=== PATIENT | female | born 1940 | race Caucasian/White ===

== ENCOUNTER → 2018-01-28 10:37 | Outpatient (CLI) | payer MEDICARE, SELFPAY ==
[2018-01-28 12:45] LABS: Appearance Urine UA CLOUDY; Bilirubin Urine UA NEGATIVE (NEGATIVE); Color Urine UA YELLOW; Glucose Urine UA NEGATIVE (Negative); Ketones Urine UA NEGATIVE (NEGATIVE); Leukocyte Esterase Urine UA 3+ (NEGATIVE); Nitrite Urine UA POSITIVE (Negative); Occult Blood Urine UA TRACE-LYSED (Negative); Protein Urine UA NEGATIVE (Negative); Specific Gravity Urine UA 1.015 (1.000-1.035); Urobilinogen Urine UA 0.2 E.U./dL (0.2); pH Urine UA 6.5 (4.5-8.0)
[2018-01-28 12:51] LABS: Bacteria Urine Many (>30); Culture Indicated Urine Specimen Cultured; RBC Urine 1-5/HPF (0-5/HPF); Squamous Epithelial Cell Urine 0-1 /HPF; WBC Urine 30-100/HPF (0-5/HPF)
== END ==
PROVIDERS: PCP Family Medicine; Visit Provider Internal Medicine
DX: R78.81 Bacteremia (principal)
CPT/HCPCS: 81003; 81015; 87086; 87186

== ENCOUNTER → 2018-03-14 08:02 | Outpatient (CLI) | payer MEDICARE, SELFPAY ==
[2018-03-14 10:46] LABS: Alanine Aminotransferase 25 IU/L (9-52); Albumin 4.3 g/dL (3.5-5.0); Albumin Globulin Ratio 1.4 (1.0-2.8); Alkaline Phosphatase 65 U/L (38-126); Aspartate Aminotransferase 35 IU/L (14-36); BUN Creatinine Ratio 22.9 (6-22); Bilirubin Total 0.6 mg/dL (0.2-1.3); Blood Urea Nitrogen 16 mg/dL (7-17); Calcium 9.3 mg/dL (8.4-10.2); Carbon Dioxide 29 mmol/L (22-32); Chloride 101 mmol/L (98-107); Estimated Glomerular Filt Rate > 60.0 mL/min (>60); Globulin 3.1 g/dL (1.7-4.1); Glucose 83 mg/dL (80-110); HEMOLYSIS 16 (0-50); Potassium 4.3 mmol/L (3.4-5.1); Sodium 138 mmol/L (137-145); Total Protein 7.4 g/dL (6.3-8.2)
[2018-03-14 12:18] LABS: Free T3, Triiodothyronine Free 2.83 pg/mL (2.77-5.27); Free T4, Direct Thyroxine 1.44 ng/dL (0.78-2.19)
[2018-03-14 12:31] LABS: Thyroid Stimulating Hormone 1.71 uIU/mL (0.47-4.68)
== END ==
PROVIDERS: PCP Family Medicine; Visit Provider Internal Medicine
DX: R79.89 Other specified abnormal findings of blood chemistry (principal); R63.4 Abnormal weight loss
CPT/HCPCS: 36415; 80053; 84439; 84443; 84481

== ENCOUNTER → 2018-03-31 12:11 | Outpatient (CLI) | payer MEDICARE, SELFPAY ==
[2018-03-31 15:45] LABS: Appearance Urine UA CLOUDY; Bilirubin Urine UA NEGATIVE (NEGATIVE); Color Urine UA YELLOW; Glucose Urine UA NEGATIVE (Normal); Ketones Urine UA NEGATIVE (NEGATIVE); Leukocyte Esterase Urine UA 3+ (NEGATIVE); Nitrite Urine UA POSITIVE (Negative); Occult Blood Urine UA 1+ (Negative); Protein Urine UA TRACE (Negative); Specific Gravity Urine UA 1.015 (1.000-1.035); Urobilinogen Urine UA 0.2 E.U./dL (0.2)
[2018-03-31 16:26] LABS: RBC Urine 1-5/HPF (0-5/HPF); Renal Epithelial Cells Urine 0-1/HPF; Squamous Epithelial Cell Urine 1-5 /HPF; WBC Urine 30-100/HPF (0-5/HPF)
[2018-03-31 16:27] LABS: Amorphous Sediment Urine 1+; Bacteria Urine Many (>30); Culture Indicated Urine Specimen Cultured; Mucus Urine 1+ (Negative)
== END ==
PROVIDERS: PCP Family Medicine; Visit Provider Family Medicine
DX: N39.0 Urinary tract infection, site not specified (principal)
CPT/HCPCS: 81001; 87077; 87086; 87186

== ENCOUNTER → 2018-04-15 07:58 | Outpatient (CLI) | payer MEDICARE, SELFPAY ==
--- NOTE | 2018-04-15 | DI.MG.S_ITS ---
BILATERAL DIGITAL SCREENING MAMMOGRAM 3D/2D WITH CAD: 04/15/2018 CLINICAL: Routine screening. Family history of breast cancer. Comparison is made to exams dated: 10/08/2016 mammogram, 04/23/2014 mammogram, and 08/08/2012 mammogram - [facility]. The tissue of both breasts is heterogeneously dense. This may lower the sensitivity of mammography. Current study was also evaluated with a Computer Aided Detection (CAD) system. There are post operative findings in the right breast. No significant masses, calcifications, or other findings are seen in either breast. There has been no significant interval change. IMPRESSION: NEGATIVE There is no mammographic evidence of malignancy. A 1 year screening mammogram is recommended. This exam was interpreted at Station ID: [id number]. NOTE: For mammograms, a report in lay terms will be sent to the patient. Approximately 15% of breast malignancies will not be visualized mammographically. In the management of a palpable breast mass, a negative mammogram must not discourage biopsy of a clinically suspicious lesion. Electronically Signed By: Carolina rivera/malcolm:04/15/2018 09:26:52 copy to: Wiley Johnson letter sent: Normal Exam ACR BI-RADS Category 1: Negative [id number]
== END ==
PROVIDERS: PCP Family Medicine; Visit Provider Family Medicine
DX: Z12.31 Encounter for screening mammogram for malignant neoplasm of breast (principal); Z80.3 Family history of malignant neoplasm of breast
CPT/HCPCS: 77063; 77067

== ENCOUNTER → 2018-05-05 15:21 | Outpatient (CLI) | payer MEDICARE, SELFPAY | PROVIDERS: PCP Family Medicine; Visit Provider Internal Medicine ==

== ENCOUNTER → 2018-05-11 15:35 | Outpatient (CLI) | payer MEDICARE, SELFPAY ==
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
== END ==
PROVIDERS: PCP Family Medicine; Visit Provider Internal Medicine
DX: S81.002A Unspecified open wound, left knee, initial encounter (principal)
CPT/HCPCS: 11042

== ENCOUNTER → 2018-05-18 10:26 | Outpatient (CLI) | payer MEDICARE, SELFPAY ==
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
== END ==
PROVIDERS: PCP Family Medicine; Visit Provider Internal Medicine
DX: S81.002A Unspecified open wound, left knee, initial encounter (principal)
CPT/HCPCS: 11042

== ENCOUNTER → 2018-05-25 10:27 | Outpatient (CLI) | payer MEDICARE, SELFPAY | PROVIDERS: PCP Family Medicine; Visit Provider Internal Medicine | DX: S81.002A Unspecified open wound, left knee, initial encounter (principal) | CPT/HCPCS: 11042 ==

== ENCOUNTER → 2018-06-02 10:30 | Outpatient (CLI) | payer MEDICARE, SELFPAY ==
[2018-06-02 11:25] LABS: Add Manual Diff / Slide Review NO; Basophils Percent Auto 0.7 % (0-2); Eosinophils Percent Auto 1.5 % (2-4); Hematocrit 43.1 % (36-46); Hemoglobin 14.3 g/dL (12.0-16.0); Lymphocytes Percent Auto 15.8 % (25-40); Mean Corpuscular HGB Conc 33.1 % (30-36); Mean Corpuscular Hemoglobin 32.3 PG (26-34); Mean Corpuscular Volume 97.6 fL (80-100); Neutrophils Absolute Auto 3300 /uL (3000-5900); Platelet Count 199 X10^3/uL (150-400); Red Blood Cell Count 4.42 X10^6/uL (4.0-5.2); Red Cell Distribution Width 13.6 % (11.6-14.8); White Blood Cell Count 4.6 X10^3/uL (4.5-11.0)
[2018-06-02 11:44] LABS: Blood Urea Nitrogen 20 mg/dL (7-17); Calcium 9.1 mg/dL (8.4-10.2); Carbon Dioxide 30 mmol/L (22-32); Chloride 101 mmol/L (98-107); Estimated Glomerular Filt Rate > 60.0 mL/min (>60); Glucose 65 mg/dL (80-110); HEMOLYSIS 45 (0-50); Magnesium 2.1 mg/dL (1.6-2.3); Potassium 4.5 mmol/L (3.4-5.1); Sodium 139 mmol/L (137-145)
== END ==
PROVIDERS: PCP Family Medicine; Visit Provider Family Medicine
DX: R25.2 Cramp and spasm (principal); E03.9 Hypothyroidism, unspecified
CPT/HCPCS: 36415; 80048; 83735; 84443; 85025

== ENCOUNTER → 2018-07-19 10:57 | Outpatient (CLI) | payer MEDICARE, SELFPAY ==
--- NOTE | 2018-07-19 11:00 | DI.RAD.S_ITS ---
PROCEDURE: XR HAND LT MIN 3V INDICATIONS: hand swelling TECHNIQUE: 3 views of the hand(s) acquired. COMPARISON: , MR, UPP.EXTREM.NO JOINT W&WO CONTR, 02/14/2016, 12:38. FINDINGS: Bones: Severe degenerative changes of the all of the joints of the hand are identified, most pronounced involving the metacarpal phalangeal and interphalangeal joints. Prominent joint space narrowing, developing marginal osteophytes, subchondral cystic change, subchondral sclerosis, and joint subluxations are identified. There may be areas of osseous erosion involving multiple joints. There also are severe degenerative changes present involving the basal joint of the thumb and at the radiocarpal joint. There is widening of the scapholunate joint. A moderate-sized lucency involving the head of the 2nd metacarpal is present measuring 1.9 x 1.0 cm. No displaced fractures or dislocations are evident. Soft tissues: No suspicious soft tissue calcifications. No radiopaque foreign bodies are evident. IMPRESSION: 1. No definite acute osseous abnormality of the left hand. 2. Severe degenerative changes of the hand are most pronounced involving the metacarpophalangeal and interphalangeal joints, compatible with the patient's history of rheumatoid arthritis. 3. Lucent lesion involving the head of the 2nd metacarpal may be exaggerated by osteopenia and likely represents degenerative cystic change. Enchondroma formation may also have this appearance. This appearance has not significantly changed since the MRI dated 02/14/16, suggesting a benign process. Dictated by: Mir Reid M.D. on 07/19/2018 at 10:32 Approved by: Mir Reid M.D. on 07/19/2018 at 10:38
== END ==
PROVIDERS: PCP Family Medicine; Visit Provider Physician Assistant
DX: M79.89 Other specified soft tissue disorders (principal); M19.042 Primary osteoarthritis, left hand; M06.842 Other specified rheumatoid arthritis, left hand
CPT/HCPCS: 73130

== ENCOUNTER → 2018-08-26 18:07 | Outpatient (REF) | payer MEDICARE, SELFPAY | LOC: LAB 18:07 | PROVIDERS: PCP Family Medicine; Visit Provider Physician Assistant | DX: Z48.817 Encounter for surgical aftercare following surgery on the skin and subcutaneous tissue (principal); Z48.02 Encounter for removal of sutures | CPT/HCPCS: 87070; 87075; 87205 ==

== ENCOUNTER → 2018-09-12 11:23 | Outpatient (CLI) | payer MEDICARE, SELFPAY ==
[2018-09-13 15:07] LABS: Immunoglobulin M, Quantitative 85 mg/dL (48-271)
== END ==
PROVIDERS: PCP Family Medicine; Visit Provider Internal Medicine Rheumatology
DX: M06.09 Rheumatoid arthritis without rheumatoid factor, multiple sites (principal)
CPT/HCPCS: 36415; 82784; 86480; 86704; 87340

== ENCOUNTER 2018-09-14 08:20 | Day surgery (SDC) | payer MEDICARE, SELFPAY ==
[2018-09-14] VITALS (7 sets, daily range): BP systolic 100–127; BP diastolic 58–72; PULSE 60–73; RESP 14–22; TEMP 36.4–37; O2SAT 94–100; BMI 16.8
--- NOTE | 2018-09-14 | PATH_ITS ---
[facility] Accession Number: [id number] . 01 Material submitted: . ASCENDING COLON POLYP . 02 Diagnosis: Ascending Colon, Polyp, Biopsy: Sessile serrated adenoma. [facility]/09/15/2018 . 02 Electronically signed: . Tanya Ramirez MD, Pathologist NPI- [id number] . 01 Gross description: . Received in one formalin-filled container labeled with the patient's name and labeled ascending colon polyp are four 0.1-0.3 cm portions of tissue, entirely submitted in one cassette. ([id number]) /FRR . 02 Pathologist provided ICD-10: D12.2 . 02 CPT . 709149 Performed at: 01 [facility] [address] [place] [address], [place], [place] [id number] MD Vaughn Thomas MD Phone: [phone] Performed at: 02 [facility] [address] [place], [place] [id number] MD Tanya Ramirez MD Phone: [phone]
[2018-09-14] MEDS: SODIUM CHLORIDE 0.9% 1,000 ML 75 ML IV (09:11)
--- NOTE | 2018-09-14 09:31 | PM.PREOP ---
Pre-operative Note Interval Note History & Physical reviewed/Exam performed by Physician: Yes Changes to H&P: No H&P completed within 30 days and has changed as indicated here:: change in bowel habits, new constipation ASA Class (for procedural sedation): II
--- NOTE | 2018-09-14 09:32 | PM.HP.1 ---
History of Present Illness Date Patient Seen: 09/14/18 Time Patient Seen: 09:10 Chief complaint: [id number] COLONOSCOPY W/POSS BX Narrative: Change in bowel habits with new constipation Patient History Medical History Hypothyroid (Chronic) Neurogenic bladder (Chronic) Lymphedema (Chronic) Anemia (Chronic) Genital herpes (Chronic) Hypothyroidism (Chronic) Neurogenic bladder (Chronic) Osteoarthritis (Chronic) Septic arthritis of hip (Chronic) Vitamin B12 deficiency (Chronic) Breast cancer (Resolved) Cervical cancer (Resolved) Surgical History History of arthroplasty (Resolved ~2013) Status post hardware removal (Resolved ~2009) Surgical procedure planned (Resolved ~2006) History of hip replacement History of spinal fusion (~2013) History of third molar tooth extraction Status post breast lumpectomy Status post hysterectomy with oophorectomy Status post laminectomy Status post tonsillectomy and adenoidectomy Family & Social History Social History: household members none Tobacco & Substance use: Smoking Status Never smoker Meds Home Medications Medication Instructions Recorded Confirmed Type Fish Oil 1,000 mg PO Q DAY #0 02/02/13 07/19/18 History VITAMIN D (Vitamin D3) 1,000 unit PO QDAY #0 02/02/13 07/19/18 History celecoxib [Celebrex] 200 mg PO QDAY #200 cap 08/27/16 07/19/18 Rx biotin 500 mcg PO Q DAY #0 10/06/16 07/19/18 History [CMP ESTRIOL 0.2%] 0 Q DAY #0 12/03/16 07/19/18 History ketorolac [Acular] 1 drp OPHTH QIDP PRN #10 ml 06/18/17 07/19/18 Rx nystatin-triamcinolone 1 rajinder TOPICAL BID #30 gm 02/10/18 07/19/18 Rx acyclovir 400 mg tablet 400 mg PO SEE INSTRUCTIONS #100 tab 02/23/18 09/14/18 Rx levothyroxine 50 mcg tablet 50 mcg PO DAILY #90 tab 03/31/18 09/14/18 Rx syringe with needle 1 mL 25 gauge #12 each 07/21/18 Rx x 1 cyanocobalamin (vit B-12) 1,000 1,000 mcg IM QMONTH #12 each 08/01/18 Rx mcg/mL injection solution lorazepam 0 mg PO BIDP PRN 09/14/18 09/14/18 History Allergies Allergy/AdvReac Type Severity Reaction Status Date / Time No Known Allergies Allergy Uncoded 04/21/18 14:58 Review of Systems Review of Systems All systems reviewed & are unremarkable except as noted in HPI and below Exam Vital Signs (past 8 hours): - 09/14/18 08:46 Temperature 98.4 F Pulse Rate 73 Respiratory Rate 16 Blood Pressure 127/72 Pulse Oximetry 94 Oxygen Delivery Method Room Air Narrative Exam Narrative: General awake alert oriented x3, no acute distress HEENT oropharynx clear, moist mucous membranes, no scleral icterus Cardiovascular regular rate and rhythm, no murmurs Pulmonary clear to auscultation bilaterally Abdomen soft, nontender, nondistended, normal active bowel sounds Extremities 2+ pulses, no edema Neurologic, cranial nerves grossly intact, no gross deficits Objective ECG Impression: Change in bowel habits Assessment & Plan Plan: Assessment/Plan Narrative: Colonoscopy
[2018-09-14] MEDS: fentaNYL 250 MCG/5 ML INJ IV (10:06)
[2018-09-14] MEDS: MIDAZOLAM 5 MG/5 ML VIAL IV (10:07)
--- NOTE | 2018-09-14 10:15 | PM.OP.ENDO ---
Operative Date/Time/Diagnoses Date of procedure: 09/14/18 Time of procedure: 09:43 Procedure & Clinicians Study performed: Colonoscopy Same procedure as scheduled: Yes Indications: Change in bowel habits, constipation. Last colonoscopy 5 years ago. Surgeon: Caleb Ramos Procedure Notes Procedure in detail: Prior to the procedure a history and physical was performed and patient medications and allergies reviewed. Preprocedure nursing assessment was reviewed. Patient identification and proposed procedure were verified by the physician and nurse in the procedure room. The physical status of the patient was reassessed after the procedure. After informed consent was obtained including risks benefits and alternatives, the scope was passed under direct vision. Throughout the procedure, the patient's blood pressure, pulse, and oxygen saturation were monitored continuously. The pediatric colonoscope was introduced through the anus and advanced to the cecum as identified by the appendiceal orifice and ileocecal valve. The patient tolerated the procedure well. The prep was deemed adequate detection of polyps greater than 5 mm. Perianal examination and digital rectal examination was normal except for weak sphincter tone. Retroflexion performed in the rectum revealed grade 2 internal hemorrhoids. The entire colon was moderately tortuous. A 5 mm sessile polyp was noted in the ascending colon. This was removed in piecemeal with a Jumbo biopsy forceps and retrieved. Sedation minutes: 24 Complications: other (No complications. Estimated blood loss minimal) Plan for aftercare: Follow-up pathology results Repeat colonoscopy in 5 years for screening purposes based on pathology results Resume previous diet Resume home medications Return to GI clinic as previously scheduled Discharge home with escort
--- NOTE | 2018-09-14 10:17 | SUR.PHASEI ---
Arrived, arousable, vss.
--- NOTE | 2018-09-14 10:33 | SUR.PHASEI ---
Slow to wake otherwise uneventful PACU stay.
== END 2018-09-14 10:55 | disposition home or self-care (01) ==
PROVIDERS: PCP Family Medicine; Visit Provider Internal Medicine
PROC: 0DJD8ZZ Inspection of Lower Intestinal Tract, Via Natural or Artificial Opening Endoscopic (ICD-10-PCS; CPT 45378; principal; 2018-09-14 09:30)
DX: R19.4 Change in bowel habit (principal); K64.1 Second degree hemorrhoids; D12.2 Benign neoplasm of ascending colon; E03.9 Hypothyroidism, unspecified; D64.9 Anemia, unspecified; E53.8 Deficiency of other specified B group vitamins; N31.9 Neuromuscular dysfunction of bladder, unspecified
CPT/HCPCS: 45380; 88305; J2250; J3010

== ENCOUNTER → 2018-09-27 13:56 | Outpatient (REF) | payer MEDICARE, SELFPAY | LOC: LAB 13:56 | PROVIDERS: PCP Family Medicine; Visit Provider Dermatology | DX: Z48.817 Encounter for surgical aftercare following surgery on the skin and subcutaneous tissue (principal); L82.1 Other seborrheic keratosis; L81.4 Other melanin hyperpigmentation | CPT/HCPCS: 87070; 87075; 87205 ==

== ENCOUNTER → 2018-09-27 17:04 | Outpatient (CLI) | payer MEDICARE, SELFPAY ==
[2018-09-29 14:27] LABS: Immunoglobulin A 128 mg/dL (81-463); Immunoglobulin G, Quantitative 924 mg/dL (694-1618)
[2018-09-30 07:34] LABS: Immunoglobulin E 48 kU/L (< 115)
== END ==
PROVIDERS: PCP Family Medicine; Visit Provider Internal Medicine Rheumatology
DX: M06.09 Rheumatoid arthritis without rheumatoid factor, multiple sites (principal)
CPT/HCPCS: 36415; 82784; 82785; 87070; 87075; 87205

== ENCOUNTER → 2018-10-21 12:39 | Outpatient (CLI) | payer MEDICARE, SELFPAY ==
[2018-10-21 13:34] LABS: Alanine Aminotransferase 22 IU/L (9-52); Albumin Globulin Ratio 1.4 (1.0-2.8); Alkaline Phosphatase 58 U/L (38-126); Aspartate Aminotransferase 32 IU/L (14-36); BUN Creatinine Ratio 27.1 (6-22); Bilirubin Total 0.3 mg/dL (0.2-1.3); Blood Urea Nitrogen 19 mg/dL (7-17); Calcium 9.1 mg/dL (8.4-10.2); Carbon Dioxide 30 mmol/L (22-32); Chloride 96 mmol/L (98-107); Estimated Glomerular Filt Rate > 60.0 mL/min (>60); Globulin 2.8 g/dL (1.7-4.1); Glucose 117 mg/dL (80-110); HEMOLYSIS < 15 (0-50); Potassium 4.5 mmol/L (3.4-5.1); Sodium 134 mmol/L (137-145); Total Protein 6.8 g/dL (6.3-8.2)
[2018-10-21 13:58] LABS: Add Manual Diff / Slide Review NO; Basophils Absolute Auto 0 /uL (0-100); Basophils Percent Auto 0.8 % (0-2); Eosinophils Absolute Auto 0 /uL (0-450); Eosinophils Percent Auto 0.7 % (2-4); Hematocrit 40.9 % (36-46); Hemoglobin 13.4 g/dL (12.0-16.0); Lymphocytes Absolute Auto 900 /uL (1100-4500); Lymphocytes Percent Auto 20.9 % (25-40); Mean Corpuscular HGB Conc 32.8 % (30-36); Mean Corpuscular Hemoglobin 31.1 PG (26-34); Mean Corpuscular Volume 94.7 fL (80-100); Monocytes Absolute Auto 500 /uL (0-900); Monocytes Percent Auto 11.3 % (3-14); Neutrophils Absolute Auto 3000 /uL (1500-7000); Neutrophils Percent Auto 66.3 % (50-75); Platelet Count 190 X10^3/uL (150-400); Red Blood Cell Count 4.32 X10^6/uL (4.0-5.2); White Blood Cell Count 4.5 X10^3/uL (4.5-11.0)
[2018-10-21 14:05] LABS: TSH w/ Reflex to FT4 3.27 uIU/mL (0.47-4.68)
== END ==
PROVIDERS: PCP Family Medicine; Visit Provider Family Medicine
DX: E03.9 Hypothyroidism, unspecified (principal); I49.9 Cardiac arrhythmia, unspecified
CPT/HCPCS: 36415; 80053; 84443; 85025

== ENCOUNTER → 2018-10-31 10:30 | Outpatient (CLI) | payer MEDICARE, SELFPAY | PROVIDERS: PCP Family Medicine; Visit Provider Podiatrist Primary Podiatric Medicine | DX: S81.802A Unspecified open wound, left lower leg, initial encounter (principal); G90.9 Disorder of the autonomic nervous system, unspecified; L97.511 Non-pressure chronic ulcer of other part of right foot limited to breakdown of skin | CPT/HCPCS: 11042; 97597 ==

== ENCOUNTER → 2018-11-07 09:33 | Outpatient (CLI) | payer MEDICARE, SELFPAY ==
--- NOTE | 2018-11-25 15:54 | PM.CARDMON.1 ---
Pulp Beater Report Referral & Results Date Patient Seen: 11/07/18 Requesting provider: Arleen Ybarra Indication: Arrhythmia Duration of monitoring (days): 6 Diary information: 1 patient diary entry associated with sinus rhythm and PACs 9 patient triggered events associated with sinus rhythm and PACs Data: Minimum heart rate was 40 beats per minute at 05:20 on 11/10/2018 Maximum sinus heart rate was 137 beats per minute at 09:40 on 11/11/2018 Maximum overall heart rate was 193 beats per minute at 18:48 on 11/07/2018 associated with a 6 beat run of SVT Patient had 21 runs of SVT the longest lasted 11.2 seconds with a rate of 121 beats per minute, so a somewhat atypical SVT or perhaps atrial tachycardia. 3.1% of identified beats were supraventricular ectopic in origin Less than 1% of identified beats were ventricular ectopic in origin Impression: This isotope technician shows occasional PACs and rare very brief runs of a supraventricular tachycardic source If there is any correlation between patient's symptoms and identify dysrhythmias patient may be experiencing her PACs occasionally. Clinical correlation suggested
--- NOTE | 2018-11-25 16:05 | P.HOLT.S_ITS ---
Manager Fashion Report Referral & Results Date Patient Seen: 11/07/18 Requesting provider: Arleen Ybarra Indication: Arrhythmia Duration of monitoring (days): 6 Diary information: 1 patient diary entry associated with sinus rhythm and PACs 9 patient triggered events associated with sinus rhythm and PACs Data: Minimum heart rate was 40 beats per minute at 05:20 on 11/10/2018 Maximum sinus heart rate was 137 beats per minute at 09:40 on 11/11/2018 Maximum overall heart rate was 193 beats per minute at 18:48 on 11/07/2018 associated with a 6 beat run of SVT Patient had 21 runs of SVT the longest lasted 11.2 seconds with a rate of 121 beats per minute, so a somewhat atypical SVT or perhaps atrial tachycardia. 3.1% of identified beats were supraventricular ectopic in origin Less than 1% of identified beats were ventricular ectopic in origin Impression: This compliance monitor shows occasional PACs and rare very brief runs of a supraventricular tachycardic source If there is any correlation between patient's symptoms and identify dysrhythmias patient may be experiencing her PACs occasionally. Clinical correlation suggested
== END ==
PROVIDERS: PCP Family Medicine; Visit Provider Family Medicine
DX: I49.9 Cardiac arrhythmia, unspecified (principal)
CPT/HCPCS: 0296T; 0298T; 11042; 99213

== ENCOUNTER → 2018-11-07 10:48 | Outpatient (CLI) | payer MEDICARE, SELFPAY | PROVIDERS: PCP Family Medicine; Visit Provider Podiatrist Primary Podiatric Medicine | DX: G90.9 Disorder of the autonomic nervous system, unspecified (principal); L97.511 Non-pressure chronic ulcer of other part of right foot limited to breakdown of skin; T81.31XA Disruption of external operation (surgical) wound, not elsewhere classified, initial encounter; S81.802A Unspecified open wound, left lower leg, initial encounter | CPT/HCPCS: 11042; 99213 ==

== ENCOUNTER → 2018-11-14 09:00 | Outpatient (CLI) | payer MEDICARE, SELFPAY | PROVIDERS: PCP Family Medicine; Visit Provider Podiatrist Primary Podiatric Medicine | DX: S81.802D Unspecified open wound, left lower leg, subsequent encounter (principal); Z48.817 Encounter for surgical aftercare following surgery on the skin and subcutaneous tissue; L84 Corns and callosities | CPT/HCPCS: 99212; 99213 ==

== ENCOUNTER → 2018-11-28 11:07 | Outpatient (CLI) | payer MEDICARE, SELFPAY | PROVIDERS: PCP Family Medicine; Visit Provider Family Medicine | DX: L89.892 Pressure ulcer of other site, stage 2 (principal); S81.802A Unspecified open wound, left lower leg, initial encounter | CPT/HCPCS: 11042; 99213 ==

== ENCOUNTER → 2018-12-05 09:01 | Outpatient (CLI) | payer MEDICARE, SELFPAY | PROVIDERS: PCP Family Medicine; Visit Provider Podiatrist Primary Podiatric Medicine | DX: L97.822 Non-pressure chronic ulcer of other part of left lower leg with fat layer exposed (principal); L89.893 Pressure ulcer of other site, stage 3 | CPT/HCPCS: 97597 ==

== ENCOUNTER → 2018-12-12 15:02 | Outpatient (CLI) | payer MEDICARE, SELFPAY | PROVIDERS: PCP Family Medicine; Visit Provider Family Medicine | DX: L89.893 Pressure ulcer of other site, stage 3 (principal); S81.802A Unspecified open wound, left lower leg, initial encounter; T81.31XA Disruption of external operation (surgical) wound, not elsewhere classified, initial encounter | CPT/HCPCS: 97597; 99213 ==

== ENCOUNTER → 2018-12-19 09:18 | Outpatient (CLI) | payer MEDICARE, SELFPAY | PROVIDERS: PCP Family Medicine; Visit Provider Podiatrist Primary Podiatric Medicine | DX: L97.822 Non-pressure chronic ulcer of other part of left lower leg with fat layer exposed (principal) | CPT/HCPCS: 97597; 99214 ==

== ENCOUNTER → 2018-12-20 10:42 | Outpatient (CLI) | payer MEDICARE, SELFPAY ==
[2018-12-20 11:45] LABS: Appearance Urine UA SL CLOUDY; Bilirubin Urine UA NEGATIVE (NEGATIVE); Color Urine UA YELLOW; Glucose Urine UA NEGATIVE (Negative); Ketones Urine UA NEGATIVE (NEGATIVE); Leukocyte Esterase Urine UA 3+ (NEGATIVE); Nitrite Urine UA NEGATIVE (Negative); Occult Blood Urine UA NEGATIVE (Negative); Protein Urine UA NEGATIVE (Negative); Urobilinogen Urine UA 0.2 E.U./dL (0.2)
[2018-12-20 12:03] LABS: Bacteria Urine Many (>30); Culture Indicated Urine Cult Not Indicated; RBC Urine 1-5/HPF (0-5/HPF); Squamous Epithelial Cell Urine 10-30 /HPF (0-5/HPF); WBC Urine 10-30/HPF (0-5/HPF)
== END ==
PROVIDERS: PCP Family Medicine
DX: R30.0 Dysuria (principal)
CPT/HCPCS: 81001

== ENCOUNTER → 2018-12-26 09:17 | Outpatient (CLI) | payer MEDICARE, SELFPAY | PROVIDERS: PCP Family Medicine; Visit Provider Podiatrist Primary Podiatric Medicine | DX: S81.802A Unspecified open wound, left lower leg, initial encounter (principal); T81.31XA Disruption of external operation (surgical) wound, not elsewhere classified, initial encounter | CPT/HCPCS: 97597; 99213 ==

== ENCOUNTER → 2019-01-02 09:20 | Outpatient (CLI) | payer MEDICARE, SELFPAY | PROVIDERS: PCP Family Medicine; Visit Provider Podiatrist Primary Podiatric Medicine | DX: S81.802A Unspecified open wound, left lower leg, initial encounter (principal); T81.31XA Disruption of external operation (surgical) wound, not elsewhere classified, initial encounter; L84 Corns and callosities | CPT/HCPCS: 11057; 97597; 99214 ==

== ENCOUNTER → 2019-01-05 15:40 | Outpatient (CLI) | payer MEDICARE, SELFPAY ==
[2019-01-05 16:25] LABS: Estimated Glomerular Filt Rate > 60.0 mL/min (>60)
== END ==
PROVIDERS: PCP Family Medicine; Visit Provider Internal Medicine Gastroenterology
DX: R10.9 Unspecified abdominal pain (principal)
CPT/HCPCS: 36415; 82565

== ENCOUNTER → 2019-01-09 09:44 | Outpatient (CLI) | payer MEDICARE, SELFPAY | PROVIDERS: PCP Family Medicine; Visit Provider Podiatrist Primary Podiatric Medicine | DX: T81.31XA Disruption of external operation (surgical) wound, not elsewhere classified, initial encounter (principal); S81.802A Unspecified open wound, left lower leg, initial encounter | CPT/HCPCS: 87070; 87077; 87147; 87186; 87205; 97597; 99213 ==

== ENCOUNTER → 2019-01-12 16:19 | Outpatient (CLI) | payer MEDICARE, SELFPAY | PROVIDERS: PCP Family Medicine; Visit Provider Urology | DX: R30.0 Dysuria (principal) | CPT/HCPCS: 87077; 87086; 87186 ==

== ENCOUNTER → 2019-01-16 09:59 | Outpatient (CLI) | payer MEDICARE, SELFPAY | PROVIDERS: PCP Family Medicine; Visit Provider Podiatrist Primary Podiatric Medicine | DX: T81.31XA Disruption of external operation (surgical) wound, not elsewhere classified, initial encounter (principal); S81.802A Unspecified open wound, left lower leg, initial encounter | CPT/HCPCS: 15271; Q4196 ==

== ENCOUNTER → 2019-01-23 11:16 | Outpatient (CLI) | payer MEDICARE, SELFPAY | PROVIDERS: PCP Family Medicine; Visit Provider Podiatrist Primary Podiatric Medicine | DX: L89.892 Pressure ulcer of other site, stage 2 (principal); L97.822 Non-pressure chronic ulcer of other part of left lower leg with fat layer exposed | CPT/HCPCS: 15271; 99213; Q4196 ==

== ENCOUNTER → 2019-02-02 15:02 | Outpatient (CLI) | payer MEDICARE, SELFPAY | PROVIDERS: PCP Family Medicine; Visit Provider Family Medicine | DX: T81.31XD Disruption of external operation (surgical) wound, not elsewhere classified, subsequent encounter (principal); S81.802D Unspecified open wound, left lower leg, subsequent encounter | CPT/HCPCS: 99213 ==

== ENCOUNTER → 2019-02-20 10:14 | Outpatient (CLI) | payer MEDICARE, SELFPAY ==
[2019-02-24 21:37] LABS: Calprotectin, Stool < 15.6 mcg/g
== END ==
PROVIDERS: PCP Family Medicine; Visit Provider Internal Medicine Gastroenterology
DX: R19.7 Diarrhea, unspecified (principal)
CPT/HCPCS: 83993

== ENCOUNTER 2019-03-03 10:30 | Outpatient (RCR) | payer MEDICARE, SELFPAY ==
--- NOTE | 2018-12-02 11:56 | PT.OIE ---
Current Diagnoses Neuromuscular dysfunction of bladder, unspecified (12/02/18) Stress incontinence (female) (male) (12/02/18) Past Medical History (Last Updated 10/10/18 @ 21:53 by Arleen Ybarra DO) Underweight (Chronic) Hypothyroid (Chronic) Neurogenic bladder (Chronic) Lymphedema (Chronic) Anemia (Chronic) Genital herpes (Chronic) Hypothyroidism (Chronic) Osteoarthritis (Chronic) Vitamin B12 deficiency (Chronic) Breast cancer (Resolved) Cervical cancer (Resolved) Scoliosis of thoracolumbar spine (Resolved ~2006) Septic arthritis of hip (Resolved) Past Surgical History (Last Updated 10/10/18 @ 21:43 by Arleen Ybarra DO) Status post laminectomy (Resolved) History of arthroplasty (Resolved ~2013) Status post hardware removal (Resolved ~2009) Surgical procedure planned (Resolved ~2006) History of hip replacement History of spinal fusion (~2013) History of third molar tooth extraction Status post breast lumpectomy Status post hysterectomy with oophorectomy Status post tonsillectomy and adenoidectomy Provider Visit Care Team Role Provider Type Arleen Ybarra DO Attending Provider Physician Primary Care Provider Specialty: Family Practice Address: [address] [place] [address] Email: [email or web address] Physical Therapy Initial Evaluation PT-OP-A Visit Information Start: 12/02/18 07:30 Freq: Status: Active Protocol: Document 12/02/18 08:15 AMB (Rec: 12/02/18 09:43 AMB [id number]) Out-Patient Physical Therapy Visit Information Visit Information Visit Type Initial Evaluation Visit Start Time 08:15 Visit Stop Time 09:00 Total Visit Minutes 45 Visit Number 1 PT-OP-B Current Condition Start: 12/02/18 07:30 Freq: Status: Active Protocol: Document 12/02/18 08:15 AMB (Rec: 12/02/18 09:43 AMB [id number]) Current Condition History of Current Condition Onset Date 2003 Current Complaints Leaking urine, chronic diarrhea History of Current Condition Pt reports she had cervical cancer and had a hysterectomy where the surgeon accidentally cut the nerve to the bladder. She has since been diagnosed with neurogenic bladder and gets botox shots 2x/year that help with her bladder spasms. She does self cath to help with the difficulty with voiding the urine, but now also always has positive bacteria test in her urine, which they treat when she is symptomatic. She has a difficult time feeling when she is urinating (stating that when she is leaking she can feel it run down her leg, but that is the first time she knows she is leaking). Overall hoping to decrease the leaking and fecal leaking which happens when she has loose stools. She thinks she leaks about 3x/day, mostly with standing and walking activities, although she does have a pad on her bed for nighttime leaks, and reports she gets up once a night to void. Prior Treatments and Tests Prior PT in 2004, which helped . Current Functional Impairments (Reported) Functional Limitations- Other Self caths 2x/day. Personal Factors Other Personal Factors That May Effect Hx lumbar fusion, hx multiple Therapy/Recovery UTIs, surgery for cervical cancer with lymphedema and neuropathy as a result,. PT-OP-C Subjective Start: 12/02/18 07:30 Freq: Status: Active Protocol: Document 12/02/18 08:15 AMB (Rec: 12/05/18 07:44 AMB [id number]) Patient Questionnaires Pelvic Pain and Urgency/Frequency Patient Symptom Scale Pelvic Pain Score 17 PT-OP-I Pelvic Floor Start: 12/02/18 07:30 Freq: Status: Active Protocol: Document 12/02/18 08:15 AMB (Rec: 12/02/18 15:53 AMB [email or web address]) Pelvic Floor Assessment Urine Pelvic Floor Surgery Yes Urinary Symptoms Incomplete Emptying Leakage Size Medium Leakage Cause Cough Exercise Lifting Sneeze Leaks Per Day 3 Voiding Frequency 2 hours Nocturia 2 Urine Pad Type Maxi Pad Bowel Bowel Symptoms Constipation Fecal Leakage Pelvic Clock Pelvic Clock 12-3 Atrophy Pelvic Clock 3-6 Atrophy Pelvic Clock 6-9 Atrophy Pelvic Clock 9-12 Atrophy Prolapse Cystocele Grade 2 Contraction Ability Voluntary Contraction Weak Manual Muscle Testing Left 1 Manual Muscle Testing Right 1 Manual Muscle Testing Anterior 1 Manual Muscle Testing Posterior 2 PT-OP-T Assessment and Plan Start: 12/02/18 07:30 Freq: Status: Active Protocol: Document 12/02/18 08:15 AMB (Rec: 12/05/18 08:07 AMB [id number]) Physical Therapy Assessment Rehab Potential Rehabilitation Potential Good Evaluation Complexity Number of Personal Factors/Comorbidities 3 or More Number of Body Systems Impaired 4 or More Clinical Presentation at Evaluation Evolving Impairments Impairments Functional Activities Sensation Strength Tone Goals Two Impairment pelvic floor strength Short Term Goal (STG) Dulce Maria will improve her pelvic floor strength to 3/5. STG Duration 4 weeks Burn Crew Member Goal (LTG) Dulce Maria will perform a pelvic floor contraction in standng to avoid leaking. LTG Duration 8 weeks One Impairment continence Short Term Goal (STG) Dulce Maria lucero decrease her number of leaks to 1 leak/day or less. STG Duration 4 weeks Burn Crew Member Goal (LTG) Dulce Maria will go through a day without urinary leakage. LTG Duration 8 weeks Assessment Summary Assessment Dulce Maria attends physical therapy with a complex pelvic floor history. I do not have access to her original surgical notes, the history is per her report. That said she has a history of incomplete emptying and bladder spasm that is helped with self catheterization and botox shots. In her assessment in PT, her pelvic floor was not hypertonic, but was weak. Given her stress incontinence symptoms and pelvic floor weakness, she will benefit from pelvic floor strengthening with internal e -stim and sEMG given her history of difficulty with sensation. Physical Therapy Plan Frequency and Duration Frequency of Treatment 1x/Week Duration of Treatment 8 weeks Plan of Care Start Date 12/02/18 Plan of Care End Date 01/27/19 Therapeutic Interventions Therapeutic Interventions Home Exercise Program Manual Therapy Neuromuscular Re-education Self-Care/Home Management Therapeutic Activities Therapeutic Exercises Modalities Biofeedback Electric Stimulation Next Visit Focus/Plan Next Note Type Treatment Note Next Visit Plan sEMG and e-stim to help with sensation of pelvic floor contraction
--- NOTE | 2018-12-02 11:57 | PT.OPPOC ---
Current Diagnoses Neuromuscular dysfunction of bladder, unspecified (12/02/18) Stress incontinence (female) (male) (12/02/18) Provider Visit Care Team Role Provider Type Arleen Ybarra DO Attending Provider Physician Primary Care Provider Specialty: Family Practice Address: [address] [place] [address], [id number] Email: [email or web address] Plan Of Care PT-OP-T Assessment and Plan Start: 12/02/18 07:30 Freq: Status: Active Protocol: Document 12/02/18 08:15 AMB (Rec: 12/05/18 08:07 AMB [id number]) Physical Therapy Assessment Rehab Potential Rehabilitation Potential Good Evaluation Complexity Number of Personal Factors/Comorbidities 3 or More Number of Body Systems Impaired 4 or More Clinical Presentation at Evaluation Evolving Impairments Impairments Functional Activities Sensation Strength Tone Goals Two Impairment pelvic floor strength Short Term Goal (STG) Dulce Maria will improve her pelvic floor strength to 3/5. STG Duration 4 weeks Correction Goal (LTG) Dulce Maria will perform a pelvic floor contraction in standng to avoid leaking. LTG Duration 8 weeks One Impairment continence Short Term Goal (STG) Dulce Maria lucero decrease her number of leaks to 1 leak/day or less. STG Duration 4 weeks Air Brake Adjuster Goal (LTG) Dulce Maria will go through a day without urinary leakage. LTG Duration 8 weeks Assessment Summary Assessment Dulce Maria attends physical therapy with a complex pelvic floor history. I do not have access to her original surgical notes, the history is per her report. That said she has a history of incomplete emptying and bladder spasm that is helped with self catheterization and botox shots. In her assessment in PT, her pelvic floor was not hypertonic, but was weak. Given her stress incontinence symptoms and pelvic floor weakness, she will benefit from pelvic floor strengthening with internal e -stim and sEMG given her history of difficulty with sensation. Physical Therapy Plan Frequency and Duration Frequency of Treatment 1x/Week Duration of Treatment 8 weeks Plan of Care Start Date 12/02/18 Plan of Care End Date 01/27/19 Therapeutic Interventions Therapeutic Interventions Home Exercise Program Manual Therapy Neuromuscular Re-education Self-Care/Home Management Therapeutic Activities Therapeutic Exercises Modalities Biofeedback Electric Stimulation Next Visit Focus/Plan Next Note Type Treatment Note Next Visit Plan sEMG and e-stim to help with sensation of pelvic floor contraction Plan of Care Dates Plan of Care Start Date 12/02/18 Plan of Care End Date 01/27/19 Please Sign and Return: I have reviewed this Plan of Care and certify that the skilled therapy services above are required to meet the patient?s needs. Physician Signature Date Printed Name and Credentials Clinical Instructor Signature Printed Name and Credentials
--- NOTE | 2018-12-14 15:49 | PT.OTN ---
Current Diagnoses Neuromuscular dysfunction of bladder, unspecified (12/14/18) Physical Therapy Treatment Note PT-OP-A Visit Information Start: 12/02/18 07:30 Freq: Status: Active Protocol: Document 12/14/18 09:00 AMB (Rec: 12/14/18 15:46 AMB [email or web address]) Out-Patient Physical Therapy Visit Information Visit Information Visit Type Treatment Note Visit Start Time 09:00 Visit Stop Time 09:45 Total Visit Minutes 45 Visit Number 2 PT-OP-B Current Condition Start: 12/02/18 07:30 Freq: Status: Active Protocol: Document 12/02/18 08:15 AMB (Rec: 12/02/18 09:43 AMB [id number]) Current Condition History of Current Condition Onset Date 2003 Current Complaints Leaking urine, chronic diarrhea History of Current Condition Pt reports she had cervical cancer and had a hysterectomy where the surgeon accidentally cut the nerve to the bladder. She has since been diagnosed with neurogenic bladder and gets botox shots 2x/year that help with her bladder spasms. She does self cath to help with the difficulty with voiding the urine, but now also always has positive bacteria test in her urine, which they treat when she is symptomatic. She has a difficult time feeling when she is urinating (stating that when she is leaking she can feel it run down her leg, but that is the first time she knows she is leaking). Overall hoping to decrease the leaking and fecal leaking which happens when she has loose stools. She thinks she leaks about 3x/day, mostly with standing and walking activities, although she does have a pad on her bed for nighttime leaks, and reports she gets up once a night to void. Prior Treatments and Tests Prior PT in 2004, which helped . Current Functional Impairments (Reported) Functional Limitations- Other Self caths 2x/day. Personal Factors Other Personal Factors That May Effect Hx lumbar fusion, hx multiple Therapy/Recovery UTIs, surgery for cervical cancer with lymphedema and neuropathy as a result,. PT-OP-C Subjective Start: 12/02/18 07:30 Freq: Status: Active Protocol: Document 12/14/18 09:00 AMB (Rec: 12/14/18 15:46 AMB [email or web address]) OP-PT Subjective Patient Comments Patient Comments Pt states she was a little sore from the sensor after eval, but is willing to try it again. She notes one large loss of urine in the past week . PT-OP-I Pelvic Floor Start: 12/02/18 07:30 Freq: Status: Active Protocol: Document 12/02/18 08:15 AMB (Rec: 12/02/18 15:53 AMB [email or web address]) Pelvic Floor Assessment Urine Pelvic Floor Surgery Yes Urinary Symptoms Incomplete Emptying Leakage Size Medium Leakage Cause Cough Exercise Lifting Sneeze Leaks Per Day 3 Voiding Frequency 2 hours Nocturia 2 Urine Pad Type Maxi Pad Bowel Bowel Symptoms Constipation Fecal Leakage Pelvic Clock Pelvic Clock 12-3 Atrophy Pelvic Clock 3-6 Atrophy Pelvic Clock 6-9 Atrophy Pelvic Clock 9-12 Atrophy Prolapse Cystocele Grade 2 Contraction Ability Voluntary Contraction Weak Manual Muscle Testing Left 1 Manual Muscle Testing Right 1 Manual Muscle Testing Anterior 1 Manual Muscle Testing Posterior 2 PT-OP-Q Treatments Start: 12/02/18 07:30 Freq: Status: Active Protocol: Document 12/14/18 09:00 AMB (Rec: 12/14/18 15:49 AMB [email or web address]) Neuro Re-Education Treatment Other Activities 2 Details sEMG Reps/Duration 5 sec hold with iso hip adduction 1 Details sEMG Reps/Duration quick flicks, 5 sec, 10 second holds Comments with focus on isolation PT-OP-T Assessment and Plan Start: 12/02/18 07:30 Freq: Status: Active Protocol: Document 12/14/18 09:00 AMB (Rec: 12/14/18 15:46 AMB [email or web address]) Physical Therapy Assessment Assessment Summary Assessment Pt did well with biofeedback. Poor endurance, but able to isolate better. Baseline 0.5, max when not compensating with adductors 4 on sEMG. Physical Therapy Plan Next Visit Focus/Plan Next Note Type Treatment Note Next Visit Plan sEMG and e-stim to help with sensation of pelvic floor contraction
--- NOTE | 2018-12-30 10:58 | PT.OTN ---
Current Diagnoses Neuromuscular dysfunction of bladder, unspecified (12/30/18) Physical Therapy Treatment Note PT-OP-A Visit Information Start: 12/02/18 07:30 Freq: Status: Active Protocol: Document 12/30/18 09:45 BS (Rec: 12/30/18 10:44 BS [email or web address]) Out-Patient Physical Therapy Visit Information Visit Information Visit Start Time 09:07 Visit Stop Time 09:45 Total Visit Minutes 38 Visit Number 3 PT-OP-B Current Condition Start: 12/02/18 07:30 Freq: Status: Active Protocol: Document 12/02/18 08:15 AMB (Rec: 12/02/18 09:43 AMB [id number]) Current Condition History of Current Condition Onset Date 2003 Current Complaints Leaking urine, chronic diarrhea History of Current Condition Pt reports she had cervical cancer and had a hysterectomy where the surgeon accidentally cut the nerve to the bladder. She has since been diagnosed with neurogenic bladder and gets botox shots 2x/year that help with her bladder spasms. She does self cath to help with the difficulty with voiding the urine, but now also always has positive bacteria test in her urine, which they treat when she is symptomatic. She has a difficult time feeling when she is urinating (stating that when she is leaking she can feel it run down her leg, but that is the first time she knows she is leaking). Overall hoping to decrease the leaking and fecal leaking which happens when she has loose stools. She thinks she leaks about 3x/day, mostly with standing and walking activities, although she does have a pad on her bed for nighttime leaks, and reports she gets up once a night to void. Prior Treatments and Tests Prior PT in 2004, which helped . Current Functional Impairments (Reported) Functional Limitations- Other Self caths 2x/day. Personal Factors Other Personal Factors That May Effect Hx lumbar fusion, hx multiple Therapy/Recovery UTIs, surgery for cervical cancer with lymphedema and neuropathy as a result,. PT-OP-C Subjective Start: 12/02/18 07:30 Freq: Status: Active Protocol: Document 12/30/18 09:45 BS (Rec: 12/30/18 09:11 BS [id number]) OP-PT Subjective Patient Comments Patient Comments Pt reports that her botox injections were cancelled because they did not take the culture that was needed beforehand, scheduled for mid January. Continues to have small leaks, but has noticed improvements not sure if its the exercises or not. PT-OP-I Pelvic Floor Start: 12/02/18 07:30 Freq: Status: Active Protocol: Document 12/02/18 08:15 AMB (Rec: 12/02/18 15:53 AMB [email or web address]) Pelvic Floor Assessment Urine Pelvic Floor Surgery Yes Urinary Symptoms Incomplete Emptying Leakage Size Medium Leakage Cause Cough Exercise Lifting Sneeze Leaks Per Day 3 Voiding Frequency 2 hours Nocturia 2 Urine Pad Type Maxi Pad Bowel Bowel Symptoms Constipation Fecal Leakage Pelvic Clock Pelvic Clock 12-3 Atrophy Pelvic Clock 3-6 Atrophy Pelvic Clock 6-9 Atrophy Pelvic Clock 9-12 Atrophy Prolapse Cystocele Grade 2 Contraction Ability Voluntary Contraction Weak Manual Muscle Testing Left 1 Manual Muscle Testing Right 1 Manual Muscle Testing Anterior 1 Manual Muscle Testing Posterior 2 PT-OP-Q Treatments Start: 12/02/18 07:30 Freq: Status: Active Protocol: Document 12/30/18 09:45 BS (Rec: 12/30/18 10:44 BS [email or web address]) Neuro Re-Education Treatment Other Activities 2 Details Roll in Reps/Duration 15x3 hold Comments small ball between knees, sitting. 1 Details sEMG Reps/Duration quick flicks, 5 sec, 10 second holds Comments with focus on isolation, did work on controlled relaxation. PT-OP-T Assessment and Plan Start: 12/02/18 07:30 Freq: Status: Active Protocol: Document 12/30/18 09:45 BS (Rec: 12/30/18 10:44 BS [email or web address]) Physical Therapy Assessment Assessment Summary Assessment Pt is noticing some improvements with reduced leakage. Pt demo's poor endurance with longer contractions, but is doing better with 5 sec. holds. Pt did have some bleeding after removing sensor. Physical Therapy Plan Next Visit Focus/Plan Next Note Type Treatment Note Next Visit Plan sEMG if pt wants to continue with or do without due to some pain with insertion and bleeding after removal.
--- NOTE | 2019-02-06 14:00 | PT.OPPOC ---
Current Diagnoses Neuromuscular dysfunction of bladder, unspecified (02/06/19) Provider Visit Care Team Role Provider Type Arleen Ybarra DO Attending Provider Physician Primary Care Provider Specialty: Family Practice Address: [address] [place] [address], [id number] Email: [email or web address] Plan Of Care PT-OP-T Assessment and Plan Start: 12/02/18 07:30 Freq: Status: Active Protocol: Document 02/06/19 13:00 AMB (Rec: 02/06/19 13:55 AMB [email or web address]) Physical Therapy Assessment Goals Two Impairment pelvic floor strength Short Term Goal (STG) Dulce Maria will improve her pelvic floor strength to 3/5. STG Duration 4 weeks [facility] Goal (LTG) Dulce Maria will perform a pelvic floor contraction in standng to avoid leaking. LTG Duration 8 weeks One Impairment continence Short Term Goal (STG) Dulce Maria lucero decrease her number of leaks to 1 leak/day or less. STG Duration 4 weeks Clinical Coder Goal (LTG) Dulce Maria will go through a day without urinary leakage. LTG Duration 8 weeks Assessment Summary Assessment Pt encouraged to start working pelvic floor in seated and in standing. Eventually to work on sit to stand since that is a trigger for her, but probaby challenging at this point. Dulce Maria has attended her 4th visit of physical therapy. She had a break in care due to scheduling, but did improve while not coming to PT. Her sEMG improved to a max of 9 today, she does continue to co-contract her adductors, but this is reduced in comparison to eval. She continues to note leaking, especially with sit to stand. Physical Therapy Plan Frequency and Duration Frequency of Treatment 1x/Week Duration of Treatment 6 weeks Plan of Care Start Date 02/06/19 Plan of Care End Date 03/20/19 Therapeutic Interventions Therapeutic Interventions Home Exercise Program Manual Therapy Neuromuscular Re-education Self-Care/Home Management Therapeutic Activities Therapeutic Exercises Modalities Biofeedback Electric Stimulation Next Visit Focus/Plan Next Note Type Treatment Note Next Visit Plan Progress into standing/ sitting with pelvic floor strengthening. Plan of Care Dates Plan of Care Start Date 02/06/19 Plan of Care End Date 03/20/19 Please Sign and Return: I have reviewed this Plan of Care and certify that the skilled therapy services above are required to meet the patient?s needs. Physician Signature Date Printed Name and Credentials Clinical Instructor Signature Printed Name and Credentials
--- NOTE | 2019-02-06 14:01 | PT.OTN ---
Current Diagnoses Neuromuscular dysfunction of bladder, unspecified (02/06/19) Physical Therapy Treatment Note PT-OP-A Visit Information Start: 12/02/18 07:30 Freq: Status: Active Protocol: Document 02/06/19 13:00 AMB (Rec: 02/06/19 13:55 AMB [email or web address]) Out-Patient Physical Therapy Visit Information Visit Information Visit Type Progress Note Visit Start Time 13:15 Visit Stop Time 13:45 Total Visit Minutes 30 Visit Number 4 PT-OP-B Current Condition Start: 12/02/18 07:30 Freq: Status: Active Protocol: Document 12/02/18 08:15 AMB (Rec: 12/02/18 09:43 AMB [id number]) Current Condition History of Current Condition Onset Date 2003 Current Complaints Leaking urine, chronic diarrhea History of Current Condition Pt reports she had cervical cancer and had a hysterectomy where the surgeon accidentally cut the nerve to the bladder. She has since been diagnosed with neurogenic bladder and gets botox shots 2x/year that help with her bladder spasms. She does self cath to help with the difficulty with voiding the urine, but now also always has positive bacteria test in her urine, which they treat when she is symptomatic. She has a difficult time feeling when she is urinating (stating that when she is leaking she can feel it run down her leg, but that is the first time she knows she is leaking). Overall hoping to decrease the leaking and fecal leaking which happens when she has loose stools. She thinks she leaks about 3x/day, mostly with standing and walking activities, although she does have a pad on her bed for nighttime leaks, and reports she gets up once a night to void. Prior Treatments and Tests Prior PT in 2004, which helped . Current Functional Impairments (Reported) Functional Limitations- Other Self caths 2x/day. Personal Factors Other Personal Factors That May Effect Hx lumbar fusion, hx multiple Therapy/Recovery UTIs, surgery for cervical cancer with lymphedema and neuropathy as a result,. PT-OP-C Subjective Start: 12/02/18 07:30 Freq: Status: Active Protocol: Document 02/06/19 13:00 AMB (Rec: 02/06/19 13:55 AMB [email or web address]) OP-PT Subjective Patient Comments Patient Comments Pt had her botox shot 2 weeks ago. Continuing to have leaking with sit to stand. PT-OP-I Pelvic Floor Start: 12/02/18 07:30 Freq: Status: Active Protocol: Document 12/02/18 08:15 AMB (Rec: 12/02/18 15:53 AMB [email or web address]) Pelvic Floor Assessment Urine Pelvic Floor Surgery Yes Urinary Symptoms Incomplete Emptying Leakage Size Medium Leakage Cause Cough Exercise Lifting Sneeze Leaks Per Day 3 Voiding Frequency 2 hours Nocturia 2 Urine Pad Type Maxi Pad Bowel Bowel Symptoms Constipation Fecal Leakage Pelvic Clock Pelvic Clock 12-3 Atrophy Pelvic Clock 3-6 Atrophy Pelvic Clock 6-9 Atrophy Pelvic Clock 9-12 Atrophy Prolapse Cystocele Grade 2 Contraction Ability Voluntary Contraction Weak Manual Muscle Testing Left 1 Manual Muscle Testing Right 1 Manual Muscle Testing Anterior 1 Manual Muscle Testing Posterior 2 PT-OP-Q Treatments Start: 12/02/18 07:30 Freq: Status: Active Protocol: Document 02/06/19 13:00 AMB (Rec: 02/06/19 13:55 AMB [email or web address]) Neuro Re-Education Treatment Other Activities 1 Details sEMG Reps/Duration quick flicks, 5 sec, 10 second holds Comments with focus on isolation, did work on controlled relaxation. PT-OP-T Assessment and Plan Start: 12/02/18 07:30 Freq: Status: Active Protocol: Document 02/06/19 13:00 AMB (Rec: 02/06/19 13:55 AMB [email or web address]) Physical Therapy Assessment Goals Two Impairment pelvic floor strength Short Term Goal (STG) Dulce Maria will improve her pelvic floor strength to 3/5. STG Duration 4 weeks Ticket Collector Or Usher Goal (LTG) Dulce Maria will perform a pelvic floor contraction in standng to avoid leaking. LTG Duration 8 weeks One Impairment continence Short Term Goal (STG) Dulce Maria lucero decrease her number of leaks to 1 leak/day or less. STG Duration 4 weeks Ticket Collector Or Usher Goal (LTG) Dulce Maria will go through a day without urinary leakage. LTG Duration 8 weeks Assessment Summary Assessment Pt encouraged to start working pelvic floor in seated and in standing. Eventually to work on sit to stand since that is a trigger for her, but probaby challenging at this point. Dulce Maria has attended her 4th visit of physical therapy. She had a break in care due to scheduling, but did improve while not coming to PT. Her sEMG improved to a max of 9 today, she does continue to co-contract her adductors, but this is reduced in comparison to eval. She continues to note leaking, especially with sit to stand. Physical Therapy Plan Frequency and Duration Frequency of Treatment 1x/Week Duration of Treatment 6 weeks Plan of Care Start Date 02/06/19 Plan of Care End Date 03/20/19 Therapeutic Interventions Therapeutic Interventions Home Exercise Program Manual Therapy Neuromuscular Re-education Self-Care/Home Management Therapeutic Activities Therapeutic Exercises Modalities Biofeedback Electric Stimulation Next Visit Focus/Plan Next Note Type Treatment Note Next Visit Plan Progress into standing/ sitting with pelvic floor strengthening.
--- NOTE | 2019-03-03 16:49 | PT.OTN ---
Current Diagnoses Neuromuscular dysfunction of bladder, unspecified (03/03/19) Physical Therapy Treatment Note PT-OP-A Visit Information Start: 12/02/18 07:30 Freq: Status: Active Protocol: Document 03/03/19 10:30 AMB (Rec: 03/03/19 16:48 AMB [email or web address]) Out-Patient Physical Therapy Visit Information Visit Information Visit Type Treatment Note Visit Start Time 10:30 Visit Stop Time 11:15 Total Visit Minutes 45 Visit Number 5 PT-OP-B Current Condition Start: 12/02/18 07:30 Freq: Status: Active Protocol: Document 12/02/18 08:15 AMB (Rec: 12/02/18 09:43 AMB [id number]) Current Condition History of Current Condition Onset Date 2003 Current Complaints Leaking urine, chronic diarrhea History of Current Condition Pt reports she had cervical cancer and had a hysterectomy where the surgeon accidentally cut the nerve to the bladder. She has since been diagnosed with neurogenic bladder and gets botox shots 2x/year that help with her bladder spasms. She does self cath to help with the difficulty with voiding the urine, but now also always has positive bacteria test in her urine, which they treat when she is symptomatic. She has a difficult time feeling when she is urinating (stating that when she is leaking she can feel it run down her leg, but that is the first time she knows she is leaking). Overall hoping to decrease the leaking and fecal leaking which happens when she has loose stools. She thinks she leaks about 3x/day, mostly with standing and walking activities, although she does have a pad on her bed for nighttime leaks, and reports she gets up once a night to void. Prior Treatments and Tests Prior PT in 2004, which helped . Current Functional Impairments (Reported) Functional Limitations- Other Self caths 2x/day. Personal Factors Other Personal Factors That May Effect Hx lumbar fusion, hx multiple Therapy/Recovery UTIs, surgery for cervical cancer with lymphedema and neuropathy as a result,. PT-OP-C Subjective Start: 12/02/18 07:30 Freq: Status: Active Protocol: Document 03/03/19 10:30 AMB (Rec: 03/03/19 16:48 AMB [email or web address]) OP-PT Subjective Patient Comments Patient Comments Pt continuing to notice nighttime leaking and leaking with walking during the day. PT-OP-I Pelvic Floor Start: 12/02/18 07:30 Freq: Status: Active Protocol: Document 12/02/18 08:15 AMB (Rec: 12/02/18 15:53 AMB [email or web address]) Pelvic Floor Assessment Urine Pelvic Floor Surgery Yes Urinary Symptoms Incomplete Emptying Leakage Size Medium Leakage Cause Cough Exercise Lifting Sneeze Leaks Per Day 3 Voiding Frequency 2 hours Nocturia 2 Urine Pad Type Maxi Pad Bowel Bowel Symptoms Constipation Fecal Leakage Pelvic Clock Pelvic Clock 12-3 Atrophy Pelvic Clock 3-6 Atrophy Pelvic Clock 6-9 Atrophy Pelvic Clock 9-12 Atrophy Prolapse Cystocele Grade 2 Contraction Ability Voluntary Contraction Weak Manual Muscle Testing Left 1 Manual Muscle Testing Right 1 Manual Muscle Testing Anterior 1 Manual Muscle Testing Posterior 2 PT-OP-Q Treatments Start: 12/02/18 07:30 Freq: Status: Active Protocol: Document 03/03/19 10:30 AMB (Rec: 03/03/19 16:48 AMB [email or web address]) Neuro Re-Education Treatment Other Activities 1 Details sEMG Reps/Duration quick flicks, 5 sec, 10 second holds Comments with focus on isolation, did work on controlled relaxation. PT-OP-T Assessment and Plan Start: 12/02/18 07:30 Freq: Status: Active Protocol: Document 03/03/19 10:30 AMB (Rec: 03/03/19 16:48 AMB [email or web address]) Physical Therapy Assessment Assessment Summary Assessment Pt to continue standing/ sitting strengthening. Physical Therapy Plan Next Visit Focus/Plan Next Note Type Treatment Note Next Visit Plan Progress into standing/ sitting with pelvic floor strengthening.
--- NOTE | 2019-04-12 16:46 | PT.OPDS ---
Current Diagnoses Neuromuscular dysfunction of bladder, unspecified (03/03/19) Provider Visit Care Team Role Provider Type Arleen Ybarra DO Attending Provider Physician Primary Care Provider Specialty: Family Practice Address: [address] [place] [address], [facility] Email: [email or web address] Visit Number Visit Number 5 Discharge Summary PT-OP-B Current Condition Start: 12/02/18 07:30 Freq: Status: Active Protocol: Document 12/02/18 08:15 AMB (Rec: 12/02/18 09:43 AMB [id number]) Current Condition History of Current Condition Onset Date 2003 Current Complaints Leaking urine, chronic diarrhea History of Current Condition Pt reports she had cervical cancer and had a hysterectomy where the surgeon accidentally cut the nerve to the bladder. She has since been diagnosed with neurogenic bladder and gets botox shots 2x/year that help with her bladder spasms. She does self cath to help with the difficulty with voiding the urine, but now also always has positive bacteria test in her urine, which they treat when she is symptomatic. She has a difficult time feeling when she is urinating (stating that when she is leaking she can feel it run down her leg, but that is the first time she knows she is leaking). Overall hoping to decrease the leaking and fecal leaking which happens when she has loose stools. She thinks she leaks about 3x/day, mostly with standing and walking activities, although she does have a pad on her bed for nighttime leaks, and reports she gets up once a night to void. Prior Treatments and Tests Prior PT in 2004, which helped . Current Functional Impairments (Reported) Functional Limitations- Other Self caths 2x/day. Personal Factors Other Personal Factors That May Effect Hx lumbar fusion, hx multiple Therapy/Recovery UTIs, surgery for cervical cancer with lymphedema and neuropathy as a result,. PT-OP-C Subjective Start: 12/02/18 07:30 Freq: Status: Active Protocol: Document 03/03/19 10:30 AMB (Rec: 03/03/19 16:48 AMB [email or web address]) OP-PT Subjective Patient Comments Patient Comments Pt continuing to notice nighttime leaking and leaking with walking during the day. PT-OP-I Pelvic Floor Start: 12/02/18 07:30 Freq: Status: Active Protocol: Document 12/02/18 08:15 AMB (Rec: 12/02/18 15:53 AMB [email or web address]) Pelvic Floor Assessment Urine Pelvic Floor Surgery Yes Urinary Symptoms Incomplete Emptying Leakage Size Medium Leakage Cause Cough Exercise Lifting Sneeze Leaks Per Day 3 Voiding Frequency 2 hours Nocturia 2 Urine Pad Type Maxi Pad Bowel Bowel Symptoms Constipation Fecal Leakage Pelvic Clock Pelvic Clock 12-3 Atrophy Pelvic Clock 3-6 Atrophy Pelvic Clock 6-9 Atrophy Pelvic Clock 9-12 Atrophy Prolapse Cystocele Grade 2 Contraction Ability Voluntary Contraction Weak Manual Muscle Testing Left 1 Manual Muscle Testing Right 1 Manual Muscle Testing Anterior 1 Manual Muscle Testing Posterior 2 PT-OP-T Assessment and Plan Start: 12/02/18 07:30 Freq: Status: Active Protocol: Document 04/12/19 16:44 AMB (Rec: 04/12/19 16:46 AMB [email or web address]) Physical Therapy Assessment Assessment Summary Assessment Pt was instructed in pelvic floor strengthening, but really had continued to notice leaking. She did not show up for her last appointment and has not returned a phone call to reschedule, so she will be discharged at this time.
== END 2019-04-19 12:36 | disposition home or self-care (01) ==
LOC: PHYS 10:30
PROVIDERS: PCP Family Medicine; Visit Provider Family Medicine
DX: N31.9 Neuromuscular dysfunction of bladder, unspecified (principal)
CPT/HCPCS: 97112; 97162

== ENCOUNTER → 2019-03-17 08:43 | Outpatient (CLI) | payer MEDICARE, SELFPAY ==
--- NOTE | 2019-03-17 08:45 | DI.MG.S_ITS ---
BILATERAL DIGITAL DIAGNOSTIC MAMMOGRAM 3D/2D POST LUMPECTOMY: 03/17/2019 CLINICAL: Right breast lump. Comparison is made to exams dated: 04/15/2018 mammogram, 10/08/2016 mammogram, and 03/17/2019 [facility]. The tissue of both breasts is heterogeneously dense. This may lower the sensitivity of mammography. No mammographic finding in the right axillary region, area of palpable abnormality. There is a stable benign 1.7 cm oval high density asymmetry with a circumscribed margin in the right breast anterior depth lateral region seen on the craniocaudal view only. No changes over multiple prior studies. No other significant masses, calcifications, or other findings are seen in either breast. IMPRESSION: INCOMPLETE: NEEDS ADDITIONAL IMAGING EVALUATION There is no abnormality seen in the right axilla to correspond with the palpable abnormality in the right axilla, however, ultrasound is recommended. This was performed immediately following this exam. This exam was interpreted at Station ID: [id number]. NOTE: For mammograms, a report in lay terms will be sent to the patient. Approximately 15% of breast malignancies will not be visualized mammographically. In the management of a palpable breast mass, a negative mammogram must not discourage biopsy of a clinically suspicious lesion. Electronically Signed By: Bettie hansen/:03/17/2019 14:03:28 copy to: Wiley Johnson copy to: Yolanda MANUEL BI-RADS Category 0: Incomplete [id number]
--- NOTE | 2019-03-17 08:45 | DI.US.S_ITS ---
LIMITED ULTRASOUND OF RIGHT BREAST: 03/17/2019 CLINICAL: Palpable right axilla lump. Comparison is made to exams dated: 03/17/2019 mammogram, 04/15/2018 mammogram, 10/08/2016 mammogram, and 04/23/2014 mammogram - [facility]. Color flow and real-time ultrasound of the right breast upper outer quadrant were performed. Beverly scale images of the real-time examination were reviewed. There is a benign 1.1 cm x 0.6 cm x 0.7 cm lymph node in the right axillary tail. This lymph node displays fatty hilum. This correlates as palpated. Color flow imaging demonstrates that there is no increase in vascularity. No other suspicious sonographic findings. IMPRESSION: BENIGN There is no sonographic evidence of malignancy. The 1.1 cm x 0.6 cm x 0.7 cm lymph node in the right axillary tail appears benign. The patient should consult her physician if this area grows. Return to annual mammogram screening schedule is recommended. Findings and recommendations were conveyed to the patient at time of exam. This exam was interpreted at Station ID: [id number]. Electronically Signed By: Bettie hansen/:03/17/2019 14:07:43 copy to: Wliey Johnson copy to: Yolanda Vivas letter sent: Normal Exam Ultrasound BI-RADS: 2 Benign
[2019-03-17 14:52] LABS: Add Manual Diff / Slide Review NO; Basophils Absolute Auto 0 /uL (0-100); Basophils Percent Auto 0.5 % (0-2); Eosinophils Absolute Auto 0 /uL (0-450); Eosinophils Percent Auto 0.4 % (2-4); Hematocrit 42.2 % (36-46); Hemoglobin 14.3 g/dL (12.0-16.0); Lymphocytes Absolute Auto 900 /uL (1100-4500); Lymphocytes Percent Auto 14.6 % (25-40); Mean Corpuscular HGB Conc 33.8 % (30-36); Mean Corpuscular Hemoglobin 32.9 PG (26-34); Mean Corpuscular Volume 97.4 fL (80-100); Monocytes Absolute Auto 400 /uL (0-900); Monocytes Percent Auto 6.1 % (3-14); Neutrophils Absolute Auto 5100 /uL (1500-7000); Neutrophils Percent Auto 78.4 % (50-75); Platelet Count 209 X10^3/uL (150-400); Red Blood Cell Count 4.33 X10^6/uL (4.0-5.2); Red Cell Distribution Width 13.8 % (11.6-14.8); White Blood Cell Count 6.5 X10^3/uL (4.5-11.0)
[2019-03-17 15:33] LABS: Free T3, Triiodothyronine Free 3.23 pg/mL (2.77-5.27); Free T4, Direct Thyroxine 1.27 ng/dL (0.78-2.19)
[2019-03-17 15:38] LABS: Alanine Aminotransferase 20 IU/L (9-52); Albumin Globulin Ratio 1.6 (1.0-2.8); Alkaline Phosphatase 56 U/L (38-126); Aspartate Aminotransferase 31 IU/L (14-36); BUN Creatinine Ratio 43.3 (6-22); Bilirubin Total 0.4 mg/dL (0.2-1.3); Blood Urea Nitrogen 26 mg/dL (7-17); Calcium 9.4 mg/dL (8.4-10.2); Carbon Dioxide 30 mmol/L (22-32); Chloride 102 mmol/L (98-107); Estimated Glomerular Filt Rate > 60.0 mL/min (>60); Globulin 2.5 g/dL (1.7-4.1); Glucose 90 mg/dL (80-110); HEMOLYSIS 21 (0-50); Potassium 4.6 mmol/L (3.4-5.1); Sodium 139 mmol/L (137-145); Total Protein 6.5 g/dL (6.3-8.2)
[2019-03-17 15:47] LABS: Thyroid Stimulating Hormone 1.25 uIU/mL (0.47-4.68)
== END ==
PROVIDERS: PCP Family Medicine; Referring Provider Obstetrics & Gynecology; Visit Provider Family Medicine
DX: R92.8 Other abnormal and inconclusive findings on diagnostic imaging of breast (principal); N63.10 Unspecified lump in the right breast, unspecified quadrant; R59.0 Localized enlarged lymph nodes; E03.9 Hypothyroidism, unspecified; D64.9 Anemia, unspecified; R63.6 Underweight
CPT/HCPCS: 36415; 76642; 77066; 80053; 84439; 84443; 84481; 85025; G0279

== ENCOUNTER 2019-04-16 13:14 | Inpatient (IN) | payer MEDICARE, SELFPAY ==
[2019-04-16] VITALS (10 sets, daily range): BP systolic 93–132; BP diastolic 48–76; PULSE 51–78; RESP 14–20; TEMP 36.3–38.2; O2SAT 95–97; BMI 18.0
--- NOTE | 2019-04-16 13:23 | DI.RAD.S_ITS ---
PROCEDURE: XR CHEST 1V INDICATIONS: fever, shaking chills TECHNIQUE: One view of the chest was acquired. COMPARISON: [facility], , CHEST 2 VIEW, 07/06/2017, 8:04. FINDINGS: Surgical changes and devices: Postoperative changes of the shoulders, lower cervical spine, and right axilla are similar to the prior study. Wire leads are seen overlying the mid to lower thoracic spine. Lungs and pleura: Lungs are clear. No pleural effusions or pneumothorax. A calcified granuloma is evident within the right lung. There may be pulmonary hyperexpansion. Mediastinum: Mediastinal contours appear normal. Heart size is normal. Bones and chest wall: No suspicious bony lesions. Overlying soft tissues appear unremarkable. IMPRESSION: Stable chest. No acute cardiopulmonary process is suspected. Dictated by: Mir Reid M.D. on 04/16/2019 at 12:42 Approved by: Mir Reid M.D. on 04/16/2019 at 12:43
--- NOTE | 2019-04-16 13:32 | ED.FEVER ---
HPI - Fever General Chief Complaint: Fever Stated Complaint: states septicemia Time Seen by Provider: 04/16/19 13:20 Source: patient and family Mode of arrival: wheelchair Limitations: no limitations History of Present Illness HPI Narrative: 79-year-old female nonsmoker with complicated medical history presents with her in a wheelchair and a chief complaint of feeling quite poorly since last night. She admits to subjective fever shaking and chills. She has pain in her left ankle in the absence of any sort of injury and has had increased swelling in her left leg. On February 07 she had a micro surgery to the lymph vessels in her left leg to help with chronic lymphedema. Years ago she had cervical cancer with radiation and surgery and in the aftermath developed a neurogenic bladder, rectum and lymphedema in her left lower extremity. She feels dizzy, weak and lightheaded and has had a poor appetite MD complaint: fever, malaise and weakness Onset (ago): hour(s) Temperature Source: subjective Associated symptoms: chills and rigors Relieving factors: nothing Related Data Home Medications Medication Instructions Recorded Confirmed Fish Oil 1,000 mg PO Q DAY #0 02/02/13 04/16/19 VITAMIN D (Vitamin D3) 1,000 unit PO QDAY #0 02/02/13 04/16/19 [CMP ESTRIOL 0.2%] 0 Q DAY #0 12/03/16 03/15/19 lorazepam 0.5 mg PO BIDP PRN 09/14/18 04/16/[address] - ER 3 mg 9 mg PO DAILY each 03/15/19 03/15/19 capsule,delayed,extended release Previous Rx's Medication Instructions Recorded acyclovir 400 mg tablet 400 mg PO SEE INSTRUCTIONS #100 tab 02/23/18 syringe with needle 1 mL 25 gauge #12 each 07/21/18 x 1 cyanocobalamin (vit B-12) 1,000 1,000 mcg IM QMONTH #12 each 08/01/18 mcg/mL injection solution celecoxib 200 mg capsule 200 mg PO QDAY #360 cap 10/06/18 diazepam 5 mg tablet 5 mg PO BEDTIME PRN #60 tab 10/17/18 levothyroxine 75 mcg capsule 75 mcg PO DAILY #90 cap 12/22/18 Allergies Allergy/AdvReac Type Severity Reaction Status Date / Time No Known Allergies Allergy Uncoded 01/12/19 15:35 Review of Systems Constitutional Reports chills, Reports fever(s), Denies lethargy and Reports weakness Eyes Denies change in vision, Denies eye discharge, Denies irritation and Denies loss of vision ENT Ears, Nose, Mouth, and Throat: Denies change in voice, Denies neck pain and Denies sore throat Cardiovascular Denies chest pain, Denies irregular heart rhythm, Denies lightheadedness, Denies palpitations, Denies dyspnea, Denies dyspnea on exertion and Denies orthopnea Respiratory Denies cough, Denies dyspnea, Denies dyspnea on exertion and Denies wheezing Gastrointestinal Gastrointestinal: Denies abdominal pain, Denies change in bowel habits, Denies diarrhea, Denies nausea and Denies vomiting Genitourinary Denies hematuria, Denies flank pain, Denies urinary incontinence and Denies urinary urgency Musculoskeletal Reports joint swelling, Reports limited range of motion and Denies neck pain Integumentary/Breasts Denies pruritus, Reports erythema, Denies rash and Denies wounds Neurologic Denies confusion, Denies loss of vision and Reports weakness Psychiatric Denies anxiety, Denies confusion, Denies depression, Denies homicidal ideation and Denies suicidal ideation Endocrine Denies palpitations Hematologic/Lymphatic Denies easy bruising Allergic/Immunologic Denies wheezing [facility] Medical History Underweight (Chronic) Lymphedema (Chronic) Neurogenic bladder (Chronic) UTI (urinary tract infection) (Chronic) 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 (Inactive 09/03/11) History of malignant neoplasm of breast (Inactive 2007) Hypothyroid (Chronic) Diarrhea (Chronic) Raynauds syndrome (Chronic 09/03/11) Recurrent dislocation, left hip (Inactive) Scoliosis of thoracolumbar spine (Chronic ~2006) Neck pain (Chronic) Headache (Chronic) Cobalamin deficiency (Chronic) Genital herpes (Chronic Unknown) Anemia (Chronic) Osteoarthritis (Chronic) Anemia, unspecified (Resolved) Septic arthritis of hip (Resolved ~08/2015) Surgical History Status post laminectomy (Inactive) History of arthroplasty (Resolved ~2013) Status post hardware removal (Resolved ~2009) Surgical procedure planned (Resolved ~2006) History of arthroplasty (Inactive ~2009) History of arthroscopy of right knee (Inactive ~04/2010) History of hip replacement (Inactive) History of third molar tooth extraction (Inactive) S/P cervical spinal fusion (Inactive ~12/2013) Status post breast lumpectomy (Inactive) Status post hysterectomy with oophorectomy (Inactive) Status post tonsillectomy and adenoidectomy (Inactive) Family History Father Post-polio syndrome Mother Heart disease Hyperlipidemia Hypertension Coronary artery disease Social History household members: none Smoking Status: Never smoker Family History Father Post-polio syndrome Mother Heart disease Hyperlipidemia Hypertension Coronary artery disease Social History household members: none Smoking Status: Never smoker alcohol intake: current Exam Narrative Exam Narrative: GENERAL: [79] year old patient appears stated age. Frail and weak, ill appearing HEAD: Atraumatic. Normocephalic. EYES: Pupils equal round and reactive. Extraocular motions intact. No scleral icterus. No injection or drainage. ENT: Nose without bleeding, purulent drainage. Throat without erythema, tonsillar hypertrophy or exudate. Airway patent. NECK: Trachea midline. Non tender CARDIOVASCULAR: Regular rate and rhythm without murmurs, gallops, or rubs. RESPIRATORY: Clear to auscultation. Breath sounds equal bilaterally. No wheezes, rales, or rhonchi. GASTROINTESTINAL: Abdomen soft, non-tender, nondistended. EXTREMITIES: mild pain, swelling of LLE. Lateral mallelolus is erythematous and warm, tender to palp BACK: Nontender without deformity or crepitance. No flank tenderness. NEURO: AOx3. SKIN: No rash or erythema of visible areas Initial Vital Signs Initial Vital Signs: Vital Signs Temperature 97.6 F 04/16/19 13:25 Pulse Rate 78 04/16/19 13:25 Respiratory Rate 20 04/16/19 13:25 Blood Pressure 103/48 L 04/16/19 13:25 Pulse Oximetry 96 04/16/19 13:25 Course Orders Ordered: ED Orders 04/16/19 13:23 XR chest 1V Stat 04/16/19 13:35 Wound Culture and Gram Stain Stat 04/16/19 13:37 US periph venous low extrem lt Stat 04/16/19 14:40 Blood Culture Stat Complete Blood Count AUTO DIFF Stat Comprehensive Metabolic Panel Stat Lactate (Lactic Acid) Stat Procalcitonin Stat 04/16/19 14:52 Urine Culture Stat Urine Microscopic Stat 04/16/19 17:32 Consult to Dietitian, Adult Routine 04/17/19 05:00 Basic Metabolic Panel Routine Complete Blood Count AUTO DIFF Routine Acetaminophen (Tylenol) 650 mg PO Q6HR PRN PRN Reason: As Needed for Fever/Mild Pain Last Admin: 04/16/19 17:09 Dose: 650 mg Budesonide (Entocort Ec) 9 mg PO DAILY ELIJAH Celecoxib (Celebrex) 200 mg PO DAILY ELIJAH Enoxaparin Sodium (Lovenox) 40 mg SUBCUT DAILY ELIJAH Fish Oil (Fish Oil) 1,000 mg PO DAILY ELIJAH Dextrose/Sodium Chloride (Dextrose 5%-0.9% Ns) 1,000 mls @ 100 mls/hr IV CONT ELIJAH Last Admin: 04/16/19 17:09 Dose: 100 mls/hr Ceftriaxone Sodium/Dextrose (Rocephin) 1 gm in 50 mls @ 100 mls/hr IV Q12H ELIJAH Levothyroxine Sodium (Synthroid) 75 mcg PO 0700 ELIJAH Lorazepam (Ativan) 1 mg PO TID PRN PRN Reason: Anxiety Ondansetron HCl (Zofran) 4 mg IV Q8HR PRN PRN Reason: Nausea And Vomiting Oxycodone HCl (Percolone) 5 mg PO Q6HR PRN PRN Reason: Pain, Moderate (4-6) Vitamin D (Vitamin D3) 1,000 unit PO DAILY ELIJAH Zolpidem Tartrate (Ambien) 10 mg PO BEDTIME PRN PRN Reason: Sleep Discontinued Medications Sodium Chloride (Normal Saline 0.9%) 1,000 mls @ 200 mls/hr IV CONT ELIJAH Last Infusion: 04/16/19 16:23 Dose: 200 mls/hr Admin: 04/16/19 13:57 Dose: 200 mls/hr Ceftriaxone Sodium/Dextrose (Rocephin) 1 gm in 50 mls @ 100 mls/hr IV NOW ONE Stop: 04/16/19 15:41 Last Infusion: 04/16/19 16:15 Dose: 0 mls/hr Admin: 04/16/19 15:39 Dose: 100 mls/hr Consultations Consultation #1: Dr. Broussard happy to accept Vital Signs - 8 hr 04/16/19 13:25 04/16/19 14:03 04/16/19 15:00 Temperature 97.6 F Pulse Rate 78 70 72 Respiratory Rate 20 17 19 Blood Pressure 103/48 L Blood Pressure [Right Arm] 113/64 108/64 Pulse Oximetry 96 97 97 04/16/19 16:00 04/16/19 17:36 04/16/19 18:13 Temperature 100.4 F H 100.7 F H Pulse Rate 74 73 Respiratory Rate 19 14 Blood Pressure 132/72 Blood Pressure [Right Arm] 100/76 Pulse Oximetry 97 MDM - Fever Lab Data Result diagrams: 04/16/19 14:40 04/16/19 14:40 Lab Results 04/16/19 04/16/19 04/16/19 Range/Units 14:40 14:40 14:40 WBC 12.8 H (4.5-11.0) X10^3/uL RBC 4.24 (4.0-5.2) X10^6/uL Hgb 13.7 (12.0-16.0) g/dL Hct 41.3 (36-46) % MCV 97.5 (80-100) fL MCH 32.4 (26-34) PG MCHC 33.2 (30-36) % RDW 13.9 (11.6-14.8) % Plt Count 155 (150-400) X10^3/uL Neut % (Auto) 94.8 H (50-75) % Lymph % (Auto) 1.7 L (25-40) % [place] % (Auto) 3.0 (3-14) % Eos % (Auto) 0.0 L (2-4) % Baso % (Auto) 0.5 (0-2) % Neut # (Auto) 12964 H (6761-8080) /uL Lymph # (Auto) 200 L (3746-9027) /uL [place] # (Auto) 400 (0-900) /uL Eos # (Auto) 0 (0-450) /uL Baso # (Auto) 100 (0-100) /uL Sodium 133 L (137-145) mmol/L Potassium 3.5 (3.4-5.1) mmol/L Chloride 96 L (98-107) mmol/L Carbon Dioxide 26 (22-32) mmol/L BUN 21 H (7-17) mg/dL Creatinine 0.70 (0.52-1.04) mg/dL Estimated GFR > 60.0 (>60) mL/min BUN/Creatinine Ratio 30.0 H (6-22) Glucose 114 H (80-110) mg/dL Lactate (0.7-2.1) mmol/L Calcium 9.0 (8.4-10.2) mg/dL Total Bilirubin 0.6 (0.2-1.3) mg/dL AST 45 H (14-36) IU/L ALT 30 (9-52) IU/L Alkaline Phosphatase 60 (38-126) U/L Total Protein 6.2 L (6.3-8.2) g/dL Albumin 3.6 (3.5-5.0) g/dL Globulin 2.6 (1.7-4.1) g/dL Albumin/Globulin Ratio 1.4 (1.0-2.8) Procalcitonin 2.30 H (<0.5) ng/mL Urine RBC (0-5/HPF) Urine WBC (0-5/HPF) Urine Bacteria (None) Ur Culture Indicated? 04/16/19 04/16/19 Range/Units 14:40 14:52 WBC (4.5-11.0) X10^3/uL RBC (4.0-5.2) X10^6/uL Hgb (12.0-16.0) g/dL Hct (36-46) % MCV (80-100) fL MCH (26-34) PG MCHC (30-36) % RDW (11.6-14.8) % Plt Count (150-400) X10^3/uL Neut % (Auto) (50-75) % Lymph % (Auto) (25-40) % [place] % (Auto) (3-14) % Eos % (Auto) (2-4) % Baso % (Auto) (0-2) % Neut # (Auto) (3727-8204) /uL Lymph # (Auto) (7923-6887) /uL [place] # (Auto) (0-900) /uL Eos # (Auto) (0-450) /uL Baso # (Auto) (0-100) /uL Sodium (137-145) mmol/L Potassium (3.4-5.1) mmol/L Chloride (98-107) mmol/L Carbon Dioxide (22-32) mmol/L BUN (7-17) mg/dL Creatinine (0.52-1.04) mg/dL Estimated GFR (>60) mL/min BUN/Creatinine Ratio (6-22) Glucose (80-110) mg/dL Lactate 1.5 (0.7-2.1) mmol/L Calcium (8.4-10.2) mg/dL Total Bilirubin (0.2-1.3) mg/dL AST (14-36) IU/L ALT (9-52) IU/L Alkaline Phosphatase (38-126) U/L Total Protein (6.3-8.2) g/dL Albumin (3.5-5.0) g/dL Globulin (1.7-4.1) g/dL Albumin/Globulin Ratio (1.0-2.8) Procalcitonin (<0.5) ng/mL Urine RBC 0-1/hpf (0-5/HPF) Urine WBC 30-100/hpf H (0-5/HPF) Urine Bacteria Many (>30) H (None) Ur Culture Indicated? Specimen cultured Urine Dip Bedside Urine Glucose Negative Bedside Urine Bilirubin + 1 Bedside Urine Ketone +/- 5 Urine Specific [place] 1.030 Bedside Urine Occult Blood + Bedside Urine pH 6.0 Bedside Urine Protein ++ 100 Bedside Urine Urobilinogen +/- 1mg Bedside Urine Nitrite - Negative Bedside Urine Leukocytes + 70 Esterase Discharge Plan Departure Patient Disposition: Admitted As Inpatient Clinical Impression: Cellulitis of left leg, Bacteremia Discharge Date/Time: 04/16/19 17:15 Interventions: ED Discharge Assessment Last Done: 04/16/19 16:22 Admit Date/Time: 04/16/19 15:39 Admit Provider: Samson Broussard
--- NOTE | 2019-04-16 13:37 | DI.US.S_ITS ---
PROCEDURE: US PERIPH VENOUS LOW EXTREM LT INDICATIONS: LEFT LEG PAIN AND SWELLING TECHNIQUE: Real-time imaging, as well as color and pulse Doppler interrogation, were performed of the lower extremity deep veins from the inguinal ligament to the popliteal fossa. COMPARISON: None. FINDINGS: The common femoral, femoral and popliteal veins are normally compressible, and free of intraluminal thrombus. Color and pulse Doppler demonstrate normal phasic intraluminal flow. There is normal augmentation response to distal compression maneuver. There is a small echogenic focus within the left popliteal vein, which may be related to a partly calcified valve versus chronic thrombus. IMPRESSION: 1. No evidence of acute deep vein thrombosis of the left lower extremity. 2. Possible calcification within the left popliteal vein may represent a calcified valve versus chronic thrombus. Dictated by: Mir Reid M.D. on 04/16/2019 at 13:40 Approved by: Mir Reid M.D. on 04/16/2019 at 13:41
[2019-04-16] MEDS: SODIUM CHLORIDE 0.9% 1,000 ML 200 ML IV (13:57)
[2019-04-16 14:59] LABS: Add Manual Diff / Slide Review NO; Basophils Absolute Auto 100 /uL (0-100); Basophils Percent Auto 0.5 % (0-2); Eosinophils Absolute Auto 0 /uL (0-450); Hematocrit 41.3 % (36-46); Hemoglobin 13.7 g/dL (12.0-16.0); Lymphocytes Absolute Auto 200 /uL (1100-4500); Lymphocytes Percent Auto 1.7 % (25-40); Mean Corpuscular HGB Conc 33.2 % (30-36); Mean Corpuscular Hemoglobin 32.4 PG (26-34); Mean Corpuscular Volume 97.5 fL (80-100); Monocytes Absolute Auto 400 /uL (0-900); Neutrophils Absolute Auto 12100 /uL (1500-7000); Neutrophils Percent Auto 94.8 % (50-75); Platelet Count 155 X10^3/uL (150-400); Red Blood Cell Count 4.24 X10^6/uL (4.0-5.2); Red Cell Distribution Width 13.9 % (11.6-14.8); White Blood Cell Count 12.8 X10^3/uL (4.5-11.0)
[2019-04-16 15:05] LABS: Alanine Aminotransferase 30 IU/L (9-52); Albumin 3.6 g/dL (3.5-5.0); Albumin Globulin Ratio 1.4 (1.0-2.8); Alkaline Phosphatase 60 U/L (38-126); Aspartate Aminotransferase 45 IU/L (14-36); Bilirubin Total 0.6 mg/dL (0.2-1.3); Blood Urea Nitrogen 21 mg/dL (7-17); Carbon Dioxide 26 mmol/L (22-32); Chloride 96 mmol/L (98-107); Estimated Glomerular Filt Rate > 60.0 mL/min (>60); Globulin 2.6 g/dL (1.7-4.1); Glucose 114 mg/dL (80-110); HEMOLYSIS < 15 (0-50); Lactate (Lactic Acid) 1.5 mmol/L (0.7-2.1); Potassium 3.5 mmol/L (3.4-5.1); Sodium 133 mmol/L (137-145); Total Protein 6.2 g/dL (6.3-8.2)
[2019-04-16 15:37] LABS: Bacteria Urine Many (>30); Culture Indicated Urine Specimen Cultured; RBC Urine 0-1/HPF (0-5/HPF); WBC Urine 30-100/HPF (0-5/HPF)
[2019-04-16] MEDS: CEFTRIAXONE 1 GM/50 ML FROZ.PIGGY IV (15:39)
--- NOTE | 2019-04-16 15:56 | P.HP_ITS ---
History of Present Illness Date Patient Seen: 04/16/19 Time Patient Seen: 19:49 Chief complaint: states septicemia Narrative: 79-year-old female known to me from her previous experience working here at [facility] as well as encounters over the years with hospitalization etc. She was in her usual state health until the evening of the day prior to admission. She then began to develop increasing weakness had increasing swelling of her left lower extremity with some pain developed along the lateral malleolus of the ankle. She went to bed and experienced rigors and shaking. Did not have a thermometer that works at home so his uncertain about fever but did not really feel febrile. She persisted with her weakness and just was not improving and so based on prior history of similar events came to the [facility] Emergency Department. In the ER she was found to have some leukocytosis but little else. It was felt as though however she probably had an early cellulitis of her left lower extremity that is affected by chronic lymphedema. She also has infected urine but appears to be chronically colonized and not really having any symptoms there. She was admitted for IV antibiotics after blood cultures were obtained. Patient with history of cervical cancer status post radiation therapy and complications thereafter. She has had issues with left lower extremity lymp hedema and fairly recently had a procedure done in [place] to try and reconnect her lymph system to reduce her edema. That appeared to be at least partially effective with decreased swelling of that extremity until day prior to admission as above. She also unfortunately struggles with a neurogenic type bladder with need for intermittent self catheterization although sometimes she can empty on her own. She also has issues with bowel incontinence and chronic diarrhea with chronic abdominal pain. This has been better recently with more aggressive treatment with oral steroids. Patient History Medical History Underweight (Chronic) Lymphedema (Chronic) Neurogenic bladder (Chronic) UTI (urinary tract infection) (Chronic) 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 (Inactive 09/03/11) History of malignant neoplasm of breast (Inactive 2007) Hypothyroid (Chronic) Diarrhea (Chronic) Raynauds syndrome (Chronic 09/03/11) Recurrent dislocation, left hip (Inactive) Scoliosis of thoracolumbar spine (Chronic ~2006) Neck pain (Chronic) Headache (Chronic) Cobalamin deficiency (Chronic) Genital herpes (Chronic Unknown) Anemia (Chronic) Osteoarthritis (Chronic) Anemia, unspecified (Resolved) Septic arthritis of hip (Resolved ~08/2015) Surgical History Status post laminectomy (Inactive) History of arthroplasty (Resolved ~2013) Status post hardware removal (Resolved ~2009) Surgical procedure planned (Resolved ~2006) History of arthroplasty (Inactive ~2009) History of arthroscopy of right knee (Inactive ~04/2010) History of hip replacement (Inactive) History of third molar tooth extraction (Inactive) S/P cervical spinal fusion (Inactive ~12/2013) Status post breast lumpectomy (Inactive) Status post hysterectomy with oophorectomy (Inactive) Status post tonsillectomy and adenoidectomy (Inactive) Family History Father Post-polio syndrome Mother Heart disease Hyperlipidemia Hypertension Coronary artery disease Social History household members: none Smoking Status: Never smoker Family & Social History Family History Father Post-polio syndrome Mother Heart disease Hyperlipidemia Hypertension Coronary artery disease Social History: household members none Safety & Behavioral: Feels Safe in Current Yes Environment Tobacco & Substance use: Smoking Status Never smoker alcohol intake frequency 0-2 drinks per day Substance Use Type does not use Meds Home Medications Medication Instructions Recorded Confirmed Type Fish Oil 1,000 mg PO Q DAY #0 02/02/13 04/16/19 History VITAMIN D (Vitamin D3) 1,000 unit PO QDAY #0 02/02/13 04/16/19 History [CMP ESTRIOL 0.2%] 0 Q DAY #0 12/03/16 03/15/19 History acyclovir 400 mg tablet 400 mg PO SEE INSTRUCTIONS #100 tab 02/23/18 04/16/19 Rx syringe with needle 1 mL 25 gauge #12 each 07/21/18 03/15/19 Rx x 1 cyanocobalamin (vit B-12) 1,000 1,000 mcg IM QMONTH #12 each 08/01/18 04/16/19 Rx mcg/mL injection solution lorazepam 0.5 mg PO BIDP PRN 09/14/18 04/16/19 History celecoxib 200 mg capsule 200 mg PO QDAY #360 cap 10/06/18 04/16/19 Rx diazepam 5 mg tablet 5 mg PO BEDTIME PRN #60 tab 10/17/18 04/16/19 Rx levothyroxine 75 mcg capsule 75 mcg PO DAILY #90 cap 12/22/18 04/16/[address] - ER 3 mg 9 mg PO DAILY each 03/15/19 03/15/19 History capsule,delayed,extended release Allergies Allergy/AdvReac Type Severity Reaction Status Date / Time No Known Allergies Allergy Uncoded 01/12/19 15:35 Review of Systems Constitutional Constitutional: Reports chills, Denies excessive sweating, Denies headache(s), Reports lack of energy, Reports malaise, Reports weakness, Denies weight gain and Denies weight loss Eyes Eyes: Denies change in vision, Denies itchy eyes, Denies loss of vision and Denies other visual disturbances ENT Ears, Nose, Mouth, and Throat: No difficulty swallowing, No headache(s) and No neck pain Cardiovascular Cardiovascular: Denies chest pain, Denies fainting, Denies fast heart rate, Denies irregular heart rhythm, Denies rapid, pounding, or irregular heartbeat, Denies shortness of breath, Denies shortness of breath with activity and Denies slow heart rate Respiratory Respiratory: Denies dyspnea and Denies dyspnea on exertion Gastrointestinal Gastrointestinal: Denies abdominal pain, Denies bloating, Denies change in bowel habits, Denies change in stool character, Denies dysphagia, Denies nausea, Denies vomiting and Denies hematemesis Genitourinary Genitourinary: Denies hematuria and Denies urinary frequency Musculoskeletal Musculoskeletal: Denies abnormal gait, Denies myalgias, Reports arthralgias (Left ankle), Denies limited range of motion and Denies neck pain Integumentary/Breasts Skin/Breast: Denies bleeding lesions, Denies change in pigmentation, Denies changing lesions, Denies new lesions, Denies rash, Denies skin swelling, Denies sores and Denies jaundice Neurologic Neurologic: Denies abnormal gait, Denies behavioral changes, Denies confusion, Denies syncope, Denies headache(s), Denies loss of vision, Denies memory loss and Reports weakness Psychiatric Psychiatric: Denies behavioral changes, Denies change in appetite, Denies confusion, Denies difficulty concentrating, Denies auditory hallucinations, Denies memory loss, Denies mood swings and Denies suicidal ideation Endocrine Endocrine: Denies excessive sweating and Denies palpitations Hematologic/Lymphatic Hematologic/Lymphatic: Denies easy bleeding, Denies easy bruising and Denies lymphadenopathy Allergic/Immunologic Allergic/Immunologic: Denies itchy eyes Exam Vital Signs (past 8 hours): - 04/16/19 13:25 04/16/19 14:03 04/16/19 15:00 Temperature 97.6 F Pulse Rate 78 70 72 Respiratory Rate 20 17 19 Blood Pressure 103/48 L Blood Pressure [Right Arm] 113/64 108/64 Pulse Oximetry 96 97 97 Oxygen Delivery Method Room Air Narrative Exam Narrative: Elderly somewhat cachectic-appearing female in no obvious distress lying in her hospital bed HEENT-normocephalic atraumatic PERRLA Neck-no lymphadenopathy no bruits Lungs-good breath sounds clear no wheezes or crackles Heart-regular rate and rhythm with what sounds like occasional extrasystoles. Grade 2/Iii systolic ejection murmur with no particular radiation Abdomen-positive bowel tones soft nontender nondistended Extremities-trace edema left lower extremity with some erythema over the lateral malleolus of the left ankle that is mildly tender to palpation. Entire left lower extremity feels warmer than right lower extremity (edema left lower extremity is very minimal would not be considered abnormal if not for comparison to right side which does have less edema) Neuro-alert orient x3 no focal neurologic defects to screening exam, gait not tested Objective Labs Result Diagrams: 04/16/19 14:40 04/16/19 14:40 Labs: Laboratory Results - last 24 hr 04/16/19 04/16/19 04/16/19 14:40 14:40 14:40 WBC 12.8 H RBC 4.24 Hgb 13.7 Hct 41.3 MCV 97.5 MCH 32.4 MCHC 33.2 RDW 13.9 Plt Count 155 Neut % (Auto) 94.8 H Lymph % (Auto) 1.7 L [place] % (Auto) 3.0 Eos % (Auto) 0.0 L Baso % (Auto) 0.5 Neut # (Auto) 79095 H Lymph # (Auto) 200 L [place] # (Auto) 400 Eos # (Auto) 0 Baso # (Auto) 100 Sodium 133 L Potassium 3.5 Chloride 96 L Carbon Dioxide 26 BUN 21 H Creatinine 0.70 Estimated GFR > 60.0 BUN/Creatinine Ratio 30.0 H Glucose 114 H Lactate Calcium 9.0 Total Bilirubin 0.6 AST 45 H ALT 30 Alkaline Phosphatase 60 Total Protein 6.2 L Albumin 3.6 Globulin 2.6 Albumin/Globulin Ratio 1.4 Procalcitonin 2.30 H Urine RBC Urine WBC Urine Bacteria Ur Culture Indicated? 04/16/19 04/16/19 14:40 14:52 WBC RBC Hgb Hct MCV MCH MCHC RDW Plt Count Neut % (Auto) Lymph % (Auto) [place] % (Auto) Eos % (Auto) Baso % (Auto) Neut # (Auto) Lymph # (Auto) [place] # (Auto) Eos # (Auto) Baso # (Auto) Sodium Potassium Chloride Carbon Dioxide BUN Creatinine Estimated GFR BUN/Creatinine Ratio Glucose Lactate 1.5 Calcium Total Bilirubin AST ALT Alkaline Phosphatase Total Protein Albumin Globulin Albumin/Globulin Ratio Procalcitonin Urine RBC 0-1/hpf Urine WBC 30-100/hpf H Urine Bacteria Many (>30) H Ur Culture Indicated? Specimen cultured Assessment & Plan Assessment & Plan narrative: 1. Cellulitis-I believe patient does have an infectious etiology for her weakness and she has developed a fever since she was admitted to the hospital. She has a bit of leukocytosis. Most likely source of infection would indeed be a cellulitis in that left lower extremity which has been chronically affected by lymphedema. Does not have striking features on exam but enough there that I think that is the most likely culprit. She also appears to have infected urine all that appears to chronically be the case for her not unexpectedly. Ceftriaxone was started in the ER which I will continue. That should be appropriate for most skin related organisms that would be likely culprit in causing an infection in the left lower extremity. She also most recently grew E coli out of her urine that was sensitive to ceftriaxone as well so that is a reasonable antibiotic for her urine if that is the source of infection. Blood cultures are pending as is urine culture of course. Hopefully if this is indeed a cellulitis related to her lymphedema that in my experience IV antibiotics you should make a fairly dramatic difference and I expect her to improve rather rapidly but certainly given her pre-existing conditions and her comorbidities is she could well be in the hospital for extended period of time here. 2. Continue patient's other medications for her hypothyroidism her chronic diarrhea etc. 3. DVT prophylaxis-Lovenox will be employed 4. Code status-discussed with patient and in the case or event of a sudden event such as cardiac or respiratory arrest patient would NOT want to be resuscitated. Therefore she has made no code do not resuscitate by her request. Given patient's presenting symptoms, her leukocytosis and elevated procalcitonin as well as her development of a fever since admission she clearly desires inpatient hospitalization and will more likely not be in the hospital greater than 48 hours to include 2 separate midnights.
[2019-04-16] MEDS: DEXTROSE 5%-0.9% NS 1,000 ML 100 ML IV (17:09)
[2019-04-16] MEDS: ACETAMINOPHEN 325 MG TABLET 650 MG PO (17:09)
--- NOTE | 2019-04-16 21:17 | PC.NURSE ---
bladder function/scan 2109 pt has neurogenic bladder and per home routine attempts to void naturally and then if no success with self cath based on length of time since previous void or amount of fluids she's had in. pt previously attempted to void around 1899 with no output but was wanting to wait a little longer. bladder scan at 2109 show 315ml in pt's bladder. per discussion with pt, will wait until scan >400 to have pt self cath. pt denies any discomfort.
[2019-04-17] VITALS (9 sets, daily range): BP systolic 89–111; BP diastolic 52–60; PULSE 53–70; RESP 10–18; TEMP 36.6–37.2; O2SAT 94–100; BMI 19.1
--- NOTE | 2019-04-17 00:16 | PC.NURSE ---
0015 Bladder scanned noted 582 cc in the bladder. I & O cath. done noted 550 cc of cloudy dark yellow urine out. Tolerated procedure well, will cont. POC & monitor.
[2019-04-17] MEDS: CEFTRIAXONE 1 GM/50 ML FROZ.PIGGY IV ×2 (02:50→14:34)
[2019-04-17] MEDS: DEXTROSE 5%-0.9% NS 1,000 ML 100 ML IV ×2 (04:48→14:03)
[2019-04-17 05:17] LABS: Add Manual Diff / Slide Review NO; Basophils Absolute Auto 0 /uL (0-100); Basophils Percent Auto 0.4 % (0-2); Eosinophils Absolute Auto 0 /uL (0-450); Eosinophils Percent Auto 0.2 % (2-4); Hematocrit 35.9 % (36-46); Hemoglobin 12.1 g/dL (12.0-16.0); Lymphocytes Absolute Auto 700 /uL (1100-4500); Lymphocytes Percent Auto 9.2 % (25-40); Mean Corpuscular HGB Conc 33.8 % (30-36); Mean Corpuscular Hemoglobin 33.1 PG (26-34); Monocytes Absolute Auto 400 /uL (0-900); Monocytes Percent Auto 4.8 % (3-14); Neutrophils Absolute Auto 6300 /uL (1500-7000); Neutrophils Percent Auto 85.4 % (50-75); Platelet Count 122 X10^3/uL (150-400); Red Blood Cell Count 3.66 X10^6/uL (4.0-5.2); Red Cell Distribution Width 13.9 % (11.6-14.8); White Blood Cell Count 7.4 X10^3/uL (4.5-11.0)
[2019-04-17 05:27] LABS: BUN Creatinine Ratio 17.1 (6-22); Blood Urea Nitrogen 12 mg/dL (7-17); Calcium 8.1 mg/dL (8.4-10.2); Carbon Dioxide 27 mmol/L (22-32); Chloride 104 mmol/L (98-107); Estimated Glomerular Filt Rate > 60.0 mL/min (>60); Glucose 110 mg/dL (80-110); HEMOLYSIS < 15 (0-50); Potassium 3.7 mmol/L (3.4-5.1); Sodium 134 mmol/L (137-145)
--- NOTE | 2019-04-17 08:31 | PM.PN.1 ---
Subjective Date Patient Seen: 04/17/19 Time Patient Seen: 08:31 Interval history: Patient had a reasonably good night. She is surprised by how much she is sleeping. Did get up with standby assist to catheterize herself in the restroom. Had no real difficulty with that Leg feels somewhat better. Still uncomfortable at the ankle when putting her socks on. Exam Vital Signs (past 8 hours): - 04/17/19 06:10 Temperature 98.5 F Pulse Rate 64 Respiratory Rate 16 Blood Pressure 90/60 Pulse Oximetry 96 Oxygen Delivery Method Room Air Oxygen Flow Rate 0 Narrative Exam Narrative: Unchanged from yesterday Objective Labs Result Diagrams: 04/17/19 05:05 04/17/19 05:05 Labs: Laboratory Results - last 24 hr 04/16/19 04/16/19 04/16/19 14:40 14:40 14:40 WBC 12.8 H RBC 4.24 Hgb 13.7 Hct 41.3 MCV 97.5 MCH 32.4 MCHC 33.2 RDW 13.9 Plt Count 155 Neut % (Auto) 94.8 H Lymph % (Auto) 1.7 L [place] % (Auto) 3.0 Eos % (Auto) 0.0 L Baso % (Auto) 0.5 Neut # (Auto) 28605 H Lymph # (Auto) 200 L [place] # (Auto) 400 Eos # (Auto) 0 Baso # (Auto) 100 Sodium 133 L Potassium 3.5 Chloride 96 L Carbon Dioxide 26 BUN 21 H Creatinine 0.70 Estimated GFR > 60.0 BUN/Creatinine Ratio 30.0 H Glucose 114 H Lactate Calcium 9.0 Total Bilirubin 0.6 AST 45 H ALT 30 Alkaline Phosphatase 60 Total Protein 6.2 L Albumin 3.6 Globulin 2.6 Albumin/Globulin Ratio 1.4 Procalcitonin 2.30 H Urine RBC Urine WBC Urine Bacteria Ur Culture Indicated? 04/16/19 04/16/19 04/17/19 14:40 14:52 05:05 WBC 7.4 RBC 3.66 L Hgb 12.1 Hct 35.9 L MCV 98.0 MCH 33.1 MCHC 33.8 RDW 13.9 Plt Count 122 L Neut % (Auto) 85.4 H Lymph % (Auto) 9.2 L [place] % (Auto) 4.8 Eos % (Auto) 0.2 L Baso % (Auto) 0.4 Neut # (Auto) 6300 Lymph # (Auto) 700 L [place] # (Auto) 400 Eos # (Auto) 0 Baso # (Auto) 0 Sodium Potassium Chloride Carbon Dioxide BUN Creatinine Estimated GFR BUN/Creatinine Ratio Glucose Lactate 1.5 Calcium Total Bilirubin AST ALT Alkaline Phosphatase Total Protein Albumin Globulin Albumin/Globulin Ratio Procalcitonin Urine RBC 0-1/hpf Urine WBC 30-100/hpf H Urine Bacteria Many (>30) H Ur Culture Indicated? Specimen cultured 04/17/19 05:05 WBC RBC Hgb Hct MCV MCH MCHC RDW Plt Count Neut % (Auto) Lymph % (Auto) [place] % (Auto) Eos % (Auto) Baso % (Auto) Neut # (Auto) Lymph # (Auto) [place] # (Auto) Eos # (Auto) Baso # (Auto) Sodium 134 L Potassium 3.7 Chloride 104 Carbon Dioxide 27 BUN 12 Creatinine 0.70 Estimated GFR > 60.0 BUN/Creatinine Ratio 17.1 Glucose 110 Lactate Calcium 8.1 L Total Bilirubin AST ALT Alkaline Phosphatase Total Protein Albumin Globulin Albumin/Globulin Ratio Procalcitonin Urine RBC Urine WBC Urine Bacteria Ur Culture Indicated? Assessment & Plan Assessment & Plan narrative: 1. Cellulitis-patient now afebrile and white count now normal. Symptomatic least subjectively anyway somewhat improved. No evidence of complicating factor. Cultures thus far too early really to grow anything but no growth. Continue current IV antibiotics. 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 Overall I would tend to agree if she is improved and no evidence of complication she could potentially be discharged later today or certainly tomorrow at the latest. Note: Greater than 20 minutes was spent evaluating the patient on the floor, including examining the patient, discussing clinical course with clinical and nursing staff, reviewing clinical course in the computer, preparing documentation and writing orders for continued management of care, discussing status with family as appropriate, reviewing plans for the next 24 hours with both patient/family and nursing staff as appropriate. Quality VTE Deep Vein Thrombosis/Pulmonary Embolism Present on Admission: No
[2019-04-17] MEDS: LEVOTHYROXINE 75 MCG TABLET PO (08:43)
[2019-04-17] MEDS: BUDESONIDE 3 MG CAP 9 MG PO (08:44)
[2019-04-17] MEDS: CELECOXIB 200 MG CAPSULE PO (08:44)
[2019-04-17] MEDS: CHOLECALCIFEROL (VITAMIN D3) 1,000 UNIT TABLET 1000 UNIT PO (08:48)
[2019-04-17] MEDS: ENOXAPARIN 40 MG/0.4 ML SYRINGE SUBCUT (08:49)
--- NOTE | 2019-04-17 09:06 | CM.DANOTE ---
DCP: Case received, EMR reviewed and met with patient. Introduced self and role. Was able to obtain some baseline history regarding current living situation from patient. DCP assessment completed with information currently available. Patient is a 79 year old female who admitted yesterday afternoon to the care of the hospitalist team. PCP: Dr. Ybarra. Payer: confirmed: Medicare/[employer]. Patient came to the hospital via private vehicle secondary to increased pain and redness to her left lower ankle area. She was concerned that she may have a bacterial infection. Patient holds diagnosis of Cellulitis of Lateral left ankle. Patient has history of lower extremity lymphedema, a neurogenic bladder, in which patient does self-catheterize. She also has history of chronic UTIs, and occasional bowel incontinence secondary to chronic Diarrhea. Met briefly with patient in her room. Alert and oriented. Resides here in [place], and lives alone. She has a life partner named Jovanny Clark, who lives on [address]. She also has a son named Amilcar, who lives in [place]. Asked her if she had a POA, and she mentioned that her neighbor, Courtney Zuleta, is her POA. Patient stated, she is independent at home, and has been doing her own caths. She also mentione that her neighbor helps her out if needed. She is hoping to be discharged today so she can go to her GI appt tomorrow. P: DCP to continue to follow closely and be available for any resources that patient may need upon discharge. At this time, cultures on wound are pending. Olivia Dewitt RN/Blender/Braze Applicator
--- NOTE | 2019-04-17 11:22 | DIET.PN ---
Dietary Progress Note Assessment: 79y F referred to nutrition for nutrition deficit re: wound healing Pt has chronic lymphedema, keeps legs up, does lymphatic drainage massage. Pt reports being at this body weight as her normal, wt record in EMR from 05/2018 shows 50kg. Has had chronic abd px and diarrhea since abd radiation in 2004. Started biofeedback a few months ago which pt reports is effective tx for her. There is good research for association bw poorly managed stress and GI disturbances. Usual intake: eats organic, unprocessed foods. B: eggs, veggies and toast or cottage cheese, almond butter c fruit L: salad c nuts, croutons, 2% milk, frozen yogurt D: veggies, PRO, short grain brown rice Doesn't snack. Pts diet is adequate in PRO, calcium, nutrients overall, small body frame, low BMI is concerning with pts over 65 r/t recovery after hospitalizations. Higher PRO intake indicated to resolve cellulitis. Pt deficient in B12, gets shots monthly but reports sometimes missing them. Discussed sublingual b12 as possible alternate or complement. HT: 162.5cm WT: 50.4kg (93% of IBW) UBW: 50kg (05/25) BMI: 19.1 (low for age) Labs: Total Pro: 6.2 (L), alb 3.6 (wnl), procalcitonin 2.3 (H) Nutrition Diagnosis: Increased Nutrient needs (protein) r/t dx of L leg cellulitis from chronic lymphedema aeb L leg edema, labs showing total protein 6.2 (L). Interventions: Recc Amaury bid in addition to meals. Arginine and added PRO will promote wound healing. EERs: 1450kcal, 50g PRO (1g/kg per >65y), 1.5L fluids Monitoring/Evaluations: ONS tolerance, associated labs
--- NOTE | 2019-04-17 14:40 | PC.NURSE ---
AM NOTE - pt is alert, ambul in room, adls at sink, pt states leg is a little better but notes generalized le edema from below knee to above ankle 1+, pink at lateral l ankle and at calf around wound area, small scabbed areas rue, declines tylenol or narcotic for leg discomfort, removed bandaid wound, small qty serous drainage with yellow exudate at wound bed, replaced with allevyn dsg and elev lle with pillow support.
[2019-04-17] MEDS: FISH OIL 1,000 MG CAPSULE 1000 MG PO (21:35)
[2019-04-18 00:17] VITALS: O2SAT 96
[2019-04-18 04:05] VITALS: BP 123/55; PULSE 62; RESP 18; TEMP 36.6; O2SAT 98
[2019-04-18 05:20] LABS: Add Manual Diff / Slide Review NO; Basophils Absolute Auto 0 /uL (0-100); Basophils Percent Auto 0.6 % (0-2); Eosinophils Absolute Auto 0 /uL (0-450); Eosinophils Percent Auto 0.6 % (2-4); Hematocrit 35.5 % (36-46); Hemoglobin 11.9 g/dL (12.0-16.0); Lymphocytes Absolute Auto 600 /uL (1100-4500); Lymphocytes Percent Auto 14.9 % (25-40); Mean Corpuscular HGB Conc 33.5 % (30-36); Mean Corpuscular Hemoglobin 32.9 PG (26-34); Mean Corpuscular Volume 98.1 fL (80-100); Monocytes Absolute Auto 300 /uL (0-900); Monocytes Percent Auto 6.7 % (3-14); Neutrophils Absolute Auto 3200 /uL (1500-7000); Neutrophils Percent Auto 77.2 % (50-75); Platelet Count 118 X10^3/uL (150-400); Red Blood Cell Count 3.62 X10^6/uL (4.0-5.2); Red Cell Distribution Width 14.1 % (11.6-14.8); White Blood Cell Count 4.1 X10^3/uL (4.5-11.0)
--- NOTE | 2019-04-18 05:35 | PC.NURSE ---
Pt denies pain, sleeping soundly all night. Self cath at 0400 yielded 1100cc urine output. Pt has Left lower leg edema 1+, aleven dressing on wound clean/dry/intact.
[2019-04-18] MEDS: CEFTRIAXONE 1 GM/50 ML FROZ.PIGGY IV (06:30)
[2019-04-18] MEDS: LEVOTHYROXINE 75 MCG TABLET PO (06:31)
[2019-04-18 07:59] VITALS: BP 110/43; PULSE 47; RESP 18; TEMP 36.8; O2SAT 98
[2019-04-18 08:09] VITALS: O2SAT 97
--- NOTE | 2019-04-18 08:13 | P.DS_ITS ---
History of Present Illness Chief complaint: states septicemia Narrative: 79-year-old female known to me from her previous experience working here at [facility] as well as encounters over the years with hospitalization etc. She was in her usual state health until the evening of the day prior to admission. She then began to develop increasing weakness had increasing swelling of her left lower extremity with some pain developed along the lateral malleolus of the ankle. She went to bed and experienced rigors and shaking. Did not have a thermometer that works at home so his uncertain about fever but did not really feel febrile. She persisted with her weakness and just was not improving and so based on prior history of similar events came to the [facility] Emergency Department. In the ER she was found to have some leukocytosis but little else. It was felt as though however she probably had an early cellulitis of her left lower extremity that is affected by chronic lymphedema. She also has infected urine but appears to be chronically colonized and not really having any symptoms there. She was admitted for IV antibiotics after blood cultures were obtained. Patient with history of cervical cancer status post radiation therapy and complications thereafter. She has had issues with left lower extremity lymph edema and fairly recently had a procedure done in [place] to try and reconnect her lymph system to reduce her edema. That appeared to be at least partially effective with decreased swelling of that extremity until day prior to admission as above. She also unfortunately struggles with a neurogenic type bladder with need for intermittent self catheterization although sometimes she can empty on her own. She also has issues with bowel incontinence and chronic diarrhea with chronic abdominal pain. This has been better recently with more aggressive treatment with oral steroids. Discharge Providers Date of admission: 04/16/19 15:39 Discharge Date: 04/18/19 Primary care physician: Arleen Ybarra DO Consults: 04/16/19 17:32 Consult to Dietitian, Adult Routine Comment: Reason For Exam: nutrition deficit for wound healing Discharge provider: Samson Broussard MD Summary Discharge Diagnosis: 1. Cellulitis left leg 2. Lymphedema left leg, chronic 3. Neurogenic bladder 4. UTI with E coli 5. History malignant neoplasm of cervix 6. History of malignant neoplasm of breast 7. Chronic diarrhea 8. B12 deficiency Hospital Course: Patient was admitted to the hospital floor after presenting with significant rigors minimally elevated white count and increased swelling and pain in left lower extremity. This was felt to be a source of infection. Blood cultures were obtained issues started on IV antibiotics. Patient spiked low-grade fever during the 1st few hours in the hospital but then became afebrile with no recurrent fever. Swelling actually increased slightly in the left lower extremity but pain and discomfort diminished as did the warmth and redness. Patient was able to be up ambulatory without particular difficulty White count returned to normal and stayed there. Therefore patient was felt to be ready for discharge by the morning of the 18 of April. She will continue an outpatient course of oral 3rd generation cephalosporin antibiotics Patient also had infected urine growing E coli. This was not felt to be the source of infection as she is felt to be more chronically colonized and this was not felt to be pathologic at this point. However the oral antibiotics should be appropriate for this infection as well. Patient's other medical issues were stable Status at Discharge Cognitive/behavioral status at discharge: at baseline, oriented Functional status at discharge: independent ambulation Overall status at discharge: patient is progressing back to baseline Exam Vital Signs (past 8 hours): - 04/18/19 00:17 04/18/19 04:05 04/18/19 07:59 Temperature 97.9 F 98.2 F Pulse Rate 62 47 L Respiratory Rate 18 18 Blood Pressure 123/55 L 110/43 L Pulse Oximetry 96 98 98 Oxygen Delivery Method Room Air Oxygen Flow Rate 0 Narrative Exam Narrative: HEENT-unremarkable, normocephalic atraumatic Neck-no lymphadenopathy no bruits Lungs-clear anteriorly and posteriorly no wheezes no crackles good breath sounds Heart-regular rate and rhythm, no murmur, rub, or gallop. normal S1-S2 Abdomen-positive bowel tones, soft, nontender, nondistended, no hepatosplenomegaly, no masses palpable Neuro-normal to screening exam, gait not tested Extremities-left lower extremity with 1+ pitting edema pretibially, unchanged from last evening, no warmth or redness present Objective Labs Result Diagrams: 04/18/19 05:00 04/17/19 05:05 Labs: Laboratory Results - last 24 hr 04/18/19 05:00 WBC 4.1 L RBC 3.62 L Hgb 11.9 L Hct 35.5 L MCV 98.1 MCH 32.9 MCHC 33.5 RDW 14.1 Plt Count 118 L Neut % (Auto) 77.2 H Lymph % (Auto) 14.9 L [place] % (Auto) 6.7 Eos % (Auto) 0.6 L Baso % (Auto) 0.6 Neut # (Auto) 3200 Lymph # (Auto) 600 L [place] # (Auto) 300 Eos # (Auto) 0 Baso # (Auto) 0 Discharge Plan Discharge Plan Patient Disposition: Home Discharge Med Rec/Prescriptions Prescriptions: New cefdinir 300 mg capsule 300 mg PO BID 10 Days Qty: 20 RF: 0 Continued Fish Oil 1,000 mg PO Q DAY Qty: 0 RF: 0 VITAMIN D (Vitamin D3) 1,000 unit PO QDAY Qty: 0 RF: 0 [CMP ESTRIOL 0.2%] Q DAY Qty: 0 RF: 0 acyclovir 400 mg tablet 400 mg PO SEE INSTRUCTIONS Qty: 100 RF: 1 syringe with needle [Easy Touch] 1 mL 25 gauge x 1 syringe .ROUTE .MEDSUPPLY Qty: 12 RF: 1 cyanocobalamin (vitamin B-12) 1,000 mcg/mL solution 1,000 mcg IM QMONTH Qty: 12 RF: 0 celecoxib [Celebrex] 200 mg capsule 200 mg PO QDAY Qty: 360 RF: 1 diazepam [Valium] 5 mg tablet 5 mg PO BEDTIME PRN (Reason: sleep) Qty: 60 RF: 0 budesonide 3 mg capsule,delayed,extend.release 9 mg PO DAILY RF: 0 levothyroxine 75 mcg capsule 75 mcg PO DAILY Qty: 90 RF: 1 lorazepam 1 MG tablet 0.5 mg PO BIDP PRN (Reason: Anxiety) RF: 0 Follow up/Referrals: Arleen Ybarra, [Primary Care Provider] - 1 Week (or with Dr. Broussard, if [facility] totally booked) Provider Discharge Instructions Diet: Diet as Tolerated Skin/Wound/Dressing Care Report to your healthcare provider any signs of infection, such as:: chills, fever, increased pain and unusual redness Discharge Data Primary Care Provider: Arleen Ybarra Attending Provider: Samson Broussard [place] Date/Time: 04/16/19 15:39 Quality VTE Deep Vein Thrombosis/Pulmonary Embolism Present on Admission: No
--- NOTE | 2019-04-18 09:06 | PC.NURSE ---
Day shift: Pt left unit at approx 0900. Paperwork signed and all questions answered. Pt has all personal belongings. Pt taken to ER entrance in by MEHDI Frances. Pt has a MD appointment 1 block away that she insisted she go to and ambulated to it. MD faxed script to pharmacy and Pt aware of that.
== END 2019-04-18 09:12 | disposition home or self-care (01) | DRG 603 ==
LOC: ED 15:39 → AC 15:40
PROVIDERS: Admitting Provider Internal Medicine; Emergency Provider Emergency Medicine; PCP Family Medicine; Visit Provider Internal Medicine
DX: L03.116 Cellulitis of left lower limb (principal); Z68.1 Body mass index [BMI] 19.9 or less, adult; I97.89 Other postprocedural complications and disorders of the circulatory system, not elsewhere classified; N39.0 Urinary tract infection, site not specified; R63.6 Underweight; N31.9 Neuromuscular dysfunction of bladder, unspecified; I89.0 Lymphedema, not elsewhere classified; I95.9 Hypotension, unspecified; D69.6 Thrombocytopenia, unspecified; B96.20 Unspecified Escherichia coli [E. coli] as the cause of diseases classified elsewhere; K52.9 Noninfective gastroenteritis and colitis, unspecified; E53.8 Deficiency of other specified B group vitamins
CPT/HCPCS: 36415; 36591; 71045; 80048; 80053; 81003; 81015; 83605; 84145; 85025; 87040; 87070; 87077; 87086; 87186; 87205; 93971; 96361; 96365; 99222; 99232; 99238; 99284; A9270; J1650

== ENCOUNTER → 2019-04-19 15:48 | Outpatient (CLI) | payer MEDICARE, SELFPAY ==
[2019-04-16 16:06] VITALS: BMI 18.0
[2019-04-19 17:01] LABS: Add Manual Diff / Slide Review NO; Basophils Absolute Auto 0 /uL (0-100); Basophils Percent Auto 0.6 % (0-2); Eosinophils Absolute Auto 0 /uL (0-450); Eosinophils Percent Auto 0.5 % (2-4); Hematocrit 41.1 % (36-46); Hemoglobin 13.6 g/dL (12.0-16.0); Lymphocytes Absolute Auto 700 /uL (1100-4500); Lymphocytes Percent Auto 13.5 % (25-40); Mean Corpuscular HGB Conc 33.2 % (30-36); Mean Corpuscular Hemoglobin 32.3 PG (26-34); Mean Corpuscular Volume 97.4 fL (80-100); Monocytes Absolute Auto 400 /uL (0-900); Monocytes Percent Auto 8.7 % (3-14); Neutrophils Absolute Auto 3900 /uL (1500-7000); Neutrophils Percent Auto 76.7 % (50-75); Platelet Count 184 X10^3/uL (150-400); Red Blood Cell Count 4.22 X10^6/uL (4.0-5.2); Red Cell Distribution Width 13.8 % (11.6-14.8); White Blood Cell Count 5.1 X10^3/uL (4.5-11.0)
[2019-04-19 17:30] LABS: Erythrocyte Sedimentation Rate 21 MM/HR (0-20)
== END ==
PROVIDERS: PCP Family Medicine; Visit Provider Hospitalist
DX: L03.116 Cellulitis of left lower limb (principal)
CPT/HCPCS: 36415; 85025; 85651

== ENCOUNTER 2019-04-23 10:53 | Emergency (ER) | payer MEDICARE, SELFPAY ==
[2019-04-16 16:06] VITALS: BMI 18.0
[2019-04-23 11:04] VITALS: BP 123/70; PULSE 77; RESP 16; TEMP 36.7; O2SAT 99
--- NOTE | 2019-04-23 11:20 | ED_ITS ---
HPI - Extremity Injury (Lower) General Chief Complaint: Extremity Injury, Lower Stated Complaint: Left ankle pain Time Seen by Provider: 04/23/19 10:55 Source: patient and old records reviewed Mode of arrival: ambulatory Limitations: no limitations History of Present Illness HPI Narrative: The patient is a 79-year-old female who presents with left ankle redness. She has some mild erythema on the left lateral malleoli. She has a complicated history of lymphadenopathy after cervical cancer. 2 months ago she had a reanastomosis of her lymphatic system in the left leg. 1 week ago she developed cellulitis of the left leg she was admitted to this hospital for 2 nights. She was treated with 3rd generation cephalosporin. However 4 days ago her antibiotic was changed to Levaquin to help cover for UTI and multiple bacteria. She states that her cellulitis of her left leg has improved significantly. She is not actually sure how long the redness on the knee lateral side of her ankle has been there. Today she noticed that it was more tender. She is able to ambulate on it. She does not notice any fever or sweats. She has no calf pain no shortness of breath. Related Data Home Medications Medication Instructions Recorded Confirmed Fish Oil 1,000 mg PO Q DAY #0 02/02/13 04/20/19 VITAMIN D (Vitamin D3) 1,000 unit PO QDAY #0 02/02/13 04/20/19 [CMP ESTRIOL 0.2%] 0 Q DAY #0 12/03/16 04/20/19 lorazepam 0.5 mg PO BIDP PRN 09/14/18 04/20/[address] - ER 3 mg 9 mg PO DAILY each 03/15/19 04/20/19 capsule,delayed,extended release Previous Rx's Medication Instructions Recorded acyclovir 400 mg tablet 400 mg PO SEE INSTRUCTIONS #100 tab 02/23/18 syringe with needle 1 mL 25 gauge #12 each 07/21/18 x 1 cyanocobalamin (vit B-12) 1,000 1,000 mcg IM QMONTH #12 each 08/01/18 mcg/mL injection solution celecoxib 200 mg capsule 200 mg PO QDAY #360 cap 10/06/18 diazepam 5 mg tablet 5 mg PO BEDTIME PRN #60 tab 10/17/18 levothyroxine 75 mcg capsule 75 mcg PO DAILY #90 cap 12/22/18 cefdinir 300 mg PO BID 10 Days #20 cap 04/17/19 levofloxacin 750 mg tablet 750 mg PO DAILY #7 tab 04/19/19 Allergies Allergy/AdvReac Type Severity Reaction Status Date / Time No Known Drug Allergies Allergy Verified 04/23/19 12:11 Review of Systems Review of Systems ROS Unobtainable: All systems reviewed & are unremarkable except as noted in HPI and below Constitutional Denies chills, Denies fever(s), Denies lethargy and Denies weakness Cardiovascular Denies chest pain, Denies irregular heart rhythm, Denies lightheadedness, Denies palpitations, Denies dyspnea, Denies dyspnea on exertion and Denies orthopnea Respiratory Denies cough, Denies dyspnea, Denies dyspnea on exertion and Denies wheezing Gastrointestinal Gastrointestinal: Denies abdominal pain, Denies change in bowel habits, Denies diarrhea, Denies nausea and Denies vomiting Genitourinary Denies hematuria, Denies flank pain, Denies urinary incontinence and Denies urinary urgency Musculoskeletal Denies back pain, Denies muscle weakness, Denies numbness and Denies tingling Integumentary/Breasts Reports as per HPI Neurologic Denies confusion, Denies numbness, Denies tingling and Denies weakness Psychiatric Denies anxiety, Denies confusion, Denies depression, Denies homicidal ideation and Denies suicidal ideation Endocrine Denies palpitations Allergic/Immunologic Denies wheezing [facility] Medical History Underweight (Chronic) Lymphedema (Chronic) Neurogenic bladder (Chronic) UTI (urinary tract infection) (Chronic) 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 (Inactive 09/03/11) History of malignant neoplasm of breast (Inactive 2007) Hypothyroid (Chronic) Diarrhea (Chronic) Raynauds syndrome (Chronic 09/03/11) Recurrent dislocation, left hip (Inactive) Scoliosis of thoracolumbar spine (Chronic ~2006) Neck pain (Chronic) Headache (Chronic) Cobalamin deficiency (Chronic) Genital herpes (Chronic Unknown) Anemia (Chronic) Osteoarthritis (Chronic) Anemia, unspecified (Resolved) Septic arthritis of hip (Resolved ~08/2015) Surgical History Status post laminectomy (Inactive) History of arthroplasty (Resolved ~2013) Status post hardware removal (Resolved ~2009) Surgical procedure planned (Resolved ~2006) History of arthroplasty (Inactive ~2009) History of arthroscopy of right knee (Inactive ~04/2010) History of hip replacement (Inactive) History of third molar tooth extraction (Inactive) S/P cervical spinal fusion (Inactive ~12/2013) Status post breast lumpectomy (Inactive) Status post hysterectomy with oophorectomy (Inactive) Status post tonsillectomy and adenoidectomy (Inactive) Family History Father Post-polio syndrome Mother Heart disease Hyperlipidemia Hypertension Coronary artery disease Social History household members: none Smoking Status: Never smoker alcohol intake: current Family History Father Post-polio syndrome Mother Heart disease Hyperlipidemia Hypertension Coronary artery disease Social History household members: none Smoking Status: Never smoker alcohol intake: current Exam Initial Vital Signs Initial Vital Signs: Vital Signs Temperature 98.0 F 04/23/19 11:04 Pulse Rate 77 04/23/19 11:04 Respiratory Rate 16 04/23/19 11:04 Blood Pressure 123/70 04/23/19 11:04 Pulse Oximetry 99 04/23/19 11:04 GENERAL: Well-appearing, well-nourished and in no acute distress. HEENT: Head atraumatic,EOMI, pupils reactive, face symmetric, moist mucous membranes CARDIOVASCULAR: Regular rate and rhythm without murmurs, rubs or gallops. RESPIRATORY: Breath sounds equal bilaterally, no wheezes rales or rhonchi. ABDOMEN: Soft, nontender. Normoactive bowel sounds all 4 quadrants. No guarding or rebound. EXTREMITIES: Normal range of motion, no clubbing or edema. Neurovascularly intact NEUROLOGICAL: Alert and oriented x4.Normal gait and speech. Cranial nerves II through XII grossly intact. SKIN: Left lower leg healing wound on the anterior coffman minimal surrounding erythema no gross drainage. 2 cm x 2 cm circular area on the left lateral malleoli tender to touch. No fluctuation. Course Orders Ordered: ED Orders 04/23/19 11:29 C-Reactive Protein Quant Stat Complete Blood Count AUTO DIFF Stat Comprehensive Metabolic Panel Stat Erythrocyte Sedimentation Rate Stat Consultations Consultation #1: DR. navarro, updated on patient's symptoms and test reults. At this time GFR has decreased significantly over the last 4 days. She does not appear septic. Patient has a follow-up appointment with PCP tomorrow. Time: 12:04 Vital Signs - 8 hr 04/23/19 11:04 04/23/19 12:27 Temperature 98.0 F Pulse Rate 77 68 Respiratory Rate 16 16 Blood Pressure 123/70 126/72 Pulse Oximetry 99 100 MDM - Extremity Injury (Lower) Lab Data Attestation: I reviewed the patient's lab results. Result diagrams: 04/23/19 11:29 04/23/19 11:29 Lab Results 04/23/19 04/23/19 Range/Units 11:29 11:29 WBC 6.8 (4.5-11.0) X10^3/uL RBC 4.23 (4.0-5.2) X10^6/uL Hgb 13.7 (12.0-16.0) g/dL Hct 41.1 (36-46) % MCV 97.1 (80-100) fL MCH 32.3 (26-34) PG MCHC 33.3 (30-36) % RDW 13.9 (11.6-14.8) % Plt Count 227 (150-400) X10^3/uL Neut % (Auto) 77.5 H (50-75) % Lymph % (Auto) 12.0 L (25-40) % [place] % (Auto) 9.1 (3-14) % Eos % (Auto) 0.6 L (2-4) % Baso % (Auto) 0.8 (0-2) % Neut # (Auto) 5300 (0114-8615) /uL Lymph # (Auto) 800 L (1522-7302) /uL [place] # (Auto) 600 (0-900) /uL Eos # (Auto) 0 (0-450) /uL Baso # (Auto) 100 (0-100) /uL ESR 9 (0-20) MM/HR Sodium 137 (137-145) mmol/L Potassium 4.4 (3.4-5.1) mmol/L Chloride 101 (98-107) mmol/L Carbon Dioxide 30 (22-32) mmol/L BUN 23 H (7-17) mg/dL Creatinine 0.70 (0.52-1.04) mg/dL Estimated GFR > 60.0 (>60) mL/min BUN/Creatinine Ratio 32.9 H (6-22) Glucose 82 (80-110) mg/dL Calcium 9.0 (8.4-10.2) mg/dL Total Bilirubin 0.5 (0.2-1.3) mg/dL AST 24 (14-36) IU/L ALT 14 (9-52) IU/L Alkaline Phosphatase 48 (38-126) U/L C-Reactive Protein 1.2 H (<1.0) mg/dL Total Protein 6.3 (6.3-8.2) g/dL Albumin 3.5 (3.5-5.0) g/dL Globulin 2.8 (1.7-4.1) g/dL Albumin/Globulin Ratio 1.3 (1.0-2.8) MDM Narrative Medical decision making narrative: Patient's ESR has decreased from 21 to 9 over the last 4 days. At this time she is septic she has a 2 cm x 2 cm area of erythema over her lateral malleoli it is extremely localized and well- demarcated. There is no streaking her other signs and symptoms of cellulitis have improved. She has a chronic wound noted on her left anterior coffman which does not appear acutely infected at this time. She is on Levaquin. At this time she has close follow-up with her PCP tomorrow. I instructed her to look at it every day. A seeing as though she was unclear when actually started. A line was drawn around it. If redness is significantly worsening that she needs to return to the ED. At this time she is ambulatory on the ankle I do not feel like this is a septic joint. She has no injury to at this time I do not see any need for an x-ray. She is not tender along her calf I do not suspect a DVT. Discharge Plan Departure Patient Disposition: Home Clinical Impression: Cellulitis of leg, left Discharge Date/Time: 04/23/19 12:28 Interventions: ED Discharge Assessment Last Done: 04/23/19 12:27 Instructions: DI for Cellulitis -- Adult Activity Restrictions/Additional Instructions: *You have been diagnosed with cellulitis *What to do: At this time your blood work markers have improved. I would continue to monitor that area of redness. Please check on it 1-2 times daily to notice if there is any significant spreading. Monitor for fever as well. *Continue to take medications as directed Continue antibiotic as previously prescribed by her PCP *Follow up with your primary care provider tomorrow as previously arranged *Return to ER if you should have fevers significant spreading of redness or any new, worsening or concerning symptoms Prescriptions: No Action Fish Oil 1,000 mg PO Q DAY Qty: 0 RF: 0 VITAMIN D (Vitamin D3) 1,000 unit PO QDAY Qty: 0 RF: 0 [CMP ESTRIOL 0.2%] Q DAY Qty: 0 RF: 0 acyclovir 400 mg tablet 400 mg PO SEE INSTRUCTIONS Qty: 100 RF: 1 syringe with needle [Easy Touch] 1 mL 25 gauge x 1 syringe .ROUTE .MEDSUPPLY Qty: 12 RF: 1 cyanocobalamin (vitamin B-12) 1,000 mcg/mL solution 1,000 mcg IM QMONTH Qty: 12 RF: 0 celecoxib [Celebrex] 200 mg capsule 200 mg PO QDAY Qty: 360 RF: 1 diazepam [Valium] 5 mg tablet 5 mg PO BEDTIME PRN (Reason: sleep) Qty: 60 RF: 0 budesonide 3 mg capsule,delayed,extend.release 9 mg PO DAILY RF: 0 levothyroxine 75 mcg capsule 75 mcg PO DAILY Qty: 90 RF: 1 levofloxacin [Levaquin] 750 mg tablet 750 mg PO DAILY Qty: 7 RF: 0 lorazepam 1 MG tablet 0.5 mg PO BIDP PRN (Reason: Anxiety) RF: 0 cefdinir 300 mg capsule 300 mg PO BID 10 Days Qty: 20 RF: 0 Referrals: Samson Broussard MD [Physician] - Arleen Navarro DO [Primary Care Provider] -
--- NOTE | 2019-04-23 11:26 | PC.NURSE ---
radha reports significant improvement of redness and streaking up leg but reports 2cm/2cm circular area of redness noted to lateral aspect of ankle. Painful to touch and pain with ambulation
[2019-04-23 11:43] LABS: Add Manual Diff / Slide Review NO; Basophils Absolute Auto 100 /uL (0-100); Basophils Percent Auto 0.8 % (0-2); Eosinophils Absolute Auto 0 /uL (0-450); Eosinophils Percent Auto 0.6 % (2-4); Hematocrit 41.1 % (36-46); Hemoglobin 13.7 g/dL (12.0-16.0); Lymphocytes Absolute Auto 800 /uL (1100-4500); Mean Corpuscular HGB Conc 33.3 % (30-36); Mean Corpuscular Hemoglobin 32.3 PG (26-34); Mean Corpuscular Volume 97.1 fL (80-100); Monocytes Absolute Auto 600 /uL (0-900); Monocytes Percent Auto 9.1 % (3-14); Neutrophils Absolute Auto 5300 /uL (1500-7000); Neutrophils Percent Auto 77.5 % (50-75); Platelet Count 227 X10^3/uL (150-400); Red Blood Cell Count 4.23 X10^6/uL (4.0-5.2); Red Cell Distribution Width 13.9 % (11.6-14.8); White Blood Cell Count 6.8 X10^3/uL (4.5-11.0)
[2019-04-23 11:52] LABS: Alanine Aminotransferase 14 IU/L (9-52); Albumin 3.5 g/dL (3.5-5.0); Albumin Globulin Ratio 1.3 (1.0-2.8); Alkaline Phosphatase 48 U/L (38-126); Aspartate Aminotransferase 24 IU/L (14-36); BUN Creatinine Ratio 32.9 (6-22); Bilirubin Total 0.5 mg/dL (0.2-1.3); Blood Urea Nitrogen 23 mg/dL (7-17); C-Reactive Protein Quant 1.2 mg/dL (<1.0); Carbon Dioxide 30 mmol/L (22-32); Chloride 101 mmol/L (98-107); Estimated Glomerular Filt Rate > 60.0 mL/min (>60); Globulin 2.8 g/dL (1.7-4.1); Glucose 82 mg/dL (80-110); HEMOLYSIS < 15 (0-50); Potassium 4.4 mmol/L (3.4-5.1); Sodium 137 mmol/L (137-145); Total Protein 6.3 g/dL (6.3-8.2)
[2019-04-23 11:54] LABS: Erythrocyte Sedimentation Rate 9 MM/HR (0-20)
[2019-04-23 12:27] VITALS: BP 126/72; PULSE 68; RESP 16; O2SAT 100
--- NOTE | 2019-04-23 12:27 | PC.NURSE ---
Skin marker used to sherrill margins of ankle to observe for spreading
== END 2019-04-23 12:28 | disposition home or self-care (01) ==
PROVIDERS: Emergency Provider Emergency Medicine; PCP Family Medicine
DX: L03.116 Cellulitis of left lower limb (principal)
CPT/HCPCS: 36415; 80053; 85025; 85651; 86140; 99282; 99283

== ENCOUNTER → 2019-04-28 11:02 | Outpatient (CLI) | payer MEDICARE, SELFPAY ==
[2019-04-16 16:06] VITALS: BMI 18.0
== END ==
PROVIDERS: PCP Family Medicine; Visit Provider Family Medicine
DX: T81.31XA Disruption of external operation (surgical) wound, not elsewhere classified, initial encounter (principal); S81.802A Unspecified open wound, left lower leg, initial encounter; I89.0 Lymphedema, not elsewhere classified
CPT/HCPCS: 11042; 87070; 87075; 87205; 99213; 99214

== ENCOUNTER → 2019-05-03 10:34 | Outpatient (CLI) | payer MEDICARE, SELFPAY ==
[2019-04-16 16:06] VITALS: BMI 18.0
== END ==
PROVIDERS: PCP Family Medicine; Visit Provider Family Medicine
DX: T81.31XD Disruption of external operation (surgical) wound, not elsewhere classified, subsequent encounter (principal); S81.802D Unspecified open wound, left lower leg, subsequent encounter; I89.0 Lymphedema, not elsewhere classified; I73.9 Peripheral vascular disease, unspecified
CPT/HCPCS: 99212; 99213

== ENCOUNTER → 2019-05-09 08:34 | Outpatient (CLI) | payer MEDICARE, SELFPAY ==
[2019-04-16 16:06] VITALS: BMI 18.0
== END ==
PROVIDERS: PCP Family Medicine; Visit Provider Family Medicine
DX: T81.31XA Disruption of external operation (surgical) wound, not elsewhere classified, initial encounter (principal); S81.802A Unspecified open wound, left lower leg, initial encounter; I89.0 Lymphedema, not elsewhere classified; I73.9 Peripheral vascular disease, unspecified
CPT/HCPCS: 11042; 97607

== ENCOUNTER → 2019-05-11 09:00 | Outpatient (CLI) | payer MEDICARE, SELFPAY ==
[2019-04-16 16:06] VITALS: BMI 18.0
== END ==
PROVIDERS: PCP Family Medicine; Visit Provider Family Medicine
DX: S51.001A Unspecified open wound of right elbow, initial encounter (principal)
CPT/HCPCS: 97607

== ENCOUNTER → 2019-05-16 14:17 | Outpatient (CLI) | payer MEDICARE, SELFPAY ==
[2019-05-15 10:49] VITALS: BMI 18.0
== END ==
PROVIDERS: PCP Family Medicine; Visit Provider Family Medicine
DX: S81.802A Unspecified open wound, left lower leg, initial encounter (principal); I89.0 Lymphedema, not elsewhere classified; I73.9 Peripheral vascular disease, unspecified
CPT/HCPCS: 11042

== ENCOUNTER → 2019-05-19 11:16 | Outpatient (CLI) | payer MEDICARE, SELFPAY ==
[2019-05-15 10:49] VITALS: BMI 18.0
== END ==
PROVIDERS: PCP Family Medicine; Visit Provider Family Medicine
DX: S81.802A Unspecified open wound, left lower leg, initial encounter (principal)
CPT/HCPCS: 97607

== ENCOUNTER → 2019-05-23 09:43 | Outpatient (CLI) | payer MEDICARE, SELFPAY ==
[2019-05-15 10:49] VITALS: BMI 18.0
== END ==
PROVIDERS: PCP Family Medicine; Visit Provider Family Medicine
DX: T81.31XA Disruption of external operation (surgical) wound, not elsewhere classified, initial encounter (principal); S81.802A Unspecified open wound, left lower leg, initial encounter; I89.0 Lymphedema, not elsewhere classified; I73.9 Peripheral vascular disease, unspecified
CPT/HCPCS: 87070; 87075; 87077; 87147; 87186; 87205; 97597

== ENCOUNTER → 2019-05-30 09:43 | Outpatient (CLI) | payer MEDICARE, SELFPAY ==
[2019-05-15 10:49] VITALS: BMI 18.0
== END ==
PROVIDERS: PCP Family Medicine; Visit Provider Family Medicine
DX: T81.31XA Disruption of external operation (surgical) wound, not elsewhere classified, initial encounter (principal); S81.802A Unspecified open wound, left lower leg, initial encounter; I89.0 Lymphedema, not elsewhere classified
CPT/HCPCS: 87070; 87077; 87186; 87205; 97597; 99213

== ENCOUNTER → 2019-06-13 13:15 | Outpatient (CLI) | payer MEDICARE, SELFPAY ==
[2019-05-15 10:49] VITALS: BMI 18.0
== END ==
PROVIDERS: PCP Family Medicine; Visit Provider Family Medicine
DX: T81.31XA Disruption of external operation (surgical) wound, not elsewhere classified, initial encounter (principal); S81.802A Unspecified open wound, left lower leg, initial encounter; I89.0 Lymphedema, not elsewhere classified; I73.9 Peripheral vascular disease, unspecified
CPT/HCPCS: 97597

== ENCOUNTER → 2019-06-19 09:09 | Outpatient (CLI) | payer MEDICARE, SELFPAY ==
[2019-05-15 10:49] VITALS: BMI 18.0
[2019-06-19 10:33] LABS: Add Manual Diff / Slide Review NO; Basophils Absolute Auto 100 /uL (0-100); Basophils Percent Auto 1.3 % (0-2); Eosinophils Absolute Auto 100 /uL (0-450); Hematocrit 43.1 % (36-46); Hemoglobin 14.1 g/dL (12.0-16.0); Lymphocytes Absolute Auto 1000 /uL (1100-4500); Lymphocytes Percent Auto 20.2 % (25-40); Mean Corpuscular HGB Conc 32.8 % (30-36); Mean Corpuscular Hemoglobin 31.7 PG (26-34); Mean Corpuscular Volume 96.7 fL (80-100); Monocytes Absolute Auto 400 /uL (0-900); Monocytes Percent Auto 9.2 % (3-14); Neutrophils Absolute Auto 3300 /uL (1500-7000); Neutrophils Percent Auto 68.3 % (50-75); Platelet Count 260 X10^3/uL (150-400); Red Blood Cell Count 4.45 X10^6/uL (4.0-5.2); Red Cell Distribution Width 13.8 % (11.6-14.8); White Blood Cell Count 4.8 X10^3/uL (4.5-11.0)
[2019-06-19 11:06] LABS: HEMOLYSIS < 15 (0-50); Iron 77 ug/dL (37-170)
[2019-06-19 11:18] LABS: Percent Iron Saturation 25 % (15-50); Total Iron Binding Capacity 314 ug/dL (265-497); Transferrin 275 mg/dL (206-381)
[2019-06-19 11:23] LABS: Cortisol AM (Before 10AM) 11.3 ug/dL (4.46-22.7)
[2019-06-19 11:25] LABS: Free T3, Triiodothyronine Free 3.97 pg/mL (2.77-5.27); Free T4, Direct Thyroxine 1.45 ng/dL (0.78-2.19)
[2019-06-19 11:27] LABS: Ferritin 43.9 ng/mL (11.1-264)
[2019-06-19 11:39] LABS: Thyroid Stimulating Hormone 1.97 uIU/mL (0.47-4.68)
[2019-06-19 19:40] LABS: Cortisol PM (After 5PM) 7.39 ug/dL (1.7-14.1)
[2019-06-21 17:56] LABS: Homocysteine 9.8 umol/L (< 10.4); Thyroid Peroxidase Antibodies < 1 IU/mL (< 9)
[2019-06-22 16:10] LABS: Methylmalonic Acid 318 nmol/L (87-318)
[2019-06-23 11:05] LABS: Triiodothyronine T3 Reverse 16 ng/dL (8-25)
== END ==
PROVIDERS: PCP Family Medicine; Visit Provider Family Medicine
DX: D64.9 Anemia, unspecified (principal); E03.9 Hypothyroidism, unspecified; E53.8 Deficiency of other specified B group vitamins; I89.0 Lymphedema, not elsewhere classified; R19.7 Diarrhea, unspecified; R63.6 Underweight; I10 Essential (primary) hypertension
CPT/HCPCS: 36415; 82533; 82728; 83090; 83540; 83550; 83921; 84439; 84443; 84481; 84482; 85025; 86376

== ENCOUNTER 2019-06-23 16:38 | Emergency (ER) | payer MEDICARE, SELFPAY ==
[2019-05-15 10:49] VITALS: BMI 18.0
[2019-06-23 17:05] VITALS: BP 138/81; PULSE 58; RESP 18; TEMP 36.3; O2SAT 99
--- NOTE | 2019-06-23 17:21 | PC.NURSE ---
Patient reports pain deep within left groin. Do not appreciate any structural abnormality upon palpation. Patient states she has noticed bump for some time with no pain but last night and today significant amount of pain deep within left groin. Patient requesting blood test sed rate and CRP as those spiked first with last infection.
--- NOTE | 2019-06-23 17:24 | DI.RAD.S_ITS ---
PROCEDURE: XR HIP W PEL IF DONE LT 2V INDICATIONS: pain in L groin area, hx of hip surgery TECHNIQUE: AP pelvis with lateral view(s) of the left hip(s). COMPARISON: None. FINDINGS: Bones: The bilateral hip arthroplasties appear intact. No acute fracture dislocation. Soft tissues: The visualized bowel gas pattern is normal. No suspicious soft tissue calcifications. IMPRESSION: Intact hip arthroplasties. Dictated by: Carolina Bell M.D. on 06/23/2019 at 18:28 Approved by: Carolina Bell M.D. on 06/23/2019 at 18:29
[2019-06-23 17:54] LABS: Add Manual Diff / Slide Review NO; Basophils Absolute Auto 0 /uL (0-100); Eosinophils Absolute Auto 100 /uL (0-450); Eosinophils Percent Auto 1.6 % (2-4); Hematocrit 39.8 % (36-46); Hemoglobin 13.3 g/dL (12.0-16.0); Lymphocytes Absolute Auto 1000 /uL (1100-4500); Lymphocytes Percent Auto 20.5 % (25-40); Mean Corpuscular HGB Conc 33.4 % (30-36); Mean Corpuscular Hemoglobin 32.3 PG (26-34); Monocytes Absolute Auto 500 /uL (0-900); Monocytes Percent Auto 10.1 % (3-14); Neutrophils Absolute Auto 3200 /uL (1500-7000); Neutrophils Percent Auto 66.8 % (50-75); Platelet Count 205 X10^3/uL (150-400); Red Blood Cell Count 4.11 X10^6/uL (4.0-5.2); Red Cell Distribution Width 13.8 % (11.6-14.8); White Blood Cell Count 4.8 X10^3/uL (4.5-11.0)
[2019-06-23 18:02] LABS: C-Reactive Protein Quant 0.9 mg/dL (<1.0)
[2019-06-23 18:18] LABS: Erythrocyte Sedimentation Rate 9 MM/HR (0-20)
--- NOTE | 2019-06-23 18:41 | ED_ITS ---
HPI - Extremity Problem <KENYA Ludwig - Last Filed: 06/23/19 23:04> General Chief complaint: Extremity Problem,Nontraumatic Stated complaint: MIDDLE PART OF HIP PAIN CROTCH AREA Time Seen by Provider: 06/23/19 17:01 Source: patient Mode of arrival: Ambulatory Limitations: no limitations History of Present Illness HPI Narrative: This is a 79-year-old female, nonsmoker, who presents to ED with left groin pain for last couple of days. Patient states she had 4 previous hip replacement/surgeries for dislocations. Patient had been feeling something tugging and protruding eating on left groin for last 2 months without pain until last night she felt severe discomfort when she was walking up the stairs. Patient reports pain improves in resting position or lying down and increases with ambulation. Patient denies fever/chills, nausea or vomiting. Patient always has some numbness to her left legs and over reactive bladder but there is no increase in numbness or incontinence. She has been using a cane for ambulation aid since last night. Patient is taking Celebrex daily but no other additional medication has been taken for pain. 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 Justice. Related Data Home Medications Medication Instructions Recorded Confirmed cholecalciferol (vitamin D3) 1,000 unit PO DAILY #0 02/02/13 06/23/19 [Vitamin D3] omega 4-koo-lpf-fish oil [Fish Oil] 1 cap PO DAILY #0 02/02/13 06/23/19 [CMP ESTRIOL 0.2%] 1 applic VAGINAL 2XW #0 12/03/16 06/23/19 lorazepam 0.5 mg PO BIDP PRN 09/14/18 06/23/19 celecoxib [Celebrex] 200 mg PO DAILY 06/23/19 06/23/19 levothyroxine 75 mcg PO DAILY 06/23/19 06/23/19 Previous Rx's Medication Instructions Recorded syringe with needle 1 mL 25 gauge #12 each 07/21/18 x 1 cyanocobalamin (vitamin B-12) 1,000 mcg IM QMONTH #12 each 08/01/18 1,000 mcg/mL injection solution diazepam 5 mg tablet 5 mg PO BEDTIME PRN #60 tab 10/17/18 acyclovir 400 mg tablet 400 mg PO .COMPLEX #100 tab 06/22/19 Allergies Allergy/AdvReac Type Severity Reaction Status Date / Time No Known Drug Allergies Allergy Verified 06/23/19 17:04 Review of Systems <KENYA Ludwig - Last Filed: 06/23/19 23:04> Review of Systems Narrative: General: Denies fever, chills, fatigue, malaise, sweats. HEENT: Denies sinus pain, ear pain, sore throat, difficulty swallowing, dizziness. Respiratory: Denies dyspnea, cough, wheezing, hemoptysis, sputum. Cardiovascular: Denies chest pain, palpitations, orthopnea, edema. Gastrointestinal: Denies nausea, vomiting, abdominal pain, diarrhea, constipation, melena. : Denies dysuria, frequency, hematuria, urinary retention. Musculoskeletal: See HPI Skin: Denies rash, skin lesions, or other. Neurologic: Denies weakness, headache, change in speech, confusion, seizures, incoordination. Psychiatric: No concerning psychosocial issues. 12-point review of systems is negative except for those stated above. 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 (Inactive 09/03/11) Hypothyroid (Chronic) Lymphadenopathy, axillary (Acute) Lymphedema (Chronic) Neck pain (Chronic) Neurogenic bladder (Chronic) Osteoarthritis (Chronic) Raynauds syndrome (Chronic 09/03/11) Recurrent dislocation, left hip (Inactive) Scoliosis of thoracolumbar spine (Chronic ~2006) Septic arthritis of hip (Resolved ~08/2015) Underweight (Chronic) UTI (urinary tract infection) (Chronic) Surgical History History of arthroplasty (Resolved ~2013) History of arthroplasty (Inactive ~2009) History of arthroscopy of right knee (Inactive ~04/2010) History of hip replacement (Inactive) History of third molar tooth extraction (Inactive) S/P cervical spinal fusion (Inactive ~12/2013) Status post breast lumpectomy (Inactive) Status post hardware removal (Resolved ~2009) Status post hysterectomy with oophorectomy (Inactive) Status post laminectomy (Inactive) Status post tonsillectomy and adenoidectomy (Inactive) Surgical procedure planned (Resolved ~2006) Family History Father Post-polio syndrome Heart disease Hypertension Mother Heart disease Hyperlipidemia Hypertension Coronary artery disease Social History household members: none Smoking Status: Never smoker alcohol intake: current substance use type: does not use Family History Father Post-polio syndrome Heart disease Hypertension Mother Heart disease Hyperlipidemia Hypertension Coronary artery disease Social History household members: none Smoking Status: Never smoker alcohol intake: current substance use type: does not use alcohol intake frequency: 0-2 drinks per day Substance Use Type: does not use Exam <KENYA Ludwig - Last Filed: 06/23/19 23:04> Narrative Exam Narrative: General appearance: Frail and thin appearance and in no acute distress. Head: normocephalic, atraumatic, no scalp lesions, non-tender. Eye: pupil equal, round. EOMI. Nose: nares patent. Oral: mucosa moist. Neck/Thyroid: neck supple, full range of motion, no visible masses. Skin: no suspicious rashes, lesions over visible areas. Warm and dry. Heart: no clubbing, no cyanosis, no edema. Lungs: Breathing even and unlabored. No stridor. No accessory muscles used. Chest: normal shape and expansion. Abdomen: non-obese, non-distended. Neurologic: alert and oriented. 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 Psych: good eye contact, normal affect. Initial Vital Signs Initial Vital Signs: Vital Signs Temperature 97.3 F L 06/23/19 17:05 Pulse Rate 58 L 06/23/19 17:05 Respiratory Rate 18 06/23/19 17:05 Blood Pressure 138/81 06/23/19 17:05 Pulse Oximetry 99 06/23/19 17:05 Extrem Left lower extremity: normal to inspection, full ROM, hip/thigh Details: normal to inspection, normal ROM and other (No erythema, no edema); no tenderness, no swelling, no lacerations, no ecchymosis, no crepitus, no penetrating wound, no deformity and no unusual warmth and foot Details: normal to inspection, toes with normal ROM, no edema, vascular exam Details: dorsalis pedis pulse present a nd motor-sensory exam Details: light-touch normal; no tenderness and no unusual warmth <Neris Lopez DO - Last Filed: 06/24/19 08:07> Initial Vital Signs Initial Vital Signs: Vital Signs Temperature 97.3 F L 06/23/19 17:05 Pulse Rate 58 L 06/23/19 17:05 Respiratory Rate 18 06/23/19 17:05 Blood Pressure 138/81 06/23/19 17:05 Pulse Oximetry 99 06/23/19 17:05 Course <KENYA Ludwig - Last Filed: 06/23/19 23:04> Orders Ordered: ED Orders 06/23/19 17:24 XR hip w pel if done LT 2V Stat 06/23/19 17:30 C-Reactive Protein Quant Stat Complete Blood Count AUTO DIFF Stat Erythrocyte Sedimentation Rate Stat Vital Signs Vital signs: Vital Signs - 8 hr 06/23/19 17:05 06/23/19 19:01 Temperature 97.3 F L Pulse Rate 58 L 57 L Respiratory Rate 18 16 Blood Pressure 138/81 135/76 Pulse Oximetry 99 100 <DO Corinna Jane Last Filed: 06/24/19 08:07> Orders Ordered: ED Orders 06/23/19 17:24 XR hip w pel if done LT 2V Stat 06/23/19 17:30 C-Reactive Protein Quant Stat Complete Blood Count AUTO DIFF Stat Erythrocyte Sedimentation Rate Stat Vital Signs Vital signs: Vital Signs - 8 hr 06/23/19 17:05 06/23/19 19:01 Temperature 97.3 F L Pulse Rate 58 L 57 L Respiratory Rate 18 16 Blood Pressure 138/81 135/76 Pulse Oximetry 99 100 MDM - Extremity (Nontraumatic) <KENYA Ludwig - Last Filed: 06/23/19 23:04> Differential Diagnosis Differential diagnosis: Likely other (groin strain, dislocation of hip, fracture of hip, septic joints) Medical Records Attestation: I reviewed the patient's medical records. Lab Data Attestation: I reviewed the patient's lab results. Result diagrams: 06/23/19 17:30 Labs: Lab Results 06/23/19 06/23/19 Range/Units 17:30 17:30 WBC 4.8 (4.5-11.0) X10^3/uL RBC 4.11 (4.0-5.2) X10^6/uL Hgb 13.3 (12.0-16.0) g/dL Hct 39.8 (36-46) % MCV 97.0 (80-100) fL MCH 32.3 (26-34) PG MCHC 33.4 (30-36) % RDW 13.8 (11.6-14.8) % Plt Count 205 (150-400) X10^3/uL Neut % (Auto) 66.8 (50-75) % Lymph % (Auto) 20.5 L (25-40) % [place] % (Auto) 10.1 (3-14) % Eos % (Auto) 1.6 L (2-4) % Baso % (Auto) 1.0 (0-2) % Neut # (Auto) 3200 (7295-7033) /uL Lymph # (Auto) 1000 L (3519-0176) /uL [place] # (Auto) 500 (0-900) /uL Eos # (Auto) 100 (0-450) /uL Baso # (Auto) 0 (0-100) /uL ESR 9 (0-20) MM/HR C-Reactive Protein 0.9 (<1.0) mg/dL Imaging Data XR-HIP LT: Radiologist's impression: [address] [address] XRay Report Signed Patient: aSida Alvares#: [id number] : 2Acct:[id number] Age/Sex: 79 / FDate of Service: 06/23/19 Loc: ED Accession Number: [id number] Procedure: XR hip w pel if done LT 2V Ordering Provider: Maldonado Gutierrez PROCEDURE: XR HIP W PEL IF DONE LT 2V INDICATIONS: pain in L groin area, hx of hip surgery TECHNIQUE: AP pelvis with lateral view(s) of the left hip(s). COMPARISON: None. FINDINGS: Bones: The bilateral hip arthroplasties appear intact. No acute fracture dislocation. Soft tissues: The visualized bowel gas pattern is normal. No suspicious soft tissue calcifications. IMPRESSION: Intact hip arthroplasties. Dictated by: Carolina Bell M.D. on 06/23/2019 at 18:28 Approved by: Carolina Bell M.D. on 06/23/2019 at 18:29 [facility] Narrative Medical decision making narrative: This is 79-year-old female who presents to ED with right groin pain. Patient had previous left hip surgeries due to dislocations. Patient does not have constitutional symptoms. Last 2 months or so the patient fell something protruding on the bottom of her hip bone. Since last night patient fell intermittent discomfort with ambulation on her left groin. Patient also had history of left hip septic arthritis joint. She was referred to ED for an evaluation by her primary care physician Dr. Rene. Patient reports even with the infection the WBC has been normal exception of elevation of ESR and CRP. Today's CBC, ESR, and CRP were unremarkable. X-ray test on left hip does not show any acute findings such as dislocation, fracture, or displaced hip arthroplasties. Findings were discussed with the patient. Patient advised to take [id number] Tylenol in addition to Celebrex. Patient advised to follow up her primary care physician for re-evaluation and orthopedic surgeon if pain persists. Patient verbalized understanding and agrees with the treatment plan. Patient ambulates out of ED in stable gait using a cane. <Neris Lopez, - Last Filed: 06/24/19 08:07> Lab Data Labs: Lab Results 06/23/19 06/23/19 Range/Units 17:30 17:30 WBC 4.8 (4.5-11.0) X10^3/uL RBC 4.11 (4.0-5.2) X10^6/uL Hgb 13.3 (12.0-16.0) g/dL Hct 39.8 (36-46) % MCV 97.0 (80-100) fL MCH 32.3 (26-34) PG MCHC 33.4 (30-36) % RDW 13.8 (11.6-14.8) % Plt Count 205 (150-400) X10^3/uL Neut % (Auto) 66.8 (50-75) % Lymph % (Auto) 20.5 L (25-40) % [place] % (Auto) 10.1 (3-14) % Eos % (Auto) 1.6 L (2-4) % Baso % (Auto) 1.0 (0-2) % Neut # (Auto) 3200 (4416-4389) /uL Lymph # (Auto) 1000 L (5185-4950) /uL [place] # (Auto) 500 (0-900) /uL Eos # (Auto) 100 (0-450) /uL Baso # (Auto) 0 (0-100) /uL ESR 9 (0-20) MM/HR C-Reactive Protein 0.9 (<1.0) mg/dL Discharge Plan Departure Patient Disposition: Home Clinical Impression: Left groin pain Discharge Date/Time: 06/23/19 19:01 Instructions: DI for Groin Strain Activity Restrictions/Additional Instructions: You have been diagnosed with [left groin pain. X-ray test does not show acute fracture or dislocation and hip arthroplasties appeared to be intact. ESR, CRP, CBC are unremarkable.]. What to do: *Take your medications as directed. You can take Tylenol in addition to Celebrex for discomfort. You can take up to 4000 mg of Tylenol in 24 hour period. *Follow up with your primary care provider in 2-3 days, call for an appointment and also please follow up with orthopedic surgeon if pain persists. Let them know you were seen in the ED and that we asked you to be seen in follow up. *Return to ED if you have any new, worsening, or concerning symptoms, such as [worsening pain, increasing numbness, weakness, chest pain, breathing difficulty, or any acute concerns]. Prescriptions: No Action cholecalciferol (vitamin D3) [Vitamin D3] 1,000 unit Capsule 1,000 unit PO DAILY Qty: 0 RF: 0 omega 8-zpp-nyc-fish oil [Fish Oil] 1,000 mg (120 mg-180 mg) Capsule 1 cap PO DAILY Qty: 0 RF: 0 [CMP ESTRIOL 0.2%] 1 applic vaginal 2XW Qty: 0 RF: 0 (DME) syringe with needle [Easy Touch] 1 mL 25 gauge x 1 syringe See Dose Instructions .ROUTE .MEDSUPPLY Qty: 12 RF: 1 cyanocobalamin (vitamin B-12) 1,000 mcg/mL solution 1,000 mcg IM QMONTH Qty: 12 RF: 0 diazepam [Valium] 5 mg tablet 5 mg PO BEDTIME PRN (Reason: sleep) Qty: 60 RF: 0 acyclovir 400 mg tablet 400 mg PO .COMPLEX Qty: 100 RF: 1 lorazepam 1 MG tablet 0.5 mg PO BIDP PRN (Reason: Anxiety) RF: 0 celecoxib [Celebrex] 200 mg capsule 200 mg PO DAILY RF: 0 levothyroxine 75 mcg tablet 75 mcg PO DAILY RF: 0 Referrals: Arleen Ybarra DO [Primary Care Provider] -
[2019-06-23 19:01] VITALS: BP 135/76; PULSE 57; RESP 16; O2SAT 100
== END 2019-06-23 19:01 | disposition home or self-care (01) ==
PROVIDERS: Emergency Provider Nurse Practitioner Family; PCP Family Medicine
DX: R10.32 Left lower quadrant pain (principal)
CPT/HCPCS: 36415; 73502; 85025; 85651; 86140; 99282; 99284

== ENCOUNTER → 2019-07-04 09:16 | Outpatient (CLI) | payer MEDICARE, SELFPAY ==
[2019-05-15 10:49] VITALS: BMI 18.0
== END ==
PROVIDERS: PCP Family Medicine; Visit Provider Family Medicine
DX: T81.31XD Disruption of external operation (surgical) wound, not elsewhere classified, subsequent encounter (principal); S81.802D Unspecified open wound, left lower leg, subsequent encounter; I89.0 Lymphedema, not elsewhere classified; R60.0 Localized edema
CPT/HCPCS: 99213

== ENCOUNTER 2019-07-10 11:29 | Observation (INO) | payer MEDICARE, SELFPAY ==
[2019-05-15 10:49] VITALS: BMI 18.0
[2019-07-10] VITALS (16 sets, daily range): BP systolic 110–122; BP diastolic 57–76; PULSE 69–99; RESP 15–23; TEMP 37.3–39.6; O2SAT 94–100; BMI 18.6
--- NOTE | 2019-07-10 13:30 | PC.NURSE ---
Friend at bedside Soraida Oliveros. [phone]
[2019-07-10 13:42] LABS: Influenza A and B by PCR Rapid Negative (Negative)
--- NOTE | 2019-07-10 15:37 | ED.DIZZY ---
HPI - Dizziness General Chief Complaint: Syncope Stated Complaint: Lightheaded Time Seen by Provider: 07/10/19 11:59 Source: EMS and other Mode of arrival: EMS Limitations: altered mental status History of Present Illness HPI Narrative: Patient is brought to the emergency department by EMS after being found to be ?not acting right? at [facility]. Patient is not able to give any information specifically about what happened, as she does not clearly remember. Patient's friend, who is present with her, states that he called the patient this morning and she sounded confused. Patient states she remembers having an episode of rigors this morning, which she has had before with her frequent UTIs. The friend was out of town, so he could not come check on the patient, when he got back to town, he found the patient had left her home. She had mentioned earlier that she may go to the gym, so he went to the gym and found that the patient's car door had been left open with her keys and phone on the seat. Gym staff had noticed that the patient did not seem to be acting right, and seemed confused, and called EMS and had the patient sent here. The patient is confused and unable to offer much information beyond this. She denies dysuria. She self caths for neurogenic bladder. Patient denies cough or shortness breath. No chest pain. No abdominal pain. No back pain. Related Data Home Medications Medication Instructions Recorded Confirmed cholecalciferol (vitamin D3) 1,000 unit PO DAILY #0 02/02/13 07/10/19 [Vitamin D3] omega [id number] oil [Fish Oil] 1 cap PO DAILY #0 02/02/13 07/10/19 [CMP ESTRIOL 0.2%] 1 applic VAGINAL 2XW #0 12/03/16 07/10/19 lorazepam 0.5 mg PO BIDP PRN 09/14/18 07/10/19 celecoxib [Celebrex] 200 mg PO DAILY 06/23/19 07/10/19 levothyroxine 75 mcg PO DAILY 06/23/19 07/10/19 Previous Rx's Medication Instructions Recorded syringe with needle 1 mL 25 gauge #12 each 07/21/18 x 1 cyanocobalamin (vitamin B-12) 1,000 mcg IM QMONTH #12 each 08/01/18 1,000 mcg/mL injection solution diazepam 5 mg tablet 5 mg PO BEDTIME PRN #60 tab 10/17/18 acyclovir 400 mg tablet 400 mg PO .COMPLEX #100 tab 06/22/19 amoxicillin-pot clavulanate 1 tab PO BID #14 tab 07/11/19 [Augmentin] Allergies Allergy/AdvReac Type Severity Reaction Status Date / Time No Known Drug Allergies Allergy Verified 06/23/19 17:04 Review of Systems Constitutional Constitutional: Denies chills, Denies fatigue, Denies fever(s), Denies frequent falls, Denies lethargy and Denies weakness Eyes Eyes: Denies change in vision, Denies eye discharge, Denies irritation and Denies loss of vision ENT Ears, Nose, Mouth, and Throat: Denies change in voice, Denies dizziness, Denies neck pain, Denies sore throat and Denies throat swelling Cardiovascular Cardiovascular: Denies chest pain, Denies irregular heart rhythm, Denies lightheadedness, Denies palpitations, Denies dyspnea, Denies dyspnea on exertion and Denies orthopnea Respiratory Respiratory: Denies cough, Denies dyspnea, Denies dyspnea on exertion and Denies wheezing Gastrointestinal Gastrointestinal: Denies abdominal pain, Denies change in bowel habits, Denies diarrhea, Denies nausea and Denies vomiting Genitourinary Genitourinary: Denies hematuria, Denies flank pain, Denies urinary incontinence and Denies urinary urgency Musculoskeletal Musculoskeletal: Denies back pain, Denies muscle weakness, Denies neck pain, Denies numbness and Denies tingling Integumentary/Breasts Skin/Breast: Denies pruritus, Denies erythema, Denies rash and Denies wounds Neurologic Neurologic: Reports behavioral changes, Reports confusion, Denies dizziness, Denies frequent falls, Denies loss of vision, Denies numbness, Denies tingling and Denies weakness Psychiatric Psychiatric: Denies anxiety, Reports behavioral changes, Reports confusion, Denies depression, Denies homicidal ideation and Denies suicidal ideation Endocrine Endocrine: Denies fatigue, Denies flushing and Denies palpitations Hematologic/Lymphatic Hematologic/Lymphatic: Denies easy bruising Allergic/Immunologic Allergic/Immunologic: Denies urticaria, Denies throat swelling and Denies wheezing Patient History Medical History Anemia (Chronic) Anemia, unspecified (Resolved) Cobalamin deficiency (Chronic) Diarrhea (Chronic) Genital herpes (Chronic Unknown) Headache (Chronic) History of malignant neoplasm of breast (Inactive 2007) 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 (Inactive 09/03/11) Hypothyroid (Chronic) Lymphadenopathy, axillary (Acute) Lymphedema (Chronic) Neck pain (Chronic) Neurogenic bladder (Chronic) Osteoarthritis (Chronic) Raynauds syndrome (Chronic 09/03/11) Recurrent dislocation, left hip (Inactive) Scoliosis of thoracolumbar spine (Chronic ~2006) Septic arthritis of hip (Resolved ~08/2015) Underweight (Chronic) UTI (urinary tract infection) (Chronic) Surgical History History of arthroplasty (Resolved ~2013) History of arthroplasty (Inactive ~2009) History of arthroscopy of right knee (Inactive ~04/2010) History of hip replacement (Inactive) History of third molar tooth extraction (Inactive) S/P cervical spinal fusion (Inactive ~12/2013) Status post breast lumpectomy (Inactive) Status post hardware removal (Resolved ~2009) Status post hysterectomy with oophorectomy (Inactive) Status post laminectomy (Inactive) Status post tonsillectomy and adenoidectomy (Inactive) Surgical procedure planned (Resolved ~2006) Family History Father Post-polio syndrome Heart disease Hypertension Mother Heart disease Hyperlipidemia Hypertension Coronary artery disease Social History household members: none Smoking Status: Never smoker alcohol intake: current substance use type: does not use alcohol intake frequency: 0-2 drinks per day Substance Use Type: does not use Exam Initial Vital Signs Initial Vital Signs: Vital Signs Temperature 103.2 F H 07/10/19 11:58 Pulse Rate 86 07/10/19 11:58 Respiratory Rate 15 07/10/19 11:58 Blood Pressure 117/71 07/10/19 11:58 Pulse Oximetry 97 07/10/19 11:58 Const General: cooperative and well developed Nutritional Appearance: well nourished Orientation: alert, awake and confused HENID Head: normocephalic and atraumatic Ears: external ears normal Nose: external nose normal and No nasal discharge Face and sinus: face symmetric and No dry mucous membranes Mouth: oral mucosae normal and moist mucous membranes Teeth and gingiva: dentition normal Eyes General: appearance normal, both eyes and all related structures Eyelids: eyelids normal Conjunctivae: conjunctivae normal Sclera: sclerae normal Pupils: PERRL EOM: EOM intact bilaterally Neck Neck: normal visual inspection, trachea midline, No lymphadenopathy, No midline deformity and No JVD Lymphatic: No lymphedema Chest Chest: normal inspection of the chest Resp Effort & Inspection: normal respiratory effort, able to speak in complete sentences, no respiratory distress and no use of accessory muscles Auscultation: clear to auscultation bilaterally, no rales, no rhonchi and no wheezes Cardio Rate: regular rate Rhythm: regular rhythm Heart Sounds: no click, no gallops, no murmurs and no rubs Pulses: normal peripheral pulses GI Inspection: non-distended Palpation: soft, no hepatosplenomegaly, No guarding, No pulsatile mass and No tender Auscultation: normal bowel sounds Back/Spine/Pelvis Back: No CVA tenderness Cervical Spine: cervical ROM normal and No pain with cervical ROM Thoracic/Lumbar Spine: thoracic and lumbar spine normal to inspection Skin General: no rashes or lesions noted, No jaundice and No petechiae Neuro General: alert, awake, oriented (Self and place) and no focal motor deficits Speech: speech normal Other: Patient's diction is clear, but well she does try to answer questions, she seems flustered on trails off, stating ?I guess I just do not remember?. Extrem General: full ROM, no clubbing, cyanosis or edema, no pedal edema and no calf tenderness Psych Appearance: well kempt Mental Status: mental status grossly normal Attitude: cooperative Thought Content: normal and suicidality Judgment: judgment good Course Course Course Narrative: Patient was worked up in the emergency department, to a urinary tract infection. Head CT was unremarkable, as were patient's laboratory studies. Patient's white blood cell count was unremarkable. I spoke with Dr. Bentley, who was covering for Dr. Ybarra, the patient's primary care physician, and he did agree to admit the patient to his service. Patient and friend were informed and agreeable to the plan. Orders Ordered: Discontinued Medications Acetaminophen (Tylenol) 650 mg PO Q6HR PRN PRN Reason: As Needed for Fever/Mild Pain Last Admin: 11/04/19 21:31 Dose: 650 mg Documented by: KALA Acyclovir (Zovirax) 400 mg PO [id number] [facility] Last Admin: 07/11/19 09:24 Dose: 400 mg Documented by: MOMO Celecoxib (Celebrex) 200 mg PO DAILY [facility] Last Admin: 07/11/19 09:26 Dose: 200 mg Documented by: MOMO Diazepam (Valium) 5 mg PO BEDTIME PRN PRN Reason: sleep Enoxaparin Sodium (Lovenox) 40 mg SUBCUT DAILY [facility] Last Admin: 07/11/19 09:29 Dose: Not Given Documented by: MOMO Sodium Chloride (Normal Saline 0.9%) 1,000 mls @ 100 mls/hr IV CONT [facility] Last Infusion: 07/11/19 06:38 Dose: 100 mls/hr Documented by: LUIS ARMANDO Admin: 07/11/19 06:38 Dose: 100 mls/hr Documented by: LUIS ARMANDO Infusion: 07/11/19 05:15 Dose: 100 mls/hr Documented by: LUIS ARMANDO Admin: 07/10/19 19:15 Dose: 100 mls/hr Documented by: KALA Ceftriaxone Sodium/Dextrose (Rocephin) 1 gm in 50 mls @ 100 mls/hr IV Q12H [facility] Last Infusion: 07/11/19 08:25 Dose: 100 mls/hr Documented by: Admin: 07/11/19 06:34 Dose: 100 mls/hr Documented by: LUIS ARMANDO Infusion: 07/10/19 19:45 Dose: 0 mls/hr Documented by: Admin: 07/10/19 19:15 Dose: 100 mls/hr Documented by: KALA Levothyroxine Sodium (Synthroid) 75 mcg PO DAILY [facility] Last Admin: 07/11/19 09:24 Dose: 75 mcg Documented by: MOMO Lorazepam (Ativan) 0.5 mg PO BID [facility] Last Admin: 07/11/19 09:23 Dose: Not Given Documented by: Admin: 07/10/19 20:34 Dose: Not Given Documented by: KALA Vital Signs Vital signs: Vital Signs - 8 hr 07/10/19 11:58 07/10/19 12:30 07/10/19 13:23 Temperature 103.2 F H 102.9 F H Pulse Rate 86 85 91 H Respiratory Rate 15 20 18 Blood Pressure 117/71 Blood Pressure [Left Arm] 121/71 116/60 Pulse Oximetry 97 98 100 07/10/19 13:30 07/10/19 14:05 07/10/19 14:36 Temperature Pulse Rate 69 83 99 H Respiratory Rate 23 18 20 Blood Pressure Blood Pressure [Left Arm] 119/68 120/62 113/74 Pulse Oximetry 94 100 99 MDM - Dizziness Lab Data Result diagrams: 07/11/19 05:21 07/11/19 05:21 Labs: Lab Results 07/10/19 07/10/19 07/10/19 Range/Units 11:35 11:35 13:20 WBC 9.1 (4.5-11.0) X10^3/uL RBC 4.28 (4.0-5.2) X10^6/uL Hgb 13.7 (12.0-16.0) g/dL Hct 41.5 (36-46) % MCV 96.8 (80-100) fL MCH 32.1 (26-34) PG MCHC 33.1 (30-36) % RDW 14.3 (11.6-14.8) % Plt Count 167 (150-400) X10^3/uL Neut % (Auto) 92.4 H (50-75) % Lymph % (Auto) 2.9 L (25-40) % [place] % (Auto) 4.0 (3-14) % Eos % (Auto) 0.0 L (2-4) % Baso % (Auto) 0.7 (0-2) % Neut # (Auto) 8400 H (7382-6118) /uL Lymph # (Auto) 300 L (2060-5645) /uL [place] # (Auto) 400 (0-900) /uL Eos # (Auto) 0 (0-450) /uL Baso # (Auto) 100 (0-100) /uL Sodium 134 L (137-145) mmol/L Potassium 4.0 (3.4-5.1) mmol/L Chloride 99 (98-107) mmol/L Carbon Dioxide 29 (22-32) mmol/L BUN 18 H (7-17) mg/dL Creatinine 0.70 (0.52-1.04) mg/dL Estimated GFR > 60.0 (>60) mL/min BUN/Creatinine Ratio 25.7 H (6-22) Glucose 125 H (80-110) mg/dL Lactate (0.7-2.1) mmol/L Calcium 9.1 (8.4-10.2) mg/dL Total Bilirubin 0.5 (0.2-1.3) mg/dL AST 60 H (14-36) IU/L ALT 31 (<35) IU/L Alkaline Phosphatase 79 (38-126) U/L Total Protein 6.6 (6.3-8.2) g/dL Albumin 3.9 (3.5-5.0) g/dL Globulin 2.7 (1.7-4.1) g/dL Albumin/Globulin Ratio 1.4 (1.0-2.8) Urine Color Urine Appearance Urine pH (4.5-8.0) Ur Specific [place] (1.000-1.035) Urine Protein (Negative) Urine Glucose (UA) (Negative) g/dL Urine Ketones (NEGATIVE) Urine Occult Blood (Negative) Urine Nitrate (Negative) Urine Bilirubin (NEGATIVE) Urine Urobilinogen (0.2) E.U./dL Ur Leukocyte Esterase (NEGATIVE) Urine RBC (0-5/HPF) Urine WBC (0-5/HPF) Ur Squamous Epith Cells (0-5/HPF) Amorphous Sediment Urine Bacteria (None) Urine Mucus (Negative) Ur Culture Indicated? Influenza A & B (PCR) Negative (Negative) 07/10/19 07/10/19 Range/Units 15:47 15:57 WBC (4.5-11.0) X10^3/uL RBC (4.0-5.2) X10^6/uL Hgb (12.0-16.0) g/dL Hct (36-46) % MCV (80-100) fL MCH (26-34) PG MCHC (30-36) % RDW (11.6-14.8) % Plt Count (150-400) X10^3/uL Neut % (Auto) (50-75) % Lymph % (Auto) (25-40) % [place] % (Auto) (3-14) % Eos % (Auto) (2-4) % Baso % (Auto) (0-2) % Neut # (Auto) (4417-9877) /uL Lymph # (Auto) (8223-5060) /uL [place] # (Auto) (0-900) /uL Eos # (Auto) (0-450) /uL Baso # (Auto) (0-100) /uL Sodium (137-145) mmol/L Potassium (3.4-5.1) mmol/L Chloride (98-107) mmol/L Carbon Dioxide (22-32) mmol/L BUN (7-17) mg/dL Creatinine (0.52-1.04) mg/dL Estimated GFR (>60) mL/min BUN/Creatinine Ratio (6-22) Glucose (80-110) mg/dL Lactate 0.7 (0.7-2.1) mmol/L Calcium (8.4-10.2) mg/dL Total Bilirubin (0.2-1.3) mg/dL AST (14-36) IU/L ALT (<35) IU/L Alkaline Phosphatase (38-126) U/L Total Protein (6.3-8.2) g/dL Albumin (3.5-5.0) g/dL Globulin (1.7-4.1) g/dL Albumin/Globulin Ratio (1.0-2.8) Urine Color Yellow Urine Appearance Sl cloudy Urine pH 7.5 (4.5-8.0) Ur Specific [place] 1.010 (1.000-1.035) Urine Protein Negative (Negative) Urine Glucose (UA) Negative (Negative) g/dL Urine Ketones Negative (NEGATIVE) Urine Occult Blood Negative (Negative) Urine Nitrate Positive (Negative) Urine Bilirubin Negative (NEGATIVE) Urine Urobilinogen 0.2 (0.2) E.U./dL Ur Leukocyte Esterase Trace H (NEGATIVE) Urine RBC None seen (0-5/HPF) Urine WBC 5-10/hpf H (0-5/HPF) Ur Squamous Epith Cells 0-1 /hpf D (0-5/HPF) Amorphous Sediment 1+ Urine Bacteria Many (>30) H (None) Urine Mucus 1+ H (Negative) Ur Culture Indicated? Specimen cultured Influenza A & B (PCR) (Negative) Discharge Plan Departure Patient Disposition: Admitted as Observation Clinical Impression: UTI (urinary tract infection) Qualifiers: Urinary tract infection type: acute cystitis Hematuria presence: without hematuria Qualified Code(s): N30.00 - Acute cystitis without hematuria Discharge Date/Time: 07/10/19 18:40 Admit Date/Time: 07/10/19 18:02 Admit Provider: Carlito Bentley
[2019-07-10 15:44] LABS: Add Manual Diff / Slide Review NO; Basophils Absolute Auto 100 /uL (0-100); Basophils Percent Auto 0.7 % (0-2); Eosinophils Absolute Auto 0 /uL (0-450); Hematocrit 41.5 % (36-46); Hemoglobin 13.7 g/dL (12.0-16.0); Lymphocytes Absolute Auto 300 /uL (1100-4500); Lymphocytes Percent Auto 2.9 % (25-40); Mean Corpuscular HGB Conc 33.1 % (30-36); Mean Corpuscular Hemoglobin 32.1 PG (26-34); Mean Corpuscular Volume 96.8 fL (80-100); Monocytes Absolute Auto 400 /uL (0-900); Neutrophils Absolute Auto 8400 /uL (1500-7000); Neutrophils Percent Auto 92.4 % (50-75); Platelet Count 167 X10^3/uL (150-400); Red Blood Cell Count 4.28 X10^6/uL (4.0-5.2); Red Cell Distribution Width 14.3 % (11.6-14.8); White Blood Cell Count 9.1 X10^3/uL (4.5-11.0)
[2019-07-10 15:48] LABS: Alanine Aminotransferase 31 IU/L (<35); Albumin 3.9 g/dL (3.5-5.0); Albumin Globulin Ratio 1.4 (1.0-2.8); Alkaline Phosphatase 79 U/L (38-126); Aspartate Aminotransferase 60 IU/L (14-36); BUN Creatinine Ratio 25.7 (6-22); Bilirubin Total 0.5 mg/dL (0.2-1.3); Blood Urea Nitrogen 18 mg/dL (7-17); Calcium 9.1 mg/dL (8.4-10.2); Carbon Dioxide 29 mmol/L (22-32); Chloride 99 mmol/L (98-107); Estimated Glomerular Filt Rate > 60.0 mL/min (>60); Globulin 2.7 g/dL (1.7-4.1); Glucose 125 mg/dL (80-110); HEMOLYSIS 15 (0-50); Sodium 134 mmol/L (137-145); Total Protein 6.6 g/dL (6.3-8.2)
[2019-07-10 16:11] LABS: RBC Urine None Seen (0-5/HPF)
[2019-07-10 16:12] LABS: Appearance Urine UA SL CLOUDY; Bilirubin Urine UA NEGATIVE (NEGATIVE); Color Urine UA YELLOW; Glucose Urine UA NEGATIVE (Negative); Ketones Urine UA NEGATIVE (NEGATIVE); Leukocyte Esterase Urine UA TRACE (NEGATIVE); Nitrite Urine UA POSITIVE (Negative); Occult Blood Urine UA NEGATIVE (Negative); Protein Urine UA NEGATIVE (Negative); Urobilinogen Urine UA 0.2 E.U./dL (0.2)
[2019-07-10 16:23] LABS: pH Urine UA 7.5 (4.5-8.0)
[2019-07-10 16:24] LABS: Amorphous Sediment Urine 1+; Bacteria Urine Many (>30); Culture Indicated Urine Specimen Cultured; Mucus Urine 1+ (Negative); Squamous Epithelial Cell Urine 0-1 /HPF (0-5/HPF); WBC Urine 5-10/HPF (0-5/HPF)
[2019-07-10 16:28] LABS: Lactate (Lactic Acid) 0.7 mmol/L (0.7-2.1)
--- NOTE | 2019-07-10 16:30 | DI.CT.S_ITS ---
PROCEDURE: CT HEAD/BRAIN WO CON INDICATIONS: altered mental status TECHNIQUE: Noncontrast 4.5 mm thick angled axial sections acquired from the foramen magnum to the vertex, with coronal and sagittal reformats. For radiation dose reduction, the following was used: automated exposure control, adjustment of mA and/or kV according to patient size. COMPARISON: None. FINDINGS: Image quality: Excellent. CSF spaces: Basal cisterns are patent. No extra-axial fluid collections. The ventricles are symmetric in size and shape. Brain: No intracranial bleeds or masses. There is cerebral volume loss for age, with resultant ventricular and sulcal prominence. There are periventricular and deep white matter chronic small vessel ischemic changes. There is intracranial internal carotid artery atherosclerosis. Skull and face: Calvarium and visualized facial bones appear intact, without suspicious lesions. Sinuses: Visualized sinuses and mastoids are clear. IMPRESSION: 1. No acute intracranial abnormalities. 2. Cerebral volume loss and chronic microvascular ischemic changes. Dictated by: Lo Box M.D. on 07/10/2019 at 16:50 Approved by: Lo Box M.D. on 07/10/2019 at 16:54
--- NOTE | 2019-07-10 17:50 | DI.RAD.S_ITS ---
PROCEDURE: XR CHEST 1V INDICATIONS: fever TECHNIQUE: One view of the chest was acquired. COMPARISON: [facility], CR, XR CHEST 1V, 04/16/2019, 13:28. FINDINGS: Surgical changes and devices: Bilateral shoulder arthroplasties and cervical hardware are unchanged. Lungs and pleura: Lungs are clear. No pleural effusions or pneumothorax. The lung volumes are large and the diaphragms are flattened suggesting emphysema. Mediastinum: Mediastinal contours appear normal. Heart size is normal. Bones and chest wall: No suspicious bony lesions. Overlying soft tissues appear unremarkable. IMPRESSION: No acute cardiopulmonary findings. Emphysematous change. Dictated by: Carolina Bell M.D. on 07/10/2019 at 18:04 Approved by: Carolina Bell M.D. on 07/10/2019 at 18:05
--- NOTE | 2019-07-10 18:52 | PM.HP.1 ---
History of Present Illness History of Present Illness Date Patient Seen: 07/10/19 Time Patient Seen: 18:52 Chief complaint: Lightheaded Narrative: Lightheadedness. Patient admitted through the ER this evening. Patient has somewhat vague history is somewhat sketchy but as best I can tell yesterday she felt fine. This morning she had a fairly large bowel movement. She has been having intermittent problems with chronic abdominal pain this is not a new problem. Soon thereafter this morning she developed chills and rigors. Her mid male friend apparently the thought she had some mental confusion. Patient apparently went to the gym where she was doing her exercises and the staff there thought she was acting weird called paramedics she has brought the emergency room. Male friend relates that she gets confused and dizzy when she has urinary tract infection which is felt to be the case this time. Patient has a history of bladder dysfunction perhaps secondary to irradiation for of per prior cancer. She does self catheterization. She she has a urologist at [facility]. And that she was told that she has ?colonizing ?. She had denies any dysuria hematuria or any urinary changes. She does do self-catheterizations 3 times a day routinely as stated. She really had no other symptoms other mental confusion no head injury. No URI symptoms no chest pain no palpitations shortness of breath.. Patient has a significant complicated history as documented by the medical records. She has had multiple surgeries. History of breast cancer and cervical cancer. Also had radiation. Patient History Medical History Anemia (Chronic) Anemia, unspecified (Resolved) Cobalamin deficiency (Chronic) Diarrhea (Chronic) Genital herpes (Chronic Unknown) Headache (Chronic) History of malignant neoplasm of breast (Inactive 2007) 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 (Inactive 09/03/11) Hypothyroid (Chronic) Lymphadenopathy, axillary (Acute) Lymphedema (Chronic) Neck pain (Chronic) Neurogenic bladder (Chronic) Osteoarthritis (Chronic) Raynauds syndrome (Chronic 09/03/11) Recurrent dislocation, left hip (Inactive) Scoliosis of thoracolumbar spine (Chronic ~2006) Septic arthritis of hip (Resolved ~08/2015) Underweight (Chronic) UTI (urinary tract infection) (Chronic) Surgical History History of arthroplasty (Resolved ~2013) History of arthroplasty (Inactive ~2009) History of arthroscopy of right knee (Inactive ~04/2010) History of hip replacement (Inactive) History of third molar tooth extraction (Inactive) S/P cervical spinal fusion (Inactive ~12/2013) Status post breast lumpectomy (Inactive) Status post hardware removal (Resolved ~2009) Status post hysterectomy with oophorectomy (Inactive) Status post laminectomy (Inactive) Status post tonsillectomy and adenoidectomy (Inactive) Surgical procedure planned (Resolved ~2006) Family & Social History Family History Father Post-polio syndrome Heart disease Hypertension Mother Heart disease Hyperlipidemia Hypertension Coronary artery disease Social History: household members none Safety & Behavioral: Feels Safe in Current Yes Environment Tobacco & Substance use: Smoking Status Never smoker alcohol intake current alcohol intake frequency 0-2 drinks per day Substance Use Type does not use Meds Home Medications and Allergies Home Medications Medication Instructions Recorded Confirmed Type cholecalciferol (vitamin D3) 1,000 unit PO DAILY #0 02/02/13 07/10/19 History [Vitamin D3] omega 4-nge-ksv-fish oil [Fish Oil] 1 cap PO DAILY #0 02/02/13 07/10/19 History [CMP ESTRIOL 0.2%] 1 applic VAGINAL 2XW #0 12/03/16 07/10/19 History syringe with needle 1 mL 25 gauge #12 each 07/21/18 07/10/19 Rx x 1 cyanocobalamin (vitamin B-12) 1,000 mcg IM QMONTH #12 each 08/01/18 07/10/19 Rx 1,000 mcg/mL injection solution lorazepam 0.5 mg PO BIDP PRN 09/14/18 07/10/19 History diazepam 5 mg tablet 5 mg PO BEDTIME PRN #60 tab 10/17/18 07/10/19 Rx acyclovir 400 mg tablet 400 mg PO .COMPLEX #100 tab 06/22/19 07/10/19 Rx celecoxib [Celebrex] 200 mg PO DAILY 06/23/19 07/10/19 History levothyroxine 75 mcg PO DAILY 06/23/19 07/10/19 History Allergies Allergy/AdvReac Type Severity Reaction Status Date / Time No Known Drug Allergies Allergy Verified 06/23/19 17:04 Review of Systems Review of Systems ROS Unobtainable: All systems reviewed & are unremarkable except as noted in HPI and below Exam Vital Signs (past 8 hours): - 07/10/19 11:58 07/10/19 12:30 07/10/19 13:23 Temperature 103.2 F H 102.9 F H Pulse Rate 86 85 91 H Respiratory Rate 15 20 18 Blood Pressure 117/71 Blood Pressure [Left Arm] 121/71 116/60 Pulse Oximetry 97 98 100 07/10/19 13:30 07/10/19 14:05 07/10/19 14:36 Temperature Pulse Rate 69 83 99 H Respiratory Rate 23 18 20 Blood Pressure Blood Pressure [Left Arm] 119/68 120/62 113/74 Pulse Oximetry 94 100 99 07/10/19 15:00 07/10/19 15:30 07/10/19 16:00 Temperature 101.9 F H Pulse Rate 89 81 85 Respiratory Rate 18 21 Blood Pressure Blood Pressure [Left Arm] 113/74 118/62 Pulse Oximetry 98 07/10/19 16:30 07/10/19 17:00 07/10/19 17:30 Temperature 100.9 F H 100.6 F H Pulse Rate 86 82 85 Respiratory Rate 19 18 Blood Pressure Blood Pressure [Left Arm] 113/62 115/57 L 110/59 L Pulse Oximetry 98 97 98 07/10/19 18:06 07/10/19 18:32 Temperature 99.2 F Pulse Rate 72 Respiratory Rate 15 Blood Pressure Blood Pressure [Left Arm] 110/59 L Pulse Oximetry 97 Oxygen Delivery Method Room Air Narrative Exam Narrative: Gen.: [] Patient appears in no distress. Somewhat flushed. She appears her usual frail self however. She is somewhat confused in her memory of the course of the day. She knows where she has she is alert and oriented x3 however Skin: [Warm well perfused. No prominent lesions. Nonicteric]. HEENT: PERRL., [normal EOM, external ears canals TMs normal, nasal mucosa normal and midline septum, oropharynx without lesions.] Neck: [Trachea midline. Thyroid nontender and not enlarged. Carotids without bruits. No lymphadenopathy] Back: [No obvious deformity or tenderness]. Chest: [Clear to P&A. Symmetric]. CV: [RRR no murmur or gallop. No JVD]. Abdomen: [No masses bruits tenderness or visceromegaly]. Neuro: [Cranial nerves II through XII grossly intact. Sensory and motor exams intact. Gait normal.] Mental status: [Intact for screening] Extremities: [No cyanosis clubbing or edema] Musculoskeletal: [No gross deformities] Lymphatics: [Negative for lymphadenopathy, supraclavicular axillary or inguinal]. Abdominal exam is totally benign. Objective Labs Result Diagrams: 07/10/19 11:35 07/10/19 11:35 Labs: Laboratory Results - last 24 hr 07/10/19 07/10/19 07/10/19 11:35 11:35 13:20 WBC 9.1 RBC 4.28 Hgb 13.7 Hct 41.5 MCV 96.8 MCH 32.1 MCHC 33.1 RDW 14.3 Plt Count 167 Neut % (Auto) 92.4 H Lymph % (Auto) 2.9 L [place] % (Auto) 4.0 Eos % (Auto) 0.0 L Baso % (Auto) 0.7 Neut # (Auto) 8400 H Lymph # (Auto) 300 L [place] # (Auto) 400 Eos # (Auto) 0 Baso # (Auto) 100 Sodium 134 L Potassium 4.0 Chloride 99 Carbon Dioxide 29 BUN 18 H Creatinine 0.70 Estimated GFR > 60.0 BUN/Creatinine Ratio 25.7 H Glucose 125 H Lactate Calcium 9.1 Total Bilirubin 0.5 AST 60 H ALT 31 Alkaline Phosphatase 79 Total Protein 6.6 Albumin 3.9 Globulin 2.7 Albumin/Globulin Ratio 1.4 Urine Color Urine Appearance Urine pH Ur Specific [place] Urine Protein Urine Glucose (UA) Urine Ketones Urine Occult Blood Urine Nitrate Urine Bilirubin Urine Urobilinogen Ur Leukocyte Esterase Urine RBC Urine WBC Ur Squamous Epith Cells Amorphous Sediment Urine Bacteria Urine Mucus Ur Culture Indicated? Influenza A & B (PCR) Negative 07/10/19 07/10/19 15:47 15:57 WBC RBC Hgb Hct MCV MCH MCHC RDW Plt Count Neut % (Auto) Lymph % (Auto) [place] % (Auto) Eos % (Auto) Baso % (Auto) Neut # (Auto) Lymph # (Auto) [place] # (Auto) Eos # (Auto) Baso # (Auto) Sodium Potassium Chloride Carbon Dioxide BUN Creatinine Estimated GFR BUN/Creatinine Ratio Glucose Lactate 0.7 Calcium Total Bilirubin AST ALT Alkaline Phosphatase Total Protein Albumin Globulin Albumin/Globulin Ratio Urine Color Yellow Urine Appearance Sl cloudy Urine pH 7.5 Ur Specific [place] 1.010 Urine Protein Negative Urine Glucose (UA) Negative Urine Ketones Negative Urine Occult Blood Negative Urine Nitrate Positive Urine Bilirubin Negative Urine Urobilinogen 0.2 Ur Leukocyte Esterase Trace H Urine RBC None seen Urine WBC 5-10/hpf H Ur Squamous Epith Cells 0-1 /hpf D Amorphous Sediment 1+ Urine Bacteria Many (>30) H Urine Mucus 1+ H Ur Culture Indicated? Specimen cultured Influenza A & B (PCR) labs reviewed as above. Additionally patient had a head CT that was unremarkable Assessment & Plan Assessment & Plan narrative: 1. Presumed acute urinary tract infection. Although patient does indeed self catheterize. Chart review shows her to have had recurrent urinary tract infections with E coli. It is unclear whether not she actually cleared of infection but she does get symptomatic and historically mental status changes consistent with urinary tract infection. 2. Clinically she appears to be dehydrated but she probably appears well always. Her BUN is unremarkable. 3. Her white count is normal lactate is normal does not appear to be septic. Anticipate gentle hydration and antibiotics. Patient requested minimal hydration as she apparently ?third-spacing ?. We discussed Rios catheterization which will place overnight a for can venous ache and will probably does discussed near tomorrow. Anticipate patient being probably 2 nights receive IV antibiotics and hydration and presumably mental status will clear and her fever will resolve being discharged on oral antibiotics be followed by urologist per routine
[2019-07-10] MEDS: CEFTRIAXONE 1 GM/50 ML FROZ.PIGGY IV (19:15)
[2019-07-10] MEDS: SODIUM CHLORIDE 0.9% 1,000 ML 100 ML IV (19:15)
[2019-07-10] MEDS: ACETAMINOPHEN 325 MG TABLET 650 MG PO (21:31)
--- NOTE | 2019-07-10 22:53 | PC.NURSE ---
pt arrived via stretcher, able to ambulate with 1PA. febrile 101.5, cold washcloth on top of forehead.Notified KAYLIN AndersonO for 650 tylenol q6hr prn. oriented patient to room. call light in reach. bed alarm active.
[2019-07-11 00:25] VITALS: BP 99/61; PULSE 60; RESP 16; TEMP 37.1; O2SAT 99
[2019-07-11 04:00] VITALS: BP 94/50; PULSE 61; RESP 16; TEMP 37.1; O2SAT 96
[2019-07-11 05:45] LABS: Add Manual Diff / Slide Review NO; Basophils Absolute Auto 0 /uL (0-100); Basophils Percent Auto 0.4 % (0-2); Eosinophils Absolute Auto 0 /uL (0-450); Eosinophils Percent Auto 0.2 % (2-4); Hematocrit 35.6 % (36-46); Hemoglobin 12.1 g/dL (12.0-16.0); Lymphocytes Absolute Auto 700 /uL (1100-4500); Mean Corpuscular Hemoglobin 32.8 PG (26-34); Mean Corpuscular Volume 96.6 fL (80-100); Monocytes Absolute Auto 500 /uL (0-900); Monocytes Percent Auto 6.3 % (3-14); Neutrophils Absolute Auto 6100 /uL (1500-7000); Neutrophils Percent Auto 83.1 % (50-75); Platelet Count 117 X10^3/uL (150-400); Red Blood Cell Count 3.69 X10^6/uL (4.0-5.2); Red Cell Distribution Width 14.5 % (11.6-14.8); White Blood Cell Count 7.4 X10^3/uL (4.5-11.0)
[2019-07-11 05:48] LABS: BUN Creatinine Ratio 22.9 (6-22); Blood Urea Nitrogen 16 mg/dL (7-17); Calcium 8.5 mg/dL (8.4-10.2); Carbon Dioxide 26 mmol/L (22-32); Chloride 102 mmol/L (98-107); Estimated Glomerular Filt Rate > 60.0 mL/min (>60); Glucose 99 mg/dL (80-110); HEMOLYSIS < 15 (0-50); Potassium 3.9 mmol/L (3.4-5.1); Sodium 133 mmol/L (137-145)
[2019-07-11] MEDS: CEFTRIAXONE 1 GM/50 ML FROZ.PIGGY IV (06:34)
[2019-07-11] MEDS: SODIUM CHLORIDE 0.9% 1,000 ML 100 ML IV (06:38)
[2019-07-11 07:00] VITALS: O2SAT 95
[2019-07-11 08:00] VITALS: BP 112/53; PULSE 66; RESP 18; TEMP 37; O2SAT 97
--- NOTE | 2019-07-11 08:38 | PM.PN.1 ---
Subjective Subjective Date Patient Seen: 07/11/19 Time Patient Seen: 08:38 Interval history: UTI. Feeling much better mental fuzziness has resolved. Basically feels back to her normal. Has some interest in being discharged this afternoon. Tolerating the Rios catheter. No new symptoms. Had a temperature last night respond well to Tylenol and has resolved for the time being way. Exam Vital Signs (past 8 hours): - 07/11/19 04:00 07/11/19 08:00 Temperature 98.7 F 98.6 F Pulse Rate 61 66 Respiratory Rate 16 18 Blood Pressure 94/50 L 112/53 L Pulse Oximetry 96 97 Oxygen Delivery Method Room Air Oxygen Flow Rate 0 Narrative Exam Narrative: Patient resting quietly in hospital bed appears in no distress lungs are clear heart regular the abdomen is benign Objective Labs Result Diagrams: 07/11/19 05:21 07/11/19 05:21 Labs: Laboratory Results - last 24 hr 07/10/19 07/10/19 07/10/19 11:35 11:35 13:20 WBC 9.1 RBC 4.28 Hgb 13.7 Hct 41.5 MCV 96.8 MCH 32.1 MCHC 33.1 RDW 14.3 Plt Count 167 Neut % (Auto) 92.4 H Lymph % (Auto) 2.9 L [place] % (Auto) 4.0 Eos % (Auto) 0.0 L Baso % (Auto) 0.7 Neut # (Auto) 8400 H Lymph # (Auto) 300 L [place] # (Auto) 400 Eos # (Auto) 0 Baso # (Auto) 100 Sodium 134 L Potassium 4.0 Chloride 99 Carbon Dioxide 29 BUN 18 H Creatinine 0.70 Estimated GFR > 60.0 BUN/Creatinine Ratio 25.7 H Glucose 125 H Lactate Calcium 9.1 Total Bilirubin 0.5 AST 60 H ALT 31 Alkaline Phosphatase 79 Total Protein 6.6 Albumin 3.9 Globulin 2.7 Albumin/Globulin Ratio 1.4 Urine Color Urine Appearance Urine pH Ur Specific [place] Urine Protein Urine Glucose (UA) Urine Ketones Urine Occult Blood Urine Nitrate Urine Bilirubin Urine Urobilinogen Ur Leukocyte Esterase Urine RBC Urine WBC Ur Squamous Epith Cells Amorphous Sediment Urine Bacteria Urine Mucus Ur Culture Indicated? Influenza A & B (PCR) Negative 07/10/19 07/10/19 07/11/19 15:47 15:57 05:21 WBC 7.4 RBC 3.69 L Hgb 12.1 Hct 35.6 L MCV 96.6 MCH 32.8 MCHC 34.0 RDW 14.5 Plt Count 117 L Neut % (Auto) 83.1 H Lymph % (Auto) 10.0 L [place] % (Auto) 6.3 Eos % (Auto) 0.2 L Baso % (Auto) 0.4 Neut # (Auto) 6100 Lymph # (Auto) 700 L Patrick # (Auto) 500 Eos # (Auto) 0 Baso # (Auto) 0 Sodium Potassium Chloride Carbon Dioxide BUN Creatinine Estimated GFR BUN/Creatinine Ratio Glucose Lactate 0.7 Calcium Total Bilirubin AST ALT Alkaline Phosphatase Total Protein Albumin Globulin Albumin/Globulin Ratio Urine Color Yellow Urine Appearance Sl cloudy Urine pH 7.5 Ur Specific [place] 1.010 Urine Protein Negative Urine Glucose (UA) Negative Urine Ketones Negative Urine Occult Blood Negative Urine Nitrate Positive Urine Bilirubin Negative Urine Urobilinogen 0.2 Ur Leukocyte Esterase Trace H Urine RBC None seen Urine WBC 5-10/hpf H Ur Squamous Epith Cells 0-1 /hpf D Amorphous Sediment 1+ Urine Bacteria Many (>30) H Urine Mucus 1+ H Ur Culture Indicated? Specimen cultured Influenza A & B (PCR) 07/11/19 05:21 WBC RBC Hgb Hct MCV MCH MCHC RDW Plt Count Neut % (Auto) Lymph % (Auto) [place] % (Auto) Eos % (Auto) Baso % (Auto) Neut # (Auto) Lymph # (Auto) [place] # (Auto) Eos # (Auto) Baso # (Auto) Sodium 133 L Potassium 3.9 Chloride 102 Carbon Dioxide 26 BUN 16 Creatinine 0.70 Estimated GFR > 60.0 BUN/Creatinine Ratio 22.9 H Glucose 99 Lactate Calcium 8.5 Total Bilirubin AST ALT Alkaline Phosphatase Total Protein Albumin Globulin Albumin/Globulin Ratio Urine Color Urine Appearance Urine pH Ur Specific [place] Urine Protein Urine Glucose (UA) Urine Ketones Urine Occult Blood Urine Nitrate Urine Bilirubin Urine Urobilinogen Ur Leukocyte Esterase Urine RBC Urine WBC Ur Squamous Epith Cells Amorphous Sediment Urine Bacteria Urine Mucus Ur Culture Indicated? Influenza A & B (PCR) labs reviewed from today white blood cell count has remained normal urine culture pending Assessment & Plan Assessment & Plan narrative: 1. Patient with evidence of acute urinary tract infection as manifest by abnormal urine. Temperature has normalized and her white count has remained normal. As stated earlier perhaps is ?colonization? which case the moved point but we are going to treat her with antibiotics because she has been ill. She is feeling much better today so the assumption is that her symptoms were from her urinary tract infection. Will high ambulating get out of bed did DC Rios. Perhaps discharge S afternoon as patient is interested in same yet to be determined Quality VTE Deep Vein Thrombosis/Pulmonary Embolism Present on Admission: No
[2019-07-11] MEDS: ACYCLOVIR 400 MG TABLET PO (09:24)
[2019-07-11] MEDS: LEVOTHYROXINE 75 MCG TABLET PO (09:24)
[2019-07-11] MEDS: CELECOXIB 200 MG CAPSULE PO (09:26)
[2019-07-11 11:00] VITALS: BP 101/57; PULSE 62; RESP 18; TEMP 37.2; O2SAT 97
--- NOTE | 2019-07-11 12:27 | PC.NURSE ---
Addendum entered by Cande Gordon R.N. 07/11/19 14:41: - vasquez balloon deflated and dc'd w/o difficulty. Addendum entered by Cande Gordon R.N. 07/11/19 14:31: /DC - per conversation with Dr. Bentley, parminder vasquez and pt will discharge home, discussed with pt that she should have her friend pick her up, pt wanted taxi to car, felt that she should have some assistance. Pt had been up to br w/loose stool, pericare performed, given pad and mesh panties. Original Note: AM NOTE - pt is alert and can describe events leading to admission, vasquez w/concentrated urine, pt performs self cath about tid at home, bs clear, + bt, denies discomfort or nausea, mid am pt requests that ivf be saline locked so that she can ambulate, up w/friend standby and ambulated hallway, discussed dc of christina later today, enc po fluids.
--- NOTE | 2019-07-11 13:36 | CM.DPC ---
DCP/Assessment: Reviewed chart. Patient is a 79yr old female admitted to [facility] under [facility] status with dizziness/lightheadedness. PCP is Dr. Ybarra. Primary payor is 1)Medicare 2)[facility]. Met with patient explained CM/SW role. Patient resting comfortably in bed at time of visit. Patient reports that she resides alone is [place]. Patient reports being very active at baseline. Patient goes to the pool in town 3x per week and walks regularly. At this time patient does not anticipate any d/c planning needs. Spoke with COOK TORTILLA and she reports patient up to/from bathroom with SBA. P: Anticipate home when medically stable. CM team to follow closely if needs arise. CLEO Reese
--- NOTE | 2019-07-12 08:06 | PM.DS.1 ---
History of Present Illness History of Present Illness Chief complaint: Lightheaded Narrative: Lightheadedness. Patient admitted through the ER this evening. Patient has somewhat vague history is somewhat sketchy but as best I can tell yesterday she felt fine. This morning she had a fairly large bowel movement. She has been having intermittent problems with chronic abdominal pain this is not a new problem. Soon thereafter this morning she developed chills and rigors. Her mid male friend apparently the thought she had some mental confusion. Patient apparently went to the gym where she was doing her exercises and the staff there thought she was acting weird called paramedics she has brought the emergency room. Male friend relates that she gets confused and dizzy when she has urinary tract infection which is felt to be the case this time. Patient has a history of bladder dysfunction perhaps secondary to irradiation for of per prior cancer. She does self catheterization. She she has a urologist at [facility]. And that she was told that she has ?colonizing ?. She had denies any dysuria hematuria or any urinary changes. She does do self-catheterizations 3 times a day routinely as stated. She really had no other symptoms other mental confusion no head injury. No URI symptoms no chest pain no palpitations shortness of breath.. Patient has a significant complicated history as documented by the medical records. She has had multiple surgeries. History of breast cancer and cervical cancer. Also had radiation. Discharge Providers Provider Date of admission: 07/10/19 18:02 Discharge Date: 07/11/19 Primary care physician: Arleen Ybarra DO Discharge provider: Carlito Bentley MD Summary Hospital Course Discharge Diagnosis: 1. Acute urinary tract infection. 2. Dehydration. 3. Mental status changes consistent with urinary tract infection and dehydration all of which resolved. 4. Pre-existing hypothyroidism. 4. Pre-existing anxiety. Hospital Course: Patient with a mat admitted for evaluation of her mental status changes found to be dehydrated and have urinary tract infection apparently she has had this issue in the past with recurrent urinary tract infections. Patient self catheterizes herself a 3 times a day routinely. Apparently she seeing anode machine operator/urologist [facility] to felt she was ?colonizing goal. At any rate patient was get a felt to have urinary tract infection her white count remained normal she did [place] fever initially but then defervesced overnight. Urine cultures positive urine tract infection she did receive IV ceftriaxone while she was here. By day of discharge she is ambulating and normal eating normal food and no fever normal bowel movements a Rios catheter was removed and she was asymptomatic. She was discharged on Augmentin at this was chosen because of her prior E coli urinary tract infection involve his sense of the Augmentin she will be on date 75 twice a day for week with follow-up urine culture thereafter. She will be seeing Dr. Jeffries as an outpatient in the following week Status at Discharge Cognitive/behavioral status at discharge: oriented and at baseline, oriented Functional status at discharge: independent ambulation Overall status at discharge: patient is back to baseline Exam Vital Signs (past 8 hours): Oxygen Delivery Method Room Air Oxygen Flow Rate 0 Objective Labs Result Diagrams: 07/11/19 05:21 07/11/19 05:21 Discharge Plan Discharge Plan Patient Disposition: Home Discharge comment: F/u w Dr. Ybarra 1 week Discharge Med Rec/Prescriptions Prescriptions: New amoxicillin-pot clavulanate [Augmentin] 875-125 mg tablet 1 tab PO BID Qty: 14 RF: 0 Continued cholecalciferol (vitamin D3) [Vitamin D3] 1,000 unit Capsule 1,000 unit PO DAILY Qty: 0 RF: 0 omega 6-jov-gim-fish oil [Fish Oil] 1,000 mg (120 mg-180 mg) Capsule 1 cap PO DAILY Qty: 0 RF: 0 [CMP ESTRIOL 0.2%] 1 applic vaginal 2XW Qty: 0 RF: 0 (DME) syringe with needle [Easy Touch] 1 mL 25 gauge x 1 syringe See Dose Instructions .ROUTE .MEDSUPPLY Qty: 12 RF: 1 cyanocobalamin (vitamin B-12) 1,000 mcg/mL solution 1,000 mcg IM QMONTH Qty: 12 RF: 0 diazepam [Valium] 5 mg tablet 5 mg PO BEDTIME PRN (Reason: sleep) Qty: 60 RF: 0 acyclovir 400 mg tablet 400 mg PO .COMPLEX Qty: 100 RF: 1 lorazepam 1 MG tablet 0.5 mg PO BIDP PRN (Reason: Anxiety) RF: 0 celecoxib [Celebrex] 200 mg capsule 200 mg PO DAILY RF: 0 levothyroxine 75 mcg tablet 75 mcg PO DAILY RF: 0 Follow up/Referrals: Arleen Ybarra DO [Primary Care Provider] - Provider Discharge Instructions Diet: Diet as Tolerated Visit Report/Discharge Packet Instructions: DI for Urinary Tract Infection (UTI), Amoxicillin and Clavulanic Acid Discharge Data Primary Care Provider: Arleen Ybarra Attending Provider: Arleen Ybarra Admit Date/Time: 07/10/19 18:02 Discharges patient from system. Discharge Date/Time: 07/11/19 15:43 Quality VTE Deep Vein Thrombosis/Pulmonary Embolism Present on Admission: No
== END 2019-07-11 15:43 | disposition home or self-care (01) ==
LOC: ED 12:15 → AC 18:02
PROVIDERS: Admitting Provider Family Medicine; Emergency Provider Emergency Medicine; PCP Family Medicine; Visit Provider Family Medicine
DX: N39.0 Urinary tract infection, site not specified (principal); R55 Syncope and collapse; E86.0 Dehydration; E03.9 Hypothyroidism, unspecified; F41.9 Anxiety disorder, unspecified
CPT/HCPCS: 36415; 70450; 71045; 80048; 80053; 81001; 83605; 85025; 87040; 87077; 87086; 87186; 87502; 96361; 96365; 96366; 99217; 99220; 99284; 99285; G0378; J1650

== ENCOUNTER → 2019-07-24 11:31 | Outpatient (CLI) | payer MEDICARE, SELFPAY ==
[2019-07-10 19:18] VITALS: BMI 18.6
[2019-07-24 11:40] LABS: RBC Urine None Seen (0-5/HPF)
[2019-07-24 13:36] LABS: Appearance Urine UA CLEAR; Bilirubin Urine UA NEGATIVE (NEGATIVE); Color Urine UA YELLOW; Glucose Urine UA NEGATIVE (Negative); Ketones Urine UA NEGATIVE (NEGATIVE); Leukocyte Esterase Urine UA 1+ (NEGATIVE); Nitrite Urine UA NEGATIVE (Negative); Occult Blood Urine UA NEGATIVE (Negative); Protein Urine UA NEGATIVE (Negative); Urobilinogen Urine UA 0.2 E.U./dL (0.2)
[2019-07-24 14:19] LABS: Squamous Epithelial Cell Urine 1-5 /HPF (0-5/HPF); WBC Urine 10-30/HPF (0-5/HPF)
[2019-07-24 14:20] LABS: Amorphous Sediment Urine 1+; Bacteria Urine Many (>30); Culture Indicated Urine Specimen Cultured; Mucus Urine 1+ (Negative)
== END ==
PROVIDERS: PCP Family Medicine; Visit Provider Family Medicine
DX: N39.0 Urinary tract infection, site not specified (principal)
CPT/HCPCS: 81001; 87077; 87086; 87186

== ENCOUNTER → 2019-07-25 08:59 | Outpatient (CLI) | payer MEDICARE, SELFPAY ==
[2019-07-10 19:18] VITALS: BMI 18.6
== END ==
PROVIDERS: PCP Family Medicine; Visit Provider Family Medicine
DX: I89.0 Lymphedema, not elsewhere classified (principal); S81.802D Unspecified open wound, left lower leg, subsequent encounter; T81.31XD Disruption of external operation (surgical) wound, not elsewhere classified, subsequent encounter; I73.9 Peripheral vascular disease, unspecified; R60.0 Localized edema
CPT/HCPCS: 99213; 99214

== ENCOUNTER → 2019-08-15 09:02 | Outpatient (CLI) | payer MEDICARE, SELFPAY ==
[2019-07-10 19:18] VITALS: BMI 18.6
== END ==
PROVIDERS: PCP Family Medicine; Visit Provider Family Medicine
DX: T81.31XA Disruption of external operation (surgical) wound, not elsewhere classified, initial encounter (principal); S91.104A Unspecified open wound of right lesser toe(s) without damage to nail, initial encounter; I89.0 Lymphedema, not elsewhere classified; L89.892 Pressure ulcer of other site, stage 2; S81.802D Unspecified open wound, left lower leg, subsequent encounter
CPT/HCPCS: 97597; 99204; 99214

== ENCOUNTER → 2019-08-16 09:07 | Outpatient (CLI) | payer MEDICARE, SELFPAY ==
[2019-05-15 10:49] VITALS: BMI 18.0
[2019-07-10 19:18] VITALS: BMI 18.6
--- NOTE | 2019-08-16 | DI.RAD.S_ITS ---
PROCEDURE: XR TOE RT MIN 2V INDICATIONS: TOE WOUND, 3rd digit, prior foot surgery TECHNIQUE: 3 views of the third toe(s) acquired. COMPARISON: None. FINDINGS: Bones: No fractures or dislocations. No suspicious bony lesions. Note is made of a metallic needle like device superimposed on the metatarsal diaphyseal combined 3 views showing no definite evidence at this presents structure but rather cortex of the diaphysis. Several interosseous fusion procedure slightly been performed at the first, second and third toes. There is what appears to be degenerative subluxation at the fifth MTP joint. Soft tissues: No suspicious soft tissue densities. IMPRESSION: No acute disease. The metallic needle like device along the shaft of the second metatarsal diaphysis appears external to the cortex. Third digit osteomyelitis is not found. Postoperative changes as noted. Dictated by: Jake Vazquez M.D. on 08/16/2019 at 9:49 Approved by: Jake Vazquez M.D. on 08/16/2019 at 9:54
--- NOTE | 2019-08-16 09:11 | DI.US.S_ITS ---
ULTRASOUND OF RIGHT BREAST: 08/16/2019 CLINICAL: Palpable right axilla lump. 6 month f/u. Comparison is made to exams dated: 03/17/2019 ultrasound, 03/17/2019 mammogram, 04/15/2018 mammogram, 10/08/2016 mammogram, 04/23/2014 mammogram, and 09/15/2011 [facility]. Color flow and real-time ultrasound of the right breast were performed. Beverly scale images of the real-time examination were reviewed. There is a benign 1 cm x 0.4 cm x 0.5 cm lymph node in the right axillary tail. This lymph node displays fatty hilum. This abnormality is decreased in size and correlates as palpated. Color flow imaging demonstrates that there is no increase in vascularity. IMPRESSION: BENIGN There is no sonographic evidence of malignancy. The 1 cm x 0.4 cm x 0.5 cm lymph node is consistent with a benign lymph node. Return to annual mammogram screening schedule is recommended which is due in March 2020. Recommend clinical followup for continued symptomatology. This exam was interpreted at Station ID: [id number]. Electronically Signed By: Yinka Child M.D. aty/:08/16/2019 11:05:49 copy to: Wiley Johnson copy to: Yolanda Vivas letter sent: Normal Exam Ultrasound BI-RADS: 2 Benign
== END ==
PROVIDERS: PCP Family Medicine; Visit Provider Surgery
DX: R92.8 Other abnormal and inconclusive findings on diagnostic imaging of breast (principal); R59.0 Localized enlarged lymph nodes; S91.104A Unspecified open wound of right lesser toe(s) without damage to nail, initial encounter
CPT/HCPCS: 73660; 76642

== ENCOUNTER → 2019-08-22 08:44 | Outpatient (CLI) | payer MEDICARE, SELFPAY ==
[2019-07-10 19:18] VITALS: BMI 18.6
== END ==
PROVIDERS: PCP Family Medicine; Visit Provider Family Medicine
DX: T81.31XA Disruption of external operation (surgical) wound, not elsewhere classified, initial encounter (principal); S81.802A Unspecified open wound, left lower leg, initial encounter; L89.893 Pressure ulcer of other site, stage 3; S91.104A Unspecified open wound of right lesser toe(s) without damage to nail, initial encounter; I89.0 Lymphedema, not elsewhere classified; I73.9 Peripheral vascular disease, unspecified
CPT/HCPCS: 99213

== ENCOUNTER → 2019-08-25 09:59 | Outpatient (CLI) | payer MEDICARE, SELFPAY ==
[2019-07-10 19:18] VITALS: BMI 18.6
== END ==
PROVIDERS: PCP Family Medicine; Visit Provider Family Medicine
DX: N31.9 Neuromuscular dysfunction of bladder, unspecified (principal); N39.0 Urinary tract infection, site not specified
CPT/HCPCS: 87077; 87086; 87186

== ENCOUNTER → 2019-09-05 08:48 | Outpatient (CLI) | payer MEDICARE, SELFPAY ==
[2019-08-31 15:23] VITALS: BMI 18.6
== END ==
PROVIDERS: PCP Family Medicine; Visit Provider Family Medicine
DX: S81.802A Unspecified open wound, left lower leg, initial encounter (principal); L89.892 Pressure ulcer of other site, stage 2
CPT/HCPCS: 99213

== ENCOUNTER → 2019-09-19 09:04 | Outpatient (CLI) | payer MEDICARE, SELFPAY ==
[2019-08-31 15:23] VITALS: BMI 18.6
== END ==
PROVIDERS: PCP Family Medicine; Visit Provider Family Medicine
DX: T81.31XA Disruption of external operation (surgical) wound, not elsewhere classified, initial encounter (principal); S81.802A Unspecified open wound, left lower leg, initial encounter; S91.104A Unspecified open wound of right lesser toe(s) without damage to nail, initial encounter; I89.0 Lymphedema, not elsewhere classified; L89.894 Pressure ulcer of other site, stage 4; R60.0 Localized edema; I73.9 Peripheral vascular disease, unspecified
CPT/HCPCS: 11042; 87070; 87077; 87186; 87205; 99214

== ENCOUNTER → 2019-09-24 15:21 | Outpatient (CLI) | payer MEDICARE, SELFPAY ==
[2019-08-31 15:23] VITALS: BMI 18.6
== END ==
PROVIDERS: PCP Family Medicine; Visit Provider Physician Assistant
DX: T14.8XXA Other injury of unspecified body region, initial encounter (principal)
CPT/HCPCS: 87070; 87075; 87205

== ENCOUNTER → 2019-09-24 15:34 | Outpatient (CLI) | payer MEDICARE, SELFPAY ==
[2019-08-31 15:23] VITALS: BMI 18.6
--- NOTE | 2019-09-24 15:38 | DI.RAD.S_ITS ---
PROCEDURE: XR TOE RT MIN 2V INDICATIONS: R 3rd Toe middle phalanx TECHNIQUE: 3 views of the right toe(s) acquired. COMPARISON: [facility], CR, XR TOE RT MIN 2V, 08/16/2019, 9:08. FINDINGS: Bones: No fractures are seen. There is potential erosion seen in the bone of the base of the distal phalanx of the 3rd toe medially. Age-appropriate bony degenerative changes are seen, particularly involving the 1st ray. Soft tissues: Soft tissue swelling is seen. A metallic pin-like radiopaque foreign body is again seen just medial to the 2nd metatarsal. IMPRESSION: Potential erosion involving the distal phalanx of the 3rd toe. Concern is raised for osteomyelitis. Please correlate with known patient history. Metallic foreign body again seen. Dictated by: Ruben Hamilton M.D. on 09/24/2019 at 15:31 Approved by: Ruben Hamilton M.D. on 09/24/2019 at 15:33
== END ==
PROVIDERS: PCP Family Medicine; Visit Provider Family Medicine
DX: S91.104A Unspecified open wound of right lesser toe(s) without damage to nail, initial encounter (principal); L89.894 Pressure ulcer of other site, stage 4; M79.5 Residual foreign body in soft tissue
CPT/HCPCS: 73660; 87070; 87075; 87077; 87186; 87205

== ENCOUNTER → 2019-09-26 08:45 | Outpatient (CLI) | payer MEDICARE, SELFPAY ==
[2019-08-31 15:23] VITALS: BMI 18.6
== END ==
PROVIDERS: PCP Family Medicine; Visit Provider Family Medicine
DX: T81.31XA Disruption of external operation (surgical) wound, not elsewhere classified, initial encounter (principal); S81.802A Unspecified open wound, left lower leg, initial encounter; L89.894 Pressure ulcer of other site, stage 4; I89.0 Lymphedema, not elsewhere classified; L08.9 Local infection of the skin and subcutaneous tissue, unspecified
CPT/HCPCS: 11042; 97597; 99214

== ENCOUNTER → 2019-09-29 09:49 | Outpatient (CLI) | payer MEDICARE, SELFPAY ==
[2019-08-31 15:23] VITALS: BMI 18.6
--- NOTE | 2019-09-29 | DI.MRI.S_ITS ---
PROCEDURE: MR FOOT RT WO/W CON INDICATIONS: Pressure ulcer of other site, stage 4 TECHNIQUE: Noncontrast coronal T1 spin echo and STIR, sagittal T1 spin echo with fat saturation and STIR, axial T1 spin echo and T2 fast spin echo with fat saturation. After the administration of contrast, axial/sagittal/coronal T1 spin echo with fat saturation through the right foot. COMPARISON: [facility], CR, XR TOE RT MIN 2V, 09/24/2019, 15:44. FINDINGS: Image quality: Suboptimal due to hardware artifact related to pin fragment in the plantar soft tissues. This results in poor fat suppression. Bones: Chronic osseous fusion of the proximal and middle phalanges of the second and third toe. No discrete fracture line. T2 hyperintense presumed cyst without enhancement seen in the proximal phalanx of the fifth toe. Diffuse interphalangeal and first MTP joint degeneration. Suboptimal evaluation due to presumed third toe wound dressing. The overlying cortex appears intact. No abnormal intraosseous enhancement. No definite loss of marrow fat signal intensity on T1-weighted images in particular the sagittal and axial pulse sequences Soft tissues: No soft tissue masses are visualized. There is mild diffuse subcutaneous edema. The scanned muscles demonstrate normal overall bulk and internal signal. No abnormal soft tissue enhancement. IMPRESSION: No convincing specific marrow signal changes to suggest osteomyelitis, including in the area of the third toe where possible erosion was radiographically visualized on the comparison study. If there is persistent clinical concern, recommend continued short interval serial radiographic followup. Dictated by: Valeriy Robledo M.D. on 09/29/2019 at 12:36 Approved by: Valeriy Robledo M.D. on 09/29/2019 at 12:50
== END ==
PROVIDERS: Family Provider Family Medicine; PCP Family Medicine; Visit Provider Family Medicine
DX: L89.894 Pressure ulcer of other site, stage 4 (principal); S91.104A Unspecified open wound of right lesser toe(s) without damage to nail, initial encounter
CPT/HCPCS: 73720; A9579

== ENCOUNTER → 2019-10-03 09:16 | Outpatient (CLI) | payer MEDICARE, SELFPAY ==
[2019-08-31 15:23] VITALS: BMI 18.6
== END ==
PROVIDERS: Family Provider Family Medicine; PCP Family Medicine; Visit Provider Family Medicine
DX: T81.31XA Disruption of external operation (surgical) wound, not elsewhere classified, initial encounter (principal); I89.0 Lymphedema, not elsewhere classified; S81.802A Unspecified open wound, left lower leg, initial encounter; S91.104A Unspecified open wound of right lesser toe(s) without damage to nail, initial encounter; L89.894 Pressure ulcer of other site, stage 4; I73.9 Peripheral vascular disease, unspecified; L08.9 Local infection of the skin and subcutaneous tissue, unspecified
CPT/HCPCS: 97597; 99212

== ENCOUNTER → 2019-10-06 08:32 | Outpatient (CLI) | payer MEDICARE, SELFPAY ==
[2019-08-31 15:23] VITALS: BMI 18.6
== END ==
PROVIDERS: Family Provider Family Medicine; PCP Family Medicine; Visit Provider Family Medicine
DX: S81.802A Unspecified open wound, left lower leg, initial encounter (principal); L89.894 Pressure ulcer of other site, stage 4
CPT/HCPCS: 97605

== ENCOUNTER → 2019-10-10 08:29 | Outpatient (CLI) | payer MEDICARE, SELFPAY ==
[2019-08-31 15:23] VITALS: BMI 18.6
== END ==
PROVIDERS: Family Provider Family Medicine; PCP Family Medicine; Referring Provider Internal Medicine; Visit Provider Family Medicine
DX: T81.31XA Disruption of external operation (surgical) wound, not elsewhere classified, initial encounter (principal); S81.802A Unspecified open wound, left lower leg, initial encounter; L89.894 Pressure ulcer of other site, stage 4; I89.0 Lymphedema, not elsewhere classified; I73.9 Peripheral vascular disease, unspecified; L08.9 Local infection of the skin and subcutaneous tissue, unspecified
CPT/HCPCS: 11042; 87070; 87075; 87077; 87186; 87205; 97597; 97607; 99214

== ENCOUNTER → 2019-10-13 09:56 | Outpatient (CLI) | payer MEDICARE, SELFPAY ==
[2019-08-31 15:23] VITALS: BMI 18.6
== END ==
PROVIDERS: Family Provider Family Medicine; PCP Family Medicine; Referring Provider Internal Medicine; Visit Provider Family Medicine
DX: S81.802A Unspecified open wound, left lower leg, initial encounter (principal); L89.894 Pressure ulcer of other site, stage 4
CPT/HCPCS: 97605

== ENCOUNTER → 2019-10-17 10:29 | Outpatient (CLI) | payer MEDICARE, SELFPAY ==
[2019-08-31 15:23] VITALS: BMI 18.6
== END ==
PROVIDERS: Family Provider Family Medicine; PCP Family Medicine; Referring Provider Family Medicine; Visit Provider Family Medicine
DX: T81.31XA Disruption of external operation (surgical) wound, not elsewhere classified, initial encounter (principal); S81.802A Unspecified open wound, left lower leg, initial encounter; S91.104A Unspecified open wound of right lesser toe(s) without damage to nail, initial encounter; I89.0 Lymphedema, not elsewhere classified; L89.894 Pressure ulcer of other site, stage 4; L08.9 Local infection of the skin and subcutaneous tissue, unspecified; B95.7 Other staphylococcus as the cause of diseases classified elsewhere
CPT/HCPCS: 11042; 97605; 99213

== ENCOUNTER → 2019-10-20 08:48 | Outpatient (CLI) | payer MEDICARE, SELFPAY ==
[2019-08-31 15:23] VITALS: BMI 18.6
== END ==
PROVIDERS: Family Provider Family Medicine; PCP Family Medicine; Referring Provider Family Medicine; Visit Provider Family Medicine
DX: S81.802A Unspecified open wound, left lower leg, initial encounter (principal); L89.894 Pressure ulcer of other site, stage 4; R60.0 Localized edema
CPT/HCPCS: 97607

== ENCOUNTER → 2019-10-24 08:30 | Outpatient (CLI) | payer MEDICARE, SELFPAY ==
[2019-08-31 15:23] VITALS: BMI 18.6
== END ==
PROVIDERS: Family Provider Family Medicine; PCP Family Medicine; Referring Provider Family Medicine; Visit Provider Family Medicine
DX: T81.31XA Disruption of external operation (surgical) wound, not elsewhere classified, initial encounter (principal); S81.802A Unspecified open wound, left lower leg, initial encounter; I89.0 Lymphedema, not elsewhere classified; I73.9 Peripheral vascular disease, unspecified
CPT/HCPCS: 11042; 97607; 99213

== ENCOUNTER → 2019-10-27 09:21 | Outpatient (CLI) | payer MEDICARE, SELFPAY ==
[2019-08-31 15:23] VITALS: BMI 18.6
== END ==
PROVIDERS: Family Provider Family Medicine; PCP Family Medicine; Referring Provider Family Medicine; Visit Provider Family Medicine
DX: S81.802A Unspecified open wound, left lower leg, initial encounter (principal)
CPT/HCPCS: 97605

== ENCOUNTER → 2019-10-31 13:38 | Outpatient (CLI) | payer MEDICARE, SELFPAY ==
[2019-08-31 15:23] VITALS: BMI 18.6
== END ==
PROVIDERS: Family Provider Family Medicine; PCP Family Medicine; Referring Provider Family Medicine; Visit Provider Family Medicine
DX: T81.31XA Disruption of external operation (surgical) wound, not elsewhere classified, initial encounter (principal); S81.802A Unspecified open wound, left lower leg, initial encounter; I89.0 Lymphedema, not elsewhere classified
CPT/HCPCS: 11042

== ENCOUNTER → 2019-11-03 09:13 | Outpatient (CLI) | payer MEDICARE, SELFPAY ==
[2019-08-31 15:23] VITALS: BMI 18.6
== END ==
PROVIDERS: Family Provider Family Medicine; PCP Family Medicine; Referring Provider Family Medicine; Visit Provider Family Medicine
DX: S81.802A Unspecified open wound, left lower leg, initial encounter (principal); R60.0 Localized edema
CPT/HCPCS: 97605

== ENCOUNTER → 2019-11-07 14:16 | Outpatient (CLI) | payer MEDICARE, SELFPAY ==
[2019-08-31 15:23] VITALS: BMI 18.6
== END ==
PROVIDERS: Family Provider Family Medicine; PCP Family Medicine; Referring Provider Family Medicine; Visit Provider Family Medicine
DX: S81.802A Unspecified open wound, left lower leg, initial encounter (principal); R60.0 Localized edema
CPT/HCPCS: 97607

== ENCOUNTER → 2019-11-10 09:55 | Outpatient (CLI) | payer MEDICARE, SELFPAY ==
[2019-08-31 15:23] VITALS: BMI 18.6
== END ==
PROVIDERS: Family Provider Family Medicine; PCP Family Medicine; Referring Provider Family Medicine; Visit Provider Family Medicine
DX: T81.31XA Disruption of external operation (surgical) wound, not elsewhere classified, initial encounter (principal); S81.802A Unspecified open wound, left lower leg, initial encounter; L89.894 Pressure ulcer of other site, stage 4; I89.0 Lymphedema, not elsewhere classified; S91.104A Unspecified open wound of right lesser toe(s) without damage to nail, initial encounter
CPT/HCPCS: 15271; 97597; 97605; Q4110

== ENCOUNTER → 2019-11-11 09:15 | Outpatient (CLI) | payer MEDICARE, SELFPAY ==
[2019-08-31 15:23] VITALS: BMI 18.6
== END ==
PROVIDERS: Family Provider Family Medicine; PCP Family Medicine; Referring Provider Urology; Visit Provider Urology
DX: N39.0 Urinary tract infection, site not specified (principal)
CPT/HCPCS: 87077; 87086; 87186

== ENCOUNTER → 2019-11-14 08:57 | Outpatient (CLI) | payer MEDICARE, SELFPAY ==
[2019-08-31 15:23] VITALS: BMI 18.6
== END ==
PROVIDERS: Family Provider Family Medicine; PCP Family Medicine; Referring Provider Family Medicine; Visit Provider Family Medicine
DX: S81.802A Unspecified open wound, left lower leg, initial encounter (principal); L89.894 Pressure ulcer of other site, stage 4; R60.0 Localized edema
CPT/HCPCS: 99214

== ENCOUNTER → 2019-11-16 08:30 | Outpatient (CLI) | payer MEDICARE, SELFPAY ==
[2019-08-31 15:23] VITALS: BMI 18.6
== END ==
PROVIDERS: Family Provider Family Medicine; PCP Family Medicine; Referring Provider Family Medicine; Visit Provider Family Medicine
DX: T81.31XA Disruption of external operation (surgical) wound, not elsewhere classified, initial encounter (principal); S81.802A Unspecified open wound, left lower leg, initial encounter; I89.0 Lymphedema, not elsewhere classified; S91.104A Unspecified open wound of right lesser toe(s) without damage to nail, initial encounter; L89.894 Pressure ulcer of other site, stage 4
CPT/HCPCS: 15271; 99213; Q4110

== ENCOUNTER → 2019-11-20 09:03 | Outpatient (CLI) | payer MEDICARE, SELFPAY ==
[2019-08-31 15:23] VITALS: BMI 18.6
--- NOTE | 2019-11-20 | DI.RAD.S_ITS ---
PROCEDURE: XR FOOT RT MIN 3V INDICATIONS: Pressure ulcer of other site, stage 4 TECHNIQUE: 3 views of the foot were acquired. COMPARISON: [facility], CR, XR TOE RT MIN 2V, 09/24/2019, 15:44. FINDINGS: Bones: No fractures or dislocations. No suspicious bony lesions. There is unchanged appearance of metallic pin fragment projecting in the region of the second metatarsal, unchanged. Severe first and fifth MTP joint degeneration. There is diffuse degeneration of the other MTP joints, and chronic osseous fusion of the great toe interphalangeal and DIP joints of the second and third toe. Diffuse lesser interphalangeal joint degeneration. Marked plantar calcaneal spurring. Diffuse midfoot and hindfoot degenerative sclerosis and spurring. No definite focal osseous destruction although the cortex of the distal phalanx of the second or third toe not well visualized Soft tissues: No tibiotalar joint effusion. Achilles tendon appears normal. IMPRESSION: No definite focal osseous destruction identified although suboptimal evaluation due to advanced arthritic changes and positioning. If there is persistent clinical concern, recommend contrast-enhanced MRI of the right forefoot. Chronic postsurgical and degenerative changes as above Dictated by: Valeriy Robledo M.D. on 11/20/2019 at 10:15 Approved by: Valeriy Robledo M.D. on 11/20/2019 at 10:26
== END ==
PROVIDERS: Family Provider Family Medicine; PCP Family Medicine; Referring Provider Family Medicine; Visit Provider Family Medicine
DX: S91.104A Unspecified open wound of right lesser toe(s) without damage to nail, initial encounter (principal); L89.894 Pressure ulcer of other site, stage 4
CPT/HCPCS: 73630

== ENCOUNTER → 2019-11-21 08:30 | Outpatient (CLI) | payer MEDICARE, SELFPAY ==
[2019-08-31 15:23] VITALS: BMI 18.6
== END ==
PROVIDERS: Family Provider Family Medicine; PCP Family Medicine; Referring Provider Family Medicine; Visit Provider Family Medicine
DX: S81.802A Unspecified open wound, left lower leg, initial encounter (principal); L89.894 Pressure ulcer of other site, stage 4; R60.0 Localized edema
CPT/HCPCS: 97607

== ENCOUNTER → 2019-11-24 08:37 | Outpatient (CLI) | payer MEDICARE, SELFPAY ==
[2019-08-31 15:23] VITALS: BMI 18.6
== END ==
PROVIDERS: Family Provider Family Medicine; PCP Family Medicine; Referring Provider Family Medicine; Visit Provider Family Medicine
DX: T81.31XA Disruption of external operation (surgical) wound, not elsewhere classified, initial encounter (principal); S81.802A Unspecified open wound, left lower leg, initial encounter; I89.0 Lymphedema, not elsewhere classified
CPT/HCPCS: 97597; 99212

== ENCOUNTER → 2019-11-28 08:56 | Outpatient (CLI) | payer MEDICARE, SELFPAY ==
[2019-08-31 15:23] VITALS: BMI 18.6
== END ==
PROVIDERS: Family Provider Family Medicine; PCP Family Medicine; Referring Provider Family Medicine; Visit Provider Family Medicine
DX: T81.31XA Disruption of external operation (surgical) wound, not elsewhere classified, initial encounter (principal); S81.802A Unspecified open wound, left lower leg, initial encounter; I89.0 Lymphedema, not elsewhere classified
CPT/HCPCS: 97597

== ENCOUNTER → 2019-12-04 13:04 | Outpatient (CLI) | payer MEDICARE, SELFPAY ==
[2019-08-31 15:23] VITALS: BMI 18.6
== END ==
PROVIDERS: Family Provider Family Medicine; PCP Family Medicine; Referring Provider Family Medicine; Visit Provider Family Medicine
DX: T81.31XA Disruption of external operation (surgical) wound, not elsewhere classified, initial encounter (principal); S81.802A Unspecified open wound, left lower leg, initial encounter; I89.0 Lymphedema, not elsewhere classified
CPT/HCPCS: 97597

== ENCOUNTER → 2019-12-11 13:20 | Outpatient (CLI) | payer MEDICARE, SELFPAY ==
[2019-08-31 15:23] VITALS: BMI 18.6
== END ==
PROVIDERS: Family Provider Family Medicine; PCP Family Medicine; Referring Provider Family Medicine; Visit Provider Family Medicine
DX: T81.31XA Disruption of external operation (surgical) wound, not elsewhere classified, initial encounter (principal); S81.802A Unspecified open wound, left lower leg, initial encounter; I89.0 Lymphedema, not elsewhere classified
CPT/HCPCS: 97597

== ENCOUNTER → 2019-12-18 08:54 | Outpatient (CLI) | payer MEDICARE, SELFPAY ==
[2019-08-31 15:23] VITALS: BMI 18.6
== END ==
PROVIDERS: Family Provider Family Medicine; PCP Family Medicine; Referring Provider Family Medicine; Visit Provider Family Medicine
DX: I87.2 Venous insufficiency (chronic) (peripheral) (principal); L97.221 Non-pressure chronic ulcer of left calf limited to breakdown of skin; I89.0 Lymphedema, not elsewhere classified; L53.9 Erythematous condition, unspecified
CPT/HCPCS: 15271; 87070; 87075; 87077; 87186; 87205; Q4110

== ENCOUNTER → 2019-12-25 08:47 | Outpatient (CLI) | payer MEDICARE, SELFPAY ==
[2019-08-31 15:23] VITALS: BMI 18.6
== END ==
PROVIDERS: Family Provider Family Medicine; PCP Family Medicine; Referring Provider Family Medicine; Visit Provider Family Medicine
DX: I87.2 Venous insufficiency (chronic) (peripheral) (principal); L97.821 Non-pressure chronic ulcer of other part of left lower leg limited to breakdown of skin; I89.0 Lymphedema, not elsewhere classified; L53.9 Erythematous condition, unspecified
CPT/HCPCS: 11042; 97605

== ENCOUNTER → 2020-01-01 09:49 | Outpatient (CLI) | payer MEDICARE, SELFPAY ==
[2019-08-31 15:23] VITALS: BMI 18.6
== END ==
PROVIDERS: Family Provider Family Medicine; PCP Family Medicine; Referring Provider Family Medicine; Visit Provider Family Medicine
DX: I87.2 Venous insufficiency (chronic) (peripheral) (principal); L97.221 Non-pressure chronic ulcer of left calf limited to breakdown of skin; I89.0 Lymphedema, not elsewhere classified; L53.9 Erythematous condition, unspecified
CPT/HCPCS: 15271; 87070; 87075; 87077; 87147; 87186; 87205; Q4132

== ENCOUNTER → 2020-01-08 10:50 | Outpatient (CLI) | payer MEDICARE, SELFPAY ==
[2019-08-31 15:23] VITALS: BMI 18.6
== END ==
PROVIDERS: Family Provider Family Medicine; PCP Family Medicine; Referring Provider Family Medicine; Visit Provider Family Medicine
DX: I87.2 Venous insufficiency (chronic) (peripheral) (principal); L97.821 Non-pressure chronic ulcer of other part of left lower leg limited to breakdown of skin; R60.0 Localized edema
CPT/HCPCS: 97597

== ENCOUNTER → 2020-01-15 10:35 | Outpatient (CLI) | payer MEDICARE, SELFPAY ==
[2019-08-31 15:23] VITALS: BMI 18.6
== END ==
PROVIDERS: Family Provider Family Medicine; PCP Family Medicine; Referring Provider Family Medicine; Visit Provider Family Medicine
DX: I87.2 Venous insufficiency (chronic) (peripheral) (principal); L97.821 Non-pressure chronic ulcer of other part of left lower leg limited to breakdown of skin
CPT/HCPCS: 97597

== ENCOUNTER → 2020-01-23 11:02 | Outpatient (CLI) | payer MEDICARE, SELFPAY ==
[2019-08-31 15:23] VITALS: BMI 18.6
== END ==
PROVIDERS: Family Provider Family Medicine; PCP Family Medicine; Referring Provider Family Medicine; Visit Provider Family Medicine
DX: I87.2 Venous insufficiency (chronic) (peripheral) (principal); L97.221 Non-pressure chronic ulcer of left calf limited to breakdown of skin; S81.802A Unspecified open wound, left lower leg, initial encounter; I89.0 Lymphedema, not elsewhere classified
CPT/HCPCS: 15271; 97597; 99213; 99214; Q4132

== ENCOUNTER → 2020-01-30 11:03 | Outpatient (CLI) | payer MEDICARE, SELFPAY ==
[2019-08-31 15:23] VITALS: BMI 18.6
== END ==
PROVIDERS: Family Provider Family Medicine; PCP Family Medicine; Referring Provider Family Medicine; Visit Provider Family Medicine
DX: I87.2 Venous insufficiency (chronic) (peripheral) (principal); S81.802A Unspecified open wound, left lower leg, initial encounter; L97.821 Non-pressure chronic ulcer of other part of left lower leg limited to breakdown of skin; I89.0 Lymphedema, not elsewhere classified
CPT/HCPCS: 97597

== ENCOUNTER → 2020-02-05 10:07 | Outpatient (CLI) | payer MEDICARE, SELFPAY ==
[2019-08-31 15:23] VITALS: BMI 18.6
== END ==
PROVIDERS: Family Provider Family Medicine; PCP Family Medicine; Referring Provider Family Medicine; Visit Provider Family Medicine
DX: S81.802A Unspecified open wound, left lower leg, initial encounter (principal); I89.0 Lymphedema, not elsewhere classified; I87.2 Venous insufficiency (chronic) (peripheral)
CPT/HCPCS: 11042

== ENCOUNTER → 2020-02-09 14:49 | Outpatient (CLI) | payer MEDICARE, SELFPAY ==
[2019-08-31 15:23] VITALS: BMI 18.6
== END ==
PROVIDERS: Family Provider Family Medicine; PCP Family Medicine; Referring Provider Family Medicine; Visit Provider Family Medicine
DX: M85.832 Other specified disorders of bone density and structure, left forearm (principal); Z78.0 Asymptomatic menopausal state; Z90.722 Acquired absence of ovaries, bilateral; Z85.3 Personal history of malignant neoplasm of breast
CPT/HCPCS: 77081

== ENCOUNTER → 2020-02-19 09:24 | Outpatient (CLI) | payer MEDICARE, SELFPAY ==
[2019-08-31 15:23] VITALS: BMI 18.6
== END ==
PROVIDERS: Family Provider Family Medicine; PCP Family Medicine; Referring Provider Family Medicine; Visit Provider Family Medicine
DX: S81.802A Unspecified open wound, left lower leg, initial encounter (principal); I87.2 Venous insufficiency (chronic) (peripheral); I89.0 Lymphedema, not elsewhere classified; L08.9 Local infection of the skin and subcutaneous tissue, unspecified
CPT/HCPCS: 11042; 87070; 87075; 87077; 87147; 87186; 87205; 99213

== ENCOUNTER → 2020-02-26 10:34 | Outpatient (CLI) | payer MEDICARE, SELFPAY ==
[2019-08-31 15:23] VITALS: BMI 18.6
== END ==
PROVIDERS: Family Provider Family Medicine; PCP Family Medicine; Referring Provider Family Medicine; Visit Provider Family Medicine
DX: I87.2 Venous insufficiency (chronic) (peripheral) (principal); L97.821 Non-pressure chronic ulcer of other part of left lower leg limited to breakdown of skin; I89.0 Lymphedema, not elsewhere classified; L08.9 Local infection of the skin and subcutaneous tissue, unspecified; B95.62 Methicillin resistant Staphylococcus aureus infection as the cause of diseases classified elsewhere
CPT/HCPCS: 11042; 99212; 99213

== ENCOUNTER → 2020-03-04 10:19 | Outpatient (CLI) | payer MEDICARE, SELFPAY ==
[2020-02-28 15:01] VITALS: BMI 18.6
== END ==
PROVIDERS: Family Provider Family Medicine; PCP Family Medicine; Referring Provider Family Medicine; Visit Provider Family Medicine
DX: I87.2 Venous insufficiency (chronic) (peripheral) (principal); L97.821 Non-pressure chronic ulcer of other part of left lower leg limited to breakdown of skin; I89.0 Lymphedema, not elsewhere classified
CPT/HCPCS: 97597

== ENCOUNTER → 2020-03-11 09:25 | Outpatient (CLI) | payer MEDICARE, SELFPAY ==
[2020-02-28 15:01] VITALS: BMI 18.6
== END ==
PROVIDERS: Family Provider Family Medicine; PCP Family Medicine; Referring Provider Family Medicine; Visit Provider Family Medicine
DX: I87.2 Venous insufficiency (chronic) (peripheral) (principal); L97.821 Non-pressure chronic ulcer of other part of left lower leg limited to breakdown of skin; I89.0 Lymphedema, not elsewhere classified; L08.9 Local infection of the skin and subcutaneous tissue, unspecified
CPT/HCPCS: 11042; 87070; 87075; 87077; 87186; 87205; 97607; 99214

== ENCOUNTER → 2020-03-18 08:56 | Outpatient (CLI) | payer MEDICARE, SELFPAY ==
[2020-02-28 15:01] VITALS: BMI 18.6
== END ==
PROVIDERS: Family Provider Family Medicine; PCP Family Medicine; Referring Provider Family Medicine; Visit Provider Family Medicine
DX: I87.2 Venous insufficiency (chronic) (peripheral) (principal); L97.821 Non-pressure chronic ulcer of other part of left lower leg limited to breakdown of skin; I89.0 Lymphedema, not elsewhere classified
CPT/HCPCS: 15271; Q4132

== ENCOUNTER → 2020-03-25 10:56 | Outpatient (CLI) | payer MEDICARE, SELFPAY ==
[2020-02-28 15:01] VITALS: BMI 18.6
== END ==
PROVIDERS: Family Provider Family Medicine; PCP Family Medicine; Referring Provider Family Medicine; Visit Provider Family Medicine
DX: I87.2 Venous insufficiency (chronic) (peripheral) (principal); L97.821 Non-pressure chronic ulcer of other part of left lower leg limited to breakdown of skin; I89.0 Lymphedema, not elsewhere classified
CPT/HCPCS: 15271; Q4132

== ENCOUNTER → 2020-04-01 08:46 | Outpatient (CLI) | payer MEDICARE, SELFPAY ==
[2020-02-28 15:01] VITALS: BMI 18.6
== END ==
PROVIDERS: Family Provider Family Medicine; PCP Family Medicine; Referring Provider Family Medicine; Visit Provider Family Medicine
DX: I87.2 Venous insufficiency (chronic) (peripheral) (principal); L97.821 Non-pressure chronic ulcer of other part of left lower leg limited to breakdown of skin; I89.0 Lymphedema, not elsewhere classified
CPT/HCPCS: 15271; 99213; Q4132

== ENCOUNTER → 2020-04-08 10:03 | Outpatient (CLI) | payer MEDICARE, SELFPAY ==
[2020-02-28 15:01] VITALS: BMI 18.6
== END ==
PROVIDERS: Family Provider Family Medicine; PCP Family Medicine; Referring Provider Family Medicine; Visit Provider Family Medicine
DX: I87.2 Venous insufficiency (chronic) (peripheral) (principal); L97.821 Non-pressure chronic ulcer of other part of left lower leg limited to breakdown of skin; I89.0 Lymphedema, not elsewhere classified
CPT/HCPCS: 97597

== ENCOUNTER → 2020-04-15 10:43 | Outpatient (CLI) | payer MEDICARE, SELFPAY ==
[2020-02-28 15:01] VITALS: BMI 18.6
== END ==
PROVIDERS: Family Provider Family Medicine; PCP Family Medicine; Referring Provider Family Medicine; Visit Provider Family Medicine
DX: I87.2 Venous insufficiency (chronic) (peripheral) (principal); L97.821 Non-pressure chronic ulcer of other part of left lower leg limited to breakdown of skin; I89.0 Lymphedema, not elsewhere classified
CPT/HCPCS: 15271; Q4132

== ENCOUNTER → 2020-04-22 12:03 | Outpatient (CLI) | payer MEDICARE, SELFPAY ==
[2020-02-28 15:01] VITALS: BMI 18.6
== END ==
PROVIDERS: Family Provider Family Medicine; PCP Family Medicine; Referring Provider Family Medicine; Visit Provider Family Medicine
DX: I87.2 Venous insufficiency (chronic) (peripheral) (principal); L97.821 Non-pressure chronic ulcer of other part of left lower leg limited to breakdown of skin; I89.0 Lymphedema, not elsewhere classified
CPT/HCPCS: 97597

== ENCOUNTER → 2020-04-29 10:29 | Outpatient (CLI) | payer MEDICARE, SELFPAY ==
[2020-02-28 15:01] VITALS: BMI 18.6
== END ==
PROVIDERS: Family Provider Family Medicine; PCP Family Medicine; Referring Provider Family Medicine; Visit Provider Family Medicine
DX: I87.2 Venous insufficiency (chronic) (peripheral) (principal); L97.821 Non-pressure chronic ulcer of other part of left lower leg limited to breakdown of skin; I89.0 Lymphedema, not elsewhere classified; S41.102A Unspecified open wound of left upper arm, initial encounter
CPT/HCPCS: 11042; 87070; 87075; 87077; 87186; 87205; 99214

== ENCOUNTER → 2020-05-06 10:52 | Outpatient (CLI) | payer MEDICARE, SELFPAY ==
[2020-02-28 15:01] VITALS: BMI 18.6
== END ==
PROVIDERS: Family Provider Family Medicine; PCP Family Medicine; Referring Provider Family Medicine; Visit Provider Family Medicine
DX: I87.2 Venous insufficiency (chronic) (peripheral) (principal); I89.0 Lymphedema, not elsewhere classified; R60.0 Localized edema; S41.102A Unspecified open wound of left upper arm, initial encounter; L08.9 Local infection of the skin and subcutaneous tissue, unspecified
CPT/HCPCS: 11042; 99213; 99214

== ENCOUNTER → 2020-05-20 09:25 | Outpatient (CLI) | payer MEDICARE, SELFPAY ==
[2020-05-09 14:25] VITALS: BMI 18.6
== END ==
PROVIDERS: Family Provider Family Medicine; PCP Family Medicine; Referring Provider Family Medicine; Visit Provider Family Medicine
DX: S41.102A Unspecified open wound of left upper arm, initial encounter (principal)
CPT/HCPCS: 99213

== ENCOUNTER → 2020-05-22 10:26 | Outpatient (CLI) | payer MEDICARE, SELFPAY ==
[2020-05-09 14:25] VITALS: BMI 18.6
[2020-05-22 11:33] LABS: Add Manual Diff / Slide Review NO; Basophils Absolute Auto 0 /uL (0-100); Basophils Percent Auto 0.8 % (0-2); Eosinophils Absolute Auto 0 /uL (0-450); Eosinophils Percent Auto 0.4 % (2-4); Hematocrit 42.5 % (36-46); Hemoglobin 13.9 g/dL (12.0-16.0); Lymphocytes Absolute Auto 900 /uL (1100-4500); Lymphocytes Percent Auto 17.3 % (25-40); Mean Corpuscular HGB Conc 32.6 % (30-36); Mean Corpuscular Hemoglobin 32.2 PG (26-34); Mean Corpuscular Volume 98.7 fL (80-100); Monocytes Absolute Auto 500 /uL (0-900); Monocytes Percent Auto 9.2 % (3-14); Neutrophils Absolute Auto 3600 /uL (1500-7000); Neutrophils Percent Auto 72.3 % (50-75); Platelet Count 181 X10^3/uL (150-400); Red Blood Cell Count 4.31 X10^6/uL (4.0-5.2); Red Cell Distribution Width 13.5 % (11.6-14.8)
[2020-05-22 11:51] LABS: Alanine Aminotransferase 15 IU/L (<35); Albumin 3.8 g/dL (3.5-5.0); Albumin Globulin Ratio 1.5 (1.0-2.8); Alkaline Phosphatase 72 U/L (38-126); Aspartate Aminotransferase 33 IU/L (14-36); BUN Creatinine Ratio 27.7 (6-22); Bilirubin Total 0.3 mg/dL (0.2-1.3); Blood Urea Nitrogen 18 mg/dL (7-17); Calcium 9.1 mg/dL (8.4-10.2); Carbon Dioxide 29 mmol/L (22-32); Chloride 97 mmol/L (98-107); Estimated Glomerular Filt Rate > 60.0 mL/min (>60); Globulin 2.5 g/dL (1.7-4.1); Glucose 81 mg/dL (80-110); HEMOLYSIS < 15 (0-50); Potassium 4.9 mmol/L (3.4-5.1); Sodium 132 mmol/L (137-145); Total Protein 6.3 g/dL (6.3-8.2)
[2020-05-22 12:20] LABS: TSH w/ Reflex to FT4 1.62 uIU/mL (0.47-4.68)
== END ==
PROVIDERS: Family Provider Family Medicine; PCP Family Medicine; Referring Provider Family Medicine; Visit Provider Family Medicine
DX: D64.9 Anemia, unspecified (principal); E03.9 Hypothyroidism, unspecified; E53.8 Deficiency of other specified B group vitamins; R63.6 Underweight
CPT/HCPCS: 36415; 80053; 84443; 85025

== ENCOUNTER 2020-09-24 08:30 | Outpatient (RCR) | payer MEDICARE, SELFPAY ==
[2020-05-09 14:25] VITALS: BMI 18.6
--- NOTE | 2020-08-16 15:26 | OT.OP.EVAL ---
Visit Care Team Role Provider Type Arleen Ybarra DO Attending Provider Physician Primary Care Provider Referring Provider Specialty: [facility] Address: [address] [place] [address], [address], [place], [address] Email: [email or web address] Occupational Therapy Initial Evaluation OT Outpatient Adult Evaluation Start: 08/16/20 14:27 Freq: Status: Active Protocol: Document 08/16/20 14:52 AMS (Rec: 08/16/20 15:26 AMS [id number]) General Information Visit Number 09/15 Plan of Care Dates 08/16/20-10/11/20 Insurance Information Medicare Treatment Setting Outpatient Care Note Type Initial Evaluation Identification Confirmed Yes Identification Confirmed By Patient Goals Treatment Initiated home exercise program. Modified prayer pose w/ hold for 20 sec. Modified wrist extension/prep weight TT . 1 x 5 reps. Education re: rocker knife and additional AE to support/maintain functional independence w/ self-feeding. Custodial Goals 1. Patient will be modified independent with execution of home exercise program relative to distal upper extremities utilizing provided written and visual instructions from therapist. 2. Patient will be able to verbally identify 2 to 3 different strategies to modify functional activities in her day-to-day life to support/ maintain her functional independence. Assessment/Plan Treatment Assessment Patient is a 80 year-old R hand dominant female referred to outpatient OT by primary care physician, Arleen Ybarra DO, to assist with activity modification and support functional independence. Dulce Maria is receiving outpatient PT for balance and d/t R TKR. 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 Patient goals: Improve functional abilities. Evaluation Findings: Decreased palmar web space L > R. Hyperextension of MPJ L thumb to support functional obj manipulation L hand. Arthritic changes/multiple joint deformities bilateral hands. Denied current use of hand/wrist splint; has old wrist/hand splint combo which she tried recently 'that didn' t help at all'. Ambulates with SPC. Unable to put weight into R hand/wrist. QuickDASH UE Outcome Measure Score = 45. 45. Pain Assessment Grid completed pre-evaluation: Indicated 4 out of 10 pain relative to dorsal/volar surfaces of L wrist/L CMC joint area; indicated 7 out of 10 pain relative to volar/ dorsal surfaces of R wrist/R ACMC/MPJ and slightly distal to this joint. Wrist AROM: R wrist extension 0-45 degrees; L wrist extension 0-50 degrees . R wrist flexion 0-30 degrees ; L wrist flexion 0-45 degrees . R wrist UD 0-20 degrees; L wrist UD 0-[address] 0-2 degrees; L wrist RD 0- 10 degrees. Decreased bilateral freight representative strength; avg 10.0# of force w/ R freight representative and 15.0# of force w/ L freight representative w/ dynamometer II strength testing. Functional abilities: Has assistance w/ meal preparation . Utilizes light weight utensils versus heavier stainless steel options available in her home. Uses spoon primarily w/ feeding. Avoids tying of shoes; keeps shoe laces tied. Avoids clothing with fasteners ( buttons). Intermittent use of training bra; utilizes modified approach to don/doff given hand/shoulder impairments. Has large shower stall; recently ordered grab bar to install for showering given balance concerns. Modified crocker of trunk of personal vehicle to support functional independence ( string/object to grab). Uses 2 -handed approach w/ transferring items to and from microwave oven. Patient would likely benefit from outpatient occupational therapy to support functional independence via activity modification/utilization AE, as well as for education and development of home exercise program. Comment 8 weeks Treatment Frequency Once a Week Therapeutic Contents Active Range of Motion, Adaptive Equipment Education, Client Education,Cognitive Skills Development,Functional Activities,Home Exercise Program,Joint Protection, Manual Therapy,Education, Neurodevelopment Treatment, Neuromuscular Re-Education, Self-Care,Stretching/ Flexibility Activities, Therapeutic Activities, Therapeutic Exercises, Modalities,Sensory Re- education Modalities As Needed,As Prescribed Additional Types of Modalities Heat/Paraffin/Cold pack Patient Instruction Home Exercise Program,Plan of Care,Questions/Concerns
--- NOTE | 2020-08-22 13:02 | OT.OP.TRT ---
Visit Care Team Role Provider Type Arleen Ybarra DO Attending Provider Physician Primary Care Provider Referring Provider Specialty: [facility] Address: [address] [place] [address], [address], [place], [address] Email: [email or web address] Occupational Therapy Treatment Note OT Outpatient Treatment Note - Adult Start: 08/16/20 14:27 Freq: Status: Active Protocol: Document 08/22/20 12:42 AMS (Rec: 08/22/20 13:02 AMS [id number]) OT Outpatient Adult Treatment Note Session Time Visit Start Time 08:30 Visit Stop Time 09:20 Total Visit Minutes 50 Visit Information Visit Number 10/16 Plan of Care Dates 08/16/20-10/11/20 Insurance Information Medicare Setting Treatment Setting Outpatient Care Visit Type Note Type Treatment Note General Information General Information Patient is a 80 year-old R hand dominant female referred to outpatient OT by primary care physician, Arleen Ybarra DO, to assist with activity modification and support functional independence. Dulce Maria is receiving outpatient PT for balance and d/t R TKR. 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 - Subjective Identification Type Name Identification Reconciled With Medical Record Observations I called my dining services director's office and spoke to the medical diagnostic radiographer. They recommended a topical anti- inflammatory for the pain I was describing in my thumb. The thing is that the pain is not all the time and it is a shooting pain per Dulce Maria. This thumb was hurting so bad that I tried to go up the stairs with this leg and hand/ arm per Dulce Maria referring to L hand/L leg. I see Olivier on Wednesday. Chief Complaint(s) Restricts - Objective Objective Measurements Please refer to below for progress towards meeting established OT goals. Senior Care Goals 1. Patient will be modified independent with execution of home exercise program relative to distal upper extremities utilizing provided written and visual instructions from therapist. 2. Patient will be able to verbally identify 2 to 3 different strategies to modify functional activities in her day-to-day life to support/ maintain her functional independence. - Treatment 2 Descriptor Ultrasound. 1.8 w/cm2, 20% duty cycle to volar CMC joint/ wrist for swelling management. Skin intact pre- and post- treatment. 1 Descriptor HEP/POC/Education. Education was provided re: splinting options ([id number]) versus custom-made hand splint . Discussed neoprene based versus thermaplist and different pros/cons, including donning/doffing them. Instructed in ROM exercises for thumb. Reviewed in treatment session; provided written and visual instructions for exercises. Education re: compensatory patterns to monitor w/ execution of exercises. Education re: maintenance of webspace/palm surface area. Will determine if there is a need for custom made hand splint. - Assessment Assessment of Improvement R thumb pain impacting day-to- day life (meaningful activities - walking outdoors and use of mobility AE). Current splint has rigid volar wrist component; no thumb support R. Manual therapy to address adductor tightness. Initiated thumb HEP; discussed splinting options (custom versus [id number]). Reported h/o use of paraffin without significant outcome/ benefit per patient report. Patient has contacted personal dining services director given ' shooting pain' experiencing in R thumb. - Plan Therapy Recommendations Continue with Current Program, Advance per Rehabilitation Protocol
--- NOTE | 2020-08-27 12:01 | OT.OP.TRT ---
Visit Care Team Role Provider Type Arleen Ybarra DO Attending Provider Physician Primary Care Provider Referring Provider Specialty: [facility] Address: [address] [place] [address], [address], [place], [address] Email: [email or web address] Occupational Therapy Treatment Note OT Outpatient Treatment Note - Adult Start: 08/16/20 14:27 Freq: Status: Active Protocol: Document 08/27/20 11:50 AMS (Rec: 08/27/20 12:00 AMS [id number]) OT Outpatient Adult Treatment Note Session Time Visit Start Time 08:30 Visit Stop Time 09:15 Total Visit Minutes 45 Visit Information Visit Number 11/13 Plan of Care Dates 08/16/20-10/11/20 Insurance Information Medicare Setting Treatment Setting Outpatient Care Visit Type Note Type Treatment Note General Information General Information Patient is a 80 year-old R hand dominant female referred to outpatient OT by primary care physician, Arleen Ybarra DO, to assist with activity modification and support functional independence. Dulce Maria is receiving outpatient PT for balance and d/t R TKR. 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 - Subjective Identification Type Name Identification Reconciled With Medical Record Observations I can't push-up with this hand without causing pain per Dulce Maria. I hope the splint will help. Chief Complaint(s) Restricts - Objective Objective Measurements Please refer to below for progress towards meeting established OT goals. Vehicle Calibration Engineer Goals 1. Patient will be modified independent with execution of home exercise program relative to distal upper extremities utilizing provided written and visual instructions from therapist. 2. Patient will be able to verbally identify 2 to 3 different strategies to modify functional activities in her day-to-day life to support/ maintain her functional independence. - Treatment 3 Descriptor Manual therapy. Address thumb adductor tightness. 2 Descriptor Ultrasound. 1.6 w/cm2, 50% duty cycle to volar CMC joint/ wrist. Skin intact pre- and post-treatment. 1 Descriptor HEP/POC/Education. Reviewed HEP. Dulce Maria is actively problem solving to decrease force exertion onto hands w/ transfers; e.g., attempting different motor approaches. Discussed use of heat to support flexibility/ROM. Discussed use of spherical object to support ROM. - Assessment Assessment of Improvement R thumb pain impacting day-to- day life (meaningful activities - walking outdoors and use of mobility AE). Increased discomfort leading to modifications to movement patterns. Patient ordered neoprene splint; has not yet arrived. Discussed use of heat . Discussed basic joint protection principles. Need to follow-up w/ patient re: any additional recommendations from traffic safety administrator given ' shooting pain' experiencing in distal R UE. - Plan Therapy Recommendations Continue with Current Program, Advance per Rehabilitation Protocol
--- NOTE | 2020-09-03 11:04 | OT.OP.TRT ---
Visit Care Team Role Provider Type Arleen Ybarra DO Attending Provider Physician Primary Care Provider Referring Provider Specialty: [facility] Address: [address] [place] [address], [address], [address] Email: [email or web address] Occupational Therapy Treatment Note OT Outpatient Treatment Note - Adult Start: 08/16/20 14:27 Freq: Status: Active Protocol: Document 09/03/20 10:53 AMS (Rec: 09/03/20 11:04 AMS [id number]) OT Outpatient Adult Treatment Note Session Time Visit Start Time 08:30 Visit Stop Time 09:15 Total Visit Minutes 45 Visit Information Visit Number 12/14 Plan of Care Dates 08/16/20-10/11/20 Insurance Information Medicare Setting Treatment Setting Outpatient Care Visit Type Note Type Treatment Note General Information General Information Patient is a 80 year-old R hand dominant female referred to outpatient OT by primary care physician, Arleen Ybarra DO, to assist with activity modification and support functional independence. Dulce Maria is receiving outpatient PT for balance and d/t R TKR. 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 - Subjective Identification Type Name Identification Reconciled With Medical Record Observations Dulce Maria invested in neoprene [id number] CMC splint for the right hand; rigid component available. Dulce Maria reported no changes relative to use of cane. Chief Complaint(s) Restricts - Objective Objective Measurements Please refer to below for progress towards meeting established OT goals. Assisted Goals 1. Patient will be modified independent with execution of home exercise program relative to distal upper extremities utilizing provided written and visual instructions from therapist. 2. Patient will be able to verbally identify 2 to 3 different strategies to modify functional activities in her day-to-day life to support/ maintain her functional independence. - Treatment 3 Descriptor Manual therapy. Address thumb adductor tightness. 2 Descriptor Ultrasound. 1.6 w/cm2, 50% duty cycle to volar CMC joint/ wrist. Skin intact pre- and post-treatment. 1 Descriptor HEP/POC/Education. Reviewed HEP. Introduced single rubberband w/ finger abduction . CMC abduction. Thumb extension. Reviewed conservative measures of arthritis management. Discussed additional modifications that may reduce pain/discomfort w/ weight bearing to support Dulce Maria's participation in meaningful activities. - Assessment Assessment of Improvement R thumb pain continues to impact day-to-day life. No relief was reported w/ use of splint; discussed purpose of splint. Will need to explore additional modifications/AE. Discussed also returning to catering server for other non- conservative measures of treatment (topical medication, injection). Patient reported h/o having corticosteriod injection that did not provide relief. Introduced gentle strengthening exercises. Practiced in treatment session ; reviewed importance of pain- free execution and avoiding positions of deformity w/ execution. Need to follow-up w / patient re: any additional recommendations from catering server given 'shooting pain' experiencing in distal R UE. - Plan Therapy Recommendations Continue with Current Program, Advance per Rehabilitation Protocol
--- NOTE | 2020-09-10 12:15 | OT.OP.TRT ---
Visit Care Team Role Provider Type Arleen Ybarra DO Attending Provider Physician Primary Care Provider Referring Provider Specialty: [facility][1] Address: [address] [place] [address], [address], [place], [address] Email: [email or web address] Occupational Therapy Treatment Note OT Outpatient Treatment Note - Adult Start: 08/16/20 14:27 Freq: Status: Active Protocol: Document 09/10/20 12:00 AMS (Rec: 09/10/20 12:15 AMS [id number]) OT Outpatient Adult Treatment Note Session Time Visit Start Time 08:30 Visit Stop Time 09:15 Total Visit Minutes 45 Visit Information Visit Number 01/13 Plan of Care Dates 08/16/20-10/11/20 Insurance Information Medicare Setting Treatment Setting Outpatient Care Visit Type Note Type Treatment Note General Information General Information Patient is a 80 year-old R hand dominant female referred to outpatient OT by primary care physician, Arleen Ybarra DO, to assist with activity modification and support functional independence. Dulce Maria is receiving outpatient PT for balance and d/t R TKR. 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 - Subjective Identification Type Name Identification Reconciled With Medical Record Observations I was wondering if there is any equipment that could possibly help me since I don't have any rotator cuff left in this shoulder (left)? per Dulce Maria. I have an appointment with Dr. Portillo to see what options there might be for me. I can't lose the ability to use my hands per Dulce Maria. Chief Complaint(s) Restricts - Objective Objective Measurements Please refer to below for progress towards meeting established OT goals. Candy Bar Attendant Goals 1. Patient will be modified independent with execution of home exercise program relative to distal upper extremities utilizing provided written and visual instructions from therapist. 2. Patient will be able to verbally identify 2 to 3 different strategies to modify functional activities in her day-to-day life to support/ maintain her functional independence. - Treatment 3 Descriptor Manual therapy. Address thumb adductor tightness. 1 Descriptor HEP/POC/Education. Discussed single point cane padding options for cushioning purposes and decrease discomfort reported with pushing into cane/of weight. Discussed modifications available in clinic versus personal investment via [employer] or other company. Discussed zipper versus velcro/latch closure of pad. Discussed need to assess overall size to prevent further exacerbation of pain/discomfort and/or poor positioning of thumb. Discussed options for padding of hand/thumb area, including gloves w/ different lengths of digits. - Assessment Assessment of Improvement R thumb pain continues to impact day-to-day life. Focus of treatment session on identifying options for reducing pain experienced w/ weight bearing onto single point cane; discussed gel versus foam, closure of pad ( velcro versus zipper), size of pad, materials, and companies that stock the item. Discussed padded gloves as well and pros and cons of full length/short length finger gloves. Discussed options that could be modified/adapted as available from this clinic. Patient will be evaluated by UE ortho specialist to review current options to address pain/discomfort and continued hand/finger use for participation in meaningful activities. d/t time limitations unable to explore AE to support day-to-day life given loss of ROM of L UE. Will need to follow-up and support handle identification, glove versus no gloves, AE, and recommendations from UE ortho specialist. - Plan Therapy Recommendations Continue with Current Program, Advance per Rehabilitation Protocol
--- NOTE | 2020-09-17 09:37 | OT.OP.TRT ---
Visit Care Team Role Provider Type Arleen Ybarar DO Attending Provider Physician Primary Care Provider Referring Provider Specialty: [facility] Address: [address] [place] [address], [address], [place], [address] Email: [email or web address] Occupational Therapy Treatment Note OT Outpatient Treatment Note - Adult Start: 08/16/20 14:27 Freq: Status: Active Protocol: Document 09/17/20 09:24 AMS (Rec: 09/17/20 09:37 AMS [id number]) OT Outpatient Adult Treatment Note Session Time Visit Start Time 08:30 Visit Stop Time 09:15 Total Visit Minutes 45 Visit Information Visit Number 02/13 Plan of Care Dates 08/16/20-10/11/20 Insurance Information Medicare Setting Treatment Setting Outpatient Care Visit Type Note Type Treatment Note General Information General Information Patient is a 80 year-old R hand dominant female referred to outpatient OT by primary care physician, Arleen Ybarra DO, to assist with activity modification and support functional independence. Dulce Maria is receiving outpatient PT for balance and d/t R TKR. 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 - Subjective Identification Type Name Identification Reconciled With Medical Record Observations My appointment with Dr. Portillo was yesterday. The options available are really meant to address pain and I am not in that much pain. They wouldn't necessarily improve my function. I might lose function. He checked all the joints of my hands per Dulce Maria. Chief Complaint(s) Restricts - Objective Objective Measurements Please refer to below for progress towards meeting established OT goals. [facility] Goals 1. Patient will be modified independent with execution of home exercise program relative to distal upper extremities utilizing provided written and visual instructions from therapist. 2. Patient will be able to verbally identify 2 to 3 different strategies to modify functional activities in her day-to-day life to support/ maintain her functional independence. - Treatment 1 Descriptor HEP/POC/Education. Reviewed single point cane padding options for cushioning purposes in order to address discomfort reported with pushing into cane w/ any weight. Reviewed joint protection principles. Discussed current recommendations re: arthritis and conservative management of symptoms. Discussed environmental modifications/AE that could possibly address areas of concern. Dulce Maria reportedly has senior data analyst and has caregivers who can assist with transferring of heavier items from kitchen shelves. She uses a surface walking approach to assist w/ positioning of left hand/UE while driving personal vehicle ; she is also utilizing technique of positioning items towards front of shelving unit to support easy access. - Assessment Assessment of Improvement Dulce Maria had appointment w/ Dr. Portillo September 16, 2020; non- conservative options were reportedly discussed. Dulce Maria could have follow-up appointment in 3 to 4 months if pain symptoms present in which shots may be administered to support uDlce Maria's ability to engage in functional tasks/day-to-day life. Dulce Maria reported that she was unable to research/ invest in personal cane handle as previously discussed d/t time constraints. Given that Dulce Maria's current foam handle is now peeling off the cane's surface a new cane handle/cane pad would likely be beneficial. Therapist reviewed basic joint protection principles, HEP recommendations, and discussed functional problem solving via environmental modification /use of AE. Dulce Maria was unable to identify any additional areas of concern. Thus, recommend d/c following treatment session and transitioning to HEP. - Plan Therapy Recommendations Continue with Current Program, Advance per Rehabilitation Protocol
--- NOTE | 2020-09-20 09:34 | OT.OP.TRT ---
Visit Care Team Role Provider Type Arleen Ybarra DO Attending Provider Physician Primary Care Provider Referring Provider Specialty: Family [facility] Address: [address] [place] [address], [address], [address] Email: [email or web address] Occupational Therapy Treatment Note OT Outpatient Treatment Note - Adult Start: 08/16/20 14:27 Freq: Status: Active Protocol: Document 09/20/20 09:32 AMS (Rec: 09/20/20 09:34 AMS [id number]) OT Outpatient Adult Treatment Note Setting Treatment Setting Outpatient Care Visit Type Note Type Treatment Note - Subjective Observations Dulce Maria contacted therapist via e-mail re: difficulties locating available resources for personal investment in cane handle cover/pad/cushion. Therapist e-mailed Dulce Maria w/ links to some available online resources. Therapist to follow-up as needed. - - - -
--- NOTE | 2020-09-24 09:52 | OT.OP.DC ---
Visit Care Team Role Provider Type Arleen Ybarra DO Attending Provider Physician Primary Care Provider Referring Provider Address: [address] [place] [address], [address], [place], [address] Email: [email or web address] OT Outpatient OT Outpatient Adult Evaluation Start: 08/16/20 14:27 Freq: Status: Active Protocol: Document 08/16/20 14:52 AMS (Rec: 08/16/20 15:26 AMS [id number]) General Information Visit Information Visit Number 09/15 Plan of Care Dates 08/16/20-10/11/20 Insurance Information Medicare Setting Treatment Setting Outpatient Care Visit Type Note Type Initial Evaluation Identification Identification Confirmed Yes Identification Confirmed By Patient Goals Treatment Treatment Initiated home exercise program. Modified prayer pose w/ hold for 20 sec. Modified wrist extension/prep weight TT . 1 x 5 reps. Education re: rocker knife and additional AE to support/maintain functional independence w/ self-feeding. Halfway Goals Halfway Goals 1. Patient will be modified independent with execution of home exercise program relative to distal upper extremities utilizing provided written and visual instructions from therapist. 2. Patient will be able to verbally identify 2 to 3 different strategies to modify functional activities in her day-to-day life to support/ maintain her functional independence. Assessment/Plan Assessment Treatment Assessment Patient is a 80 year-old R hand dominant female referred to outpatient OT by primary care physician, Arleen Ybarra DO, to assist with activity modification and support functional independence. Dulce Maria is receiving outpatient PT for balance and d/t R TKR. 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 Patient goals: Improve functional abilities. Evaluation Findings: Decreased palmar web space L > R. Hyperextension of MPJ L thumb to support functional obj manipulation L hand. Arthritic changes/multiple joint deformities bilateral hands. Denied current use of hand/wrist splint; has old wrist/hand splint combo which she tried recently 'that didn' t help at all'. Ambulates with SPC. Unable to put weight into R hand/wrist. QuickDASH UE Outcome Measure Score = 45. 45. Pain Assessment Grid completed pre-evaluation: Indicated 4 out of 10 pain relative to dorsal/volar surfaces of L wrist/L CMC joint area; indicated 7 out of 10 pain relative to volar/ dorsal surfaces of R wrist/R ACMC/MPJ and slightly distal to this joint. Wrist AROM: R wrist extension 0-45 degrees; L wrist extension 0-50 degrees . R wrist flexion 0-30 degrees ; L wrist flexion 0-45 degrees . R wrist UD 0-20 degrees; L wrist UD 0-[address] 0-2 degrees; L wrist RD 0- 10 degrees. Decreased bilateral prepared foods supervisor strength; avg 10.0# of force w/ R prepared foods supervisor and 15.0# of force w/ L prepared foods supervisor w/ dynamometer II strength testing. Functional abilities: Has assistance w/ meal preparation . Utilizes light weight utensils versus heavier stainless steel options available in her home. Uses spoon primarily w/ feeding. Avoids tying of shoes; keeps shoe laces tied. Avoids clothing with fasteners ( buttons). Intermittent use of training bra; utilizes modified approach to don/doff given hand/shoulder impairments. Has large shower stall; recently ordered grab bar to install for showering given balance concerns. Modified crocker of trunk of personal vehicle to support functional independence ( string/object to grab). Uses 2 -handed approach w/ transferring items to and from microwave oven. Patient would likely benefit from outpatient occupational therapy to support functional independence via activity modification/utilization AE, as well as for education and development of home exercise program. Plan Comment 8 weeks Treatment Frequency Once a Week Therapeutic Contents Active Range of Motion, Adaptive Equipment Education, Client Education,Cognitive Skills Development,Functional Activities,Home Exercise Program,Joint Protection, Manual Therapy,Education, Neurodevelopment Treatment, Neuromuscular Re-Education, Self-Care,Stretching/ Flexibility Activities, Therapeutic Activities, Therapeutic Exercises, Modalities,Sensory Re- education Modalities As Needed,As Prescribed Additional Types of Modalities Heat/Paraffin/Cold pack Patient Instruction Home Exercise Program,Plan of Care,Questions/Concerns Sensory Assessment Sensory Profile2 Functional Wrist/Hand Scan Hand Side OT Outpatient Treatment Note - Adult Start: 08/16/20 14:27 Freq: Status: Active Protocol: Document 09/24/20 09:32 AMS (Rec: 09/24/20 09:52 AMS [id number]) OT Outpatient Adult Treatment Note Session Time Visit Start Time 08:30 Visit Stop Time 09:15 Total Visit Minutes 45 Visit Information Visit Number 03/15 Plan of Care Dates 08/16/20-10/11/20 Insurance Information Medicare Setting Treatment Setting Outpatient Care Visit Type Note Type Treatment Note General Information General Information Patient is a 80 year-old R hand dominant female referred to outpatient OT by primary care physician, Arleen Ybarra DO, to assist with activity modification and support functional independence. Dulce Maria is receiving outpatient PT for balance and d/t R TKR. 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 - Subjective Identification Reconciled With Medical Record - Objective Objective Measurements Please refer to below for progress towards meeting established OT goals. [employer] Goals GOALS MET 09/24/20: Patient will be modified independent with execution of home exercise program relative to distal upper extremities utilizing provided written and visual instructions from therapist. Patient will be able to verbally identify 2 to 3 different strategies to modify functional activities in her day-to-day life to support/ maintain her functional independence. - Treatment 1 Descriptor HEP/POC/Education. Reviewed thumb exercises; provided written and visual instructions for exercises ( strengthening w/ use of single rubberband: D1, thumb abduction, CMC abduction; thumb ROM, including thumb lift). Originals were placed in paper chart. Reviewed basic joint protection principles and provided written materials for reference. Reviewed AE recommendations to support functional independence; recommended consideration of loop scissors and/or spring loaded scissors for use in the home (given positive experience w/ spring loaded gardening scissors). - Assessment Assessment of Improvement Dulce Maria has met all goals for outpatient OT. Therapist has assisted w/ functional problem solving and Dulce Maria is in process of contacting [employer] to inquire further about available cane handles w / cushioning component. Based on Dulce Maria's progress, focus on gentle hand strengthening, and denial of need for additional assistance w/ functional problem solving recommend discharge from OT at this time. Recommend following-up/re-evaluating as deemed appropriate by patient' s PCP. - Plan Therapy Recommendations Discharge from Occupational Therapy
== END 2020-09-26 08:30 ==
LOC: OT 08:30
PROVIDERS: PCP Family Medicine; Referring Provider Family Medicine; Visit Provider Family Medicine
DX: M19.042 Primary osteoarthritis, left hand (principal); M19.041 Primary osteoarthritis, right hand; M19.012 Primary osteoarthritis, left shoulder; R53.1 Weakness
CPT/HCPCS: 97035; 97110; 97140; 97165; 97530

== ENCOUNTER → 2020-10-15 11:02 | Outpatient (CLI) | payer MEDICARE, SELFPAY ==
[2020-05-09 14:25] VITALS: BMI 18.6
--- NOTE | 2020-10-15 11:15 | DIET.PN ---
Dietary Progress Note Assessment: 80y F referred to nutrition for help c diet for dysbiosis. Pts stool sample report indicates high levels of acetate and low levels of butyrate requiring increase in specific fibers and decrease in acetate forming substances from diet. Pt has hx of abdominal radiation and hysterectomy in 2004 resulting in neurogenic bladder and rectum after 29 lymph nodes were removed and bladder nerve cut in surgery. Pt had lyphedema in L leg, was seeing wound care for chronic leg wounds. Pt has severe degenerative joint disease c joint replacements in BL shoulders, BL knees, BL hips, and fusions in spine c enlarged, curled knuckle joints in BL hands. Pt endorses chronic fatigue since end of 2011 with reduced hunger. Pt has helpers come in the home to help with chores and meal prep. Pt feels stressed out frequently because of her limited mobility and need for assistance c ADLs in otherwise very active and independent individual. She feels like stress makes her fecal urgency worse and is trying to let it go. Pt using Immodium daily to manage BMs. Ht 5'4 Wt 108# BMI 18.6 (underweight) Usual Day: wakes 6am (sleep is good now) stretches, gets out of bed at 7am wears support hose every other day 8:30am Breakfast: soft boiled egg c Cande's full fat yogurt dollop c carrots, onion, celery, cabbage, lettuce, spinach homemade wg scone, cornbread c real corn, ww cinnamon buns, Breadfarm wg bread c either yogurt or cottage cheese has organic 2% milk cappuccino house chores and sits in window seat Noon 12pm (eats at this time because stomach is not hungry for dinner otherwise): mostly has salad (cabbage, kale, carrots cooked c sesame oil and rice vinegar) adds greens and fruit (apple, orange, pear), 6oz milk, tsp. homar seeds, pepitas, sunflower seeds, tahini dressing, miso dressing, avocado, often dessert: chocolate cake, ice cream, has piece of celery after eating dessert because doesn't like the taste in her mouth 3pm rests for 1hr takes neighbor dog for walk when wakes up about 5d/w or works out at fitness center, once per week does 700 steps at [facility] [place] has cecille infused avaquabida c triple sec, 3-4 oz grapefruit juice, wainwright juice 8:30pm dinner: sometimes small piece of meat, vegetable dishes-miso marinated black cod c veggies 3oz red wine c dinner and 3oz white wine before dinner 10pm goes to bed Takes Vitamin C daily for past year to reduce UTI secondary to catheter reliance. Interventions: 1. Discussed role of diet in dysbiosis. To address pts high acetate GI environment encouraged pt to limit etoh to 8 equivalents per week or less ideally, pt currently drinking double this. 2. Discussed role of diet in dysbiosis. To address pts low butyrate GI environment encouraged pt to consume 1/2 cup beans, lentils, or oats daily. Also encouraged pt to prepare all starches (rice, potatoes, oats perla) in larger batches to pull from through the week. This supports her need for higher retrograde starch in diet. Encouraged pt to consume 1 tbs fermented vegetables per day. Pt enjoys LoLo, reminded pt to ensure she is having from refrigerated section to receive added benefit of probiotic food. 3. To support weight regulation, educated pt on appropriate fiber content of diet using worksheet. Pt should consume 21g fiber per day, pt likely overconsuming fiber leading to reduced assimilation of nutrients in body and early satiety on low kcal/low protein items. Pt will log fiber intake to see where she can moderate intake. 4. To support weight regulation regarding pts neurogenic rectum and watery diarrhea she often experiences, provided sample of Bananatrol flakes which she can add to her Immodium routine as banana flakes do not constipate. 5. Because pt was enrolled in Wound Care for chronic leg wounds, educated pt on importance of adequate protein, Vits A and C, and zinc to support cell membranes. Pt takes daily C supp and is trying to be more mindful of adequate PRO intake. Pt will start making squash and lentil stew more in her rotation to support other nutrient needs. EER: 21g Fiber per day
== END ==
PROVIDERS: PCP Family Medicine; Referring Provider Family Medicine; Visit Provider Family Medicine
DX: K90.89 Other intestinal malabsorption (principal); M19.90 Unspecified osteoarthritis, unspecified site; R53.82 Chronic fatigue, unspecified; R63.6 Underweight; Z68.1 Body mass index [BMI] 19.9 or less, adult; Z71.3 Dietary counseling and surveillance
CPT/HCPCS: 97802

== ENCOUNTER → 2020-10-30 10:32 | Outpatient (CLI) | payer MEDICARE, SELFPAY ==
[2020-05-09 14:25] VITALS: BMI 18.6
[2020-10-30 11:07] LABS: Appearance Urine UA SL CLOUDY; Bilirubin Urine UA NEGATIVE (NEGATIVE); Color Urine UA YELLOW; Glucose Urine UA NEGATIVE (Negative); Ketones Urine UA NEGATIVE (NEGATIVE); Leukocyte Esterase Urine UA 1+ (NEGATIVE); Nitrite Urine UA NEGATIVE (Negative); Occult Blood Urine UA NEGATIVE (Negative); Protein Urine UA NEGATIVE (Negative); Specific Gravity Urine UA 1.025 (1.000-1.035); Urobilinogen Urine UA 0.2 E.U./dL (0.2)
[2020-10-30 11:24] LABS: pH Urine UA 5.5 (4.5-8.0)
[2020-10-30 11:25] LABS: Bacteria Urine Many (>30); Culture Indicated Urine Specimen Cultured; RBC Urine 1-5/HPF (0-5/HPF); Squamous Epithelial Cell Urine 1-5 /HPF (0-5/HPF); WBC Urine 5-10/HPF (0-5/HPF)
== END ==
PROVIDERS: PCP Family Medicine; Referring Provider Family Medicine; Visit Provider Family Medicine
DX: N31.9 Neuromuscular dysfunction of bladder, unspecified (principal)
CPT/HCPCS: 81001; 87077; 87086; 87186

== ENCOUNTER → 2020-11-07 08:46 | Outpatient (CLI) | payer MEDICARE, SELFPAY ==
[2020-05-09 14:25] VITALS: BMI 18.6
--- NOTE | 2020-11-07 08:48 | DI.MRI.S_ITS ---
PROCEDURE: MR CERVICAL SPINE WO CON INDICATIONS: Neck pain TECHNIQUE: Noncontrast sagittal T1 spin echo and T2 fast spin echo, sagittal STIR, foraminal oblique sagittal T2 fast spin echo, and axial gradient echo or T2 fast spin echo through the cervical spine. COMPARISON: [facility], , C-SPINE WITHOUT CONTRAST, 05/04/2017, 14:19. FINDINGS: Image quality: Excellent. Alignment and Curvature: There is loss of normal cervical lordosis. There is mild, grade 1 anterolisthesis of C6 on C7. Moderate, grade 1/2 anterolisthesis of C7 on T1. Bone Marrow: Marrow demonstrates normal overall signal. Anterior fusion of C3-C6 has been performed. Mild reactive signal within the endplates adjacent to the C7-T1 intervertebral disc, as well as the intervertebral discs of the upper thoracic spine. Spinal Cord: Visualized spinal cord has normal size . There is a 2 mm high T2 intensity focus within the posterior central cord at the lower C6 level, as before. No cerebellar tonsillar herniation. Paraspinous Soft Tissues: No paravertebral masses. Prevertebral soft tissues are normal in thickness. C2-C3: Moderate disc height loss and desiccation. Mild diffuse disc bulge. Mild facet and uncovertebral hypertrophy bilaterally. Mild canal stenosis. Mild bilateral foraminal stenosis. No change. C3-C4: Status post fusion. Mild facet and uncovertebral hypertrophy bilaterally. No significant canal, or foraminal stenosis. No change. C4-C5: Status post fusion. Mild residual disc osteophyte complex. Mild facet and uncovertebral hypertrophy bilaterally. No significant canal stenosis. Mild right foraminal stenosis. No left foraminal stenosis. No change. C5-C6: Status post fusion. Moderate facet and uncovertebral hypertrophy bilaterally. No significant canal stenosis. Severe right and moderate left foraminal stenosis. Right C6 nerve root compression. No change. C6-C7: Moderate disc height loss and desiccation. Moderate diffuse disc bulge/osteophyte. Mild canal stenosis. Moderate bilateral foraminal stenosis. No change. C7-T1: Moderate disc height loss and desiccation. Mild diffuse disc bulge. Moderate facet and uncovertebral hypertrophy bilaterally. Mild canal stenosis. Severe bilateral foraminal stenosis with bilateral C8 nerve root compression. No change. IMPRESSION: 1. Postsurgical sequelae. 2. Multilevel degenerative disc and facet disease, as well as uncovertebral hypertrophy. 3. Mild multilevel canal stenosis. 4. Multilevel foraminal stenoses, worst at C5-C6 and C7-T1 where there is associated intraforaminal nerve root compression. Recommend correlation with clinical symptoms to ascertain relevance of these findings. Dictated by: Kishore He M.D. on 11/07/2020 at 9:01 Approved by: Kishore He M.D. on 11/07/2020 at 9:19
== END ==
PROVIDERS: PCP Family Medicine; Referring Provider Family Medicine; Visit Provider Family Medicine
DX: M50.31 Other cervical disc degeneration, high cervical region (principal); M48.02 Spinal stenosis, cervical region; R51.9 Headache, unspecified; M06.9 Rheumatoid arthritis, unspecified; Z98.1 Arthrodesis status
CPT/HCPCS: 72141

== ENCOUNTER → 2020-12-04 09:16 | Outpatient (CLI) | payer MEDICARE, SELFPAY ==
[2020-05-09 14:25] VITALS: BMI 18.6
--- NOTE | 2020-12-04 09:18 | DI.MRI.S_ITS ---
PROCEDURE: MR HEAD/BRAIN WO/W CON INDICATIONS: LEFT trigeminal TECHNIQUE: Noncontrast axial T1 spin echo, axial T2 fast spin echo, sagittal and axial FLAIR, coronal T2 fast spin echo, axial gradient echo, axial diffusion and ADC through the brain. After the administration of contrast, axial and coronal T1 spin echo with fat saturation through the brain. COMPARISON: None. FINDINGS: Image quality: Excellent. CSF spaces: Basal cisterns are patent. No extra-axial fluid collections. Ventricles are normal in size and shape. Brain: No midline shift. No intracranial bleeds or masses. No abnormal intracranial enhancement. There is cerebral volume loss for age. There is periventricular white matter chronic small vessel ischemic change. The brainstem appears normal. Diffusion-weighted images demonstrate no acute ischemic insults. No chronic ischemic insults. Normal intravascular flow voids are present. Bilateral trigeminal nerves are grossly unremarkable without abnormal enhancement. Skull and face: Calvarial marrow is normal in signal. Orbits appear normal. Sinuses: Sinuses and mastoids appear clear. IMPRESSION: 1. Volume loss and small vessel ischemic disease. No recent infarct. 2. Negative evaluation of the trigeminal nerves. Dictated by: Kishore He M.D. on 12/04/2020 at 10:14 Approved by: Kishore He M.D. on 12/04/2020 at 10:17
== END ==
PROVIDERS: PCP Family Medicine; Referring Provider Family Medicine; Visit Provider Family Medicine
DX: G50.0 Trigeminal neuralgia (principal)
CPT/HCPCS: 70553

== ENCOUNTER → 2021-01-30 09:34 | Outpatient (CLI) | payer MEDICARE, SELFPAY ==
[2020-05-09 14:25] VITALS: BMI 18.6
[2021-01-30 10:14] LABS: Add Manual Diff / Slide Review NO; Basophils Absolute Auto 0 /uL (0-100); Basophils Percent Auto 0.8 % (0-2); Eosinophils Absolute Auto 100 /uL (0-450); Eosinophils Percent Auto 1.7 % (2-4); Hemoglobin 13.7 g/dL (12.0-16.0); Lymphocytes Absolute Auto 900 /uL (1100-4500); Lymphocytes Percent Auto 18.2 % (25-40); Mean Corpuscular HGB Conc 32.5 % (30-36); Mean Corpuscular Hemoglobin 31.2 PG (26-34); Mean Corpuscular Volume 95.9 fL (80-100); Monocytes Absolute Auto 400 /uL (0-900); Monocytes Percent Auto 8.7 % (3-14); Neutrophils Absolute Auto 3400 /uL (1500-7000); Neutrophils Percent Auto 70.6 % (50-75); Platelet Count 222 X10^3/uL (150-400); Red Blood Cell Count 4.38 X10^6/uL (4.0-5.2); Red Cell Distribution Width 14.3 % (11.6-14.8); White Blood Cell Count 4.8 X10^3/uL (4.5-11.0)
[2021-01-30 10:26] LABS: Hemoglobin A1C% w Est Avg Glu 5.1 % (4.0-6.0)
[2021-01-30 10:41] LABS: Alanine Aminotransferase 14 IU/L (<35); Albumin 3.6 g/dL (3.5-5.0); Albumin Globulin Ratio 1.3 (1.0-2.8); Alkaline Phosphatase 78 U/L (38-126); Aspartate Aminotransferase 26 IU/L (14-36); BUN Creatinine Ratio 25.7 (6-22); Bilirubin Total 0.3 mg/dL (0.2-1.3); Blood Urea Nitrogen 19 mg/dL (7-17); Calcium 9.7 mg/dL (8.4-10.2); Carbon Dioxide 27 mmol/L (22-32); Chloride 101 mmol/L (98-107); Estimated Glomerular Filt Rate > 60.0 mL/min (>60); Globulin 2.8 g/dL (1.7-4.1); Glucose 116 mg/dL (80-110); HEMOLYSIS < 15 (0-50); Potassium 4.3 mmol/L (3.4-5.1); Sodium 135 mmol/L (137-145); Total Protein 6.4 g/dL (6.3-8.2)
== END ==
PROVIDERS: PCP Family Medicine; Referring Provider Family Medicine; Visit Provider Family Medicine
DX: D64.9 Anemia, unspecified (principal); E16.2 Hypoglycemia, unspecified; E03.9 Hypothyroidism, unspecified; R63.6 Underweight
CPT/HCPCS: 36415; 80053; 83036; 84443; 85025

== ENCOUNTER → 2021-03-11 13:38 | Outpatient (CLI) | payer MEDICARE, SELFPAY ==
[2021-03-07 09:21] VITALS: BMI 18.6
--- NOTE | 2021-03-11 13:40 | DI.US.S_ITS ---
ULTRASOUND OF RIGHT BREAST: 03/11/2021 CLINICAL: Palpable right breast lump x 2. Comparison is made to exams dated: 03/11/2021 mammogram, 08/16/2019 ultrasound, 03/17/2019 ultrasound, 03/17/2019 mammogram, 04/15/2018 mammogram, and 10/08/2016 mammogram - [facility]. Doppler ultrasound of the right breast was performed. Beverly scale images of the real-time examination were reviewed. There is a 1.5 cm x 0.6 cm x 1.4 cm irregular mass with an indistinct and angular margin in the right breast at 11 o'clock posterior depth. This irregular mass displays posterior acoustic shadowing. Color flow imaging demonstrates that there is increased vascularity. IMPRESSION: SUSPICIOUS OF MALIGNANCY The 1.5 cm x 0.6 cm x 1.4 cm irregular mass in the right breast is at a moderate suspicion for malignancy. An ultrasound guided biopsy is recommended. These findings and recommendation were discussed with the patient by Dr Robledo. This exam was interpreted at Station ID: [id number]. Electronically Signed By: Josh Moyer acr/:03/11/2021 16:07:17 copy to: Wiley Johnson copy to: Yolanda Vivas letter sent: Biopsy Required Ultrasound BI-RADS: 4b Moderate suspicion of malignancy
--- NOTE | 2021-03-11 13:40 | DI.MG.S_ITS ---
BILATERAL DIGITAL DIAGNOSTIC MAMMOGRAM 3D/2D POST LUMPECTOMY: 03/11/2021 CLINICAL: Right breast lump. Comparison is made to exams dated: 08/16/2019 ultrasound, 03/17/2019 ultrasound, 03/17/2019 mammogram, and 04/15/2018 mammogram - [facility]. The tissue of both breasts is heterogeneously dense. This may lower the sensitivity of mammography. There is a new irregular high density asymmetry with an indistinct margin in the right breast at 12 o'clock posterior depth. There is a post-surgical scar associated with the asymmetry. No other significant masses, calcifications, or other findings are seen in either breast. IMPRESSION: INCOMPLETE: NEEDS ADDITIONAL IMAGING EVALUATION The new irregular high density asymmetry in the right breast is indeterminate. An ultrasound is recommended. This exam was interpreted at Station ID: [id number]. NOTE: For mammograms, a report in lay terms will be sent to the patient. Approximately 15% of breast malignancies will not be visualized mammographically. In the management of a palpable breast mass, a negative mammogram must not discourage biopsy of a clinically suspicious lesion. Electronically Signed By: Josh Moyer acr/:03/11/2021 16:04:36 Entry: sierra - 03/12/2021 08:49:48 copy to: Wiley Johnson copy to: Yolanda Vivas ACR BI-RADS Category 0: Incomplete [id number]
== END ==
PROVIDERS: PCP Family Medicine; Referring Provider Obstetrics & Gynecology; Visit Provider Obstetrics & Gynecology
DX: Z85.3 Personal history of malignant neoplasm of breast (principal); N63.11 Unspecified lump in the right breast, upper outer quadrant; R92.8 Other abnormal and inconclusive findings on diagnostic imaging of breast
CPT/HCPCS: 76642; 77066; G0279

== ENCOUNTER → 2021-03-24 13:50 | Outpatient (CLI) | payer MEDICARE, SELFPAY ==
[2021-03-07 09:21] VITALS: BMI 18.6
--- NOTE | 2021-03-24 | PATH_ITS ---
[facility] Accession Number: [id number] . 01 Material submitted: . breast - RIGHT BREAST MASS 10:00 3CMFN . 02 Diagnosis: Right Breast Mass 10 o'clock, 3 cm from Nipple, Image-Guided Needle Core Biopsy: Invasive carcinoma of the breast. Please see Case Summary. . . CASE SUMMARY: Specimen Procedure: Needle Biopsy: Specimen laterality: Right. . Tumor Tumor site: Upper outer quadrant. Clock position: 10 o'clock. Distance from nipple: 3 cm from nipple. Histologic type: Invasive lobular carcioma by immunohistochemistry studies. . Histologic grade Glandular differentiation: Score 3. Nuclear pleomorphism: Score 1. Mitotic rate: Score 1. Overall grade: Grade 1 (score 5 of 9). . Tumor size: At least 6 mm in greatest dimension. In situ carcinoma: One possible minute focus, less than 1 mm. Lymphovascular invasion: Not identified. Microcalcifications: Not identified. . Special studies Breast biomarkers: Please see microscopic description. MRV 03/28/2021 1455 Local . 02 Comment: As part of routine quality improvement analyst, this case was also reviewed by Dr. Perez, who agrees with the interpretation. . Results called to Dr. Hoyos on 03-28-21 at approximately 2:39 p.m. . 02 Electronically signed: . Becca Sage MD, Pathologist NPI- [id number] . 01 Gross description: . The specimen is received in formalin, labeled breast biopsy and consists of multiple acevedo-yellow fragments of fibroadipose tissue measuring 2.0 x 1.0 x 0.5 cm in aggregate. The specimen is entirely submitted in cassette A1. . Formalin fixation time: Approximately 24 hours. (EA:[id number]) /MRV 03/25/2021 [facility]9 Local . 02 Microscopic: . An immunohistochemistry study is performed to evaluate the cells of interest. The control stain shows appropriate reactivity. . RESULTS: E-cadherin: Negative, consistent with lobular differentiation. . . CAP BREAST BIOMARKER REPORTING TEMPLATE: . Estrogen Receptor (ER) Status: Positive, greater than 90% of tumor nuclei. Average intensity of staining: Strong. Primary antibody: SP1 Progesterone Receptor (PgR) Status: Positive. 1-10% of tumor nuclei. Average intensity of staining: Moderate. Primary antibody: 1E2 HER2 (by immunohistochemistry): Equivocal at 2+. Primary antibody: 4B5 . . Cold Ischemia and Fixation Times: Meets requirements in the latest version of the ASCO/CAP guidelines. Testing performed on Block Number: . TECHNICAL NOTE: The scoring criteria for breast biomarkers by immunohistochemistry is based on the current ASCO/CAP guidelines (Ryan et al, Arch Pathol Lab Med 2010: 134(6): 907-922 / Abdon Everett al, Arch Pathol Lab Med 2014: 138(2):241-256). Deparaffinized sections of formalin fixed tissue (along with appropriate positive controls) are incubated with the above antibody(s). Using the automated Shirley stainer, tissue is incubated with the designated antibody* which is then localized by a non-biotin, dual polymer detection system. The external controls are reviewed for appropriate reactivity and found to be adequate. Results on the target cell population are indicated above. These tests have not been validated on decalcified tissue. * This test was developed and its performance characteristics determined by [facility]. It has not been cleared or approved by the U.S. Food and Drug Administration. The FDA has determined that such clearance or approval is not necessary. This test is used for clinical purposes. It should not be regarded as investigational or for research. . 02 Pathologist provided ICD-10: C50.911 . 02 CPT . 558259, F68347, 173567, 500274, 201428 Performed at: 01 [facility] [address] [place] [address], [place], [place] [id number] MD Vaughn Thomas MD Phone: [phone] Performed at: 02 [facility] [place] [address] [place], [place] [id number] MD Tanya Ramirez MD Phone: [phone]
--- NOTE | 2021-03-24 14:08 | DI.MG.S_ITS ---
UNILATERAL RIGHT DIGITAL DIAGNOSTIC MAMMOGRAM 3D/2D POST-NEEDLE BIOPSY: 03/24/2021 CLINICAL: Right breast lump. Post clip placement. Comparison is made to exams dated: 03/11/2021 mammogram, 03/11/2021 ultrasound, 08/16/2019 ultrasound, 03/17/2019 ultrasound, 04/15/2018 mammogram, and 03/17/2019 mammogram - [facility]. The tissue of right breast is heterogeneously dense. This may lower the sensitivity of mammography. There is a marker clip in the appropriate position in the right breast at 11 o'clock posterior depth. IMPRESSION: POST PROCEDURE MAMMOGRAM FOR MARKER PLACEMENT There was a successful marker clip placement in the right breast posterior depth at the 11 o'clock position. This exam was interpreted at Station ID: [id number]. NOTE: For mammograms, a report in lay terms will be sent to the patient. Approximately 15% of breast malignancies will not be visualized mammographically. In the management of a palpable breast mass, a negative mammogram must not discourage biopsy of a clinically suspicious lesion. Electronically Signed By: Yinka Child M.D. at/:03/24/2021 15:47:09 copy to: Wiley Johnson copy to: Yolanda Vivas ACR BI-RADS Category Post-procedure mammogram for marker placement
--- NOTE | 2021-03-24 14:09 | DI.US.S_ITS ---
ULTRASOUND GUIDED BIOPSY RIGHT BREAST USING VACUUM DEVICE WITH MARKING DEVICE INSERTED AND POST MAMMOGRAPHIC IMAGIN03/24/2021 CLINICAL: Right breast mass. PATIENT CONSENT: Risks (minor bleeding, infection, vasovagal reaction and repeat procedure), benefits and alternatives were explained to the patient and written informed consent was obtained. Correlation is made to exams dated: 03/11/2021 ultrasound, 03/11/2021 mammogram, 08/16/2019 ultrasound, 03/17/2019 ultrasound, and 03/17/2019 mammogram - [facility]. An ultrasound guided biopsy using real-time ultrasound was performed for the 1.5 cm x 1.4 cm x 0.6 cm irregular shaped mass located in the right breast at 10 o'clock posterior depth 3 cm from the nipple. This was described on the previous ultrasound report. The skin was prepped in the usual manner. Local anesthetic was administered to the access site. A skin jovany was made in the breast. The abnormality was approached from the lateral aspect. A 13 gauge biopsy needle was placed adjacent to the abnormality under ultrasound guidance. Once the needle was documented to be in the correct location, five specimens were obtained using the Mammotome biopsy system. A Vision clip was inserted into the biopsy cavity. A sterile dressing was applied to the access site. Post procedure mammographic imaging demonstrates the location device at the targeted area. The specimens were sent to the laboratory for pathological analysis. IMPRESSION: ULTRASOUND GUIDED BIOPSY MALIGNANT Ultrasound guided biopsy of the 1.5 cm x 1.4 cm x 0.6 cm mass in the right breast at 10 o'clock posterior depth 3 cm from the nipple was successful. Pathology indicates malignant invasive lobular carcinoma (IL). Pathology results are concordant with imaging findings. A surgical/oncologic consultation is recommended. This exam was interpreted at Station ID: [id number]. Yinka ross,slc/:04/01/2021 11:09:12 copy to: Wiley Johnson copy to: Yolanda Vivas
== END ==
PROVIDERS: PCP Family Medicine; Referring Provider Specialist; Visit Provider Specialist
DX: C50.411 Malignant neoplasm of upper-outer quadrant of right female breast (principal); Z17.0 Estrogen receptor positive status [ER+]
CPT/HCPCS: 19083; 77065

== ENCOUNTER → 2021-04-29 10:03 | Outpatient (CLI) | payer MEDICARE, SELFPAY ==
[2021-03-07 09:21] VITALS: BMI 18.6
[2021-04-29 12:24] LABS: COVID19 -Nasal RAPID Negative (Negative)
== END ==
PROVIDERS: Family Provider Family Medicine; PCP Family Medicine; Referring Provider Specialist; Visit Provider Specialist
DX: Z01.812 Encounter for preprocedural laboratory examination (principal); Z20.822 Contact with and (suspected) exposure to COVID-19
CPT/HCPCS: 87635; C9803

== ENCOUNTER 2021-04-30 07:21 | Observation (INO) | payer MEDICARE, SELFPAY ==
[2021-03-07 09:21] VITALS: BMI 18.6
[2021-04-25 11:52] VITALS: BMI 17.6
[2021-04-30] VITALS (18 sets, daily range): BP systolic 103–134; BP diastolic 64–80; PULSE 62–81; RESP 13–94; TEMP 36.7–38; O2SAT 12–99; BMI 17.6
--- NOTE | 2021-04-30 | DI.NM.S_ITS ---
PROCEDURE: NM SENTINEL NODE W IMAGING RADIOPHARMACEUTICAL: 0.5-1.0 mCi Millipore filtered Tc-99m sulfur colloid. INDICATIONS: Malignant neoplasm of unspecified site of right breast. COMPARISON: [facility], , MM DIAGNOSTIC MAMMO UNILAT RT2D, 03/24/2021, 15:07. [facility], , US BX BREAST PERC W VAC DEVICE, 03/24/2021, 14:24. [facility], US BREAST RT LIMITED, 03/11/2021, 14:36. TECHNIQUE: The area around the nipple was prepped and draped in a sterile fashion. Tc-99m sulfur colloid was injected intra-dermally in the outer edge of the areola in the right breast. Images were obtained subsequently. A body contour outline was obtained. FINDINGS: There are 4-5 right lymph nodes in the ipsilateral axilla. IMPRESSION: [place] lymph node mapping for intra-operative sentinel lymph node localization. Dictated by: Lo Box M.D. on 04/30/2021 at 9:33 Approved by: Lo Box M.D. on 04/30/2021 at 9:40
--- NOTE | 2021-04-30 | PATH_ITS ---
[facility] Accession Number: [id number] . 01 Material submitted: . breast - RIGHT BREAST AND AXILLARY CONTENT . 01 Clinical history: . RIGHT MASTECTOMY W/SNB *OPB* . 01 Diagnosis: A. Right Breast and Axillary Content, Modified Radical Mastectomy: Invasive (lobular) carcinoma, grade 2 of 3 ([place] combined histologic grade, total score 6/9), with the following features: 1. Tumor size (invasive component): 8-9 cm, by microscopic measurement (see comment). 2. Nuclear pleomorphism: Intermediate. (2/3) 3. Mitotic rate: Low. (1/3). 4. Tubular differentiation: None. (3/3) 5. Carcinoma in situ: - Ductal carcinoma in situ is not present. - Lobular carcinoma in situ/atypical lobular hyperplasia are present. 6. Calcifications: Present in stroma in association with invasive carcinoma, benign breast tissue, and media of vessels. 7. Lymphatic invasion: Not definitively identified. 8. Resection margins (also see comment): - Invasive carcinoma with the following closest distance to the margins as follows: * Posterior: Positive (at least in block A13). * Anterior superior: Positive (at least in blocks A10 and A22). * Anterior inferior: Positive (at least in blocks A9, A12, A13). * Skin dermal anterior superior: Positive (A10). * Skin dermal anterior inferior: 1 mm (A13). 9. Prognostic markers (performed on prior biopsy, case # [id number], CD: 03/25/21), with the following reported results: - Estrogen receptor status: Positive. - Progesterone receptor status: Positive. - HER2 status: Negative for Her-2 gene amplification by FISH studies. 10. Regional lymph node status: - No lymph nodes identified within the specimen or axillary tail (see comment). 11. Additional findings: - Nipple: Carcinoma extends around the nipple areolar complex. - Skin: Carcinoma extends into the upper dermis. - Few fragments of skeletal muscle which appear uninvolved. - Background breast parenchyma shows extensive stromal fibrosis, focal columnar cell change, microcystic duct dilatation, and cystic apocrine metaplasia. - Biopsy clip is present. 12. Pathologic stage: pT3 pNX . COMMENT: The size of the invasive carcinoma is microscopically measured based on continuous involvement of slices 4-13 each measuring approximately 1 cm, for an approximate size of 8-9 cm. . For the posterior, anterior superior and anterior inferior margins, in addition to the above-mentioned positive margins, the tumor is multifocally close in several blocks. . The tissue designated 'axillary contents' is entirely submitted and demonstrates extensive stromal fibrosis and sclerosis. No lymph node tissue or carcinoma identified in those sections examined. V 05/06/2021 0529 Local . 01 Electronically signed: . Cristina Young MD, Pathologist NPI- [id number] . 01 Gross description: . The specimen is received in formalin, labeled right breast and axillary contents and consists of a right mastectomy specimen. Weight: 92 grams. Measurements: 16.0 cm from medial to lateral by 13.0 cm from superior to inferior by 2.0 cm from anterior to posterior. Skin Ellipse: There is an 8.0 x 5.0 cm acevedo skin ellipse. Nipple/Areola: The everted nipple measures 1.0 x 1.0 x 0.8 cm and the areolar complex measures 2.5 x 2.0 cm. The axillary tail is designated with a long suture and measures 3.0 x 3.0 x 1.5 cm. Margins: There is a long suture designated lateral and an undesignated double short suture (presumed superior). The specimen is inked as follows: Anterosuperior blue, anterior inferior green, and posterior black. The specimen is serially sectioned from lateral to medial into 16 slices. Lesion: There is a 2.5 x 1.5 x 1.0 cm well-defined acevedo-white to acevedo-yellow firm lesion within slices 4-6 (lower outer quadrant). Slice 5 has a silver metallic balloon-shaped biopsy marker within the lesion. Distance to Margins: 0.1 cm from the posterior margin, 0.2 cm from the anterosuperior margin, 0.8 cm from the anteroinferior margin, and 0.5 cm from the nearest skin margin. The lesion is greater than 3 cm from the nipple and areolar complex. The remaining cut surfaces are composed of approximately 50% acevedo-yellow lobulated adipose tissue and 40% acevedo-white fibrous tissue. No additional masses or lesions are identified. No lymph nodes are identified within the area designated axillary contents. [employer] sections are submitted. A1: Nipple, perpendicularly sectioned and entirely submitted. A2: Slice 3, lateral to lesion (anterosuperior/anteroinferior/posterior margins). A3-A4: Slice 4, lesion in relation to anterosuperior and skin margins. A5-A6: Slice 5, lesion in relation to skin and anterosuperior margin (site of biopsy marker). A7: Slice 5, skin, anteroinferior and posterior margins. A8: Slice 6, lesion in relation to skin, anterosuperior and posterior margins. A9: Slice 6, skin, anteroinferior and posterior margins. A10: Slice 7, medial to lesion (skin, anterosuperior and posterior margins. A11: Slice 10, nipple base (yellow). A12-A13: [employer] lower inner quadrant. A14-A15: [employer] Front [employer]k Attendant upper inner quadrant. A16-A17: [employer] Front [employer]k Attendant upper outer quadrant. A18-A21: Area designated axillary tail, entirely submitted. Formalin fixation time: Approximately 28 hours. ([id number]) A22 - Slice 8. A23 - Slice 8. A24 - Slice 9. A25 - Slice 11. A26 - Slice 12. A27 - Slice 13. ([id number]) /MRV 05/02/2021 1700 Local . 01 Microscopic: . JESSICA immunostain, followed by deeper H/E sections, is performed on blocks A4, A10, A12 and A13, in order to evaluate the areas of cauterized possibly involved margins, with appropriately staining external controls. JESSICA immunostain highlights the invasive lobular carcinoma cells at the inked margins of interest as reported in the diagnosis. . Extensive perineural invasion is present. . * This test was developed and its performance characteristics determined by [facility]. It has not been cleared or approved by the U.S. Food and Drug Administration. The FDA has determined that such clearance or approval is not necessary. This test is used for clinical purposes. It should not be regarded as investigational or for research. . 01 Pathologist provided ICD-10: C50.911 . 01 CPT . 564784, B31234 Performed at: 01 [facility] [address] [place] [address], [place], [place] [id number] MD Vaughn Thomas MD Phone: [phone]
--- NOTE | 2021-04-30 09:20 | PM.PREOP ---
Pre-operative Note COVID-19 COVID-19 status: Negative Result date/Date tested (Pos, Neg/Pending): 04/29/21 Interval Note History & Physical reviewed/Exam performed by Physician: Yes Changes to H&P: No
[2021-04-30] MEDS: LACTATED RINGERS 1,000 ML 42 ML IV ×2 (09:25→14:09)
--- NOTE | 2021-04-30 09:25 | SUR.PREOP ---
Patient was returned from DI at unknown time. Call light given, desires to void pre-op
[2021-04-30] MEDS: CEFAZOLIN 1 GM VIAL 2 GM IV (09:56)
--- NOTE | 2021-04-30 10:13 | SUR.OPER ---
Supine on padded OR bed, head on pillow, arms secured on padded arm boards at <90 degrees abduction, legs uncrossed, safety belt at thigh, tape over blanket over lower legs.
[2021-04-30] MEDS: BACITRACIN 28 GM OINT 1 APPLIC TOP (12:52)
--- NOTE | 2021-04-30 12:54 | P.OP_ITS ---
Operative Date/Time/Diagnoses Date of procedure: 04/30/21 Time of procedure: 12:54 Pre-op diagnosis: Recurrence breast cancer right breast Post-op diagnosis: same (Same) Procedure & Clinicians Procedure: Modified radical mastectomy Same procedure as scheduled: No (Expected to do a simple mastectomy and sentinel node biopsy ) Indications: Patient post radiation and lumpectomy and sentinel node biopsy in the early now with a recurrence of a different type of right breast cancer in the right breast. Surgeon: Fabián Hoyos Click Yes if Unassisted: Yes Anesthesia Type: General Operative Notes Findings: Extensive scarring and very little breast tissue. Axilla especially scarred in. Closure Type: primary Specimen(s): other (Breast axillary contents) Prosthetic devices, grafts, tissues, transplants, or devices: None Applied: drain(s) (2 Marlo drains. One under the flap located medial and went into the axilla Cater drill lateral) Estimated Blood Loss (mL): 100 Blood products transfused: none Procedure in detail: Patient was placed supine on the operating room table underwent general LMA anesthesia. She was prepped and draped in the usual fashion. Elliptical incision was made to encompass the nipple and the prior biopsy scar. I did not want the tissues between the biopsy site and the nipple- areolar complex to be compromised and I. I also wanted to be above the palpable mass if possible. After incising the skin and into the subcu flaps were raised superiorly to clavicle and over the area of the superior pectoralis major. This tissue was heavily scarred to the skin and there was almost no subcu fat making the plane essentially 1 immediately under the skin. I raised the flap medial to the midline and inferior overlying the rectus. The breast was begun to take off from superior to inferior and I encountered very dense scar in the right axilla presumptively from her prior axillary rectal exploration and radiation postoperatively. This was very difficult and tedious most the dissection was done with cautery. Vessels were clipped and divided. Because of the scarring was very difficult to identify any of the normal structures and I was very car eful to avoid any injury to the major vascular structures in the axilla. Tissues were swept inferiorly. The lateral dissection was carried down to what appeared to be the latissimus. The breast was taken off then from inferior to superior and medial the lateral until only the tissues in the axilla which were principally scar were holding the the specimen in place. I dissected this off the pectoralis major and minor which were densely adherent to it. Ultimately I detach the specimen and removed it. The axilla appeared to be well cleared of tissue. Much of it was removed was densely scarred. Hemostasis was achieved and the wound was irrigated. Two drains were placed. They were brought out inferior to the dissection. The medial 1 was placed under the flaps in lateral 1 into the axilla proper. SubQ was reapproximated with 3-0 Vicryl the skin was closed with vertical mattress 3-0 nylon. Because of the close dissection to the skin there appeared to be some cautery injury to the overlying skin which was not surprising. I applied antibiotic ointment to the upper flap as well as to the incision and applied dressings which included Xeroform. Tegaderm and an Adarsh were placed to hold the dressing in place. The patient was awakened and taken the recovery room good condition. Of note: I used the Neoprobe to try to identify sentinel nodes but there was absolutely no activity in the right axilla. I suspect that the prior treatment has disrupted much of the normal channels going to the axilla. Because of this in the extensive scarring and palpable nodules I chose to do a in modified radical mastectomy and remove lymphatic tissue from the axilla rather than the sentinel node since I could not locate anything with the probe. Complications: none Post-operative Condition: stable Disposition: PACU Plan for aftercare: Will keep for observation
--- NOTE | 2021-04-30 13:50 | SUR.PHASEI ---
Pt to PACU in bed with Anesth and RN. Pt awoke to voice and rested comfortably on RA, breathing unassisted. Pain 3/10, declined pain meds. Marlo drains emptied x1. Pt transfered [facility] report and dressing eval done with Germania CARR. Right eye slightly red and with a few tears with patient complaining of feeling like something is in there and rinsed with NS per patient request with mod amt of relief.
--- NOTE | 2021-04-30 15:12 | PC.NURSE ---
On unit from PACU around 1340. A&Ox4. VSS. Pain3/10. Two moshe drains labeled A & B, draining serosanguinous fluid. Dressing cdi, derick wrap. BP cuff on left arm. LR going at 42, PIV. Call light within reach, bed low.
--- NOTE | 2021-04-30 16:20 | PC.NURSE ---
Patient complaining of R eye pain. Upon inspection, it appears to be red and she cannot keep it open for very long as it is very uncomfortable for her. This was flushed with saline on day shift but she states this did not help. Patient also had a question about discharge. I told her that she is here for observation after surgery so likely will be here overnight, but that I would discuss with Dr. Hoyos and see what his plan his. Call placed to Dr. Hoyos and spoke with RN in OR as provider is in surgery. She relayed the message and Dr. Hoyos will come up and see patient to evaluate eye and answer questions after surgery is complete.
[2021-04-30] MEDS: POLYVINYL ALCOHOL DROPS 1 DROPS EYE-BOTH (19:17)
[2021-05-01] VITALS (8 sets, daily range): BP systolic 99–121; BP diastolic 55–66; PULSE 65–72; RESP 16–24; TEMP 36.6–38.6; O2SAT 93–98
[2021-05-01] MEDS: ACETAMINOPHEN 325 MG TABLET 650 MG PO (00:48)
--- NOTE | 2021-05-01 01:07 | PC.NURSE ---
Addendum entered by Lamar Garner R.N. 05/01/21 05:13: Slept most of shift. Totally alert and oriented this morning. Was incontinent overnight (states she has a neurogenic bladder and self caths several times daily) but also voided [place] [facility] Afebrile this morning. Addendum entered by Lamar Garner R.N. 05/01/21 03:10: Temp rechecked at 0128 and was 101.5 so ice packs applied. Temp again rechecked at 0210 and was back down to 100.8 and is now 98.8 and sleeping. Original Note: Patient found pulling off gown and had covers thrown off. Very restless and twitchy. VSS except for elevated temp of 100.8 (medicated with Tylenol). Denies pain. Unable to verbalize why she is uncomfortable. Able to state her name and birthdate and knows she is in the hospital for a mastectomy. When asked for date she states she knows but does not respond with an answer and when question repeated she waves staff off. Breath sounds diminished but CTA with RA sat of 93%; respirations are shallow. HRR. Denies nausea. BT present and abdomen is soft. Denies need to go to the bathroom but did void on previous shift. Not turning herself in bed so repositioned onto left side. Dressing to right chest intact with derick wrap surrounding chest; DANIELA x 2 intact and compressed with serosanguinous drainage noted in each. Wearing bilateral calf SCD's. Fall risk score is high and bed alarm is activated.
[2021-05-01 06:38] LABS: Add Manual Diff / Slide Review NO; Basophils Absolute Auto 0 /uL (0-100); Basophils Percent Auto 0.4 % (0-2); Eosinophils Absolute Auto 0 /uL (0-450); Eosinophils Percent Auto 0.2 % (2-4); Hematocrit 31.2 % (36-46); Hemoglobin 10.3 g/dL (12.0-16.0); Lymphocytes Absolute Auto 500 /uL (1100-4500); Lymphocytes Percent Auto 7.3 % (25-40); Mean Corpuscular Hemoglobin 30.1 PG (26-34); Mean Corpuscular Volume 91.2 fL (80-100); Monocytes Absolute Auto 900 /uL (0-900); Monocytes Percent Auto 12.1 % (3-14); Neutrophils Absolute Auto 5700 /uL (1500-7000); Platelet Count 311 X10^3/uL (150-400); Red Blood Cell Count 3.42 X10^6/uL (4.0-5.2); Red Cell Distribution Width 14.6 % (11.6-14.8); White Blood Cell Count 7.1 X10^3/uL (4.5-11.0)
[2021-05-01] MEDS: LEVOTHYROXINE 75 MCG TABLET PO (08:05)
[2021-05-01] MEDS: SENNOSIDES 8.6 MG TABLET 17.2 MG PO (08:05)
[2021-05-01] MEDS: COLESTIPOL 1 GM TABLET PO (12:38)
--- NOTE | 2021-05-01 12:45 | P.DS_ITS ---
History of Present Illness History of Present Illness Date Patient Seen: 05/01/21 Time Patient Seen: 12:45 Chief complaint: RIGHT MASTECTOMY W/SNB *OPB* Narrative: The patient is a woman brought in for surgical treatment of right- sided recurrent breast cancer. Discharge Providers Provider Date of admission: 04/30/2021 Discharge Date: 05/01/21 Primary care physician: Arleen Ybarra DO Consults: 04/30/21 13:44 Consult to Discharge Planning Routine Comment: Discharge provider: Fabián Hoyos MD Summary Hospital Course Discharge Diagnosis: Recurrent breast cancer with probable metastatic disease to her right axilla. Chronic anxiety on medication Chronic hypothyroidism on medication. Chronic arthritis involving multiple joints and back. Hospital Course: Patient was brought in and underwent a modified radical mastectomy. Pathology is pending. Two drains were placed. Patient was given wound instructions and drainage care instructions. She also had demonstrated exercises to keep her shoulder moving. She will be seen next week in the office. She did not have any significant pain and Tylenol was all she desired to take. Status at Discharge Cognitive/behavioral status at discharge: at baseline, oriented (Seems to have some minor memory issues.) Functional status at discharge: uses cane/walker Overall status at discharge: patient is progressing back to baseline Exam Vital Signs (past 8 hours): - 05/01/21 04:52 05/01/21 07:40 Temperature 98.6 F 97.9 F Pulse Rate 67 65 Respiratory Rate 18 16 Blood Pressure 99/55 L 103/56 L Pulse Oximetry 95 Oxygen Delivery Method Room Air Oxygen Flow Rate 0 Narrative Exam Narrative: The patient had very thin flaps, especially the upper flap. On examination this morning the upper flap is viable with some mild blistering. I was concerned postoperatively that this whole flap may due to the prior radiation in the very thin nature of the flap. However it seems to be doing all right. The drains are draining some thin serosanguineous fluid as expected. Objective Labs Result Diagrams: 05/01/21 06:24 Labs: Laboratory Results - last 24 hr 05/01/21 06:24 WBC 7.1 RBC 3.42 L Hgb 10.3 L Hct 31.2 L MCV 91.2 MCH 30.1 MCHC 33.0 RDW 14.6 Plt Count 311 Neut % (Auto) 80.0 H Lymph % (Auto) 7.3 L [place] % (Auto) 12.1 Eos % (Auto) 0.2 L Baso % (Auto) 0.4 Neut # (Auto) 5700 Lymph # (Auto) 500 L [place] # (Auto) 900 Eos # (Auto) 0 Baso # (Auto) 0 PFSH Medical History (Updated 04/25/21 @ 11:54 by Marsha Reza RN) Anemia Arthritis Breast cancer Cellulitis Cobalamin deficiency Diarrhea Easy bruisability Edema Genital herpes (Unknown) Headache Hepatitis A (1976) History of malignant neoplasm of breast (2007) 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 (09/03/11) Hypoglycemia Hypothyroid Lymphadenopathy, axillary Lymphedema MRSA (methicillin resistant staph aureus) culture positive Neck pain Neurogenic bladder Neuropathy Osteoarthritis Osteopenia after menopause Raynauds syndrome (09/03/11) Recurrent dislocation, left hip Rheumatoid arthritis Scoliosis of thoracolumbar spine (~2006) Septic arthritis of hip (~08/2015) Surgical site infection Underweight UTI (urinary tract infection) Surgical History History of arthroplasty (~2013) History of arthroplasty (~2009) History of arthroscopy of right knee (~04/2010) History of hip replacement History of third molar tooth extraction S/P cervical spinal fusion (~12/2013) Status post breast lumpectomy Status post hardware removal (~2009) Status post hysterectomy with oophorectomy Status post laminectomy Status post tonsillectomy and adenoidectomy Surgical procedure planned (~2006) Total knee replacement status (~05/2020) Family History Father Post-polio syndrome Heart disease Hypertension Mother Heart disease Hyperlipidemia Hypertension Coronary artery disease Social History household members: none Smoking Status: Never smoker alcohol intake: current substance use type: does not use Discharge Assessment & Plan Assessment and Plan Assessment: Doing well postop. Plan of Treatment: Follow-up in the office. Record drainage outputs. Exercises for shoulder. Discharge Plan Discharge Plan Patient Disposition: Home Provider Discharge Comment: Your operation went well but took a lot of time due to scarring from your prior procedures. Please keep your dressing in place until I see you next week. Empty and record the amount of drainage twice a day. Keep track of that and bring the record with you to your office appointment. Remember to keep the bulb squeezed as it applies the suction to draw the fluid out. If you do not squeeze it and put the cap on after you empty it it will not work. If your dressing accidentally comes off please call my office. Please do not call my office for the pathology report. It will not be available for at least a week. Exercise your shoulder by walking your arm up the wall (as demonstrated by your surgeon) at least 2 or 3 times a day. It is very important and to keep her shoulder moving or it will freeze and be difficult to move. You may use Tylenol for pain. Discharge orders & Medications Discharge Orders: Discharge (Order); Ordered 05/01/21 Ordered By: Fabián Hoyos Prescriptions: Continued cholecalciferol (vitamin D3) [Vitamin D3] 1,000 unit Capsule 1,000 unit PO DAILY Qty: 0 RF: 0 omega 9-smy-gii-fish oil [Fish Oil] 1,000 mg (120 mg-180 mg) Capsule 1 cap PO DAILY Qty: 0 RF: 0 (DME) syringe with needle [Easy Touch] 1 mL 25 gauge x 1 syringe See Dose Instructions .ROUTE .MEDSUPPLY Qty: 12 RF: 1 celecoxib [Celebrex] 200 mg capsule 200 mg PO DAILY Qty: 360 RF: 0 lorazepam 1 mg tablet 0.5 mg PO BIDP PRN (Reason: Anxiety) Qty: 60 RF: 1 estriol vaginal cream 0.5 g .ROUTE .COMPLEX Qty: 30 RF: 3 acyclovir 400 mg tablet 400 mg PO .COMPLEX Qty: 100 RF: 1 cyanocobalamin (vitamin B-12) 1,000 mcg/mL solution See Rx Instructions .ROUTE .COMPLEX Qty: 12 RF: 0 levothyroxine 75 mcg tablet 75 mcg PO DAILY Qty: 90 RF: 3 diazepam [Valium] 5 mg tablet 5 mg PO BEDTIME PRN (Reason: sleep) Qty: 60 RF: 0 nystatin-triamcinolone 100,000-0.1 unit/gram-% ointment 1 applic topical BID Qty: 30 RF: 3 methenamine hippurate [Hiprex] 1 gram tablet 1 gram PO BID RF: 0 Hold Instructions: while taking bactrim colestipol 1 gram tablet 1 gram PO DAILY RF: 0 (DME) Disabled Parking pass Qty: 1 RF: 0 Follow up/Referrals: Fabián Hoyos MD [Physician] - 05/08/21 2:00 pm ( If you need to reach a doctor please call our office. If it is after hours listen to the message and you will be instructed how to page the doctor on-call for our practice. Have a pen and paper ready to write the 1 800 number down.) Arleen Ybarra DO [Primary Care Provider] - Diet/Activity/Treatments Diet: Diet as Tolerated Activity: Do not drive. Skin/Wound/Dressing Care Report to your healthcare provider any signs of infection, such as:: chills, fever, increased pain and unusual drainage Dressing: Leave the dressing alone until I see you in the office. Visit Report/Discharge Packet Instructions: DI for Mastectomy, DI for Eleazar-Gr[place]on Drains, DI with Wound Drains, [facility]: Wound Care Stand Alone Forms: Surgery Discharge Discharge Data Primary Care Provider: Arleen Ybarra Attending Provider: Fabián Hoyos
--- NOTE | 2021-05-01 13:22 | PC.NURSE ---
Day shift: Pt to d/c home today. She has stated that she wants to go home today. Instructed on her 2 drains and how to manage them. BENEDICTO wrap loosed and readjusted per Dr Hoyos. Her friend Jovanny is going to pick her up. No new MD scripts. She has denied any pain or nausea today. Her cane was found and she now has it.
--- NOTE | 2021-05-01 14:32 | CM.DANOTE ---
Addendum entered by Michelle Aguillon LPN 05/01/21 14:46: Dr. Hoyos has returned the Face/Face: will fax all now to [facility]. Addendum entered by Michelle Aguillon LPN 05/01/21 14:43: Jovanny did not come up to the acute care floor, instead waiting outside in the car and pt has left her room accompanied by the PROJECT GEOPHYSICIST. [facility] will call pt before they come. Original Note: Discharge Planning/Care Management DCP: assessment: case received, EMR reviewed and d/c order noted. Pt is going home with drains in place and will empty and measure 2x day with followup in a week with Dr. Starr. Her dressing will remain in place until she sees him. Met with pt and found her up in room and attempting to sit in a chair. She appeared to have great difficulty moving about and was having trouble getting her water bottle open. Pt confirmed she wanted to go home today. She said her functional mobility is not good at baseline. Asked about services: she says she has had [facility] in the past (d/c'd in February of this year) and does say that they were helpful and that she would like to have them again if possible. Discussed same with BRUNO Rivero and the placed a call to [facility] and spoke with Helen. She agreed to place a Face/Face document in front of Dr. Hoyos when he was between patients and would fax it back to this DCPlanner at the [phone] fax. Gave referral to nikhil Mitchell at [facility]. She accepts the referral and will await clinical and needed orders and documents. BRUNO Rivero has confirmed that pt's friend Jovanny is on his way to take her home. Will follow up with pt now and bring the [facility] brochure. Advanced directive, confirm from FAMILY Start: 04/30/21 14:02 Freq: Q24H Status: Active Protocol: Document 04/30/21 14:02 EE (Rec: 04/30/21 19:21 EE [id number]) Advance Directive, confirm on record Time 19:20 Person contacted - Jovanny Copy received No Document 05/01/21 14:07 YAD (Rec: 05/01/21 14:08 YAD [id number]) Advance Directive, confirm on record Time 19:20 Person contacted - Jovanny Copy received No Time 14:07 Person contacted patient Copy received No CM Discharge Assessment Start: 05/01/21 14:30 Freq: Status: Active Protocol: Document 05/01/21 14:30 ITV (Rec: 05/01/21 14:32 ITV [id number]) Discharge Planning Assessment Advance Directives? Yes Advance Directives on File Yes History Provided By Patient,Medical Record Prior Living Arrangements House Is patient alert and oriented? Yes DME Already Rented / Owned Cane Patient/Family Preference Home with Home Health Comment has had [facility] in past. Discharge Plan Home with Home Health Transportation Arrangement friend Jovanny is coming to take her home Review Status In Process Pre-Anesthesia Assessment Start: 04/25/21 11:52 Freq: Status: Complete Protocol: Document 04/25/21 11:52 CAB (Rec: 04/25/21 12:03 CAB [id number]) Pre-Anesthesia Assessment Patient Information Reviewed Via Chart Review Comment COVID screen 04/29/21 Primary Care Provider Arleen Ybarar Seen Specialist in Last 12 Months Yes Specialist Seen General surgeon,Customs Manager, Oncologist Primary Language Nicaraguan Preferred Language Nicaraguan Stunt Man Required No Height 162.56 cm Weight 46.72 kg Body Mass Index (BMI) 17.6 Barriers to Learning Memory Hx Anesthesia Reactions No Hx Family Anesthesia Reaction No Hx Malignant Hyperthermia No Anesthesia Review Requested No Cable Installation Technician No alcohol intake current alcohol intake frequency 0-2 drinks per day Smoking Status Never smoker Substance Use Type does not use Patient is completely paralyzed or No completely immobile Prosthesis or Orthotic Device Cane Mental Status Oriented to own ability Is patient on oxygen? No Does patient have RAI/SOB No Hx Sleep Apnea No Currently Taking a Beta Kj No Can You Climb a Flight of Stairs Without Yes SOB Hx Chest Pain No Hx SOB No Hx Syncope or Dizziness No Anti-Coagulant Therapy No Has a Ceramics Technician No Cardiac Testing No Hx Pacemaker/ICD No Pacemaker Rep Required? No Bladder Pattern Incontinent Hx Urinary Self Catheterization Yes: Self cath r/t neurogenic bladder Comment Overflow leaking at night Diabetes No Patient No Lactating No Hx Drug Resistant Organism Yes: MRSA Marital Status Lives With none Support System Sibling(s),Significant Other Patient Discharge Plan Description Return Home Do You Have Any Spiritual Beliefs That No May Affect Your HC Choices? Do You Have Any Cultural Practices That No May Affect Your HC Choices? Emergency Contact Name Amilcar Ty (brother) Emergency Contact Phone Number Jovanny Coronel ([place]) [phone] Advance Directives? Yes: DPOA For Health Care; Directive To Physicians Power of Critical Care Cns No
--- NOTE | 2021-05-01 14:39 | PC.NURSE ---
Day shift: Paperwork signed and all questions answered. Pt has all personal belongings. No new MD scripts. Taken to car that her friend Jovanny is driving in WC by [employer]. Dressing remains CDI. Pt stated today I want to go home today.
== END 2021-05-01 14:56 | disposition home or self-care (01) ==
LOC: OR 07:22 → AC 10:47
PROVIDERS: Admitting Provider Specialist; Family Provider Family Medicine; PCP Family Medicine; Referring Provider Specialist; Visit Provider Specialist
PROC: 0HTT0ZZ Resection of Right Breast, Open Approach (ICD-10-PCS; CPT 19303; principal; 2021-04-30 09:15)
DX: C50.411 Malignant neoplasm of upper-outer quadrant of right female breast (principal); Z17.0 Estrogen receptor positive status [ER+]; F41.9 Anxiety disorder, unspecified; E03.9 Hypothyroidism, unspecified
CPT/HCPCS: 19307; 36415; 78195; 85025; A9541; G0378; J0690; J2405; J2704; J3010

== ENCOUNTER 2021-05-07 19:06 | Emergency (ER) | payer MEDICARE, SELFPAY ==
[2021-04-30 11:07] VITALS: BMI 17.6
[2021-05-07 19:08] VITALS: BP 132/65; PULSE 71; RESP 18; TEMP 36.7; O2SAT 97
--- NOTE | 2021-05-13 15:20 | ONC.MSW ---
T/C-Return Call/Support Activity: Called pt back after she had left a message with some concerns/frustrations in regard to her surgical experience. CARE ADMINISTRATIVE TECH offered supportive counseling, as well as reassurance that it does appear that she will need only minimal treatment following her surgery. She had met with Dr. Hoyos and went over the pathology, and will be seeing Dr. Gonzalez for her next appt. on 05/19. She expressed feeling more relieved after talking with this CARE ADMINISTRATIVE TECH. Will continue to monitor for ongoing needs.
== END 2021-05-07 21:06 | disposition left against medical advice (07) ==
PROVIDERS: Emergency Provider Emergency Medicine; Family Provider Family Medicine; PCP Family Medicine
DX: L02.212 Cutaneous abscess of back [any part, except buttock and flank] (principal)
CPT/HCPCS: 99281

== ENCOUNTER → 2021-05-15 12:59 | Outpatient (ROUT) | payer MEDICARE, SELFPAY ==
[2021-04-30 11:07] VITALS: BMI 17.6
== END ==
PROVIDERS: Family Provider Family Medicine; PCP Family Medicine; Visit Provider Specialist
DX: L08.9 Local infection of the skin and subcutaneous tissue, unspecified (principal)
CPT/HCPCS: 87070; 87075; 87077; 87186; 87205

== ENCOUNTER → 2021-05-25 15:45 | Outpatient (ROUT) | payer MEDICARE, SELFPAY ==
[2021-04-30 11:07] VITALS: BMI 17.6
[2021-05-25 16:45] LABS: Ferritin 182 ng/mL (11-264)
== END ==
PROVIDERS: Family Provider Family Medicine; PCP Family Medicine; Visit Provider Family Medicine
DX: D64.9 Anemia, unspecified (principal)
CPT/HCPCS: 82728

== ENCOUNTER → 2021-05-26 11:16 | Outpatient (CLI) | payer MEDICARE, SELFPAY ==
[2021-04-30 11:07] VITALS: BMI 17.6
--- NOTE | 2021-05-26 11:18 | DI.NM.S_ITS ---
PROCEDURE: NM BONE SCAN WHOLE BODY RADIOPHARMACEUTICAL: 20.4 mCi Tc-99m MDP IV. INDICATIONS: recurrent right breast cancer TECHNIQUE: Delayed whole-body scintigrams were obtained approximately 3-4 hours after intravenous injection of radiotracer. Anterior and posterior views were acquired from vertex to feet. COMPARISON: [facility], CR, XR KNEE ARTHRITIC SERIES RT, 11/01/2019, 13:59. [facility], CR, XR KNEE 1 OR 2 VIEWS RIGHT, 07/09/2020, 9:31. [facility], CR, XR SHOULDER 2+ VIEWS LEFT, 01/14/2021, 10:08. [facility], CT, CT CHEST ABD PEL W CON, 05/26/2021, 12:54. FINDINGS: No lesions are identified in skull, sternum, clavicles, scapulae, ribs, bony pelvis, and visualized shafts of the long bones. Scoliosis. There foci of increased uptake in cervical, thoracic and lumbar spine with distribution indistinguishable from degenerative disc and facet disease; early metastasis to spine could be obscured by degenerative changes. Bilateral shoulder arthroplasties and hip arthroplasties, right knee arthroplasty and left lateral knee hemiarthroplasty. There are foci of increased periarticular activity involving wrists, hands and right SI joint, compatible with degenerative/arthritic changes. Distended urinary bladder, partially obscure pelvis. IMPRESSION: No definitive scintigraphic findings to suggest osseous metastasis. Dictated by: Lo Box M.D. on 05/26/2021 at 16:44 Approved by: Lo Box M.D. on 05/26/2021 at 16:49
--- NOTE | 2021-05-26 12:52 | DI.CT.S_ITS ---
PROCEDURE: CT CHEST ABD PEL W CON INDICATIONS: recurrent right breast cancer TECHNIQUE: After the administration of oral and intravenous contrast, axial sections acquired from the supraclavicular neck to the pubic symphysis. Coronal and sagittal reformats were performed. For radiation dose reduction, the following was used: automated exposure control, adjustment of mA and/or kV according to patient size. COMPARISON: [facility], CT, LUMBAR SPINE WITH CONTRAST, 11/03/2011, 14:01. [facility], CT, CHEST ABDOMEN PELVIS WITH CONTRAST, 02/17/2007, 7:32. [facility], CT, ABDOMEN/PELVIS WITH CONTRAST, 02/23/2011, 11:29. [facility], CT, CHEST ABDOMEN PELVIS WITH CONTRAST, 02/22/2008, 9:19. FINDINGS: Image quality: There is artifact associated with the metallic hardware. CHEST: Lower Neck: No enlarged lymph nodes. Thyroid: Within normal limits. Axillae: No enlarged lymph nodes. Right axillary clips are seen. Chest Wall: Right mastectomy changes are seen. Lungs and Airways: Right upper lobe pleural thickening is seen laterally, which is clearly increased in prominence over time. No pulmonary nodules are seen. Pleura: No pneumothorax or pleural effusions. Heart: Heart size is normal. No pericardial effusion. Thoracic Vessels: The aorta and pulmonary arteries demonstrate normal size. Mediastinum and Aleshia: No enlarged lymph nodes. Esophagus: No wall thickening. There is a small hiatal hernia. ABDOMEN: Liver: Unremarkable. Gallbladder: The gallbladder is not seen and is presumed to have been previously removed. Biliary ducts: Unremarkable. Pancreas: Unremarkable. Spleen: Unremarkable. Adrenal Glands: Unremarkable. Kidneys and Ureters: Unremarkable. Stomach and Bowel: Stomach, small bowel loops, and colon are unremarkable. Peritoneum: No abnormal intraperitoneal fluid. No free air. Ventral Wall: No hernia. Abdominal Nodes: No retroperitoneal or mesenteric adenopathy by size criteria. Vessels: Aorta and inferior vena cava are normal in size. PELVIS: Pelvic Organs: Unremarkable. Bladder: Unremarkable. Pelvic Nodes: No enlarged lymph nodes. Miscellaneous: No inguinal hernias are seen. Bones: Bilateral shoulder arthroplasty hardware is seen. Extensive spinal postoperative changes can be seen. The majority of the lumbar hardware has been removed. Vertical be like device is remain. Bilateral hip arthroplasty hardware can be seen. There is a fluid collection seen posterior to the lumbar spine, with mild internal gas that measures 6.2 by 3.8 cm in greatest axial dimension, with a craniocaudal extent of 12.6 cm. Relatively prominent bony degenerative changes are seen. IMPRESSION: There is right upper lobe pleural thickening seen laterally, which has progressed over time. 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 Pleural neoplasm is considered to be much less likely. No other potential findings of metastatic disease are seen. Right mastectomy change, with right axillary clips. A fluid collection with a small amount of internal gas can be seen superficial to the thecal sac within the postoperative bed of the lower lumbar spine. This postoperative fluid is progressed compared to the most recent imaging of 2012. Differential diagnosis includes abscess and postoperative seroma. Please correlate with patient history and physical examination findings. Incidental note is made of: Small hiatal hernia Bilateral shoulder arthroplasty hardware Extensive spinal fixation hardware and postoperative change Bilateral hip arthroplasty hardware. Dictated by: Ruben Hamilton M.D. on 05/26/2021 at 16:19 Approved by: Ruben Hamilton M.D. on 05/26/2021 at 16:28
== END ==
PROVIDERS: Family Provider Family Medicine; PCP Family Medicine; Referring Provider Internal Medicine Hematology & Oncology; Visit Provider Internal Medicine Hematology & Oncology
DX: C50.911 Malignant neoplasm of unspecified site of right female breast (principal)
CPT/HCPCS: 71260; 74177; 78306; A9503; Q9967

== ENCOUNTER → 2021-06-03 09:26 | Outpatient (CLI) | payer MEDICARE, SELFPAY ==
[2021-04-30 11:07] VITALS: BMI 17.6
== END ==
PROVIDERS: Family Provider Family Medicine; PCP Family Medicine; Referring Provider Family Medicine; Visit Provider Family Medicine
DX: L59.8 Other specified disorders of the skin and subcutaneous tissue related to radiation (principal); S21.101A Unspecified open wound of right front wall of thorax without penetration into thoracic cavity, initial encounter; T85.79XA Infection and inflammatory reaction due to other internal prosthetic devices, implants and grafts, initial encounter; C50.911 Malignant neoplasm of unspecified site of right female breast; B96.5 Pseudomonas (aeruginosa) (mallei) (pseudomallei) as the cause of diseases classified elsewhere; T86.821 Skin graft (allograft) (autograft) failure; Z90.11 Acquired absence of right breast and nipple
CPT/HCPCS: 11042; 11045; 87070; 87075; 87077; 87186; 87205; 99213; 99214

== ENCOUNTER 2021-06-06 10:30 | Outpatient (RCR) | payer MEDICARE, SELFPAY ==
[2021-03-07 09:21] VITALS: BMI 18.6
--- NOTE | 2021-03-31 11:59 | OT.OP.EVAL ---
Visit Care Team Role Provider Type Arleen Ybarra DO Attending Provider Physician Primary Care Provider Referring Provider Specialty: [facility] Address: [address] [place] [address], [address], [place], [address] Email: [email or web address] Occupational Therapy Initial Evaluation OT Outpatient Adult Evaluation Start: 03/31/21 11:28 Freq: Status: Active Protocol: Document 03/31/21 11:31 AMS (Rec: 03/31/21 11:59 AMS [id number]) General Information Visit Start Time 08:00 Visit Stop Time 08:30 Total Visit Minutes 30 Visit Number 09/15; 12/24 --> visits; visit = KX Plan of Care Dates 03/28/21-06/23/21 Insurance Information Medicare Treatment Setting Outpatient Care Note Type Initial Evaluation Referring Physician Arleen Ybarra DO Reason for Referral L hand pain Goals Short Term Goals 1. Patient will fully complete Pain Assessment Grid for hands/wrists. Tornado [place]aser Goals 1. Patient will be modified independent with execution of distal left upper extremity home exercise program utilizing provided written and visual instructions from therapist. 2. Patient will be able to verbally identify 2 to 3 different functional activities that she can successfully complete with assist of the left hand (e.g., microwave item management) utilizing adaptive and/or compensatory strategies as needed. Assessment/Plan Treatment Assessment Patient is a 81 year-old R hand dominant female referred to outpatient OT by primary care physician, Arleen Ybarra DO, secondary to left hand pain. Dulce Maria has previously been seen by this therapist in the outpatient setting to assist with activity modification and to support functional independence (late 2019 and beginning of 2020 calendar year). Dulce Maria reportedly had L reverse TSA surgery on January 03, 2021 with goal of regaining functional ROM of the left shoulder; s/p surgery she was in a sling for 8 weeks. She is currently receiving outpatient PT for rehab post surgery. PMH: Significant for arthritis, bruising earily, cancer, hep A , joint replacement(s), lymphedema, neck pain, neuropathy, and thyroid disorder. Patient Goals: Be able to use L hand with functional task completion. Evaluation findings: Pain Assessment Grid was completed without indication of level of pain; will request patient to re-complete at next treatment session. QuickDASH UE Outcome Measure was also only partially completed. Decreased palmar web space L > R. Hyperextension of MPJ L thumb to support functional obj manipulation of the L hand. Arthritic changes/joint deformities of the digits of both hands noted. Ambulation with SPC w/ cushioned handle as previously recommended. Wrist ROM: 0-40 degrees active L wrist flexion; 0-40 degrees active R wrist flexion ; 0-45 degrees active R wrist ext; 0-45 degrees active L wrist ext; 0-20 degrees active R wrist UD; 0-20 degrees active L wrist UD; 0-2 degrees active R wrist [address]. 0-10 degrees active L wrist [address]. WFL bilateral forearm supination/ pronation w/ elbows in 90 degrees flexion. Tightness/ stretch reported w/ active supination w/ elbow in extension to support functional positioning of L hand given arthritic changes. Reported decreased functional motor planning of the L UE. Tendency towards sh abd and positioning elbow to left of body w/ functional motor planning. PT is addressing shoulder ROM. Patient would likely benfit form outpatient OT to support functional abilities with active incorporation of the left hand . Home Exercise Program Forearm supination stretch w/ elbow bilaterally using TT. Comment 12 weeks Treatment Frequency Once a Week Therapeutic Contents Active Range of Motion, Adaptive Equipment Education, Client Education,Cognitive Skills Development,Functional Activities,Home Exercise Program,Joint Protection, Education,Neurodevelopment Treatment,Neuromuscular Re- Education,Therapeutic Activities,Therapeutic Exercises,Modalities Modalities As Needed,As Prescribed
--- NOTE | 2021-04-08 10:32 | OT.OP.TRT ---
Visit Care Team Role Provider Type Arleen Ybarra DO Attending Provider Physician Primary Care Provider Referring Provider Specialty: [facility] Address: [address] [place] [address], [address], [address] Email: [email or web address] Occupational Therapy Treatment Note OT Outpatient Treatment Note - Adult Start: 03/31/21 11:28 Freq: Status: Active Protocol: Document 04/08/21 10:23 AMS (Rec: 04/08/21 10:32 AMS [id number]) OT Outpatient Adult Treatment Note Session Time Visit Start Time 09:30 Visit Stop Time 10:15 Total Visit Minutes 45 Visit Information Visit Number 10/16; 01/23 --> visits; visit = KX Plan of Care Dates 03/28/21-06/23/21 Insurance Information Medicare Setting Treatment Setting Outpatient Care Visit Type Note Type Treatment Note General Information General Information Patient is a 81 year-old R hand dominant female referred to outpatient OT by primary care physician, Arleen Ybarra DO, secondary to left hand pain. Dulce Maria has previously been seen by this therapist in the outpatient setting to assist with activity modification and to support functional independence (late 2019 and beginning of 2020 calendar year). Dulce Maria reportedly had L reverse TSA surgery on January 03, 2021 with goal of regaining functional ROM of the left shoulder; s/p surgery she was in a sling for 8 weeks. She is currently receiving outpatient PT for rehab post surgery. PMH: Significant for arthritis, bruising earily, cancer, hep A , joint replacement(s), lymphedema, neck pain, neuropathy, and thyroid disorder. - Subjective Identification Type Name Identification Reconciled With Medical Record Observations The pain isn't the problem. It is the function per Dulce Maria. Patient Expectation/Goals Be able to use L hand with functional task completion. - Objective Objective Measurements Please refer to below for progress towards meeting established OT goals. Shelter Goals 1. Patient will be modified independent with execution of distal left upper extremity home exercise program utilizing provided written and visual instructions from therapist. 2. Patient will be able to verbally identify 2 to 3 different functional activities that she can successfully complete with assist of the left hand (e.g., microwave item management) utilizing adaptive and/or compensatory strategies as needed. - Exercises 2 Descriptor L UE ROM/Motor planning. Wall blocking. Distal UE. 1 Descriptor TT supported elbow ROM. Elbow flex/ext. TT positioned at different heights. With and without obj manipulation. Functional movement patterns of distal UE. Seated. - Assessment Assessment of Improvement Patient reportedly met w/ oncologist 04/07/21; only option per patient is surgery for her breast cancer. Patient denied pain being limiting factor; thus, denied need to complete pain grids. Improving distal UE AROM w/ elbow supported; recommended this exercise for carry-over to the home environment. Slight elbow flexion w/ sh abd and IR with functional motor planning to touching outside of left ankle; however, able to touch shoulder <-> knee, shoulder <-> right arm rest WFL. Decreased ability to maintain forearm supination with functional movements to the left of the body w/ observed elbow flex and tendency into IR. Patient would likely benfit form continued outpatient OT to support functional abilities with active incorporation of the left hand. Home Exercise Program Recommended continued functional motor planning completed w/ elbow supported in the home. - Plan Therapy Recommendations Continue with Current Program, Advance per Rehabilitation Protocol
--- NOTE | 2021-04-18 11:56 | OT.OP.TRT ---
Visit Care Team Role Provider Type Arleen Ybarra DO Attending Provider Physician Primary Care Provider Referring Provider Specialty: [facility] Address: [address] [place] [address], [facility] [address], [place], [address] Email: [email or web address] Occupational Therapy Treatment Note OT Outpatient Treatment Note - Adult Start: 03/31/21 11:28 Freq: Status: Active Protocol: Document 04/18/21 11:45 AMS (Rec: 04/18/21 11:56 AMS [id number]) OT Outpatient Adult Treatment Note Session Time Visit Start Time 10:30 Visit Stop Time 11:15 Total Visit Minutes 45 Visit Information Visit Number 11/13; 02/23 --> visits; visit = KX Plan of Care Dates 03/28/21-06/23/21 Insurance Information Medicare Setting Treatment Setting Outpatient Care Visit Type Note Type Treatment Note General Information General Information Patient is a 81 year-old R hand dominant female referred to outpatient OT by primary care physician, Arleen Ybarra DO, secondary to left hand pain. Dulce Maria has previously been seen by this therapist in the outpatient setting to assist with activity modification and to support functional independence (late 2019 and beginning of 2020 calendar year). Dulce Maria reportedly had L reverse TSA surgery on January 03, 2021 with goal of regaining functional ROM of the left shoulder; s/p surgery she was in a sling for 8 weeks. She is currently receiving outpatient PT for rehab post surgery. PMH: Significant for arthritis, bruising earily, cancer, hep A , joint replacement(s), lymphedema, neck pain, neuropathy, and thyroid disorder. - Subjective Identification Type Name Identification Reconciled With Medical Record Observations I was able to wash my hair a little bit. I was also able to pour out my cup with this hand per Dulce Maria. Patient Expectation/Goals Be able to use L hand with functional task completion. - Objective Objective Measurements Please refer to below for progress towards meeting established OT goals. Prison Goals 1. Patient will be modified independent with execution of distal left upper extremity home exercise program utilizing provided written and visual instructions from therapist. 2. Patient will be able to verbally identify 2 to 3 different functional activities that she can successfully complete with assist of the left hand (e.g., microwave item management) utilizing adaptive and/or compensatory strategies as needed. - Exercises 2 Descriptor L UE ROM/Motor planning. Wall blocking. Distal UE. 1 Descriptor TT supported elbow ROM. Elbow flex/ext. TT positioned at different heights. With and without obj manipulation. Functional movement patterns of distal UE. Seated. - Assessment Assessment of Improvement Reported improving functional abilities of the left hand/ upper extremity. Able to actively flex/extend elbow while maintaining forearm supination w/ elbow at left side. Initiated forearm pronation --> supination with active elbow flexion/extension for functional reaching maintaining elbow near left side; improved motor planning observed with repetitions/ practice. Initiated functional reaching/forearm pronation/ supination to left of body; had to support left elbow on table and isolate forearm rotation --> with progression to supported ER and sh abd --> functional positioning of hand on back of neck/head/ touching left shoulder. Upgraded HEP on this date to continue to support functional abilities of the left hand. Patient would likely benfit form continued outpatient OT to support functional abilities with active incorporation of the left hand . Home Exercise Program Provided written/visual instructions for HEP; will be scanned into [facility] medical records as lead front desk agent staff able. Confirmed therapist being out of the clinic. Answered all questions. - Plan Therapy Recommendations Continue with Current Program, Advance per Rehabilitation Protocol
--- NOTE | 2021-05-23 11:57 | OT.OP.TRT ---
Visit Care Team Role Provider Type Arleen Ybarra DO Attending Provider Physician Primary Care Provider Referring Provider Specialty: [facility] Address: [address] [place] [address], [address], [address] Email: [email or web address] Occupational Therapy Treatment Note OT Outpatient Treatment Note - Adult Start: 03/31/21 11:28 Freq: Status: Active Protocol: Document 05/23/21 11:52 AMS (Rec: 05/23/21 11:57 AMS [id number]) OT Outpatient Adult Treatment Note Session Time Visit Start Time 10:30 Visit Stop Time 11:15 Total Visit Minutes 45 Visit Information Visit Number 12/14; 03/25 --> visits; visit = KX Plan of Care Dates 03/28/21-06/23/21 Insurance Information Medicare Setting Treatment Setting Outpatient Care Visit Type Note Type Treatment Note General Information General Information Patient is a 81 year-old R hand dominant female referred to outpatient OT by primary care physician, Arleen Ybarra DO, secondary to left hand pain. Dulce Maria has previously been seen by this therapist in the outpatient setting to assist with activity modification and to support functional independence (late 2019 and beginning of 2020 calendar year). Dulce Maria reportedly had L reverse TSA surgery on January 03, 2021 with goal of regaining functional ROM of the left shoulder; s/p surgery she was in a sling for 8 weeks. She is currently receiving outpatient PT for rehab post surgery. PMH: Significant for arthritis, bruising earily, cancer, hep A , joint replacement(s), lymphedema, neck pain, neuropathy, and thyroid disorder. - Subjective Identification Type Name Identification Reconciled With Medical Record Observations I was diagnosed with stage 4 cancer on Wednesday. I am waiting to hear back from the doctor to see if there is anything that they can do per Dulce Maria. I had home health to help with the dressings of my wounds. Patient Expectation/Goals Be able to use L hand with functional task completion. - Objective Objective Measurements Please refer to below for progress towards meeting established OT goals. Varnish Inspector Goals 1. Patient will be modified independent with execution of distal left upper extremity home exercise program utilizing provided written and visual instructions from therapist. 2. Patient will be able to verbally identify 2 to 3 different functional activities that she can successfully complete with assist of the left hand (e.g., microwave item management) utilizing adaptive and/or compensatory strategies as needed. - Exercises 2 Descriptor L UE ROM/Motor planning. Wall blocking. Distal UE. 1 Descriptor TT supported elbow ROM. Elbow flex/ext. TT positioned at different heights. With and without obj manipulation. Functional movement patterns of distal UE. Seated. - Assessment Assessment of Improvement Reported improving functional abilities of the left hand/ upper extremity; however, unable to wash and/or comb hair with incorporation of the left hand. Unable to execute ER w/ sh abd in sitting; able to complete supine. Discussed compensatory strategy of supporting left elbow on table or surface. Tendency to lean when completing L UE functional movement patterns; cueing to support awareness. Patient would likely benfit form continued outpatient OT to support functional abilities with active incorporation of the left hand . - Plan Therapy Recommendations Continue with Current Program, Advance per Rehabilitation Protocol
--- NOTE | 2021-05-30 12:33 | OT.OP.TRT ---
Visit Care Team Role Provider Type Arleen Ybarra DO Attending Provider Physician Primary Care Provider Referring Provider Specialty: [facility] Address: [address] [place] [address], [address], [address] Email: [email or web address] Occupational Therapy Treatment Note OT Outpatient Treatment Note - Adult Start: 03/31/21 11:28 Freq: Status: Active Protocol: Document 05/30/21 12:28 AMS (Rec: 05/30/21 12:33 AMS [id number]) OT Outpatient Adult Treatment Note Session Time Visit Start Time 10:30 Visit Stop Time 11:15 Total Visit Minutes 45 Visit Information Visit Number 01/13; 04/25 --> visits; visit = KX Plan of Care Dates 03/28/21-06/23/21 Insurance Information Medicare Setting Treatment Setting Outpatient Care Visit Type Note Type Treatment Note General Information General Information Patient is a 81 year-old R hand dominant female referred to outpatient OT by primary care physician, Arleen Ybarra DO, secondary to left hand pain. Dulce Maria has previously been seen by this therapist in the outpatient setting to assist with activity modification and to support functional independence (late 2019 and beginning of 2020 calendar year). Dulce Maria reportedly had L reverse TSA surgery on January 03, 2021 with goal of regaining functional ROM of the left shoulder; s/p surgery she was in a sling for 8 weeks. She is currently receiving outpatient PT for rehab post surgery. PMH: Significant for arthritis, bruising earily, cancer, hep A , joint replacement(s), lymphedema, neck pain, neuropathy, and thyroid disorder. - Subjective Identification Type Name Identification Reconciled With Medical Record Observations Home Health PT just let me go this week. [facility] will continue to come to my home for wound care until June 10. I am going to have a follow-up appointment with my oncologist and I am also going to be having an appointment at [facility] per Dulce Maria. Patient Expectation/Goals Be able to use L hand with functional task completion. - Objective Objective Measurements Please refer to below for progress towards meeting established OT goals. Porter Luggage Goals 1. Patient will be modified independent with execution of distal left upper extremity home exercise program utilizing provided written and visual instructions from therapist. 2. Patient will be able to verbally identify 2 to 3 different functional activities that she can successfully complete with assist of the left hand (e.g., microwave item management) utilizing adaptive and/or compensatory strategies as needed. - Exercises 2 Descriptor L UE ROM/Motor planning. Supine. Motor Breakdown. 1 Descriptor TT supported elbow ROM. Elbow flex/ext. TT positioned at different heights. With and without obj manipulation. Functional movement patterns of distal UE. Seated. - Assessment Assessment of Improvement Reported improving functional abilities of the left hand/ upper extremity; however, elbow support encourages Dulce Maria's ability to wash and/ or comb hair with incorporation of the left hand . Upgraded exercises. Some progress is being made towards functional goals; patient likely to resume outpatient PT in near future given recent d /c from PT Home Health. Patient would likely benfit form continued outpatient OT to support functional abilities with active incorporation of the left hand . Home Exercise Program Hor abd w/ ER supine on mat; functional movement of UE w/ sh abd supine. Motor breakdown seated w/ elbow supported and assist as needed by R hand ( positioning of hand on top of head). Video recordings obtained w/ patient's personal cell phone to support carry- over. - Plan Therapy Recommendations Continue with Current Program, Advance per Rehabilitation Protocol
--- NOTE | 2021-06-06 11:42 | OT.OP.TRT ---
Visit Care Team Role Provider Type Arleen Ybarra DO Attending Provider Physician Primary Care Provider Referring Provider Specialty[place] [facility] Address: [address] [place] [address], [facility] [address], [place], [address] Email: [email or web address] Occupational Therapy Treatment Note OT Outpatient Treatment Note - Adult Start: 03/31/21 11:28 Freq: Status: Active Protocol: Document 06/06/21 11:05 AMS (Rec: 06/06/21 11:42 AMS [id number]) OT Outpatient Adult Treatment Note Session Time Visit Start Time 10:35 Visit Stop Time 11:15 Total Visit Minutes 40 Visit Information Visit Number 02/13; 05/26 --> visits; visit = KX Plan of Care Dates 03/28/21-06/23/21 Insurance Information Medicare Setting Treatment Setting Outpatient Care Visit Type Note Type Treatment Note General Information General Information Patient is a 81 year-old R hand dominant female referred to outpatient OT by primary care physician, Arleen Ybarra DO, secondary to left hand pain. Dulce Maria has previously been seen by this therapist in the outpatient setting to assist with activity modification and to support functional independence (late 2019 and beginning of 2020 calendar year). Dulce Maria reportedly had L reverse TSA surgery on January 03, 2021 with goal of regaining functional ROM of the left shoulder; s/p surgery she was in a sling for 8 weeks. She is currently receiving outpatient PT for rehab post surgery. PMH: Significant for arthritis, bruising earily, cancer, hep A , joint replacement(s), lymphedema, neck pain, neuropathy, and thyroid disorder. - Subjective Identification Type Name Identification Reconciled With Medical Record Observations I have 3 appointments over the span of 5 hours on June 17 at the [facility] per Dulce Maria. Patient Expectation/Goals Be able to use L hand with functional task completion. - Objective Objective Measurements Please refer to below for progress towards meeting established OT goals. Group Home Goals 1. Patient will be modified independent with execution of distal left upper extremity home exercise program utilizing provided written and visual instructions from therapist. GOALS MET Patient verbally identified 2 to 3 different functional activities that she can successfully complete with assist of the left hand (e.g., microwave item management) utilizing adaptive and/or compensatory strategies as needed. *MET 06/06/21 - Exercises 2 Descriptor L UE ROM/Motor planning. Supine. Seated. 1 Descriptor TT supported elbow ROM. Elbow flex/ext. TT positioned at different heights. With and without obj manipulation. Functional movement patterns of distal UE. Seated. - Assessment Assessment of Improvement Improving functional abilities of the left hand/upper extremity; initiated finger/ hand walking to support hair management without elbow supported. Able to walk fingers/hands in motor chaining exercise in sitting without elbow supported. Will need to determine if exercise supports functional motor planning (management of hair). Patient to be placed on hold until plan has been determined for cancer management. Patient verbalized that she would contact the clinic post appointment to schedule additional appointments if needed. Home Exercise Program Written instructions were provided. Exercises were reviewed in treatment session. To be scanned into EMR as soon as front end web designer staff able. - Plan Additional Therapy Recommendations Awaiting findings from 06/17 appt re: cancer
--- NOTE | 2021-07-08 10:00 | OT.OP.DC ---
Visit Care Team Role Provider Type Arleen Ybarra DO Attending Provider Physician Primary Care Provider Referring Provider Address: [address] [place] [address], [address] [facility], [place], [address] Email: [email or web address] Outpatient OT Outpatient Adult Evaluation Start: 03/31/21 11:28 Freq: Status: Active Protocol: Document 03/31/21 11:31 AMS (Rec: 03/31/21 11:59 AMS [id number]) General Information Session Time Visit Start Time 08:00 Visit Stop Time 08:30 Total Visit Minutes 30 Visit Information Visit Number 09/15; 12/24 --> 19 visits; visit = KX Plan of Care Dates 03/28/21-06/23/21 Insurance Information Medicare Setting Treatment Setting Outpatient Care Visit Type Note Type Initial Evaluation Referral Referring Physician Arleen Ybarra DO Reason for Referral L hand pain Goals Short Term Goals Short Term Goals 1. Patient will fully complete Pain Assessment Grid for hands/wrists. Moth Proofer Goals Long-Term Goals 1. Patient will be modified independent with execution of distal left upper extremity home exercise program utilizing provided written and visual instructions from therapist. 2. Patient will be able to verbally identify 2 to 3 different functional activities that she can successfully complete with assist of the left hand (e.g., microwave item management) utilizing adaptive and/or compensatory strategies as needed. Assessment/Plan Assessment Treatment Assessment Patient is a 81 year-old R hand dominant female referred to outpatient OT by primary care physician, Arleen Ybarra DO, secondary to left hand pain. Dulce Maria has previously been seen by this therapist in the outpatient setting to assist with activity modification and to support functional independence (late 2019 and beginning of 2020 calendar year). Dulce Maria reportedly had L reverse TSA surgery on January 03, 2021 with goal of regaining functional ROM of the left shoulder; s/p surgery she was in a sling for 8 weeks. She is currently receiving outpatient PT for rehab post surgery. PMH: Significant for arthritis, bruising earily, cancer, hep A , joint replacement(s), lymphedema, neck pain, neuropathy, and thyroid disorder. Patient Goals: Be able to use L hand with functional task completion. Evaluation findings: Pain Assessment Grid was completed without indication of level of pain; will request patient to re-complete at next treatment session. QuickDASH UE Outcome Measure was also only partially completed. Decreased palmar web space L > R. Hyperextension of MPJ L thumb to support functional obj manipulation of the L hand. Arthritic changes/joint deformities of the digits of both hands noted. Ambulation with SPC w/ cushioned handle as previously recommended. Wrist ROM: 0-40 degrees active L wrist flexion; 0-40 degrees active R wrist flexion ; 0-45 degrees active R wrist ext; 0-45 degrees active L wrist ext; 0-20 degrees active R wrist UD; 0-20 degrees active L wrist UD; 0-2 degrees active R wrist [address]. 0-10 degrees active L wrist [address]. WFL bilateral forearm supination/ pronation w/ elbows in 90 degrees flexion. Tightness/ stretch reported w/ active supination w/ elbow in extension to support functional positioning of L hand given arthritic changes. Reported decreased functional motor planning of the L UE. Tendency towards sh abd and positioning elbow to left of body w/ functional motor planning. PT is addressing shoulder ROM. Patient would likely benfit form outpatient OT to support functional abilities with active incorporation of the left hand . Home Exercise Program Forearm supination stretch w/ elbow bilaterally using TT. Plan Comment 12 weeks Treatment Frequency Once a Week Therapeutic Contents Active Range of Motion, Adaptive Equipment Education, Client Education,Cognitive Skills Development,Functional Activities,Home Exercise Program,Joint Protection, Education,Neurodevelopment Treatment,Neuromuscular Re- Education,Therapeutic Activities,Therapeutic Exercises,Modalities Modalities As Needed,As Prescribed Sensory Assessment Sensory Profile2 Functional Wrist/Hand Scan Hand Side OT Outpatient Treatment Note - Adult Start: 03/31/21 11:28 Freq: Status: Active Protocol: Document 07/08/21 09:58 [facility] (Rec: 07/08/21 10:00 [facility] [id number]) OT Outpatient Adult Treatment Note Visit Information Visit Number 02/13; 05/26 --> visits; visit = KX Plan of Care Dates 03/28/21-06/23/21 Insurance Information Medicare Setting Treatment Setting Outpatient Care Visit Type Note Type Discharge Summary General Information General Information Patient is a 81 year-old R hand dominant female referred to outpatient OT by primary care physician, Arleen Ybarra DO, secondary to left hand pain. Dulce Maria has previously been seen by this therapist in the outpatient setting to assist with activity modification and to support functional independence (late 2019 and beginning of 2020 calendar year). Dulce Maria reportedly had L reverse TSA surgery on January 03, 2021 with goal of regaining functional ROM of the left shoulder; s/p surgery she was in a sling for 8 weeks. She is currently receiving outpatient PT for rehab post surgery. PMH: Significant for arthritis, bruising earily, cancer, hep A , joint replacement(s), lymphedema, neck pain, neuropathy, and thyroid disorder. - Subjective Observations Dulce Maria has not been seen in the outpatient clinic for OT since 06/06/21 and her OT POC 06/23/21. Thus, recommend d/c from OT at this time. - Objective Objective Measurements Please refer to below for progress towards meeting established OT goals. Long-Term Goals Patient will be modified independent with execution of distal left upper extremity home exercise program utilizing provided written and visual instructions from therapist. Mod I w/ HEP established at time of last treatment session (06/06/21). GOALS MET Patient verbally identified 2 to 3 different functional activities that she can successfully complete with assist of the left hand (e.g., microwave item management) utilizing adaptive and/or compensatory strategies as needed. *MET 06/06/21 - - Assessment Assessment of Improvement Dulce Maria has not been seen in the outpatient clinic for OT since 06/06/21 and her OT POC 06/23/21. Thus, recommend d/c from OT at this time. - Plan Therapy Recommendations Discharge from Occupational Therapy
== END 2021-07-16 14:39 ==
LOC: OT 10:30
PROVIDERS: PCP Family Medicine; Referring Provider Family Medicine; Visit Provider Family Medicine
DX: M79.642 Pain in left hand (principal); Z96.612 Presence of left artificial shoulder joint
CPT/HCPCS: 97110; 97165; 97530

== ENCOUNTER → 2021-06-11 10:01 | Outpatient (CLI) | payer MEDICARE, SELFPAY ==
[2021-04-30 11:07] VITALS: BMI 17.6
== END ==
PROVIDERS: Family Provider Family Medicine; PCP Family Medicine; Referring Provider Family Medicine; Visit Provider Family Medicine
DX: S21.101A Unspecified open wound of right front wall of thorax without penetration into thoracic cavity, initial encounter (principal); S31.000A Unspecified open wound of lower back and pelvis without penetration into retroperitoneum, initial encounter; B96.5 Pseudomonas (aeruginosa) (mallei) (pseudomallei) as the cause of diseases classified elsewhere; L59.8 Other specified disorders of the skin and subcutaneous tissue related to radiation; C50.911 Malignant neoplasm of unspecified site of right female breast; M06.9 Rheumatoid arthritis, unspecified; Z96.698 Presence of other orthopedic joint implants; L03.312 Cellulitis of back [any part except buttock and flank]; D64.9 Anemia, unspecified
CPT/HCPCS: 11042; 11045; 36415; 80053; 83540; 83550; 85025; 85651; 86140; 87040; 99215

== ENCOUNTER → 2021-06-11 11:36 | Outpatient (CLI) | payer MEDICARE, SELFPAY ==
[2021-04-30 11:07] VITALS: BMI 17.6
[2021-06-11 13:00] LABS: Add Manual Diff / Slide Review NO; Basophils Absolute Auto 0 /uL (0-100); Basophils Percent Auto 0.5 % (0-2); Eosinophils Absolute Auto 0 /uL (0-450); Eosinophils Percent Auto 0.2 % (2-4); Hematocrit 31.1 % (36-46); Hemoglobin 9.8 g/dL (12.0-16.0); Lymphocytes Absolute Auto 900 /uL (1100-4500); Lymphocytes Percent Auto 12.4 % (25-40); Mean Corpuscular HGB Conc 31.7 % (30-36); Mean Corpuscular Hemoglobin 27.5 PG (26-34); Mean Corpuscular Volume 86.8 fL (80-100); Monocytes Absolute Auto 700 /uL (0-900); Monocytes Percent Auto 10.6 % (3-14); Neutrophils Absolute Auto 5400 /uL (1500-7000); Neutrophils Percent Auto 76.3 % (50-75); Platelet Count 311 X10^3/uL (150-400); Red Blood Cell Count 3.58 X10^6/uL (4.0-5.2); Red Cell Distribution Width 16.1 % (11.6-14.8); White Blood Cell Count 7.1 X10^3/uL (4.5-11.0)
[2021-06-11 13:08] LABS: HEMOLYSIS < 15 (0-50); Iron 19 ug/dL (37-170)
[2021-06-11 13:18] LABS: Alanine Aminotransferase 14 IU/L (<35); Albumin 3.3 g/dL (3.5-5.0); Alkaline Phosphatase 72 U/L (38-126); Aspartate Aminotransferase 26 IU/L (14-36); BUN Creatinine Ratio 37.9 (6-22); Bilirubin Total 0.2 mg/dL (0.2-1.3); Blood Urea Nitrogen 22 mg/dL (7-17); Carbon Dioxide 27 mmol/L (22-32); Chloride 100 mmol/L (98-107); Estimated Glomerular Filt Rate > 60.0 mL/min (>60); Globulin 3.2 g/dL (1.7-4.1); Glucose 100 mg/dL (80-110); HEMOLYSIS < 15 (0-50); Potassium 4.4 mmol/L (3.4-5.1); Sodium 132 mmol/L (137-145); Total Protein 6.5 g/dL (6.3-8.2)
[2021-06-11 13:19] LABS: Percent Iron Saturation 7 % (15-50); Total Iron Binding Capacity 259 ug/dL (265-497); Transferrin 225 mg/dL (206-381)
[2021-06-11 13:25] LABS: Erythrocyte Sedimentation Rate 73 MM/HR (0-20)
[2021-06-11 13:29] LABS: C-Reactive Protein Quant 11.5 mg/dL (<1.0)
== END ==
PROVIDERS: Family Provider Family Medicine; PCP Family Medicine; Referring Provider Family Medicine; Visit Provider Family Medicine
DX: S31.000A Unspecified open wound of lower back and pelvis without penetration into retroperitoneum, initial encounter (principal); D64.9 Anemia, unspecified
CPT/HCPCS: 36415; 80053; 83540; 83550; 85025; 85651; 86140; 87040

== ENCOUNTER → 2021-07-09 10:31 | Outpatient (CLI) | payer MEDICARE, SELFPAY ==
[2021-07-04 11:22] VITALS: BMI 17.6
== END ==
PROVIDERS: Family Provider Family Medicine; PCP Family Medicine; Referring Provider Family Medicine; Visit Provider Family Medicine
DX: L59.8 Other specified disorders of the skin and subcutaneous tissue related to radiation (principal); S21.101A Unspecified open wound of right front wall of thorax without penetration into thoracic cavity, initial encounter; M46.28 Osteomyelitis of vertebra, sacral and sacrococcygeal region; B96.5 Pseudomonas (aeruginosa) (mallei) (pseudomallei) as the cause of diseases classified elsewhere; C50.911 Malignant neoplasm of unspecified site of right female breast; M06.9 Rheumatoid arthritis, unspecified; Z79.2 Long term (current) use of antibiotics; S31.000D Unspecified open wound of lower back and pelvis without penetration into retroperitoneum, subsequent encounter
CPT/HCPCS: 11042; 99214

== ENCOUNTER → 2021-07-23 10:14 | Outpatient (CLI) | payer MEDICARE, SELFPAY ==
[2021-07-04 11:22] VITALS: BMI 17.6
== END ==
PROVIDERS: Family Provider Family Medicine; PCP Family Medicine; Referring Provider Family Medicine; Visit Provider Family Medicine
DX: L59.8 Other specified disorders of the skin and subcutaneous tissue related to radiation (principal); S21.101A Unspecified open wound of right front wall of thorax without penetration into thoracic cavity, initial encounter; M46.28 Osteomyelitis of vertebra, sacral and sacrococcygeal region; B96.5 Pseudomonas (aeruginosa) (mallei) (pseudomallei) as the cause of diseases classified elsewhere; C50.911 Malignant neoplasm of unspecified site of right female breast; M06.9 Rheumatoid arthritis, unspecified; Z79.2 Long term (current) use of antibiotics; T81.31XA Disruption of external operation (surgical) wound, not elsewhere classified, initial encounter; S31.000A Unspecified open wound of lower back and pelvis without penetration into retroperitoneum, initial encounter
CPT/HCPCS: 11042; 97597; 99215

== ENCOUNTER → 2021-07-24 15:20 | Outpatient (CLI) | payer MEDICARE, SELFPAY ==
[2021-07-04 11:22] VITALS: BMI 17.6
== END ==
PROVIDERS: Family Provider Family Medicine; PCP Family Medicine; Referring Provider Family Medicine; Visit Provider Family Medicine
DX: L59.8 Other specified disorders of the skin and subcutaneous tissue related to radiation (principal); S21.101A Unspecified open wound of right front wall of thorax without penetration into thoracic cavity, initial encounter; M46.28 Osteomyelitis of vertebra, sacral and sacrococcygeal region; B96.5 Pseudomonas (aeruginosa) (mallei) (pseudomallei) as the cause of diseases classified elsewhere; C50.911 Malignant neoplasm of unspecified site of right female breast; M06.9 Rheumatoid arthritis, unspecified; Z79.2 Long term (current) use of antibiotics; T81.31XA Disruption of external operation (surgical) wound, not elsewhere classified, initial encounter
CPT/HCPCS: 87070; 87075; 87205; 99213

== ENCOUNTER → 2021-08-04 10:06 | Outpatient (CLI) | payer MEDICARE, SELFPAY ==
[2021-07-04 11:22] VITALS: BMI 17.6
== END ==
PROVIDERS: Family Provider Family Medicine; PCP Family Medicine; Referring Provider Family Medicine; Visit Provider Family Medicine
DX: L59.8 Other specified disorders of the skin and subcutaneous tissue related to radiation (principal); S21.101A Unspecified open wound of right front wall of thorax without penetration into thoracic cavity, initial encounter; M46.28 Osteomyelitis of vertebra, sacral and sacrococcygeal region; C50.911 Malignant neoplasm of unspecified site of right female breast; M06.9 Rheumatoid arthritis, unspecified; Z79.2 Long term (current) use of antibiotics; Z90.11 Acquired absence of right breast and nipple
CPT/HCPCS: 11042; 99213

== ENCOUNTER → 2021-08-12 10:15 | Outpatient (CLI) | payer MEDICARE, SELFPAY ==
[2021-07-04 11:22] VITALS: BMI 17.6
== END ==
PROVIDERS: Family Provider Family Medicine; PCP Family Medicine; Referring Provider Family Medicine; Visit Provider Family Medicine
DX: S21.101A Unspecified open wound of right front wall of thorax without penetration into thoracic cavity, initial encounter (principal); M46.28 Osteomyelitis of vertebra, sacral and sacrococcygeal region; L59.8 Other specified disorders of the skin and subcutaneous tissue related to radiation; C50.911 Malignant neoplasm of unspecified site of right female breast; M06.9 Rheumatoid arthritis, unspecified; Z79.2 Long term (current) use of antibiotics
CPT/HCPCS: 99212; 99213

== ENCOUNTER → 2021-12-23 17:13 | Outpatient (CLI) | payer MEDICARE, SELFPAY ==
[2021-07-04 11:22] VITALS: BMI 17.6
[2021-12-23 18:06] LABS: Bilirubin Urine UA NEGATIVE (NEGATIVE); Color Urine UA YELLOW; Glucose Urine UA NEGATIVE (Negative); Ketones Urine UA NEGATIVE (NEGATIVE); Leukocyte Esterase Urine UA 1+ (NEGATIVE); Nitrite Urine UA NEGATIVE (Negative); Occult Blood Urine UA NEGATIVE (Negative); Protein Urine UA NEGATIVE (Negative); Specific Gravity Urine UA 1.015 (1.000-1.035); Urobilinogen Urine UA 0.2 E.U./dL (0.2)
[2021-12-23 18:16] LABS: Appearance Urine UA Slightly Cloudy; RBC Urine None Seen (0-5/HPF); WBC Urine 5-10/HPF (0-5/HPF)
[2021-12-23 18:17] LABS: Amorphous Sediment Urine 1+; Bacteria Urine Moderate (10-30); Culture Indicated Urine Specimen Cultured; Squamous Epithelial Cell Urine 1-5 /HPF (0-5/HPF)
== END ==
PROVIDERS: Family Provider Family Medicine; Referring Provider Urology; Visit Provider Urology
DX: N39.0 Urinary tract infection, site not specified (principal)
CPT/HCPCS: 81001; 87077; 87086; 87186

== ENCOUNTER → 2022-02-09 09:58 | Outpatient (CLI) | payer MEDICARE, SELFPAY ==
[2021-07-04 11:22] VITALS: BMI 17.6
== END ==
PROVIDERS: Family Provider Family Medicine; Referring Provider Internal Medicine Hematology & Oncology; Visit Provider Internal Medicine Hematology & Oncology
DX: Z13.820 Encounter for screening for osteoporosis (principal); Z78.0 Asymptomatic menopausal state; Z79.811 Long term (current) use of aromatase inhibitors; M81.0 Age-related osteoporosis without current pathological fracture; Z90.710 Acquired absence of both cervix and uterus
CPT/HCPCS: 77080

== ENCOUNTER → 2022-02-20 16:29 | Outpatient (CLI) | payer MEDICARE, SELFPAY ==
[2021-07-04 11:22] VITALS: BMI 17.6
[2022-02-20 18:40] LABS: Add Manual Diff / Slide Review NO; Basophils Absolute Auto 0 /uL (0-100); Basophils Percent Auto 0.7 % (0-2); Eosinophils Absolute Auto 0 /uL (0-450); Eosinophils Percent Auto 0.9 % (2-4); Hematocrit 35.3 % (36-46); Hemoglobin 11.7 g/dL (12.0-16.0); Lymphocytes Absolute Auto 700 /uL (1100-4500); Lymphocytes Percent Auto 15.6 % (25-40); Mean Corpuscular HGB Conc 33.3 % (30-36); Mean Corpuscular Hemoglobin 27.8 PG (26-34); Mean Corpuscular Volume 83.6 fL (80-100); Monocytes Absolute Auto 500 /uL (0-900); Monocytes Percent Auto 11.8 % (3-14); Neutrophils Absolute Auto 3100 /uL (1500-7000); Platelet Count 201 X10^3/uL (150-400); Red Blood Cell Count 4.22 X10^6/uL (4.0-5.2); Red Cell Distribution Width 17.8 % (11.6-14.8); White Blood Cell Count 4.4 X10^3/uL (4.5-11.0)
[2022-02-21 03:40] LABS: Procalcitonin 0.05 ng/mL (<0.5)
[2022-02-22 14:41] LABS: C-Reactive Protein Quant 1.8 mg/dL (<1.0)
== END ==
PROVIDERS: Family Provider Family Medicine; PCP Family Medicine; Referring Provider Internal Medicine Infectious Disease; Visit Provider Internal Medicine Infectious Disease
DX: M46.20 Osteomyelitis of vertebra, site unspecified (principal)
CPT/HCPCS: 36415; 84145; 85025; 86140

== ENCOUNTER → 2022-06-29 17:01 | Outpatient (CLI) | payer MEDICARE, SELFPAY ==
[2021-07-04 11:22] VITALS: BMI 17.6
[2022-06-29 18:07] LABS: BUN Creatinine Ratio 32.2 (6-22); Blood Urea Nitrogen 19 mg/dL (7-17); Calcium 8.8 mg/dL (8.4-10.2); Carbon Dioxide 25 mmol/L (22-32); Chloride 102 mmol/L (98-107); Estimated Glomerular Filt Rate > 60 mL/min (>60); Glucose 105 mg/dL (80-110); HEMOLYSIS < 15 (0-50); Sodium 132 mmol/L (137-145)
[2022-06-29 18:08] LABS: Free T3, Triiodothyronine Free 3.11 pg/mL (2.77-5.27); Free T4, Direct Thyroxine 1.59 ng/dL (0.78-2.19)
[2022-06-29 18:21] LABS: Thyroid Stimulating Hormone 7.53 uIU/mL (0.47-4.68)
[2022-06-29 18:39] LABS: Potassium Urine Random 79.5 mmol/L; Sodium Urine Random 89 mmol/L (30-90)
[2022-06-30 19:53] LABS: Chloride, Urine 93 mmol/L (Not Estab.)
[2022-07-01 14:33] LABS: Osmolality Urine 594 mOsmol/kg (.); Osmolality, Serum 280 mOsmol/kg (280-301)
== END ==
PROVIDERS: Family Provider Family Medicine; PCP Family Medicine; Referring Provider Family Medicine; Visit Provider Family Medicine
DX: E87.1 Hypo-osmolality and hyponatremia (principal)
CPT/HCPCS: 36415; 80048; 82436; 83930; 83935; 84133; 84300; 84439; 84443; 84481

== ENCOUNTER → 2022-07-13 11:21 | Outpatient (CLI) | payer MEDICARE, SELFPAY ==
[2021-07-04 11:22] VITALS: BMI 17.6
[2022-07-13 13:51] LABS: BUN Creatinine Ratio 31.7 (6-22); Blood Urea Nitrogen 19 mg/dL (7-17); Calcium 9.4 mg/dL (8.4-10.2); Carbon Dioxide 25 mmol/L (22-32); Chloride 99 mmol/L (98-107); Estimated Glomerular Filt Rate > 60 mL/min (>60); Glucose 89 mg/dL (80-110); HEMOLYSIS < 15 (0-50); Potassium 4.3 mmol/L (3.4-5.1); Sodium 135 mmol/L (137-145)
== END ==
PROVIDERS: Family Provider Family Medicine; PCP Family Medicine; Referring Provider Family Medicine; Visit Provider Family Medicine
DX: E87.1 Hypo-osmolality and hyponatremia (principal)
CPT/HCPCS: 36415; 80048

== ENCOUNTER → 2022-08-24 11:36 | Outpatient (CLI) | payer MEDICARE, SELFPAY ==
[2021-07-04 11:22] VITALS: BMI 17.6
--- NOTE | 2022-08-24 | DI.MRI.S_ITS ---
PROCEDURE: MR LUMBAR SPINE WO/W CON INDICATIONS: Chronic osteomyelitis with draining sinus, multiple sites TECHNIQUE: Noncontrast sagittal T1 spin echo and T2 fast spin echo, sagittal STIR, axial T1 and T2 fast spin echo through the lumbar spine. In cases with scoliosis, additional coronal T2 fast spin echo may be performed. After the administration of contrast, sagittal and axial T1 spin echo with fat saturation through the lumbar spine. COMPARISON: [facility], MR, MR LUMBAR SPINE WITH/WITHOUT CONTRAST, 02/25/2022, 9:14. FINDINGS: Since the prior exam, enhancement and signal alteration in the L5 and S1 vertebral bodies have resolved. However, large posterior fluid collection in the laminectomy defect has increased in size round. No fluid collection now measures 13.5 cm superior inferior as well as 2.9 x 5.3 cm axial. There are several air-fluid levels present which may reflect and recent intervention. Overlying skin katarzyna noted. There is been decompressive laminectomy throughout the lumbar spine is well as removal of prior instrumentation. The central canal is widely decompressed. Vertebral body height and alignment maintained. IMPRESSION: 1. Larger posterior paraspinal fluid collection with air-fluid level has increased in size from the prior. 2. Resolution of L5 and S1 signal abnormality. No evidence of increasing or recurrence osteomyelitis Approved by: Rashid Swanson M.D. on 08/24/2022 at 13:07
== END ==
PROVIDERS: Family Provider Family Medicine; PCP Family Medicine; Referring Provider Internal Medicine Infectious Disease; Visit Provider Internal Medicine Infectious Disease
DX: M86.4 Chronic osteomyelitis with draining sinus (principal)
CPT/HCPCS: 72158

== ENCOUNTER → 2022-09-08 15:34 | Outpatient (CLI) | payer MEDICARE, SELFPAY ==
[2021-07-04 11:22] VITALS: BMI 17.6
== END ==
PROVIDERS: Family Provider Family Medicine; PCP Family Medicine; Referring Provider Urology; Visit Provider Urology
DX: R32 Unspecified urinary incontinence (principal); N31.9 Neuromuscular dysfunction of bladder, unspecified
CPT/HCPCS: 87086

== ENCOUNTER → 2022-09-10 16:29 | Outpatient (ROUT) | payer MEDICARE, SELFPAY ==
[2021-07-04 11:22] VITALS: BMI 17.6
[2022-09-10 16:39] LABS: Add Manual Diff / Slide Review NO; Basophils Absolute Auto 0 /uL (0-100); Basophils Percent Auto 0.4 % (0-2); Eosinophils Absolute Auto 300 /uL (0-450); Hematocrit 30.8 % (36-46); Hemoglobin 9.8 g/dL (12.0-16.0); Lymphocytes Absolute Auto 700 /uL (1100-4500); Lymphocytes Percent Auto 15.2 % (25-40); Mean Corpuscular HGB Conc 31.7 % (30-36); Mean Corpuscular Hemoglobin 27.6 PG (26-34); Monocytes Absolute Auto 600 /uL (0-900); Monocytes Percent Auto 14.6 % (3-14); Neutrophils Absolute Auto 2700 /uL (1500-7000); Neutrophils Percent Auto 61.8 % (50-75); Platelet Count 243 X10^3/uL (150-400); Red Blood Cell Count 3.54 X10^6/uL (4.0-5.2); White Blood Cell Count 4.3 X10^3/uL (4.5-11.0)
[2022-09-10 16:54] LABS: Alanine Aminotransferase 22 IU/L (<35); Albumin 2.9 g/dL (3.5-5.0); Alkaline Phosphatase 71 U/L (38-126); Aspartate Aminotransferase 32 IU/L (14-36); Bilirubin Total 0.1 mg/dL (0.2-1.3); Blood Urea Nitrogen 19 mg/dL (7-17); C-Reactive Protein Quant 3.7 mg/dL (<1.0); Calcium 8.6 mg/dL (8.4-10.2); Carbon Dioxide 26 mmol/L (22-32); Chloride 98 mmol/L (98-107); Estimated Glomerular Filt Rate > 60 mL/min (>60); Globulin 2.8 g/dL (1.7-4.1); Glucose 106 mg/dL (80-110); HEMOLYSIS < 15 (0-50); Potassium 4.2 mmol/L (3.4-5.1); Sodium 133 mmol/L (137-145); Total Protein 5.7 g/dL (6.3-8.2)
== END ==
PROVIDERS: Family Provider Family Medicine; PCP Family Medicine; Visit Provider Internal Medicine Infectious Disease
DX: M46.20 Osteomyelitis of vertebra, site unspecified (principal)
CPT/HCPCS: 80053; 85025; 86140

== ENCOUNTER → 2022-12-11 14:37 | Outpatient (CLI) | payer MEDICARE, SELFPAY ==
[2021-07-04 11:22] VITALS: BMI 17.6
== END ==
PROVIDERS: Family Provider Family Medicine; PCP Family Medicine; Referring Provider Family Medicine; Visit Provider Nurse Practitioner Family
DX: S41.111A Laceration without foreign body of right upper arm, initial encounter (principal); I89.0 Lymphedema, not elsewhere classified; R20.9 Unspecified disturbances of skin sensation
CPT/HCPCS: 11042; 99212; 99213

== ENCOUNTER → 2022-12-18 11:36 | Outpatient (CLI) | payer MEDICARE, SELFPAY ==
[2021-07-04 11:22] VITALS: BMI 17.6
== END ==
PROVIDERS: Family Provider Family Medicine; PCP Family Medicine; Referring Provider Family Medicine; Visit Provider Nurse Practitioner Family
DX: S41.111A Laceration without foreign body of right upper arm, initial encounter (principal); I89.0 Lymphedema, not elsewhere classified; R60.0 Localized edema; Z85.3 Personal history of malignant neoplasm of breast
CPT/HCPCS: 11042

== ENCOUNTER → 2022-12-25 09:18 | Outpatient (CLI) | payer MEDICARE, SELFPAY ==
[2021-07-04 11:22] VITALS: BMI 17.6
== END ==
PROVIDERS: Family Provider Family Medicine; PCP Family Medicine; Referring Provider Family Medicine; Visit Provider Nurse Practitioner Family
DX: S41.111A Laceration without foreign body of right upper arm, initial encounter (principal); S31.000A Unspecified open wound of lower back and pelvis without penetration into retroperitoneum, initial encounter; I89.0 Lymphedema, not elsewhere classified
CPT/HCPCS: 11042; 87070; 87075; 87077; 87186; 87205; 99213

== ENCOUNTER → 2023-01-01 13:43 | Outpatient (CLI) | payer MEDICARE, SELFPAY ==
[2021-07-04 11:22] VITALS: BMI 17.6
== END ==
PROVIDERS: Family Provider Family Medicine; PCP Family Medicine; Referring Provider Family Medicine; Visit Provider Nurse Practitioner Family
DX: S41.111A Laceration without foreign body of right upper arm, initial encounter (principal); S31.000A Unspecified open wound of lower back and pelvis without penetration into retroperitoneum, initial encounter; L08.9 Local infection of the skin and subcutaneous tissue, unspecified; I89.0 Lymphedema, not elsewhere classified
CPT/HCPCS: 11042; 99213

== ENCOUNTER → 2023-01-07 15:21 | Outpatient (CLI) | payer MEDICARE, SELFPAY ==
[2021-07-04 11:22] VITALS: BMI 17.6
--- NOTE | 2023-01-07 15:22 | DI.MG.S_ITS ---
UNILATERAL LEFT DIGITAL SCREENING MAMMOGRAM 3D/2D WITH CAD: 01/07/2023 CLINICAL: Routine screening. Personal history of right breast cancer. Comparison is made to exams dated: 03/24/2021 mammogram, 03/11/2021 mammogram, and 03/17/2019 mammogram - [facility]. The left breast is heterogeneously dense, which may obscure small masses (category c / 51-75% glandular tissue). Current study was also evaluated with a Computer Aided Detection (CAD) system. No significant masses, calcifications, or other findings are seen in the breast. There has been no significant interval change. IMPRESSION: NEGATIVE There is no mammographic evidence of malignancy. A 1 year screening mammogram is recommended. This exam was interpreted at Station ID: [id number]. NOTE: For mammograms, a report in lay terms will be sent to the patient. Approximately 15% of breast malignancies will not be visualized mammographically. In the management of a palpable breast mass, a negative mammogram must not discourage biopsy of a clinically suspicious lesion. Electronically Signed By: Chacorta nix/malcolm:01/08/2023 08:01:24 copy to: Wiley Johnson copy to: Yolanda Vivas letter sent: Normal Exam ACR BI-RADS Category 1: Negative [id number]
== END ==
PROVIDERS: Family Provider Family Medicine; PCP Family Medicine; Referring Provider Family Medicine; Visit Provider Family Medicine
DX: Z12.31 Encounter for screening mammogram for malignant neoplasm of breast (principal); C50.911 Malignant neoplasm of unspecified site of right female breast
CPT/HCPCS: 77063; 77067

== ENCOUNTER → 2023-01-08 09:42 | Outpatient (CLI) | payer MEDICARE, SELFPAY ==
[2021-07-04 11:22] VITALS: BMI 17.6
== END ==
PROVIDERS: Family Provider Family Medicine; PCP Family Medicine; Referring Provider Family Medicine; Visit Provider Nurse Practitioner Family
DX: S41.111A Laceration without foreign body of right upper arm, initial encounter (principal); S31.000A Unspecified open wound of lower back and pelvis without penetration into retroperitoneum, initial encounter; S81.811A Laceration without foreign body, right lower leg, initial encounter; L59.8 Other specified disorders of the skin and subcutaneous tissue related to radiation; L08.9 Local infection of the skin and subcutaneous tissue, unspecified; I89.0 Lymphedema, not elsewhere classified; C50.919 Malignant neoplasm of unspecified site of unspecified female breast
CPT/HCPCS: 11042; 97597; 99213

== ENCOUNTER → 2023-01-14 11:44 | Outpatient (CLI) | payer MEDICARE, SELFPAY ==
[2023-01-12 10:39] VITALS: BMI 17.6
== END ==
PROVIDERS: Family Provider Family Medicine; PCP Family Medicine; Referring Provider Family Medicine; Visit Provider Surgery
DX: L02.212 Cutaneous abscess of back [any part, except buttock and flank] (principal); A49.8 Other bacterial infections of unspecified site; S41.111A Laceration without foreign body of right upper arm, initial encounter; S81.811A Laceration without foreign body, right lower leg, initial encounter; S31.000A Unspecified open wound of lower back and pelvis without penetration into retroperitoneum, initial encounter; L08.9 Local infection of the skin and subcutaneous tissue, unspecified; I89.0 Lymphedema, not elsewhere classified
CPT/HCPCS: 36415; 80053; 85025; 85651; 86140; 97597; 99214

== ENCOUNTER → 2023-01-14 12:31 | Outpatient (CLI) | payer MEDICARE, SELFPAY ==
[2023-01-12 10:39] VITALS: BMI 17.6
[2023-01-14 13:15] LABS: Add Manual Diff / Slide Review NO; Basophils Absolute Auto 0 /uL (0-100); Basophils Percent Auto 0.7 % (0-2); Eosinophils Absolute Auto 0 /uL (0-450); Eosinophils Percent Auto 0.8 % (2-4); Hematocrit 35.6 % (36-46); Hemoglobin 11.7 g/dL (12.0-16.0); Lymphocytes Absolute Auto 800 /uL (1100-4500); Lymphocytes Percent Auto 13.9 % (25-40); Mean Corpuscular HGB Conc 32.8 % (30-36); Mean Corpuscular Hemoglobin 27.2 PG (26-34); Mean Corpuscular Volume 83.1 fL (80-100); Monocytes Absolute Auto 700 /uL (0-900); Monocytes Percent Auto 12.2 % (3-14); Neutrophils Absolute Auto 4100 /uL (1500-7000); Neutrophils Percent Auto 72.4 % (50-75); Platelet Count 237 X10^3/uL (150-400); Red Blood Cell Count 4.28 X10^6/uL (4.0-5.2); Red Cell Distribution Width 17.9 % (11.6-14.8); White Blood Cell Count 5.7 X10^3/uL (4.5-11.0)
[2023-01-14 13:33] LABS: Alanine Aminotransferase 21 IU/L (<35); Albumin 3.7 g/dL (3.5-5.0); Albumin Globulin Ratio 1.2 (1.0-2.8); Alkaline Phosphatase 94 U/L (38-126); Aspartate Aminotransferase 32 IU/L (14-36); BUN Creatinine Ratio 33.3 (6-22); Bilirubin Total 0.2 mg/dL (0.2-1.3); Blood Urea Nitrogen 17 mg/dL (7-17); C-Reactive Protein Quant 1.7 mg/dL (<1.0); Calcium 8.9 mg/dL (8.4-10.2); Carbon Dioxide 24 mmol/L (22-32); Chloride 101 mmol/L (98-107); Estimated Glomerular Filt Rate > 60 mL/min (>60); Globulin 3.2 g/dL (1.7-4.1); Glucose 93 mg/dL (80-110); HEMOLYSIS < 15 (0-50); Potassium 4.3 mmol/L (3.4-5.1); Sodium 132 mmol/L (137-145); Total Protein 6.9 g/dL (6.3-8.2)
[2023-01-14 13:45] LABS: Erythrocyte Sedimentation Rate 26 MM/HR (0-20)
== END ==
PROVIDERS: Family Provider Family Medicine; PCP Family Medicine; Referring Provider Internal Medicine Infectious Disease; Visit Provider Internal Medicine Infectious Disease
DX: L02.212 Cutaneous abscess of back [any part, except buttock and flank] (principal); A49.8 Other bacterial infections of unspecified site
CPT/HCPCS: 36415; 80053; 85025; 85651; 86140

== ENCOUNTER → 2023-01-22 11:24 | Outpatient (CLI) | payer MEDICARE, SELFPAY ==
[2023-01-12 10:39] VITALS: BMI 17.6
== END ==
PROVIDERS: Family Provider Family Medicine; PCP Family Medicine; Referring Provider Family Medicine; Visit Provider Physician Assistant
DX: S41.111A Laceration without foreign body of right upper arm, initial encounter (principal); S31.000A Unspecified open wound of lower back and pelvis without penetration into retroperitoneum, initial encounter; S81.811A Laceration without foreign body, right lower leg, initial encounter; L08.9 Local infection of the skin and subcutaneous tissue, unspecified; I89.0 Lymphedema, not elsewhere classified
CPT/HCPCS: 11042; 97597

== ENCOUNTER → 2023-02-04 10:34 | Outpatient (CLI) | payer MEDICARE, SELFPAY ==
[2023-01-12 10:39] VITALS: BMI 17.6
== END ==
PROVIDERS: Family Provider Family Medicine; PCP Family Medicine; Referring Provider Family Medicine; Visit Provider Surgery
DX: T81.31XA Disruption of external operation (surgical) wound, not elsewhere classified, initial encounter (principal); S31.000A Unspecified open wound of lower back and pelvis without penetration into retroperitoneum, initial encounter; L08.9 Local infection of the skin and subcutaneous tissue, unspecified
CPT/HCPCS: 87070; 87075; 87077; 87205; 99213; 99214

== ENCOUNTER → 2023-02-04 11:12 | Outpatient (CLI) | payer MEDICARE, SELFPAY ==
[2023-01-12 10:39] VITALS: BMI 17.6
[2023-02-04 12:36] LABS: Add Manual Diff / Slide Review NO; Basophils Absolute Auto 0 /uL (0-100); Basophils Percent Auto 0.6 % (0-2); Eosinophils Absolute Auto 0 /uL (0-450); Eosinophils Percent Auto 0.5 % (2-4); Hematocrit 36.4 % (36-46); Hemoglobin 11.9 g/dL (12.0-16.0); Lymphocytes Absolute Auto 700 /uL (1100-4500); Lymphocytes Percent Auto 13.8 % (25-40); Mean Corpuscular HGB Conc 32.8 % (30-36); Mean Corpuscular Hemoglobin 27.4 PG (26-34); Mean Corpuscular Volume 83.8 fL (80-100); Monocytes Absolute Auto 600 /uL (0-900); Neutrophils Absolute Auto 3600 /uL (1500-7000); Neutrophils Percent Auto 73.1 % (50-75); Platelet Count 220 X10^3/uL (150-400); Red Blood Cell Count 4.34 X10^6/uL (4.0-5.2); Red Cell Distribution Width 17.4 % (11.6-14.8); White Blood Cell Count 4.9 X10^3/uL (4.5-11.0)
[2023-02-04 12:54] LABS: Alanine Aminotransferase 21 IU/L (<35); Albumin 3.6 g/dL (3.5-5.0); Albumin Globulin Ratio 1.3 (1.0-2.8); Alkaline Phosphatase 88 U/L (38-126); Aspartate Aminotransferase 36 IU/L (14-36); BUN Creatinine Ratio 30.6 (6-22); Bilirubin Total 0.3 mg/dL (0.2-1.3); Blood Urea Nitrogen 19 mg/dL (7-17); Carbon Dioxide 26 mmol/L (22-32); Chloride 97 mmol/L (98-107); Estimated Glomerular Filt Rate > 60 mL/min (>60); Globulin 2.8 g/dL (1.7-4.1); Glucose 90 mg/dL (80-110); HEMOLYSIS < 15 (0-50); Potassium 4.3 mmol/L (3.4-5.1); Sodium 132 mmol/L (137-145); Total Protein 6.4 g/dL (6.3-8.2)
== END ==
PROVIDERS: Family Provider Family Medicine; PCP Family Medicine; Referring Provider Internal Medicine Infectious Disease; Visit Provider Internal Medicine Infectious Disease
DX: M46.20 Osteomyelitis of vertebra, site unspecified (principal); M86.9 Osteomyelitis, unspecified
CPT/HCPCS: 36415; 80053; 85025

== ENCOUNTER → 2023-02-25 11:17 | Outpatient (CLI) | payer MEDICARE, SELFPAY ==
[2023-01-12 10:39] VITALS: BMI 17.6
== END ==
PROVIDERS: Family Provider Family Medicine; PCP Family Medicine; Referring Provider Family Medicine; Visit Provider Surgery
DX: L08.9 Local infection of the skin and subcutaneous tissue, unspecified (principal); S31.000A Unspecified open wound of lower back and pelvis without penetration into retroperitoneum, initial encounter; T81.31XA Disruption of external operation (surgical) wound, not elsewhere classified, initial encounter
CPT/HCPCS: 99213

== ENCOUNTER → 2023-03-12 11:06 | Outpatient (CLI) | payer MEDICARE, SELFPAY ==
[2023-01-12 10:39] VITALS: BMI 17.6
== END ==
PROVIDERS: Family Provider Family Medicine; PCP Family Medicine; Referring Provider Family Medicine; Visit Provider Physician Assistant
DX: T81.89XA Other complications of procedures, not elsewhere classified, initial encounter (principal); S21.209A Unspecified open wound of unspecified back wall of thorax without penetration into thoracic cavity, initial encounter; M86.48 Chronic osteomyelitis with draining sinus, other site; C50.911 Malignant neoplasm of unspecified site of right female breast; Z90.11 Acquired absence of right breast and nipple
CPT/HCPCS: 87070; 87075; 87077; 87205; 99213

== ENCOUNTER → 2023-03-19 10:06 | Outpatient (CLI) | payer MEDICARE, SELFPAY ==
[2023-01-12 10:39] VITALS: BMI 17.6
== END ==
PROVIDERS: Family Provider Family Medicine; PCP Family Medicine; Referring Provider Family Medicine; Visit Provider Physician Assistant
DX: S31.000A Unspecified open wound of lower back and pelvis without penetration into retroperitoneum, initial encounter (principal); T81.89XA Other complications of procedures, not elsewhere classified, initial encounter; L08.9 Local infection of the skin and subcutaneous tissue, unspecified; I89.0 Lymphedema, not elsewhere classified; Z85.3 Personal history of malignant neoplasm of breast; M86.9 Osteomyelitis, unspecified
CPT/HCPCS: 97597; 99214

== ENCOUNTER → 2023-03-26 14:35 | Outpatient (CLI) | payer MEDICARE, SELFPAY ==
[2023-01-12 10:39] VITALS: BMI 17.6
== END ==
PROVIDERS: Family Provider Family Medicine; PCP Family Medicine; Referring Provider Family Medicine; Visit Provider Physician Assistant
DX: S31.000A Unspecified open wound of lower back and pelvis without penetration into retroperitoneum, initial encounter (principal); L08.9 Local infection of the skin and subcutaneous tissue, unspecified; I89.0 Lymphedema, not elsewhere classified
CPT/HCPCS: 99213; 99214

== ENCOUNTER → 2023-04-09 10:17 | Outpatient (CLI) | payer MEDICARE, SELFPAY ==
[2023-01-12 10:39] VITALS: BMI 17.6
== END ==
PROVIDERS: Family Provider Family Medicine; PCP Family Medicine; Referring Provider Family Medicine; Visit Provider Physician Assistant
DX: S31.000A Unspecified open wound of lower back and pelvis without penetration into retroperitoneum, initial encounter (principal); L08.9 Local infection of the skin and subcutaneous tissue, unspecified; I89.0 Lymphedema, not elsewhere classified; Z16.30 Resistance to unspecified antimicrobial drugs
CPT/HCPCS: 99213

== ENCOUNTER → 2023-04-23 10:12 | Outpatient (CLI) | payer MEDICARE, SELFPAY ==
[2023-01-12 10:39] VITALS: BMI 17.6
== END ==
PROVIDERS: Family Provider Family Medicine; PCP Family Medicine; Referring Provider Family Medicine; Visit Provider Physician Assistant
DX: T14.8XXD Other injury of unspecified body region, subsequent encounter (principal); D64.9 Anemia, unspecified; S31.000A Unspecified open wound of lower back and pelvis without penetration into retroperitoneum, initial encounter; Z16.30 Resistance to unspecified antimicrobial drugs
CPT/HCPCS: 36415; 80053; 82728; 83540; 83550; 85025; 99212; 99213

== ENCOUNTER → 2023-04-23 10:55 | Outpatient (CLI) | payer MEDICARE, SELFPAY ==
[2023-01-12 10:39] VITALS: BMI 17.6
[2023-04-23 12:12] LABS: Add Manual Diff / Slide Review NO; Basophils Absolute Auto 0 /uL (0-100); Basophils Percent Auto 0.5 % (0-2); Eosinophils Absolute Auto 0 /uL (0-450); Eosinophils Percent Auto 0.6 % (2-4); Hematocrit 35.9 % (36-46); Hemoglobin 11.8 g/dL (12.0-16.0); Lymphocytes Absolute Auto 800 /uL (1100-4500); Lymphocytes Percent Auto 13.2 % (25-40); Mean Corpuscular HGB Conc 32.9 % (30-36); Mean Corpuscular Hemoglobin 28.7 PG (26-34); Monocytes Absolute Auto 800 /uL (0-900); Monocytes Percent Auto 14.2 % (3-14); Neutrophils Absolute Auto 4200 /uL (1500-7000); Neutrophils Percent Auto 71.5 % (50-75); Platelet Count 205 X10^3/uL (150-400); Red Blood Cell Count 4.13 X10^6/uL (4.0-5.2); Red Cell Distribution Width 17.3 % (11.6-14.8); White Blood Cell Count 5.9 X10^3/uL (4.5-11.0)
[2023-04-23 12:38] LABS: HEMOLYSIS < 15 (0-50); Iron 57 ug/dL (37-170)
[2023-04-23 12:41] LABS: Alanine Aminotransferase 24 IU/L (<35); Albumin 3.7 g/dL (3.5-5.0); Albumin Globulin Ratio 1.2 (1.0-2.8); Alkaline Phosphatase 101 U/L (38-126); Aspartate Aminotransferase 36 IU/L (14-36); BUN Creatinine Ratio 32.1 (6-22); Bilirubin Total 0.3 mg/dL (0.2-1.3); Blood Urea Nitrogen 17 mg/dL (7-17); Calcium 8.9 mg/dL (8.4-10.2); Carbon Dioxide 23 mmol/L (22-32); Chloride 100 mmol/L (98-107); Estimated Glomerular Filt Rate > 60 mL/min (>60); Glucose 87 mg/dL (80-110); HEMOLYSIS < 15 (0-50); Potassium 4.6 mmol/L (3.4-5.1); Sodium 132 mmol/L (137-145); Total Protein 6.7 g/dL (6.3-8.2)
[2023-04-23 12:50] LABS: Percent Iron Saturation 14 % (15-50); Total Iron Binding Capacity 422 ug/dL (265-497); Transferrin 328 mg/dL (206-381)
[2023-04-23 13:15] LABS: Ferritin 24 ng/mL (11-264)
== END ==
PROVIDERS: Family Provider Family Medicine; PCP Family Medicine; Referring Provider Physician Assistant; Visit Provider Physician Assistant
DX: T14.8XXD Other injury of unspecified body region, subsequent encounter (principal); D64.9 Anemia, unspecified
CPT/HCPCS: 36415; 80053; 82728; 83540; 83550; 85025

== ENCOUNTER → 2023-05-07 11:05 | Outpatient (CLI) | payer MEDICARE, SELFPAY ==
[2023-01-12 10:39] VITALS: BMI 17.6
== END ==
PROVIDERS: Family Provider Family Medicine; PCP Family Medicine; Referring Provider Family Medicine; Visit Provider Physician Assistant
DX: T81.31XA Disruption of external operation (surgical) wound, not elsewhere classified, initial encounter (principal); S31.000A Unspecified open wound of lower back and pelvis without penetration into retroperitoneum, initial encounter; L08.9 Local infection of the skin and subcutaneous tissue, unspecified; Z16.30 Resistance to unspecified antimicrobial drugs; R21 Rash and other nonspecific skin eruption
CPT/HCPCS: 99213

== ENCOUNTER → 2023-05-19 11:32 | Outpatient (CLI) | payer MEDICARE, SELFPAY ==
[2023-01-12 10:39] VITALS: BMI 17.6
== END ==
PROVIDERS: Family Provider Family Medicine; PCP Family Medicine; Referring Provider Family Medicine; Visit Provider Surgery
DX: M79.641 Pain in right hand (principal); M79.89 Other specified soft tissue disorders; L02.511 Cutaneous abscess of right hand; S60.422A Blister (nonthermal) of right middle finger, initial encounter; S60.424A Blister (nonthermal) of right ring finger, initial encounter
CPT/HCPCS: 73130; 99212; 99213

== ENCOUNTER → 2023-05-19 12:06 | Outpatient (CLI) | payer MEDICARE, SELFPAY ==
[2023-01-12 10:39] VITALS: BMI 17.6
--- NOTE | 2023-05-19 12:07 | DI.RAD.S_ITS ---
PROCEDURE: XR HAND RT MIN 3V INDICATIONS: r/o gas in soft tissue of 3rd and 4th finger TECHNIQUE: 3 views of the hand(s) acquired. COMPARISON: [facility], CR, XR HAND 1 OR 2 VIEWS BILATERAL, 07/19/2020, 12:01. [facility], CR, XR HAND LT MIN 3V, 07/19/2018, 11:02. FINDINGS: Bones: Advanced degenerative changes in the right hand, particularly affecting the radiocarpal region, metacarpal bases, 2nd MCP, and 3rd 4th and 5th PIP is. Subchondral lucencies likely erosions in geodes. Radiocarpal deformity with negative ulnar variance. Diffuse lucencies. Second MCP subluxation. Soft tissues: No suspicious soft tissue calcifications. No obvious soft tissue gas, however there is soft tissue swelling of the 3rd and 4th fingers. Small punctate hyperdensity adjacent to the 5th DIP. IMPRESSION: Advanced degenerative changes as described above, also seen in 2019 imaging. 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 Soft tissue swelling, without obvious soft tissue gas in the 3rd and 4th fingers. Consider cross-sectional imaging if there is further concern. Punctate radiodensity adjacent to the 5th DIP. Dictated by: Chacorta Jaime M.D. on 05/19/2023 at 15:10 Approved by: Chacorta Jaime M.D. on 05/19/2023 at 15:15
== END ==
PROVIDERS: Family Provider Family Medicine; PCP Family Medicine; Referring Provider Family Medicine; Visit Provider Family Medicine
DX: L02.511 Cutaneous abscess of right hand (principal); M79.641 Pain in right hand; M79.89 Other specified soft tissue disorders
CPT/HCPCS: 73130

== ENCOUNTER → 2023-05-26 12:44 | Outpatient (CLI) | payer MEDICARE, SELFPAY ==
[2023-01-12 10:39] VITALS: BMI 17.6
== END ==
PROVIDERS: Family Provider Family Medicine; PCP Family Medicine; Referring Provider Family Medicine; Visit Provider Surgery
DX: I89.0 Lymphedema, not elsewhere classified (principal); S31.000A Unspecified open wound of lower back and pelvis without penetration into retroperitoneum, initial encounter; S60.422A Blister (nonthermal) of right middle finger, initial encounter
CPT/HCPCS: 99213; 99214

== ENCOUNTER → 2023-06-04 11:13 | Outpatient (CLI) | payer MEDICARE, SELFPAY ==
[2023-01-12 10:39] VITALS: BMI 17.6
== END ==
PROVIDERS: Family Provider Family Medicine; PCP Family Medicine; Referring Provider Family Medicine; Visit Provider Physician Assistant
DX: T81.31XA Disruption of external operation (surgical) wound, not elsewhere classified, initial encounter (principal); S31.000A Unspecified open wound of lower back and pelvis without penetration into retroperitoneum, initial encounter; S60.422A Blister (nonthermal) of right middle finger, initial encounter; S60.424A Blister (nonthermal) of right ring finger, initial encounter; S81.801A Unspecified open wound, right lower leg, initial encounter; L08.9 Local infection of the skin and subcutaneous tissue, unspecified; I89.0 Lymphedema, not elsewhere classified; Z16.30 Resistance to unspecified antimicrobial drugs
CPT/HCPCS: 11042; 99213

== ENCOUNTER → 2023-06-09 11:40 | Outpatient (CLI) | payer MEDICARE, SELFPAY ==
[2023-01-12 10:39] VITALS: BMI 17.6
== END ==
PROVIDERS: Family Provider Family Medicine; PCP Family Medicine; Referring Provider Family Medicine; Visit Provider Surgery
DX: L08.9 Local infection of the skin and subcutaneous tissue, unspecified (principal); S31.000A Unspecified open wound of lower back and pelvis without penetration into retroperitoneum, initial encounter; S81.801A Unspecified open wound, right lower leg, initial encounter; S60.422A Blister (nonthermal) of right middle finger, initial encounter; S60.424A Blister (nonthermal) of right ring finger, initial encounter
CPT/HCPCS: 15271; 99213; Q4196

== ENCOUNTER → 2023-06-16 14:40 | Outpatient (CLI) | payer MEDICARE, SELFPAY ==
[2023-01-12 10:39] VITALS: BMI 17.6
== END ==
PROVIDERS: Family Provider Family Medicine; PCP Family Medicine; Referring Provider Family Medicine; Visit Provider Surgery
DX: S81.801A Unspecified open wound, right lower leg, initial encounter (principal); T81.89XA Other complications of procedures, not elsewhere classified, initial encounter; S31.000A Unspecified open wound of lower back and pelvis without penetration into retroperitoneum, initial encounter; S60.424A Blister (nonthermal) of right ring finger, initial encounter; S60.422A Blister (nonthermal) of right middle finger, initial encounter
CPT/HCPCS: 15271; Q4196

== ENCOUNTER → 2023-06-23 15:24 | Outpatient (CLI) | payer MEDICARE, SELFPAY ==
[2023-01-12 10:39] VITALS: BMI 17.6
== END ==
PROVIDERS: Family Provider Family Medicine; PCP Family Medicine; Referring Provider Family Medicine; Visit Provider Surgery
DX: L08.9 Local infection of the skin and subcutaneous tissue, unspecified (principal); I89.0 Lymphedema, not elsewhere classified; S81.801A Unspecified open wound, right lower leg, initial encounter; T81.89XA Other complications of procedures, not elsewhere classified, initial encounter
CPT/HCPCS: 11042; 15271; Q4196

== ENCOUNTER → 2023-06-30 15:17 | Outpatient (CLI) | payer MEDICARE, SELFPAY ==
[2023-01-12 10:39] VITALS: BMI 17.6
== END ==
PROVIDERS: Family Provider Family Medicine; PCP Family Medicine; Referring Provider Family Medicine; Visit Provider Surgery
DX: T81.89XA Other complications of procedures, not elsewhere classified, initial encounter (principal); S31.000A Unspecified open wound of lower back and pelvis without penetration into retroperitoneum, initial encounter; S81.801A Unspecified open wound, right lower leg, initial encounter; R21 Rash and other nonspecific skin eruption; S60.422A Blister (nonthermal) of right middle finger, initial encounter; S60.424A Blister (nonthermal) of right ring finger, initial encounter
CPT/HCPCS: 15271; 97602; Q4196

== ENCOUNTER → 2023-07-20 09:39 | Outpatient (CLI) | payer MEDICARE, SELFPAY ==
[2023-01-12 10:39] VITALS: BMI 17.6
== END ==
PROVIDERS: Family Provider Family Medicine; PCP Family Medicine; Referring Provider Family Medicine; Visit Provider Surgery
DX: L08.9 Local infection of the skin and subcutaneous tissue, unspecified (principal); I89.0 Lymphedema, not elsewhere classified; Z16.30 Resistance to unspecified antimicrobial drugs; S60.422D Blister (nonthermal) of right middle finger, subsequent encounter; S60.424 Blister (nonthermal) of right ring finger; T81.31XD Disruption of external operation (surgical) wound, not elsewhere classified, subsequent encounter; S31.000A Unspecified open wound of lower back and pelvis without penetration into retroperitoneum, initial encounter
CPT/HCPCS: 11042; 11045; 99212; 99214

== ENCOUNTER → 2023-07-22 12:36 | Outpatient (CLI) | payer MEDICARE, SELFPAY ==
[2023-01-12 10:39] VITALS: BMI 17.6
[2023-07-22 17:57] LABS: Add Manual Diff / Slide Review NO; Basophils Absolute Auto 100 /uL (0-100); Eosinophils Absolute Auto 200 /uL (0-450); Eosinophils Percent Auto 4.6 % (2-4); Hematocrit 36.2 % (36-46); Hemoglobin 12.1 g/dL (12.0-16.0); Lymphocytes Absolute Auto 800 /uL (1100-4500); Mean Corpuscular HGB Conc 33.4 % (30-36); Mean Corpuscular Hemoglobin 29.8 PG (26-34); Mean Corpuscular Volume 89.1 fL (80-100); Monocytes Absolute Auto 500 /uL (0-900); Monocytes Percent Auto 9.5 % (3-14); Neutrophils Absolute Auto 3600 /uL (1500-7000); Neutrophils Percent Auto 68.9 % (50-75); Platelet Count 205 X10^3/uL (150-400); Red Blood Cell Count 4.06 X10^6/uL (4.0-5.2); Red Cell Distribution Width 16.4 % (11.6-14.8); White Blood Cell Count 5.3 X10^3/uL (4.5-11.0)
[2023-07-22 18:24] LABS: HEMOLYSIS < 15 (0-50); Iron 77 ug/dL (37-170)
[2023-07-22 18:35] LABS: Percent Iron Saturation 20 % (15-50); Total Iron Binding Capacity 384 ug/dL (265-497); Transferrin 331 mg/dL (206-381)
[2023-07-22 18:56] LABS: Ferritin 43 ng/mL (11-264)
== END ==
PROVIDERS: Family Provider Family Medicine; PCP Family Medicine; Referring Provider Family Medicine; Visit Provider Family Medicine
DX: D64.9 Anemia, unspecified (principal)
CPT/HCPCS: 36415; 82728; 83540; 83550; 85025

== ENCOUNTER → 2023-07-27 10:53 | Outpatient (CLI) | payer MEDICARE, SELFPAY ==
[2023-01-12 10:39] VITALS: BMI 17.6
== END ==
PROVIDERS: Family Provider Family Medicine; PCP Family Medicine; Referring Provider Family Medicine; Visit Provider Surgery
DX: L08.9 Local infection of the skin and subcutaneous tissue, unspecified (principal); I89.0 Lymphedema, not elsewhere classified; Z16.30 Resistance to unspecified antimicrobial drugs; S60.422D Blister (nonthermal) of right middle finger, subsequent encounter; S60.424 Blister (nonthermal) of right ring finger; S31.000D Unspecified open wound of lower back and pelvis without penetration into retroperitoneum, subsequent encounter; T81.31XD Disruption of external operation (surgical) wound, not elsewhere classified, subsequent encounter
CPT/HCPCS: 11042; 11045; 97606

== ENCOUNTER → 2023-08-02 10:15 | Outpatient (CLI) | payer MEDICARE, SELFPAY ==
[2023-01-12 10:39] VITALS: BMI 17.6
== END ==
PROVIDERS: Family Provider Family Medicine; PCP Family Medicine; Referring Provider Family Medicine; Visit Provider Physician Assistant
DX: L08.9 Local infection of the skin and subcutaneous tissue, unspecified (principal); I89.0 Lymphedema, not elsewhere classified; Z16.30 Resistance to unspecified antimicrobial drugs; S60.422D Blister (nonthermal) of right middle finger, subsequent encounter; S60.424 Blister (nonthermal) of right ring finger; S31.000D Unspecified open wound of lower back and pelvis without penetration into retroperitoneum, subsequent encounter; T81.31XD Disruption of external operation (surgical) wound, not elsewhere classified, subsequent encounter; S61.419A Laceration without foreign body of unspecified hand, initial encounter; S81.811D Laceration without foreign body, right lower leg, subsequent encounter
CPT/HCPCS: 11042; 11045; 97597; 97605; 99212; 99214

== ENCOUNTER → 2023-08-10 09:56 | Outpatient (CLI) | payer MEDICARE, SELFPAY ==
[2023-01-12 10:39] VITALS: BMI 17.6
== END ==
PROVIDERS: Family Provider Family Medicine; PCP Family Medicine; Referring Provider Family Medicine; Visit Provider Surgery
DX: S61.419D Laceration without foreign body of unspecified hand, subsequent encounter (principal); S60.422A Blister (nonthermal) of right middle finger, initial encounter; S60.424A Blister (nonthermal) of right ring finger, initial encounter; T81.31XA Disruption of external operation (surgical) wound, not elsewhere classified, initial encounter; S81.811A Laceration without foreign body, right lower leg, initial encounter; S31.000A Unspecified open wound of lower back and pelvis without penetration into retroperitoneum, initial encounter; L89.891 Pressure ulcer of other site, stage 1
CPT/HCPCS: 11042

== ENCOUNTER → 2023-08-12 13:43 | Outpatient (CLI) | payer MEDICARE, SELFPAY ==
[2023-01-12 10:39] VITALS: BMI 17.6
== END ==
PROVIDERS: Family Provider Family Medicine; PCP Family Medicine; Referring Provider Family Medicine; Visit Provider Surgery
DX: S60.424A Blister (nonthermal) of right ring finger, initial encounter (principal); T81.31XA Disruption of external operation (surgical) wound, not elsewhere classified, initial encounter
CPT/HCPCS: 97607

== ENCOUNTER → 2023-08-16 14:55 | Outpatient (ROUT) | payer MEDICARE, SELFPAY ==
[2023-01-12 10:39] VITALS: BMI 17.6
[2023-08-16 15:03] LABS: Add Manual Diff / Slide Review NO; Basophils Absolute Auto 0 /uL (0-100); Eosinophils Absolute Auto 100 /uL (0-450); Eosinophils Percent Auto 1.5 % (2-4); Hematocrit 34.8 % (36-46); Hemoglobin 11.4 g/dL (12.0-16.0); Lymphocytes Absolute Auto 700 /uL (1100-4500); Lymphocytes Percent Auto 13.3 % (25-40); Mean Corpuscular HGB Conc 32.8 % (30-36); Mean Corpuscular Hemoglobin 30.6 PG (26-34); Mean Corpuscular Volume 93.2 fL (80-100); Monocytes Absolute Auto 500 /uL (0-900); Monocytes Percent Auto 9.8 % (3-14); Neutrophils Absolute Auto 3700 /uL (1500-7000); Neutrophils Percent Auto 74.4 % (50-75); Platelet Count 192 X10^3/uL (150-400); Red Blood Cell Count 3.73 X10^6/uL (4.0-5.2); Red Cell Distribution Width 16.3 % (11.6-14.8)
[2023-08-16 15:13] LABS: Alanine Aminotransferase 39 IU/L (<35); Albumin Globulin Ratio 1.1 (1.0-2.8); Alkaline Phosphatase 109 U/L (38-126); Aspartate Aminotransferase 59 IU/L (14-36); BUN Creatinine Ratio 37.3 (6-22); Bilirubin Total 0.5 mg/dL (0.2-1.3); Blood Urea Nitrogen 19 mg/dL (7-17); C-Reactive Protein Quant 0.7 mg/dL (<1.0); Calcium 9.2 mg/dL (8.4-10.2); Carbon Dioxide 27 mmol/L (22-32); Chloride 102 mmol/L (98-107); Estimated Glomerular Filt Rate > 60 mL/min (>60); Globulin 2.7 g/dL (1.7-4.1); Glucose 83 mg/dL (80-110); HEMOLYSIS < 15 (0-50); Potassium 4.6 mmol/L (3.4-5.1); Sodium 133 mmol/L (137-145); Total Protein 5.7 g/dL (6.3-8.2)
[2023-08-18 13:20] LABS: Creatine Kinase 50 U/L (30-135)
== END ==
PROVIDERS: Family Provider Family Medicine; PCP Family Medicine; Visit Provider Internal Medicine Infectious Disease
DX: A49.01 Methicillin susceptible Staphylococcus aureus infection, unspecified site (principal); M46.20 Osteomyelitis of vertebra, site unspecified
CPT/HCPCS: 80053; 82550; 85025; 86140

== ENCOUNTER → 2023-08-19 13:09 | Outpatient (CLI) | payer MEDICARE, SELFPAY ==
[2023-01-12 10:39] VITALS: BMI 17.6
== END ==
PROVIDERS: Family Provider Family Medicine; PCP Family Medicine; Referring Provider Family Medicine; Visit Provider Surgery
DX: L08.9 Local infection of the skin and subcutaneous tissue, unspecified (principal); I89.0 Lymphedema, not elsewhere classified; Z16.30 Resistance to unspecified antimicrobial drugs; S60.422D Blister (nonthermal) of right middle finger, subsequent encounter; S60.424 Blister (nonthermal) of right ring finger; S31.000D Unspecified open wound of lower back and pelvis without penetration into retroperitoneum, subsequent encounter; T81.31XD Disruption of external operation (surgical) wound, not elsewhere classified, subsequent encounter; S81.811D Laceration without foreign body, right lower leg, subsequent encounter; S61.419D Laceration without foreign body of unspecified hand, subsequent encounter
CPT/HCPCS: 99212; 99213

== ENCOUNTER → 2023-08-19 18:19 | Outpatient (CLI) | payer MEDICARE, SELFPAY ==
[2023-01-12 10:39] VITALS: BMI 17.6
[2023-08-19 18:26] LABS: Add Manual Diff / Slide Review NO; Basophils Absolute Auto 100 /uL (0-100); Basophils Percent Auto 1.8 % (0-2); Eosinophils Absolute Auto 100 /uL (0-450); Eosinophils Percent Auto 1.5 % (2-4); Hematocrit 39.7 % (36-46); Hemoglobin 12.9 g/dL (12.0-16.0); Lymphocytes Absolute Auto 500 /uL (1100-4500); Mean Corpuscular HGB Conc 32.5 % (30-36); Mean Corpuscular Hemoglobin 30.1 PG (26-34); Mean Corpuscular Volume 92.6 fL (80-100); Monocytes Absolute Auto 400 /uL (0-900); Neutrophils Absolute Auto 2600 /uL (1500-7000); Neutrophils Percent Auto 71.7 % (50-75); Platelet Count 202 X10^3/uL (150-400); Red Blood Cell Count 4.29 X10^6/uL (4.0-5.2); Red Cell Distribution Width 16.6 % (11.6-14.8); White Blood Cell Count 3.6 X10^3/uL (4.5-11.0)
[2023-08-19 19:43] LABS: Alanine Aminotransferase 47 IU/L (<35); Albumin 3.5 g/dL (3.5-5.0); Albumin Globulin Ratio 1.3 (1.0-2.8); Alkaline Phosphatase 120 U/L (38-126); Aspartate Aminotransferase 69 IU/L (14-36); BUN Creatinine Ratio 28.6 (6-22); Bilirubin Total 0.6 mg/dL (0.2-1.3); Blood Urea Nitrogen 16 mg/dL (7-17); Calcium 9.5 mg/dL (8.4-10.2); Carbon Dioxide 25 mmol/L (22-32); Chloride 102 mmol/L (98-107); Creatine Kinase 49 U/L (30-135); Estimated Glomerular Filt Rate > 60 mL/min (>60); Globulin 2.7 g/dL (1.7-4.1); Glucose 114 mg/dL (80-110); HEMOLYSIS < 15 (0-50); Potassium 4.2 mmol/L (3.4-5.1); Sodium 137 mmol/L (137-145); Total Protein 6.2 g/dL (6.3-8.2)
== END ==
PROVIDERS: Family Provider Family Medicine; PCP Family Medicine; Visit Provider Internal Medicine Infectious Disease
DX: A49.01 Methicillin susceptible Staphylococcus aureus infection, unspecified site (principal); M46.20 Osteomyelitis of vertebra, site unspecified; L08.9 Local infection of the skin and subcutaneous tissue, unspecified; I89.0 Lymphedema, not elsewhere classified; Z16.30 Resistance to unspecified antimicrobial drugs; S60.422D Blister (nonthermal) of right middle finger, subsequent encounter; S60.424 Blister (nonthermal) of right ring finger; S31.000D Unspecified open wound of lower back and pelvis without penetration into retroperitoneum, subsequent encounter; T81.31XD Disruption of external operation (surgical) wound, not elsewhere classified, subsequent encounter; S81.811D Laceration without foreign body, right lower leg, subsequent encounter; S61.419D Laceration without foreign body of unspecified hand, subsequent encounter
CPT/HCPCS: 80053; 82550; 85025; 99212

== ENCOUNTER → 2023-09-01 11:23 | Outpatient (CLI) | payer MEDICARE, SELFPAY ==
[2023-01-12 10:39] VITALS: BMI 17.6
== END ==
LOC: WC 11:24
PROVIDERS: Family Provider Family Medicine; PCP Family Medicine; Referring Provider Family Medicine; Visit Provider Surgery
DX: S60.424A Blister (nonthermal) of right ring finger, initial encounter (principal); T81.89XA Other complications of procedures, not elsewhere classified, initial encounter; S21.209A Unspecified open wound of unspecified back wall of thorax without penetration into thoracic cavity, initial encounter
CPT/HCPCS: 99213

== ENCOUNTER → 2023-09-14 10:55 | Outpatient (CLI) | payer MEDICARE, SELFPAY ==
[2023-01-12 10:39] VITALS: BMI 17.6
[2023-09-14 12:17] LABS: Add Manual Diff / Slide Review NO; Basophils Absolute Auto 100 /uL (0-100); Basophils Percent Auto 1.1 % (0-2); Eosinophils Absolute Auto 0 /uL (0-450); Eosinophils Percent Auto 0.8 % (2-4); Hematocrit 41.5 % (36-46); Hemoglobin 13.7 g/dL (12.0-16.0); Lymphocytes Absolute Auto 1000 /uL (1100-4500); Lymphocytes Percent Auto 18.5 % (25-40); Mean Corpuscular Volume 93.8 fL (80-100); Monocytes Absolute Auto 700 /uL (0-900); Monocytes Percent Auto 12.1 % (3-14); Neutrophils Absolute Auto 3600 /uL (1500-7000); Neutrophils Percent Auto 67.5 % (50-75); Platelet Count 268 X10^3/uL (150-400); Red Blood Cell Count 4.43 X10^6/uL (4.0-5.2); Red Cell Distribution Width 15.3 % (11.6-14.8); White Blood Cell Count 5.4 X10^3/uL (4.5-11.0)
[2023-09-14 17:48] LABS: Alanine Aminotransferase 215 IU/L (<35); Albumin 3.6 g/dL (3.5-5.0); Albumin Globulin Ratio 1.1 (1.0-2.8); Alkaline Phosphatase 309 U/L (38-126); Aspartate Aminotransferase 177 IU/L (14-36); Bilirubin Total 0.4 mg/dL (0.2-1.3); Bilirubin Unconjugated 0.1 mg/dL (0.0-1.1); Globulin 3.4 g/dL (1.7-4.1); HEMOLYSIS < 15 (0-50)
== END ==
PROVIDERS: Family Provider Family Medicine; PCP Family Medicine; Referring Provider Internal Medicine Infectious Disease; Visit Provider Internal Medicine Infectious Disease
DX: M86.4 Chronic osteomyelitis with draining sinus (principal)
CPT/HCPCS: 36415; 80076; 85025

== ENCOUNTER → 2023-09-15 11:01 | Outpatient (CLI) | payer MEDICARE, SELFPAY ==
[2023-01-12 10:39] VITALS: BMI 17.6
== END ==
PROVIDERS: Family Provider Family Medicine; PCP Family Medicine; Referring Provider Family Medicine; Visit Provider Surgery
DX: L98.491 Non-pressure chronic ulcer of skin of other sites limited to breakdown of skin (principal); G62.9 Polyneuropathy, unspecified; T81.89XA Other complications of procedures, not elsewhere classified, initial encounter; S21.209A Unspecified open wound of unspecified back wall of thorax without penetration into thoracic cavity, initial encounter; L89.893 Pressure ulcer of other site, stage 3; Z79.899 Other long term (current) drug therapy
CPT/HCPCS: 11042; 11045; 97597

== ENCOUNTER → 2023-09-16 10:21 | Outpatient (ROUT) | payer MEDICARE, SELFPAY ==
[2023-01-12 10:39] VITALS: BMI 17.6
[2023-09-16 10:29] LABS: Add Manual Diff / Slide Review NO; Basophils Absolute Auto 0 /uL (0-100); Eosinophils Absolute Auto 100 /uL (0-450); Eosinophils Percent Auto 1.6 % (2-4); Hematocrit 39.2 % (36-46); Hemoglobin 12.7 g/dL (12.0-16.0); Lymphocytes Absolute Auto 600 /uL (1100-4500); Lymphocytes Percent Auto 12.8 % (25-40); Mean Corpuscular HGB Conc 32.4 % (30-36); Mean Corpuscular Hemoglobin 30.3 PG (26-34); Mean Corpuscular Volume 93.7 fL (80-100); Monocytes Absolute Auto 400 /uL (0-900); Neutrophils Absolute Auto 3500 /uL (1500-7000); Neutrophils Percent Auto 76.6 % (50-75); Platelet Count 236 X10^3/uL (150-400); Red Blood Cell Count 4.19 X10^6/uL (4.0-5.2); Red Cell Distribution Width 15.5 % (11.6-14.8); White Blood Cell Count 4.5 X10^3/uL (4.5-11.0)
[2023-09-16 11:41] LABS: Alanine Aminotransferase 144 IU/L (<35); Albumin 3.1 g/dL (3.5-5.0); Albumin Globulin Ratio 1.1 (1.0-2.8); Alkaline Phosphatase 240 U/L (38-126); Aspartate Aminotransferase 116 IU/L (14-36); BUN Creatinine Ratio 24.1 (6-22); Bilirubin Total 0.5 mg/dL (0.2-1.3); Blood Urea Nitrogen 13 mg/dL (7-17); Calcium 9.4 mg/dL (8.4-10.2); Carbon Dioxide 25 mmol/L (22-32); Chloride 100 mmol/L (98-107); Estimated Glomerular Filt Rate > 60 mL/min (>60); Globulin 2.8 g/dL (1.7-4.1); Glucose 130 mg/dL (80-110); HEMOLYSIS < 15 (0-50); Potassium 3.7 mmol/L (3.4-5.1); Sodium 135 mmol/L (137-145); Total Protein 5.9 g/dL (6.3-8.2)
== END ==
PROVIDERS: Family Provider Family Medicine; PCP Family Medicine; Visit Provider Internal Medicine Infectious Disease
DX: M86.4 Chronic osteomyelitis with draining sinus (principal); M46.20 Osteomyelitis of vertebra, site unspecified; H49.01 Third [oculomotor] nerve palsy, right eye
CPT/HCPCS: 80053; 85025; 86140

== ENCOUNTER → 2023-09-20 10:28 | Outpatient (CLI) | payer MEDICARE, SELFPAY ==
[2023-01-12 10:39] VITALS: BMI 17.6
== END ==
LOC: WC 10:30
PROVIDERS: Family Provider Family Medicine; PCP Family Medicine; Referring Provider Family Medicine; Visit Provider Physician Assistant
DX: L98.492 Non-pressure chronic ulcer of skin of other sites with fat layer exposed (principal); T81.89XA Other complications of procedures, not elsewhere classified, initial encounter; S31.000A Unspecified open wound of lower back and pelvis without penetration into retroperitoneum, initial encounter; G62.9 Polyneuropathy, unspecified
CPT/HCPCS: 11042; 11045; 97606; 99214

== ENCOUNTER → 2023-09-23 09:45 | Outpatient (ROUT) | payer MEDICARE, SELFPAY ==
[2023-01-12 10:39] VITALS: BMI 17.6
[2023-09-23 09:53] LABS: Add Manual Diff / Slide Review NO; Basophils Absolute Auto 0 /uL (0-100); Basophils Percent Auto 0.8 % (0-2); Eosinophils Absolute Auto 100 /uL (0-450); Eosinophils Percent Auto 1.8 % (2-4); Hematocrit 40.5 % (36-46); Hemoglobin 13.2 g/dL (12.0-16.0); Lymphocytes Absolute Auto 500 /uL (1100-4500); Lymphocytes Percent Auto 12.7 % (25-40); Mean Corpuscular HGB Conc 32.5 % (30-36); Mean Corpuscular Hemoglobin 30.2 PG (26-34); Mean Corpuscular Volume 93.1 fL (80-100); Monocytes Absolute Auto 300 /uL (0-900); Monocytes Percent Auto 7.8 % (3-14); Neutrophils Absolute Auto 3300 /uL (1500-7000); Neutrophils Percent Auto 76.9 % (50-75); Platelet Count 215 X10^3/uL (150-400); Red Blood Cell Count 4.35 X10^6/uL (4.0-5.2); Red Cell Distribution Width 15.7 % (11.6-14.8); White Blood Cell Count 4.3 X10^3/uL (4.5-11.0)
[2023-09-23 10:14] LABS: Alanine Aminotransferase 62 IU/L (<35); Albumin 3.3 g/dL (3.5-5.0); Albumin Globulin Ratio 1.1 (1.0-2.8); Alkaline Phosphatase 164 U/L (38-126); Aspartate Aminotransferase 84 IU/L (14-36); BUN Creatinine Ratio 28.8 (6-22); Bilirubin Total 0.5 mg/dL (0.2-1.3); Blood Urea Nitrogen 17 mg/dL (7-17); C-Reactive Protein Quant 1.3 mg/dL (<1.0); Calcium 9.8 mg/dL (8.4-10.2); Carbon Dioxide 26 mmol/L (22-32); Chloride 100 mmol/L (98-107); Estimated Glomerular Filt Rate > 60 mL/min (>60); Globulin 2.9 g/dL (1.7-4.1); Glucose 124 mg/dL (80-110); HEMOLYSIS < 15 (0-50); Sodium 134 mmol/L (137-145); Total Protein 6.2 g/dL (6.3-8.2)
== END ==
PROVIDERS: Family Provider Family Medicine; PCP Family Medicine; Visit Provider Internal Medicine Infectious Disease
DX: M86.4 Chronic osteomyelitis with draining sinus (principal); A49.01 Methicillin susceptible Staphylococcus aureus infection, unspecified site; G06.2 Extradural and subdural abscess, unspecified; M46.20 Osteomyelitis of vertebra, site unspecified
CPT/HCPCS: 80053; 85025; 86140

== ENCOUNTER → 2023-09-24 09:31 | Outpatient (CLI) | payer MEDICARE, SELFPAY ==
[2023-01-12 10:39] VITALS: BMI 17.6
== END ==
LOC: WC 09-27 09:32
PROVIDERS: Family Provider Family Medicine; PCP Family Medicine; Referring Provider Family Medicine; Visit Provider Physician Assistant
DX: L98.492 Non-pressure chronic ulcer of skin of other sites with fat layer exposed (principal); G62.9 Polyneuropathy, unspecified; T81.89XA Other complications of procedures, not elsewhere classified, initial encounter; S21.209A Unspecified open wound of unspecified back wall of thorax without penetration into thoracic cavity, initial encounter
CPT/HCPCS: 97606

== ENCOUNTER → 2023-09-27 09:29 | Outpatient (ROUT) | payer MEDICARE, SELFPAY ==
[2023-01-12 10:39] VITALS: BMI 17.6
[2023-09-27 09:35] LABS: Add Manual Diff / Slide Review NO; Basophils Absolute Auto 0 /uL (0-100); Eosinophils Absolute Auto 100 /uL (0-450); Eosinophils Percent Auto 1.8 % (2-4); Hematocrit 39.7 % (36-46); Lymphocytes Absolute Auto 600 /uL (1100-4500); Lymphocytes Percent Auto 16.4 % (25-40); Mean Corpuscular HGB Conc 32.8 % (30-36); Mean Corpuscular Hemoglobin 30.8 PG (26-34); Mean Corpuscular Volume 93.7 fL (80-100); Monocytes Absolute Auto 300 /uL (0-900); Monocytes Percent Auto 7.2 % (3-14); Neutrophils Absolute Auto 2800 /uL (1500-7000); Neutrophils Percent Auto 73.6 % (50-75); Platelet Count 192 X10^3/uL (150-400); Red Blood Cell Count 4.24 X10^6/uL (4.0-5.2); Red Cell Distribution Width 15.7 % (11.6-14.8); White Blood Cell Count 3.8 X10^3/uL (4.5-11.0)
[2023-09-27 09:52] LABS: Alanine Aminotransferase 40 IU/L (<35); Albumin 3.5 g/dL (3.5-5.0); Albumin Globulin Ratio 1.3 (1.0-2.8); Alkaline Phosphatase 144 U/L (38-126); Aspartate Aminotransferase 72 IU/L (14-36); BUN Creatinine Ratio 26.2 (6-22); Bilirubin Total 0.4 mg/dL (0.2-1.3); Blood Urea Nitrogen 17 mg/dL (7-17); Calcium 9.6 mg/dL (8.4-10.2); Carbon Dioxide 23 mmol/L (22-32); Chloride 100 mmol/L (98-107); Estimated Glomerular Filt Rate > 60 mL/min (>60); Globulin 2.8 g/dL (1.7-4.1); Glucose 159 mg/dL (80-110); HEMOLYSIS < 15 (0-50); Potassium 3.9 mmol/L (3.4-5.1); Sodium 134 mmol/L (137-145); Total Protein 6.3 g/dL (6.3-8.2)
== END ==
PROVIDERS: Family Provider Family Medicine; PCP Family Medicine; Visit Provider Internal Medicine Infectious Disease
DX: M86.4 Chronic osteomyelitis with draining sinus (principal); A49.01 Methicillin susceptible Staphylococcus aureus infection, unspecified site; G06.2 Extradural and subdural abscess, unspecified; M46.20 Osteomyelitis of vertebra, site unspecified
CPT/HCPCS: 80053; 85025; 86140

== ENCOUNTER → 2023-09-27 | Outpatient (CLI) | payer MEDICARE, SELFPAY ==
[2023-01-12 10:39] VITALS: BMI 17.6
== END ==
PROVIDERS: Family Provider Family Medicine; PCP Family Medicine; Referring Provider Family Medicine; Visit Provider Surgery
DX: T81.31XD Disruption of external operation (surgical) wound, not elsewhere classified, subsequent encounter (principal); Z16.30 Resistance to unspecified antimicrobial drugs; S31.000D Unspecified open wound of lower back and pelvis without penetration into retroperitoneum, subsequent encounter; L98.496 Non-pressure chronic ulcer of skin of other sites with bone involvement without evidence of necrosis; G62.9 Polyneuropathy, unspecified; T81.89XA Other complications of procedures, not elsewhere classified, initial encounter; S31.000A Unspecified open wound of lower back and pelvis without penetration into retroperitoneum, initial encounter; L53.9 Erythematous condition, unspecified; L98.8 Other specified disorders of the skin and subcutaneous tissue; Z79.2 Long term (current) use of antibiotics
CPT/HCPCS: 11042; 11045; 80053; 82728; 83540; 83550; 85025; 86140; 97605; 99212; 99214

== ENCOUNTER → 2023-10-04 11:08 | Outpatient (CLI) | payer MEDICARE, SELFPAY ==
[2023-09-28 15:07] VITALS: BMI 17.6
== END ==
PROVIDERS: Family Provider Family Medicine; PCP Family Medicine; Referring Provider Family Medicine; Visit Provider Surgery
DX: L98.496 Non-pressure chronic ulcer of skin of other sites with bone involvement without evidence of necrosis (principal); G62.9 Polyneuropathy, unspecified; T81.89XA Other complications of procedures, not elsewhere classified, initial encounter; S31.000A Unspecified open wound of lower back and pelvis without penetration into retroperitoneum, initial encounter; Z16.30 Resistance to unspecified antimicrobial drugs; I73.00 Raynaud's syndrome without gangrene; M86.4 Chronic osteomyelitis with draining sinus; A49.01 Methicillin susceptible Staphylococcus aureus infection, unspecified site; G06.2 Extradural and subdural abscess, unspecified; M46.20 Osteomyelitis of vertebra, site unspecified
CPT/HCPCS: 11042; 11045; 80053; 85025; 86140; 97605

== ENCOUNTER → 2023-10-04 16:42 | Outpatient (ROUT) | payer MEDICARE, SELFPAY ==
[2023-09-28 15:07] VITALS: BMI 17.6
[2023-10-04 17:06] LABS: Add Manual Diff / Slide Review NO; Basophils Absolute Auto 0 /uL (0-100); Eosinophils Absolute Auto 100 /uL (0-450); Eosinophils Percent Auto 2.2 % (2-4); Hematocrit 43.2 % (36-46); Hemoglobin 13.9 g/dL (12.0-16.0); Lymphocytes Absolute Auto 1000 /uL (1100-4500); Lymphocytes Percent Auto 21.9 % (25-40); Mean Corpuscular HGB Conc 32.2 % (30-36); Mean Corpuscular Hemoglobin 30.2 PG (26-34); Mean Corpuscular Volume 93.7 fL (80-100); Monocytes Absolute Auto 600 /uL (0-900); Monocytes Percent Auto 12.7 % (3-14); Neutrophils Absolute Auto 2800 /uL (1500-7000); Neutrophils Percent Auto 62.2 % (50-75); Platelet Count 229 X10^3/uL (150-400); Red Blood Cell Count 4.61 X10^6/uL (4.0-5.2); Red Cell Distribution Width 15.5 % (11.6-14.8); White Blood Cell Count 4.5 X10^3/uL (4.5-11.0)
[2023-10-04 17:22] LABS: Alanine Aminotransferase 36 IU/L (<35); Albumin 3.9 g/dL (3.5-5.0); Albumin Globulin Ratio 1.3 (1.0-2.8); Alkaline Phosphatase 151 U/L (38-126); Aspartate Aminotransferase 73 IU/L (14-36); BUN Creatinine Ratio 30.5 (6-22); Bilirubin Total 0.5 mg/dL (0.2-1.3); Blood Urea Nitrogen 18 mg/dL (7-17); Calcium 9.7 mg/dL (8.4-10.2); Carbon Dioxide 24 mmol/L (22-32); Chloride 101 mmol/L (98-107); Estimated Glomerular Filt Rate > 60 mL/min (>60); Globulin 3.1 g/dL (1.7-4.1); Glucose 94 mg/dL (80-110); HEMOLYSIS 17 (0-50); Potassium 4.9 mmol/L (3.4-5.1); Sodium 135 mmol/L (137-145)
== END ==
PROVIDERS: Family Provider Family Medicine; PCP Family Medicine; Visit Provider Internal Medicine Infectious Disease
DX: M86.4 Chronic osteomyelitis with draining sinus (principal); A49.01 Methicillin susceptible Staphylococcus aureus infection, unspecified site; G06.2 Extradural and subdural abscess, unspecified; M46.20 Osteomyelitis of vertebra, site unspecified
CPT/HCPCS: 80053; 85025; 86140

== ENCOUNTER → 2023-10-08 10:59 | Outpatient (CLI) | payer MEDICARE, SELFPAY ==
[2023-09-28 15:07] VITALS: BMI 17.6
--- NOTE | 2023-10-08 11:02 | DI.RAD.S_ITS ---
PROCEDURE: XR HAND RT MIN 3V INDICATIONS: Eval for osteo r 3rd digit TECHNIQUE: 3 views of the hand(s) acquired. COMPARISON: [facility], CR, XR HAND RT MIN 3V, 05/19/2023, 12:09. FINDINGS: Bones: Bones are osteopenic. Severe osteoarthritis is present throughout the interphalangeal joints, the 1st CMC joint, the triscaphe joint, and the radiocarpal joint. There is negative ulnar deviation. No acute fracture or dislocation. There is subluxation of the 3rd-5th PIP joints. No definite cortical abnormality visualized at the distal aspect of the 3rd digit. Soft tissues: There is soft tissue amputation at the distal aspect of the 3rd digit. No suspicious soft tissue calcifications. IMPRESSION: 1. Although no bony erosions are identified at the distal aspect of the 3rd digit, plain film radiography is relatively insensitive in the acute phases of osteomyelitis and may not demonstrate radiographic changes for 15 days. If acute osteomyelitis is of clinical concern, nuclear medicine regional bone scan or MRI is recommended. 2. Severe osteoarthritis as above. Dictated by: Carolina Bell M.D. on 10/08/2023 at 13:26 Approved by: Carolina Bell M.D. on 10/08/2023 at 13:27
== END ==
LOC: RAD 11:00
PROVIDERS: Family Provider Family Medicine; PCP Family Medicine; Referring Provider Surgery; Visit Provider Surgery
DX: M86.4 Chronic osteomyelitis with draining sinus (principal); L08.9 Local infection of the skin and subcutaneous tissue, unspecified; M18.11 Unilateral primary osteoarthritis of first carpometacarpal joint, right hand; M19.041 Primary osteoarthritis, right hand; M19.031 Primary osteoarthritis, right wrist
CPT/HCPCS: 36415; 73130; 80076; 82550; 87040

== ENCOUNTER → 2023-10-08 14:08 | Outpatient (CLI) | payer MEDICARE, SELFPAY ==
[2023-09-28 15:07] VITALS: BMI 17.6
[2023-10-08 15:24] LABS: Alanine Aminotransferase 28 IU/L (<35); Albumin Globulin Ratio 1.1 (1.0-2.8); Alkaline Phosphatase 146 U/L (38-126); Aspartate Aminotransferase 64 IU/L (14-36); Bilirubin Total 0.6 mg/dL (0.2-1.3); Bilirubin Unconjugated 0.1 mg/dL (0.0-1.1); Creatine Kinase 33 U/L (30-135); Globulin 3.7 g/dL (1.7-4.1); HEMOLYSIS < 15 (0-50); Total Protein 7.7 g/dL (6.3-8.2)
== END ==
LOC: LAB 14:10
PROVIDERS: Family Provider Family Medicine; PCP Family Medicine; Referring Provider Internal Medicine Infectious Disease; Visit Provider Internal Medicine Infectious Disease
DX: M86.4 Chronic osteomyelitis with draining sinus (principal)
CPT/HCPCS: 36415; 80076; 82550; 87040

== ENCOUNTER → 2023-10-11 11:14 | Outpatient (CLI) | payer MEDICARE, SELFPAY ==
[2023-09-28 15:07] VITALS: BMI 17.6
== END ==
LOC: WC 11:15
PROVIDERS: Family Provider Family Medicine; PCP Family Medicine; Referring Provider Family Medicine; Visit Provider Surgery
DX: T81.31XA Disruption of external operation (surgical) wound, not elsewhere classified, initial encounter (principal); S31.000A Unspecified open wound of lower back and pelvis without penetration into retroperitoneum, initial encounter; G60.3 Idiopathic progressive neuropathy; L98.496 Non-pressure chronic ulcer of skin of other sites with bone involvement without evidence of necrosis; M86.9 Osteomyelitis, unspecified; L53.9 Erythematous condition, unspecified
CPT/HCPCS: 11042; 11045; 97605

== ENCOUNTER → 2023-10-18 13:38 | Outpatient (CLI) | payer MEDICARE, SELFPAY ==
[2023-09-28 15:07] VITALS: BMI 17.6
== END ==
PROVIDERS: Family Provider Family Medicine; PCP Family Medicine; Referring Provider Family Medicine; Visit Provider Surgery
DX: L98.496 Non-pressure chronic ulcer of skin of other sites with bone involvement without evidence of necrosis (principal); G62.9 Polyneuropathy, unspecified; T81.89XA Other complications of procedures, not elsewhere classified, initial encounter; S21.209A Unspecified open wound of unspecified back wall of thorax without penetration into thoracic cavity, initial encounter; L53.9 Erythematous condition, unspecified; R21 Rash and other nonspecific skin eruption; Z16.30 Resistance to unspecified antimicrobial drugs; R20.8 Other disturbances of skin sensation
CPT/HCPCS: 11042; 11045; 97605

== ENCOUNTER → 2023-10-19 09:52 | Outpatient (ROUT) | payer MEDICARE, SELFPAY ==
[2023-09-28 15:07] VITALS: BMI 17.6
[2023-10-19 09:58] LABS: Add Manual Diff / Slide Review NO; Basophils Absolute Auto 0 /uL (0-100); Basophils Percent Auto 0.8 % (0-2); Eosinophils Absolute Auto 100 /uL (0-450); Hematocrit 41.6 % (36-46); Hemoglobin 13.6 g/dL (12.0-16.0); Lymphocytes Absolute Auto 1100 /uL (1100-4500); Lymphocytes Percent Auto 19.3 % (25-40); Mean Corpuscular HGB Conc 32.8 % (30-36); Mean Corpuscular Hemoglobin 30.2 PG (26-34); Monocytes Absolute Auto 700 /uL (0-900); Monocytes Percent Auto 11.8 % (3-14); Neutrophils Absolute Auto 3800 /uL (1500-7000); Neutrophils Percent Auto 67.1 % (50-75); Platelet Count 249 X10^3/uL (150-400); Red Blood Cell Count 4.53 X10^6/uL (4.0-5.2); White Blood Cell Count 5.7 X10^3/uL (4.5-11.0)
[2023-10-19 10:13] LABS: Alanine Aminotransferase 21 IU/L (<35); Albumin 3.8 g/dL (3.5-5.0); Albumin Globulin Ratio 1.2 (1.0-2.8); Alkaline Phosphatase 145 U/L (38-126); Aspartate Aminotransferase 55 IU/L (14-36); BUN Creatinine Ratio 29.6 (6-22); Bilirubin Total 0.5 mg/dL (0.2-1.3); Blood Urea Nitrogen 16 mg/dL (7-17); C-Reactive Protein Quant 4.5 mg/dL (<1.0); Carbon Dioxide 22 mmol/L (22-32); Chloride 103 mmol/L (98-107); Estimated Glomerular Filt Rate > 60 mL/min (>60); Globulin 3.2 g/dL (1.7-4.1); Glucose 116 mg/dL (80-110); HEMOLYSIS < 15 (0-50); Potassium 4.4 mmol/L (3.4-5.1); Sodium 136 mmol/L (137-145)
== END ==
PROVIDERS: Family Provider Family Medicine; PCP Family Medicine; Visit Provider Internal Medicine Infectious Disease
DX: M86.4 Chronic osteomyelitis with draining sinus (principal); A49.01 Methicillin susceptible Staphylococcus aureus infection, unspecified site; G06.2 Extradural and subdural abscess, unspecified; M46.20 Osteomyelitis of vertebra, site unspecified
CPT/HCPCS: 80053; 85025; 86140

== ENCOUNTER → 2023-10-21 20:37 | Outpatient (ROUT) | payer MEDICARE, SELFPAY ==
[2023-09-28 15:07] VITALS: BMI 17.6
[2023-10-21 20:55] LABS: Add Manual Diff / Slide Review NO; Basophils Absolute Auto 0 /uL (0-100); Basophils Percent Auto 0.9 % (0-2); Eosinophils Absolute Auto 100 /uL (0-450); Hematocrit 37.3 % (36-46); Hemoglobin 12.4 g/dL (12.0-16.0); Lymphocytes Absolute Auto 900 /uL (1100-4500); Lymphocytes Percent Auto 19.8 % (25-40); Mean Corpuscular HGB Conc 33.1 % (30-36); Mean Corpuscular Hemoglobin 30.4 PG (26-34); Mean Corpuscular Volume 91.9 fL (80-100); Monocytes Absolute Auto 700 /uL (0-900); Monocytes Percent Auto 14.9 % (3-14); Neutrophils Absolute Auto 2900 /uL (1500-7000); Neutrophils Percent Auto 62.4 % (50-75); Platelet Count 210 X10^3/uL (150-400); Red Blood Cell Count 4.06 X10^6/uL (4.0-5.2); Red Cell Distribution Width 14.4 % (11.6-14.8); White Blood Cell Count 4.6 X10^3/uL (4.5-11.0)
[2023-10-21 20:56] LABS: Alanine Aminotransferase 19 IU/L (<35); Albumin 3.2 g/dL (3.5-5.0); Albumin Globulin Ratio 1.2 (1.0-2.8); Alkaline Phosphatase 128 U/L (38-126); Aspartate Aminotransferase 41 IU/L (14-36); Bilirubin Total 0.3 mg/dL (0.2-1.3); Blood Urea Nitrogen 28 mg/dL (7-17); C-Reactive Protein Quant 2.4 mg/dL (<1.0); Calcium 9.6 mg/dL (8.4-10.2); Carbon Dioxide 25 mmol/L (22-32); Chloride 103 mmol/L (98-107); Estimated Glomerular Filt Rate > 60 mL/min (>60); Globulin 2.7 g/dL (1.7-4.1); Glucose 93 mg/dL (80-110); HEMOLYSIS < 15 (0-50); Potassium 4.4 mmol/L (3.4-5.1); Sodium 137 mmol/L (137-145); Total Protein 5.9 g/dL (6.3-8.2)
== END ==
PROVIDERS: Family Provider Family Medicine; PCP Family Medicine; Visit Provider Internal Medicine Infectious Disease
DX: M86.4 Chronic osteomyelitis with draining sinus (principal); A49.01 Methicillin susceptible Staphylococcus aureus infection, unspecified site; G06.2 Extradural and subdural abscess, unspecified; M46.20 Osteomyelitis of vertebra, site unspecified
CPT/HCPCS: 80053; 85025; 86140

== ENCOUNTER → 2023-10-25 14:53 | Outpatient (CLI) | payer MEDICARE, SELFPAY ==
[2023-09-28 15:07] VITALS: BMI 17.6
== END ==
LOC: WC 14:54
PROVIDERS: Family Provider Family Medicine; PCP Family Medicine; Referring Provider Family Medicine; Visit Provider Surgery
DX: Z16.30 Resistance to unspecified antimicrobial drugs (principal); T81.31XD Disruption of external operation (surgical) wound, not elsewhere classified, subsequent encounter; S31.000D Unspecified open wound of lower back and pelvis without penetration into retroperitoneum, subsequent encounter; L98.496 Non-pressure chronic ulcer of skin of other sites with bone involvement without evidence of necrosis
CPT/HCPCS: 11042; 11045; 97597; 99212

== ENCOUNTER → 2023-11-01 11:52 | Outpatient (CLI) | payer MEDICARE, SELFPAY ==
[2023-09-28 15:07] VITALS: BMI 17.6
== END ==
LOC: WC 11:53
PROVIDERS: Family Provider Family Medicine; PCP Family Medicine; Referring Provider Family Medicine; Visit Provider Surgery
DX: L98.496 Non-pressure chronic ulcer of skin of other sites with bone involvement without evidence of necrosis (principal); Z16.30 Resistance to unspecified antimicrobial drugs; G62.9 Polyneuropathy, unspecified; T81.89XA Other complications of procedures, not elsewhere classified, initial encounter; S31.000A Unspecified open wound of lower back and pelvis without penetration into retroperitoneum, initial encounter; L98.8 Other specified disorders of the skin and subcutaneous tissue; L53.9 Erythematous condition, unspecified
CPT/HCPCS: 11042; 11044; 11045; 97605

== ENCOUNTER → 2023-11-05 11:12 | Outpatient (ROUT) | payer MEDICARE, SELFPAY ==
[2023-09-28 15:07] VITALS: BMI 17.6
[2023-11-05 11:24] LABS: Add Manual Diff / Slide Review NO; Basophils Absolute Auto 0 /uL (0-100); Basophils Percent Auto 0.8 % (0-2); Eosinophils Absolute Auto 0 /uL (0-450); Eosinophils Percent Auto 0.5 % (2-4); Hematocrit 36.9 % (36-46); Hemoglobin 12.2 g/dL (12.0-16.0); Lymphocytes Absolute Auto 800 /uL (1100-4500); Lymphocytes Percent Auto 14.8 % (25-40); Mean Corpuscular HGB Conc 33.1 % (30-36); Mean Corpuscular Hemoglobin 30.1 PG (26-34); Mean Corpuscular Volume 90.9 fL (80-100); Monocytes Absolute Auto 500 /uL (0-900); Monocytes Percent Auto 9.7 % (3-14); Neutrophils Absolute Auto 3800 /uL (1500-7000); Neutrophils Percent Auto 74.2 % (50-75); Platelet Count 220 X10^3/uL (150-400); Red Blood Cell Count 4.06 X10^6/uL (4.0-5.2); Red Cell Distribution Width 14.4 % (11.6-14.8); White Blood Cell Count 5.1 X10^3/uL (4.5-11.0)
[2023-11-05 11:46] LABS: Alanine Aminotransferase 31 IU/L (<35); Albumin 2.8 g/dL (3.5-5.0); Albumin Globulin Ratio 1.1 (1.0-2.8); Alkaline Phosphatase 132 U/L (38-126); Aspartate Aminotransferase 45 IU/L (14-36); BUN Creatinine Ratio 27.5 (6-22); Bilirubin Total 0.5 mg/dL (0.2-1.3); Blood Urea Nitrogen 19 mg/dL (7-17); C-Reactive Protein Quant 3.2 mg/dL (<1.0); Calcium 8.8 mg/dL (8.4-10.2); Carbon Dioxide 26 mmol/L (22-32); Chloride 105 mmol/L (98-107); Estimated Glomerular Filt Rate > 60 mL/min (>60); Globulin 2.6 g/dL (1.7-4.1); Glucose 106 mg/dL (80-110); HEMOLYSIS < 15 (0-50); Potassium 4.1 mmol/L (3.4-5.1); Sodium 136 mmol/L (137-145); Total Protein 5.4 g/dL (6.3-8.2)
== END ==
PROVIDERS: Family Provider Family Medicine; PCP Family Medicine; Visit Provider Internal Medicine Infectious Disease
DX: M46.20 Osteomyelitis of vertebra, site unspecified (principal); T81.89XA Other complications of procedures, not elsewhere classified, initial encounter; A49.8 Other bacterial infections of unspecified site
CPT/HCPCS: 80053; 85025; 86140

== ENCOUNTER → 2023-11-15 10:52 | Outpatient (CLI) | payer MEDICARE, SELFPAY ==
[2023-09-28 15:07] VITALS: BMI 17.6
== END ==
LOC: WC 10:53
PROVIDERS: Family Provider Family Medicine; PCP Family Medicine; Referring Provider Family Medicine; Visit Provider Surgery
DX: L98.496 Non-pressure chronic ulcer of skin of other sites with bone involvement without evidence of necrosis (principal); Z16.30 Resistance to unspecified antimicrobial drugs; G62.9 Polyneuropathy, unspecified; T81.89XA Other complications of procedures, not elsewhere classified, initial encounter; S31.000A Unspecified open wound of lower back and pelvis without penetration into retroperitoneum, initial encounter; L98.8 Other specified disorders of the skin and subcutaneous tissue; L53.9 Erythematous condition, unspecified; R23.4 Changes in skin texture
CPT/HCPCS: 11042; 11044; 11045; 99212; 99213

== ENCOUNTER → 2023-11-22 11:40 | Outpatient (CLI) | payer MEDICARE, SELFPAY ==
[2023-09-28 15:07] VITALS: BMI 17.6
[2023-12-13 09:32] LABS: Misc. to WA State Lab SEE SCANNED REPORTS
== END ==
PROVIDERS: Family Provider Family Medicine; PCP Family Medicine; Referring Provider Family Medicine; Visit Provider Surgery
DX: L98.496 Non-pressure chronic ulcer of skin of other sites with bone involvement without evidence of necrosis (principal); G62.9 Polyneuropathy, unspecified; T81.89XA Other complications of procedures, not elsewhere classified, initial encounter; S31.000A Unspecified open wound of lower back and pelvis without penetration into retroperitoneum, initial encounter; L98.8 Other specified disorders of the skin and subcutaneous tissue; L53.9 Erythematous condition, unspecified; C50.911 Malignant neoplasm of unspecified site of right female breast; M46.20 Osteomyelitis of vertebra, site unspecified; A49.8 Other bacterial infections of unspecified site; Z17.0 Estrogen receptor positive status [ER+]; Z16.30 Resistance to unspecified antimicrobial drugs
CPT/HCPCS: 11042; 11045; 36415; 80053; 82550; 85025; 86140; 86300; 87070; 87075; 87077; 87205; 97605; 99213

== ENCOUNTER → 2023-11-22 12:24 | Outpatient (CLI) | payer MEDICARE, SELFPAY ==
[2023-09-28 15:07] VITALS: BMI 17.6
[2023-11-22 13:53] LABS: Add Manual Diff / Slide Review NO; Basophils Absolute Auto 100 /uL (0-100); Basophils Percent Auto 0.9 % (0-2); Eosinophils Absolute Auto 200 /uL (0-450); Eosinophils Percent Auto 3.1 % (2-4); Hematocrit 37.7 % (36-46); Hemoglobin 12.5 g/dL (12.0-16.0); Lymphocytes Absolute Auto 900 /uL (1100-4500); Lymphocytes Percent Auto 16.2 % (25-40); Mean Corpuscular HGB Conc 33.1 % (30-36); Mean Corpuscular Hemoglobin 30.2 PG (26-34); Mean Corpuscular Volume 91.1 fL (80-100); Monocytes Absolute Auto 600 /uL (0-900); Neutrophils Absolute Auto 3800 /uL (1500-7000); Neutrophils Percent Auto 68.8 % (50-75); Platelet Count 209 X10^3/uL (150-400); Red Blood Cell Count 4.14 X10^6/uL (4.0-5.2); Red Cell Distribution Width 14.9 % (11.6-14.8); White Blood Cell Count 5.5 X10^3/uL (4.5-11.0)
[2023-11-22 14:24] LABS: Alanine Aminotransferase 48 IU/L (<35); Albumin 3.3 g/dL (3.5-5.0); Albumin Globulin Ratio 1.1 (1.0-2.8); Alkaline Phosphatase 147 U/L (38-126); Aspartate Aminotransferase 69 IU/L (14-36); Bilirubin Total 0.5 mg/dL (0.2-1.3); Blood Urea Nitrogen 17 mg/dL (7-17); Carbon Dioxide 22 mmol/L (22-32); Chloride 105 mmol/L (98-107); Estimated Glomerular Filt Rate > 60 mL/min (>60); Glucose 82 mg/dL (80-110); HEMOLYSIS 42 (0-50); Potassium 4.8 mmol/L (3.4-5.1); Sodium 136 mmol/L (137-145); Total Protein 6.3 g/dL (6.3-8.2)
[2023-11-24 10:11] LABS: Cancer Antigen 27.29 34.2 U/mL (0.0-38.6)
== END ==
PROVIDERS: Family Provider Family Medicine; PCP Family Medicine; Referring Provider Nurse Practitioner; Visit Provider Nurse Practitioner
DX: C50.911 Malignant neoplasm of unspecified site of right female breast (principal); Z17.0 Estrogen receptor positive status [ER+]; M46.20 Osteomyelitis of vertebra, site unspecified; T81.89XD Other complications of procedures, not elsewhere classified, subsequent encounter; A49.8 Other bacterial infections of unspecified site
CPT/HCPCS: 36415; 80053; 82550; 85025; 86140; 86300; 87070; 87075; 87205

== ENCOUNTER → 2023-11-22 16:12 | Outpatient (ROUT) | payer MEDICARE, SELFPAY ==
[2023-09-28 15:07] VITALS: BMI 17.6
[2023-11-22 16:30] LABS: Add Manual Diff / Slide Review NO; Basophils Absolute Auto 100 /uL (0-100); Basophils Percent Auto 1.4 % (0-2); Eosinophils Absolute Auto 200 /uL (0-450); Eosinophils Percent Auto 3.2 % (2-4); Hematocrit 38.8 % (36-46); Hemoglobin 12.6 g/dL (12.0-16.0); Lymphocytes Absolute Auto 600 /uL (1100-4500); Lymphocytes Percent Auto 11.9 % (25-40); Mean Corpuscular HGB Conc 32.5 % (30-36); Mean Corpuscular Hemoglobin 29.8 PG (26-34); Mean Corpuscular Volume 91.7 fL (80-100); Monocytes Absolute Auto 500 /uL (0-900); Monocytes Percent Auto 9.9 % (3-14); Neutrophils Absolute Auto 3700 /uL (1500-7000); Neutrophils Percent Auto 73.6 % (50-75); Platelet Count 218 X10^3/uL (150-400); Red Blood Cell Count 4.23 X10^6/uL (4.0-5.2); Red Cell Distribution Width 14.9 % (11.6-14.8)
[2023-11-22 16:38] LABS: Alanine Aminotransferase 50 IU/L (<35); Albumin 3.4 g/dL (3.5-5.0); Albumin Globulin Ratio 1.2 (1.0-2.8); Alkaline Phosphatase 143 U/L (38-126); Aspartate Aminotransferase 72 IU/L (14-36); Bilirubin Total 0.4 mg/dL (0.2-1.3); Blood Urea Nitrogen 14 mg/dL (7-17); C-Reactive Protein Quant 2.9 mg/dL (<1.0); Calcium 9.1 mg/dL (8.4-10.2); Carbon Dioxide 23 mmol/L (22-32); Chloride 104 mmol/L (98-107); Creatine Kinase 40 U/L (30-135); Estimated Glomerular Filt Rate > 60 mL/min (>60); Globulin 2.9 g/dL (1.7-4.1); Glucose 104 mg/dL (80-110); HEMOLYSIS 22 (0-50); Potassium 3.8 mmol/L (3.4-5.1); Sodium 138 mmol/L (137-145); Total Protein 6.3 g/dL (6.3-8.2)
== END ==
PROVIDERS: Family Provider Family Medicine; PCP Family Medicine; Visit Provider Internal Medicine Infectious Disease
DX: M46.20 Osteomyelitis of vertebra, site unspecified (principal); T81.89XD Other complications of procedures, not elsewhere classified, subsequent encounter; A49.8 Other bacterial infections of unspecified site
CPT/HCPCS: 80053; 82550; 85025; 86140

== ENCOUNTER → 2023-11-25 14:53 | Outpatient (ROUT) | payer MEDICARE, SELFPAY ==
[2023-09-28 15:07] VITALS: BMI 17.6
[2023-11-25 15:02] LABS: Add Manual Diff / Slide Review NO; Basophils Absolute Auto 100 /uL (0-100); Basophils Percent Auto 1.1 % (0-2); Eosinophils Absolute Auto 200 /uL (0-450); Eosinophils Percent Auto 4.7 % (2-4); Hematocrit 34.9 % (36-46); Hemoglobin 11.7 g/dL (12.0-16.0); Lymphocytes Absolute Auto 800 /uL (1100-4500); Lymphocytes Percent Auto 15.3 % (25-40); Mean Corpuscular HGB Conc 33.5 % (30-36); Mean Corpuscular Hemoglobin 30.9 PG (26-34); Mean Corpuscular Volume 92.4 fL (80-100); Monocytes Absolute Auto 500 /uL (0-900); Monocytes Percent Auto 9.7 % (3-14); Neutrophils Absolute Auto 3600 /uL (1500-7000); Neutrophils Percent Auto 69.2 % (50-75); Platelet Count 210 X10^3/uL (150-400); Red Blood Cell Count 3.78 X10^6/uL (4.0-5.2); Red Cell Distribution Width 14.8 % (11.6-14.8); White Blood Cell Count 5.2 X10^3/uL (4.5-11.0)
[2023-11-25 15:30] LABS: Alanine Aminotransferase 46 IU/L (<35); Albumin 2.8 g/dL (3.5-5.0); Alkaline Phosphatase 146 U/L (38-126); Aspartate Aminotransferase 66 IU/L (14-36); BUN Creatinine Ratio 32.6 (6-22); Bilirubin Total 0.4 mg/dL (0.2-1.3); Blood Urea Nitrogen 15 mg/dL (7-17); Calcium 8.7 mg/dL (8.4-10.2); Carbon Dioxide 25 mmol/L (22-32); Chloride 108 mmol/L (98-107); Creatine Kinase 30 U/L (30-135); Estimated Glomerular Filt Rate > 60 mL/min (>60); Globulin 2.7 g/dL (1.7-4.1); Glucose 118 mg/dL (80-110); HEMOLYSIS < 15 (0-50); Potassium 4.2 mmol/L (3.4-5.1); Sodium 137 mmol/L (137-145); Total Protein 5.5 g/dL (6.3-8.2)
== END ==
PROVIDERS: Family Provider Family Medicine; PCP Family Medicine; Visit Provider Internal Medicine Infectious Disease
DX: M46.20 Osteomyelitis of vertebra, site unspecified (principal); T81.89XD Other complications of procedures, not elsewhere classified, subsequent encounter; A49.8 Other bacterial infections of unspecified site
CPT/HCPCS: 80053; 82550; 85025; 86140

== ENCOUNTER → 2023-11-29 10:57 | Outpatient (CLI) | payer MEDICARE, SELFPAY ==
[2023-09-28 15:07] VITALS: BMI 17.6
== END ==
LOC: WC 11:00
PROVIDERS: Family Provider Family Medicine; PCP Family Medicine; Referring Provider Family Medicine; Visit Provider Surgery
DX: L98.496 Non-pressure chronic ulcer of skin of other sites with bone involvement without evidence of necrosis (principal); G62.9 Polyneuropathy, unspecified; T81.89XA Other complications of procedures, not elsewhere classified, initial encounter; S21.209A Unspecified open wound of unspecified back wall of thorax without penetration into thoracic cavity, initial encounter; L98.8 Other specified disorders of the skin and subcutaneous tissue; M86.141 Other acute osteomyelitis, right hand; Z16.30 Resistance to unspecified antimicrobial drugs
CPT/HCPCS: 11043; 11044; 11046; 97605

== ENCOUNTER → 2023-12-02 14:18 | Outpatient (ROUT) | payer MEDICARE, SELFPAY ==
[2023-09-28 15:07] VITALS: BMI 17.6
[2023-12-02 14:31] LABS: Add Manual Diff / Slide Review NO; Basophils Absolute Auto 0 /uL (0-100); Basophils Percent Auto 0.5 % (0-2); Eosinophils Absolute Auto 200 /uL (0-450); Eosinophils Percent Auto 3.2 % (2-4); Hematocrit 35.4 % (36-46); Hemoglobin 11.6 g/dL (12.0-16.0); Lymphocytes Absolute Auto 800 /uL (1100-4500); Lymphocytes Percent Auto 17.8 % (25-40); Mean Corpuscular HGB Conc 32.8 % (30-36); Mean Corpuscular Hemoglobin 30.3 PG (26-34); Mean Corpuscular Volume 92.5 fL (80-100); Monocytes Absolute Auto 500 /uL (0-900); Monocytes Percent Auto 11.4 % (3-14); Neutrophils Absolute Auto 3200 /uL (1500-7000); Neutrophils Percent Auto 67.1 % (50-75); Platelet Count 198 X10^3/uL (150-400); Red Blood Cell Count 3.83 X10^6/uL (4.0-5.2); Red Cell Distribution Width 14.7 % (11.6-14.8); White Blood Cell Count 4.8 X10^3/uL (4.5-11.0)
[2023-12-02 14:49] LABS: Alanine Aminotransferase 48 IU/L (<35); Albumin 2.7 g/dL (3.5-5.0); Albumin Globulin Ratio 1.1 (1.0-2.8); Alkaline Phosphatase 130 U/L (38-126); Aspartate Aminotransferase 72 IU/L (14-36); Bilirubin Total 0.4 mg/dL (0.2-1.3); Blood Urea Nitrogen 15 mg/dL (7-17); Calcium 8.6 mg/dL (8.4-10.2); Carbon Dioxide 28 mmol/L (22-32); Chloride 106 mmol/L (98-107); Estimated Glomerular Filt Rate > 60 mL/min (>60); Globulin 2.5 g/dL (1.7-4.1); Glucose 97 mg/dL (80-110); Potassium 4.4 mmol/L (3.4-5.1); Sodium 136 mmol/L (137-145); Total Protein 5.2 g/dL (6.3-8.2)
[2023-12-02 23:03] LABS: C-Reactive Protein Quant 3.1 mg/dL (<1.0); HEMOLYSIS 15 (0-50)
== END ==
PROVIDERS: Family Provider Family Medicine; PCP Family Medicine; Visit Provider Internal Medicine Infectious Disease
DX: M46.20 Osteomyelitis of vertebra, site unspecified (principal); T81.89XD Other complications of procedures, not elsewhere classified, subsequent encounter; A49.8 Other bacterial infections of unspecified site
CPT/HCPCS: 80053; 85025; 86140

== ENCOUNTER → 2023-12-06 14:34 | Outpatient (CLI) | payer MEDICARE, SELFPAY ==
[2023-09-28 15:07] VITALS: BMI 17.6
== END ==
PROVIDERS: Family Provider Family Medicine; PCP Family Medicine; Referring Provider Family Medicine; Visit Provider Surgery
DX: M46.20 Osteomyelitis of vertebra, site unspecified (principal); T84.89XD Other specified complication of internal orthopedic prosthetic devices, implants and grafts, subsequent encounter; A49.8 Other bacterial infections of unspecified site; L98.496 Non-pressure chronic ulcer of skin of other sites with bone involvement without evidence of necrosis; G62.9 Polyneuropathy, unspecified; T81.89XA Other complications of procedures, not elsewhere classified, initial encounter; S21.209A Unspecified open wound of unspecified back wall of thorax without penetration into thoracic cavity, initial encounter; L98.8 Other specified disorders of the skin and subcutaneous tissue; Z16.30 Resistance to unspecified antimicrobial drugs; M46.26 Osteomyelitis of vertebra, lumbar region; M86.241 Subacute osteomyelitis, right hand
CPT/HCPCS: 11043; 11046; 85025; 97597; 97605

== ENCOUNTER → 2023-12-06 18:09 | Outpatient (ROUT) | payer MEDICARE, SELFPAY ==
[2023-09-28 15:07] VITALS: BMI 17.6
[2023-12-06 18:49] LABS: Add Manual Diff / Slide Review NO; Basophils Absolute Auto 0 /uL (0-100); Eosinophils Absolute Auto 100 /uL (0-450); Eosinophils Percent Auto 2.7 % (2-4); Hematocrit 36.8 % (36-46); Hemoglobin 11.8 g/dL (12.0-16.0); Lymphocytes Absolute Auto 700 /uL (1100-4500); Lymphocytes Percent Auto 15.4 % (25-40); Mean Corpuscular Hemoglobin 29.8 PG (26-34); Monocytes Absolute Auto 500 /uL (0-900); Monocytes Percent Auto 11.1 % (3-14); Neutrophils Absolute Auto 3100 /uL (1500-7000); Neutrophils Percent Auto 69.8 % (50-75); Platelet Count 218 X10^3/uL (150-400); Red Blood Cell Count 3.96 X10^6/uL (4.0-5.2); White Blood Cell Count 4.5 X10^3/uL (4.5-11.0)
== END ==
PROVIDERS: Family Provider Family Medicine; PCP Family Medicine; Visit Provider Internal Medicine Infectious Disease
DX: M46.20 Osteomyelitis of vertebra, site unspecified (principal); T84.89XD Other specified complication of internal orthopedic prosthetic devices, implants and grafts, subsequent encounter; A49.8 Other bacterial infections of unspecified site
CPT/HCPCS: 85025

== ENCOUNTER → 2023-12-13 08:43 | Outpatient (CLI) | payer MEDICARE, SELFPAY ==
[2023-09-28 15:07] VITALS: BMI 17.6
== END ==
PROVIDERS: Family Provider Family Medicine; PCP Family Medicine; Referring Provider Family Medicine; Visit Provider Surgery
DX: L98.496 Non-pressure chronic ulcer of skin of other sites with bone involvement without evidence of necrosis (principal); G62.9 Polyneuropathy, unspecified; T81.89XA Other complications of procedures, not elsewhere classified, initial encounter; S31.000A Unspecified open wound of lower back and pelvis without penetration into retroperitoneum, initial encounter; L98.8 Other specified disorders of the skin and subcutaneous tissue; Z16.30 Resistance to unspecified antimicrobial drugs; M86.141 Other acute osteomyelitis, right hand; M46.26 Osteomyelitis of vertebra, lumbar region; A49.8 Other bacterial infections of unspecified site
CPT/HCPCS: 11042; 11044; 80053; 85025; 86140; 97605; 99212

== ENCOUNTER → 2023-12-13 16:30 | Outpatient (ROUT) | payer MEDICARE, SELFPAY ==
[2023-09-28 15:07] VITALS: BMI 17.6
[2023-12-13 16:36] LABS: Add Manual Diff / Slide Review NO; Basophils Absolute Auto 0 /uL (0-100); Basophils Percent Auto 0.8 % (0-2); Eosinophils Absolute Auto 200 /uL (0-450); Eosinophils Percent Auto 3.1 % (2-4); Hematocrit 41.2 % (36-46); Hemoglobin 13.1 g/dL (12.0-16.0); Lymphocytes Absolute Auto 1200 /uL (1100-4500); Lymphocytes Percent Auto 22.1 % (25-40); Mean Corpuscular HGB Conc 31.7 % (30-36); Mean Corpuscular Hemoglobin 29.5 PG (26-34); Mean Corpuscular Volume 93.1 fL (80-100); Monocytes Absolute Auto 600 /uL (0-900); Monocytes Percent Auto 10.3 % (3-14); Neutrophils Absolute Auto 3400 /uL (1500-7000); Neutrophils Percent Auto 63.7 % (50-75); Platelet Count 248 X10^3/uL (150-400); Red Blood Cell Count 4.43 X10^6/uL (4.0-5.2); Red Cell Distribution Width 15.5 % (11.6-14.8); White Blood Cell Count 5.4 X10^3/uL (4.5-11.0)
[2023-12-13 16:53] LABS: Alanine Aminotransferase 60 IU/L (<35); Albumin 3.5 g/dL (3.5-5.0); Albumin Globulin Ratio 1.2 (1.0-2.8); Alkaline Phosphatase 143 U/L (38-126); Aspartate Aminotransferase 88 IU/L (14-36); BUN Creatinine Ratio 31.5 (6-22); Bilirubin Total 0.3 mg/dL (0.2-1.3); Blood Urea Nitrogen 17 mg/dL (7-17); C-Reactive Protein Quant 0.8 mg/dL (<1.0); Calcium 9.5 mg/dL (8.4-10.2); Carbon Dioxide 26 mmol/L (22-32); Chloride 103 mmol/L (98-107); Estimated Glomerular Filt Rate > 60 mL/min (>60); Glucose 132 mg/dL (80-110); HEMOLYSIS < 15 (0-50); Potassium 4.1 mmol/L (3.4-5.1); Sodium 137 mmol/L (137-145); Total Protein 6.5 g/dL (6.3-8.2)
== END ==
PROVIDERS: Family Provider Family Medicine; PCP Family Medicine; Visit Provider Internal Medicine Infectious Disease
DX: M46.20 Osteomyelitis of vertebra, site unspecified (principal); T81.89XD Other complications of procedures, not elsewhere classified, subsequent encounter; A49.8 Other bacterial infections of unspecified site
CPT/HCPCS: 80053; 85025; 86140

== ENCOUNTER → 2023-12-17 15:35 | Outpatient (ROUT) | payer MEDICARE, SELFPAY ==
[2023-09-28 15:07] VITALS: BMI 17.6
[2023-12-17 15:53] LABS: Add Manual Diff / Slide Review NO; Basophils Absolute Auto 0 /uL (0-100); Basophils Percent Auto 0.9 % (0-2); Eosinophils Absolute Auto 0 /uL (0-450); Eosinophils Percent Auto 0.8 % (2-4); Hematocrit 36.4 % (36-46); Hemoglobin 11.9 g/dL (12.0-16.0); Lymphocytes Absolute Auto 800 /uL (1100-4500); Lymphocytes Percent Auto 14.5 % (25-40); Mean Corpuscular HGB Conc 32.7 % (30-36); Mean Corpuscular Hemoglobin 30.1 PG (26-34); Mean Corpuscular Volume 92.3 fL (80-100); Monocytes Absolute Auto 600 /uL (0-900); Monocytes Percent Auto 11.3 % (3-14); Neutrophils Absolute Auto 4200 /uL (1500-7000); Neutrophils Percent Auto 72.5 % (50-75); Platelet Count 200 X10^3/uL (150-400); Red Blood Cell Count 3.94 X10^6/uL (4.0-5.2); Red Cell Distribution Width 15.1 % (11.6-14.8); White Blood Cell Count 5.7 X10^3/uL (4.5-11.0)
[2023-12-17 15:59] LABS: Alanine Aminotransferase 40 IU/L (<35); Albumin 2.9 g/dL (3.5-5.0); Alkaline Phosphatase 114 U/L (38-126); Aspartate Aminotransferase 66 IU/L (14-36); BUN Creatinine Ratio 39.2 (6-22); Bilirubin Total 0.4 mg/dL (0.2-1.3); Blood Urea Nitrogen 20 mg/dL (7-17); Carbon Dioxide 27 mmol/L (22-32); Chloride 103 mmol/L (98-107); Estimated Glomerular Filt Rate > 60 mL/min (>60); Globulin 2.8 g/dL (1.7-4.1); Glucose 101 mg/dL (80-110); HEMOLYSIS < 15 (0-50); Potassium 4.3 mmol/L (3.4-5.1); Sodium 135 mmol/L (137-145); Total Protein 5.7 g/dL (6.3-8.2)
[2023-12-17 16:03] LABS: High Sensitivity CRP - Cardiac 6.7 mg/L (1.0-3.0)
== END ==
PROVIDERS: Family Provider Family Medicine; PCP Family Medicine; Visit Provider Internal Medicine Infectious Disease
DX: M46.20 Osteomyelitis of vertebra, site unspecified (principal); T81.89XD Other complications of procedures, not elsewhere classified, subsequent encounter; A49.8 Other bacterial infections of unspecified site
CPT/HCPCS: 80053; 85025; 86140

== ENCOUNTER → 2023-12-20 09:14 | Outpatient (CLI) | payer MEDICARE, SELFPAY ==
[2023-09-28 15:07] VITALS: BMI 17.6
== END ==
LOC: WC 09:34
PROVIDERS: Family Provider Family Medicine; PCP Family Medicine; Referring Provider Family Medicine; Visit Provider Surgery
DX: L98.496 Non-pressure chronic ulcer of skin of other sites with bone involvement without evidence of necrosis (principal); G62.9 Polyneuropathy, unspecified; T81.89XA Other complications of procedures, not elsewhere classified, initial encounter; S31.000A Unspecified open wound of lower back and pelvis without penetration into retroperitoneum, initial encounter; L98.8 Other specified disorders of the skin and subcutaneous tissue; Z16.30 Resistance to unspecified antimicrobial drugs
CPT/HCPCS: 11042; 11044; 11045; 97605; 99213

== ENCOUNTER → 2023-12-27 09:30 | Outpatient (CLI) | payer MEDICARE, SELFPAY ==
[2023-09-28 15:07] VITALS: BMI 17.6
== END ==
PROVIDERS: Family Provider Family Medicine; PCP Family Medicine; Referring Provider Family Medicine; Visit Provider Surgery
DX: L98.496 Non-pressure chronic ulcer of skin of other sites with bone involvement without evidence of necrosis (principal); G62.9 Polyneuropathy, unspecified; T81.89XA Other complications of procedures, not elsewhere classified, initial encounter; S31.000A Unspecified open wound of lower back and pelvis without penetration into retroperitoneum, initial encounter; L98.8 Other specified disorders of the skin and subcutaneous tissue; Z16.30 Resistance to unspecified antimicrobial drugs
CPT/HCPCS: 11042; 97605

== ENCOUNTER → 2023-12-27 19:08 | Outpatient (CLI) | payer MEDICARE, SELFPAY ==
[2023-09-28 15:07] VITALS: BMI 17.6
[2023-12-27 19:37] LABS: Alanine Aminotransferase 39 IU/L (<35); Albumin 3.4 g/dL (3.5-5.0); Albumin Globulin Ratio 1.3 (1.0-2.8); Alkaline Phosphatase 120 U/L (38-126); Aspartate Aminotransferase 58 IU/L (14-36); BUN Creatinine Ratio 32.7 (6-22); Bilirubin Total 0.4 mg/dL (0.2-1.3); Blood Urea Nitrogen 16 mg/dL (7-17); C-Reactive Protein Quant 0.7 mg/dL (<1.0); Calcium 9.2 mg/dL (8.4-10.2); Carbon Dioxide 27 mmol/L (22-32); Chloride 102 mmol/L (98-107); Estimated Glomerular Filt Rate > 60 mL/min (>60); Globulin 2.7 g/dL (1.7-4.1); Glucose 95 mg/dL (80-110); HEMOLYSIS < 15 (0-50); Sodium 134 mmol/L (137-145); Total Protein 6.1 g/dL (6.3-8.2)
[2023-12-27 19:46] LABS: Add Manual Diff / Slide Review NO; Basophils Absolute Auto 100 /uL (0-100); Eosinophils Absolute Auto 0 /uL (0-450); Eosinophils Percent Auto 0.6 % (2-4); Hematocrit 37.9 % (36-46); Hemoglobin 12.2 g/dL (12.0-16.0); Lymphocytes Absolute Auto 700 /uL (1100-4500); Lymphocytes Percent Auto 13.9 % (25-40); Mean Corpuscular HGB Conc 32.2 % (30-36); Mean Corpuscular Hemoglobin 29.5 PG (26-34); Mean Corpuscular Volume 91.7 fL (80-100); Monocytes Absolute Auto 600 /uL (0-900); Monocytes Percent Auto 12.4 % (3-14); Neutrophils Absolute Auto 3600 /uL (1500-7000); Neutrophils Percent Auto 72.1 % (50-75); Platelet Count 206 X10^3/uL (150-400); Red Blood Cell Count 4.14 X10^6/uL (4.0-5.2); Red Cell Distribution Width 14.9 % (11.6-14.8)
== END ==
PROVIDERS: Family Provider Family Medicine; PCP Family Medicine; Visit Provider Internal Medicine Infectious Disease
DX: M46.20 Osteomyelitis of vertebra, site unspecified (principal); T81.89XD Other complications of procedures, not elsewhere classified, subsequent encounter; A49.8 Other bacterial infections of unspecified site
CPT/HCPCS: 11042; 80053; 85025; 86140; 97605

== ENCOUNTER → 2023-12-30 17:14 | Outpatient (ROUT) | payer MEDICARE, SELFPAY ==
[2023-12-29 18:01] VITALS: BMI 17.6
[2023-12-30 17:29] LABS: Add Manual Diff / Slide Review NO; Basophils Absolute Auto 200 /uL (0-100); Basophils Percent Auto 2.5 % (0-2); Eosinophils Absolute Auto 100 /uL (0-450); Eosinophils Percent Auto 1.2 % (2-4); Hematocrit 39.2 % (36-46); Hemoglobin 12.6 g/dL (12.0-16.0); Lymphocytes Absolute Auto 1100 /uL (1100-4500); Lymphocytes Percent Auto 18.1 % (25-40); Mean Corpuscular Hemoglobin 29.7 PG (26-34); Mean Corpuscular Volume 92.7 fL (80-100); Monocytes Absolute Auto 600 /uL (0-900); Monocytes Percent Auto 9.6 % (3-14); Neutrophils Absolute Auto 4300 /uL (1500-7000); Neutrophils Percent Auto 68.6 % (50-75); Platelet Count 237 X10^3/uL (150-400); Red Blood Cell Count 4.23 X10^6/uL (4.0-5.2); Red Cell Distribution Width 14.9 % (11.6-14.8); White Blood Cell Count 6.3 X10^3/uL (4.5-11.0)
[2023-12-30 17:55] LABS: Alanine Aminotransferase 32 IU/L (<35); Albumin 3.5 g/dL (3.5-5.0); Albumin Globulin Ratio 1.3 (1.0-2.8); Alkaline Phosphatase 117 U/L (38-126); Aspartate Aminotransferase 52 IU/L (14-36); BUN Creatinine Ratio 36.2 (6-22); Bilirubin Total 0.4 mg/dL (0.2-1.3); Blood Urea Nitrogen 21 mg/dL (7-17); C-Reactive Protein Quant 1.5 mg/dL (<1.0); Calcium 9.2 mg/dL (8.4-10.2); Carbon Dioxide 28 mmol/L (22-32); Chloride 105 mmol/L (98-107); Estimated Glomerular Filt Rate > 60 mL/min (>60); Globulin 2.7 g/dL (1.7-4.1); Glucose 122 mg/dL (80-110); HEMOLYSIS < 15 (0-50); Potassium 4.2 mmol/L (3.4-5.1); Sodium 140 mmol/L (137-145); Total Protein 6.2 g/dL (6.3-8.2)
== END ==
PROVIDERS: Family Provider Family Medicine; PCP Family Medicine; Visit Provider Internal Medicine Infectious Disease
DX: M46.20 Osteomyelitis of vertebra, site unspecified (principal); T81.89XD Other complications of procedures, not elsewhere classified, subsequent encounter; A49.8 Other bacterial infections of unspecified site
CPT/HCPCS: 80053; 85025; 86140

== ENCOUNTER → 2024-01-03 18:35 | Outpatient (ROUT) | payer MEDICARE, SELFPAY ==
[2023-12-29 18:01] VITALS: BMI 17.6
[2024-01-03 18:41] LABS: Add Manual Diff / Slide Review NO; Basophils Absolute Auto 100 /uL (0-100); Eosinophils Absolute Auto 100 /uL (0-450); Eosinophils Percent Auto 1.5 % (2-4); Hematocrit 40.1 % (36-46); Hemoglobin 13.1 g/dL (12.0-16.0); Lymphocytes Absolute Auto 1200 /uL (1100-4500); Lymphocytes Percent Auto 21.7 % (25-40); Mean Corpuscular HGB Conc 32.7 % (30-36); Mean Corpuscular Hemoglobin 30.1 PG (26-34); Mean Corpuscular Volume 91.8 fL (80-100); Monocytes Absolute Auto 600 /uL (0-900); Monocytes Percent Auto 10.3 % (3-14); Neutrophils Absolute Auto 3600 /uL (1500-7000); Neutrophils Percent Auto 65.5 % (50-75); Platelet Count 250 X10^3/uL (150-400); Red Blood Cell Count 4.36 X10^6/uL (4.0-5.2); White Blood Cell Count 5.5 X10^3/uL (4.5-11.0)
[2024-01-03 18:49] LABS: Alanine Aminotransferase 40 IU/L (<35); Albumin 3.8 g/dL (3.5-5.0); Albumin Globulin Ratio 1.4 (1.0-2.8); Alkaline Phosphatase 139 U/L (38-126); Aspartate Aminotransferase 66 IU/L (14-36); BUN Creatinine Ratio 29.4 (6-22); Bilirubin Total 0.5 mg/dL (0.2-1.3); Blood Urea Nitrogen 15 mg/dL (7-17); C-Reactive Protein Quant 1.4 mg/dL (<1.0); Calcium 9.5 mg/dL (8.4-10.2); Carbon Dioxide 25 mmol/L (22-32); Chloride 102 mmol/L (98-107); Estimated Glomerular Filt Rate > 60 mL/min (>60); Globulin 2.8 g/dL (1.7-4.1); Glucose 127 mg/dL (80-110); HEMOLYSIS 18 (0-50); Potassium 4.4 mmol/L (3.4-5.1); Sodium 137 mmol/L (137-145); Total Protein 6.6 g/dL (6.3-8.2)
== END ==
PROVIDERS: Family Provider Family Medicine; PCP Family Medicine; Visit Provider Internal Medicine Infectious Disease
DX: M46.20 Osteomyelitis of vertebra, site unspecified (principal); T81.89XD Other complications of procedures, not elsewhere classified, subsequent encounter; A49.8 Other bacterial infections of unspecified site
CPT/HCPCS: 80053; 85025; 86140

== ENCOUNTER → 2024-01-06 18:05 | Outpatient (ROUT) | payer MEDICARE, SELFPAY ==
[2023-12-29 18:01] VITALS: BMI 17.6
[2024-01-06 18:13] LABS: Add Manual Diff / Slide Review NO; Basophils Absolute Auto 0 /uL (0-100); Basophils Percent Auto 0.9 % (0-2); Eosinophils Absolute Auto 100 /uL (0-450); Eosinophils Percent Auto 1.3 % (2-4); Hematocrit 34.9 % (36-46); Hemoglobin 11.4 g/dL (12.0-16.0); Lymphocytes Absolute Auto 700 /uL (1100-4500); Lymphocytes Percent Auto 14.2 % (25-40); Mean Corpuscular HGB Conc 32.7 % (30-36); Mean Corpuscular Volume 91.6 fL (80-100); Monocytes Absolute Auto 600 /uL (0-900); Monocytes Percent Auto 12.8 % (3-14); Neutrophils Absolute Auto 3500 /uL (1500-7000); Neutrophils Percent Auto 70.8 % (50-75); Platelet Count 187 X10^3/uL (150-400); Red Blood Cell Count 3.81 X10^6/uL (4.0-5.2); Red Cell Distribution Width 14.4 % (11.6-14.8); White Blood Cell Count 4.9 X10^3/uL (4.5-11.0)
[2024-01-06 18:23] LABS: Alanine Aminotransferase 27 IU/L (<35); Albumin 3.1 g/dL (3.5-5.0); Albumin Globulin Ratio 1.2 (1.0-2.8); Alkaline Phosphatase 104 U/L (38-126); Aspartate Aminotransferase 45 IU/L (14-36); BUN Creatinine Ratio 27.4 (6-22); Bilirubin Total 0.3 mg/dL (0.2-1.3); Blood Urea Nitrogen 17 mg/dL (7-17); Calcium 8.9 mg/dL (8.4-10.2); Carbon Dioxide 26 mmol/L (22-32); Chloride 105 mmol/L (98-107); Estimated Glomerular Filt Rate > 60 mL/min (>60); Globulin 2.6 g/dL (1.7-4.1); Glucose 114 mg/dL (80-110); HEMOLYSIS < 15 (0-50); Potassium 4.4 mmol/L (3.4-5.1); Sodium 135 mmol/L (137-145); Total Protein 5.7 g/dL (6.3-8.2)
== END ==
PROVIDERS: Family Provider Family Medicine; PCP Family Medicine; Visit Provider Internal Medicine Infectious Disease
DX: M46.20 Osteomyelitis of vertebra, site unspecified (principal); T81.89XD Other complications of procedures, not elsewhere classified, subsequent encounter; A49.8 Other bacterial infections of unspecified site
CPT/HCPCS: 80053; 85025; 86140

== ENCOUNTER → 2024-01-10 14:47 | Outpatient (CLI) | payer MEDICARE, SELFPAY ==
[2023-12-29 18:01] VITALS: BMI 17.6
== END ==
PROVIDERS: Family Provider Family Medicine; PCP Family Medicine; Referring Provider Family Medicine; Visit Provider Surgery
DX: T81.89XA Other complications of procedures, not elsewhere classified, initial encounter (principal); S31.000A Unspecified open wound of lower back and pelvis without penetration into retroperitoneum, initial encounter; L98.8 Other specified disorders of the skin and subcutaneous tissue; L98.492 Non-pressure chronic ulcer of skin of other sites with fat layer exposed; G62.9 Polyneuropathy, unspecified; M86.141 Other acute osteomyelitis, right hand; Z16.30 Resistance to unspecified antimicrobial drugs
CPT/HCPCS: 11043; 97597

== ENCOUNTER → 2024-01-10 18:24 | Outpatient (ROUT) | payer MEDICARE, SELFPAY ==
[2023-12-29 18:01] VITALS: BMI 17.6
[2024-01-10 18:41] LABS: Add Manual Diff / Slide Review NO; Basophils Absolute Auto 0 /uL (0-100); Basophils Percent Auto 0.9 % (0-2); Eosinophils Absolute Auto 100 /uL (0-450); Eosinophils Percent Auto 1.2 % (2-4); Hematocrit 36.6 % (36-46); Lymphocytes Absolute Auto 800 /uL (1100-4500); Lymphocytes Percent Auto 15.9 % (25-40); Mean Corpuscular HGB Conc 32.9 % (30-36); Mean Corpuscular Volume 91.3 fL (80-100); Monocytes Absolute Auto 500 /uL (0-900); Monocytes Percent Auto 9.3 % (3-14); Neutrophils Absolute Auto 3700 /uL (1500-7000); Neutrophils Percent Auto 72.7 % (50-75); Platelet Count 209 X10^3/uL (150-400); Red Blood Cell Count 4.01 X10^6/uL (4.0-5.2); Red Cell Distribution Width 15.1 % (11.6-14.8); White Blood Cell Count 5.1 X10^3/uL (4.5-11.0)
[2024-01-10 18:45] LABS: Alanine Aminotransferase 34 IU/L (<35); Albumin 3.3 g/dL (3.5-5.0); Albumin Globulin Ratio 1.2 (1.0-2.8); Alkaline Phosphatase 114 U/L (38-126); Aspartate Aminotransferase 55 IU/L (14-36); Bilirubin Total 0.4 mg/dL (0.2-1.3); Blood Urea Nitrogen 19 mg/dL (7-17); C-Reactive Protein Quant 0.9 mg/dL (<1.0); Calcium 9.3 mg/dL (8.4-10.2); Carbon Dioxide 26 mmol/L (22-32); Chloride 105 mmol/L (98-107); Estimated Glomerular Filt Rate > 60 mL/min (>60); Globulin 2.8 g/dL (1.7-4.1); Glucose 97 mg/dL (80-110); HEMOLYSIS 16 (0-50); Potassium 4.6 mmol/L (3.4-5.1); Sodium 136 mmol/L (137-145); Total Protein 6.1 g/dL (6.3-8.2)
== END ==
PROVIDERS: Family Provider Family Medicine; PCP Family Medicine; Visit Provider Internal Medicine Infectious Disease
DX: M46.20 Osteomyelitis of vertebra, site unspecified (principal); T81.89XD Other complications of procedures, not elsewhere classified, subsequent encounter; A49.8 Other bacterial infections of unspecified site
CPT/HCPCS: 80053; 85025; 86140

== ENCOUNTER → 2024-01-13 18:44 | Outpatient (ROUT) | payer MEDICARE, SELFPAY ==
[2023-12-29 18:01] VITALS: BMI 17.6
[2024-01-13 19:50] LABS: Add Manual Diff / Slide Review NO; Basophils Absolute Auto 0 /uL (0-100); Eosinophils Absolute Auto 100 /uL (0-450); Eosinophils Percent Auto 2.1 % (2-4); Hematocrit 37.3 % (36-46); Hemoglobin 12.3 g/dL (12.0-16.0); Lymphocytes Absolute Auto 800 /uL (1100-4500); Lymphocytes Percent Auto 16.6 % (25-40); Mean Corpuscular HGB Conc 32.9 % (30-36); Mean Corpuscular Hemoglobin 30.2 PG (26-34); Mean Corpuscular Volume 91.6 fL (80-100); Monocytes Absolute Auto 500 /uL (0-900); Monocytes Percent Auto 10.8 % (3-14); Neutrophils Absolute Auto 3200 /uL (1500-7000); Neutrophils Percent Auto 69.5 % (50-75); Platelet Count 202 X10^3/uL (150-400); Red Blood Cell Count 4.07 X10^6/uL (4.0-5.2); White Blood Cell Count 4.6 X10^3/uL (4.5-11.0)
[2024-01-13 20:21] LABS: Alanine Aminotransferase 35 IU/L (<35); Albumin 3.4 g/dL (3.5-5.0); Albumin Globulin Ratio 1.3 (1.0-2.8); Alkaline Phosphatase 106 U/L (38-126); Aspartate Aminotransferase 60 IU/L (14-36); BUN Creatinine Ratio 29.4 (6-22); Bilirubin Total 0.3 mg/dL (0.2-1.3); Blood Urea Nitrogen 15 mg/dL (7-17); C-Reactive Protein Quant 0.7 mg/dL (<1.0); Calcium 9.2 mg/dL (8.4-10.2); Carbon Dioxide 27 mmol/L (22-32); Chloride 106 mmol/L (98-107); Estimated Glomerular Filt Rate > 60 mL/min (>60); Globulin 2.7 g/dL (1.7-4.1); Glucose 85 mg/dL (80-110); HEMOLYSIS < 15 (0-50); Sodium 139 mmol/L (137-145); Total Protein 6.1 g/dL (6.3-8.2)
== END ==
PROVIDERS: Family Provider Family Medicine; PCP Family Medicine; Visit Provider Internal Medicine Infectious Disease
DX: M46.20 Osteomyelitis of vertebra, site unspecified (principal); T81.89XD Other complications of procedures, not elsewhere classified, subsequent encounter; A49.8 Other bacterial infections of unspecified site
CPT/HCPCS: 80053; 85025; 86140

== ENCOUNTER → 2024-01-17 18:16 | Outpatient (ROUT) | payer MEDICARE, SELFPAY ==
[2023-12-29 18:01] VITALS: BMI 17.6
[2024-01-17 18:45] LABS: Add Manual Diff / Slide Review NO; Basophils Absolute Auto 100 /uL (0-100); Basophils Percent Auto 1.1 % (0-2); Eosinophils Absolute Auto 100 /uL (0-450); Eosinophils Percent Auto 1.6 % (2-4); Hematocrit 39.6 % (36-46); Hemoglobin 12.8 g/dL (12.0-16.0); Lymphocytes Absolute Auto 1200 /uL (1100-4500); Lymphocytes Percent Auto 22.4 % (25-40); Mean Corpuscular HGB Conc 32.4 % (30-36); Mean Corpuscular Hemoglobin 29.6 PG (26-34); Mean Corpuscular Volume 91.5 fL (80-100); Monocytes Absolute Auto 600 /uL (0-900); Monocytes Percent Auto 10.5 % (3-14); Neutrophils Absolute Auto 3400 /uL (1500-7000); Neutrophils Percent Auto 64.4 % (50-75); Platelet Count 241 X10^3/uL (150-400); Red Blood Cell Count 4.33 X10^6/uL (4.0-5.2); Red Cell Distribution Width 14.7 % (11.6-14.8); White Blood Cell Count 5.3 X10^3/uL (4.5-11.0)
[2024-01-17 18:58] LABS: Alanine Aminotransferase 40 IU/L (<35); Albumin 3.9 g/dL (3.5-5.0); Albumin Globulin Ratio 1.3 (1.0-2.8); Alkaline Phosphatase 127 U/L (38-126); Aspartate Aminotransferase 64 IU/L (14-36); BUN Creatinine Ratio 35.4 (6-22); Bilirubin Total 0.5 mg/dL (0.2-1.3); Blood Urea Nitrogen 17 mg/dL (7-17); C-Reactive Protein Quant 0.9 mg/dL (<1.0); Calcium 9.5 mg/dL (8.4-10.2); Carbon Dioxide 25 mmol/L (22-32); Chloride 103 mmol/L (98-107); Estimated Glomerular Filt Rate > 60 mL/min (>60); Globulin 2.9 g/dL (1.7-4.1); Glucose 123 mg/dL (80-110); HEMOLYSIS < 15 (0-50); Potassium 4.3 mmol/L (3.4-5.1); Sodium 138 mmol/L (137-145); Total Protein 6.8 g/dL (6.3-8.2)
== END ==
PROVIDERS: Family Provider Family Medicine; PCP Family Medicine; Visit Provider Internal Medicine Infectious Disease
DX: M46.20 Osteomyelitis of vertebra, site unspecified (principal); T81.89XD Other complications of procedures, not elsewhere classified, subsequent encounter; A49.8 Other bacterial infections of unspecified site
CPT/HCPCS: 80053; 85025; 86140

== ENCOUNTER → 2024-01-20 17:48 | Outpatient (ROUT) | payer MEDICARE, SELFPAY ==
[2023-12-29 18:01] VITALS: BMI 17.6
[2024-01-20 18:17] LABS: Add Manual Diff / Slide Review NO; Basophils Absolute Auto 0 /uL (0-100); Basophils Percent Auto 0.6 % (0-2); Eosinophils Absolute Auto 100 /uL (0-450); Eosinophils Percent Auto 1.5 % (2-4); Hematocrit 34.2 % (36-46); Hemoglobin 11.3 g/dL (12.0-16.0); Lymphocytes Absolute Auto 1000 /uL (1100-4500); Lymphocytes Percent Auto 20.3 % (25-40); Mean Corpuscular HGB Conc 33.1 % (30-36); Mean Corpuscular Volume 90.8 fL (80-100); Monocytes Absolute Auto 700 /uL (0-900); Monocytes Percent Auto 12.7 % (3-14); Neutrophils Absolute Auto 3300 /uL (1500-7000); Neutrophils Percent Auto 64.9 % (50-75); Platelet Count 192 X10^3/uL (150-400); Red Blood Cell Count 3.77 X10^6/uL (4.0-5.2); Red Cell Distribution Width 14.6 % (11.6-14.8); White Blood Cell Count 5.1 X10^3/uL (4.5-11.0)
[2024-01-21 12:52] LABS: Alanine Aminotransferase 27 IU/L (<35); Albumin Globulin Ratio 1.3 (1.0-2.8); Alkaline Phosphatase 109 U/L (38-126); Aspartate Aminotransferase 41 IU/L (14-36); BUN Creatinine Ratio 37.7 (6-22); Bilirubin Total 0.3 mg/dL (0.2-1.3); Blood Urea Nitrogen 20 mg/dL (7-17); C-Reactive Protein Quant 1.4 mg/dL (<1.0); Calcium 8.6 mg/dL (8.4-10.2); Carbon Dioxide 25 mmol/L (22-32); Chloride 105 mmol/L (98-107); Estimated Glomerular Filt Rate > 60 mL/min (>60); Globulin 2.3 g/dL (1.7-4.1); Glucose 91 mg/dL (80-110); HEMOLYSIS < 15 (0-50); Potassium 4.3 mmol/L (3.4-5.1); Sodium 136 mmol/L (137-145); Total Protein 5.3 g/dL (6.3-8.2)
== END ==
PROVIDERS: Family Provider Family Medicine; PCP Family Medicine; Visit Provider Internal Medicine Infectious Disease
DX: Z13.9 Encounter for screening, unspecified (principal)
CPT/HCPCS: 80053; 85025; 86140

== ENCOUNTER → 2024-01-24 11:35 | Outpatient (CLI) | payer MEDICARE, SELFPAY ==
[2023-12-29 18:01] VITALS: BMI 17.6
== END ==
PROVIDERS: Family Provider Family Medicine; PCP Family Medicine; Referring Provider Family Medicine; Visit Provider Surgery
DX: T81.89XA Other complications of procedures, not elsewhere classified, initial encounter (principal); S31.000A Unspecified open wound of lower back and pelvis without penetration into retroperitoneum, initial encounter; R21 Rash and other nonspecific skin eruption; Z16.30 Resistance to unspecified antimicrobial drugs
CPT/HCPCS: 11043; 97605; 99213

== ENCOUNTER → 2024-01-24 18:47 | Outpatient (ROUT) | payer MEDICARE, SELFPAY ==
[2023-12-29 18:01] VITALS: BMI 17.6
[2024-01-24 18:59] LABS: Add Manual Diff / Slide Review NO; Basophils Absolute Auto 0 /uL (0-100); Basophils Percent Auto 1.1 % (0-2); Eosinophils Absolute Auto 100 /uL (0-450); Eosinophils Percent Auto 1.7 % (2-4); Hematocrit 38.9 % (36-46); Hemoglobin 12.7 g/dL (12.0-16.0); Lymphocytes Absolute Auto 900 /uL (1100-4500); Lymphocytes Percent Auto 21.9 % (25-40); Mean Corpuscular HGB Conc 32.7 % (30-36); Mean Corpuscular Hemoglobin 29.7 PG (26-34); Mean Corpuscular Volume 90.9 fL (80-100); Monocytes Absolute Auto 400 /uL (0-900); Monocytes Percent Auto 10.9 % (3-14); Neutrophils Absolute Auto 2600 /uL (1500-7000); Neutrophils Percent Auto 64.4 % (50-75); Platelet Count 226 X10^3/uL (150-400); Red Blood Cell Count 4.28 X10^6/uL (4.0-5.2); Red Cell Distribution Width 14.9 % (11.6-14.8); White Blood Cell Count 4.1 X10^3/uL (4.5-11.0)
[2024-01-24 19:13] LABS: Alanine Aminotransferase 28 IU/L (<35); Albumin 3.5 g/dL (3.5-5.0); Albumin Globulin Ratio 1.3 (1.0-2.8); Alkaline Phosphatase 118 U/L (38-126); Aspartate Aminotransferase 47 IU/L (14-36); BUN Creatinine Ratio 26.3 (6-22); Bilirubin Total 0.4 mg/dL (0.2-1.3); Blood Urea Nitrogen 15 mg/dL (7-17); C-Reactive Protein Quant 1.5 mg/dL (<1.0); Carbon Dioxide 27 mmol/L (22-32); Chloride 104 mmol/L (98-107); Creatine Kinase 33 U/L (30-135); Estimated Glomerular Filt Rate > 60 mL/min (>60); Globulin 2.6 g/dL (1.7-4.1); Glucose 131 mg/dL (80-110); HEMOLYSIS < 15 (0-50); Potassium 3.8 mmol/L (3.4-5.1); Sodium 138 mmol/L (137-145); Total Protein 6.1 g/dL (6.3-8.2)
== END ==
PROVIDERS: Family Provider Family Medicine; PCP Family Medicine; Visit Provider Internal Medicine Infectious Disease
DX: M46.20 Osteomyelitis of vertebra, site unspecified (principal); T81.89XD Other complications of procedures, not elsewhere classified, subsequent encounter; A49.8 Other bacterial infections of unspecified site
CPT/HCPCS: 80053; 82550; 85025; 86140

== ENCOUNTER → 2024-02-07 11:03 | Outpatient (CLI) | payer MEDICARE, SELFPAY ==
[2023-12-29 18:01] VITALS: BMI 17.6
== END ==
LOC: WC 11:04
PROVIDERS: Family Provider Family Medicine; PCP Family Medicine; Referring Provider Family Medicine; Visit Provider Surgery
DX: T81.31XD Disruption of external operation (surgical) wound, not elsewhere classified, subsequent encounter (principal); S31.000D Unspecified open wound of lower back and pelvis without penetration into retroperitoneum, subsequent encounter; Z16.30 Resistance to unspecified antimicrobial drugs
CPT/HCPCS: 99212; 99213

== ENCOUNTER → 2025-03-08 11:40 | Outpatient (CLI) | payer MEDICARE, OTHER, SELFPAY ==
[2023-12-29 18:01] VITALS: BMI 17.6
== END ==
PROVIDERS: Family Provider Family Medicine; PCP Family Medicine; Visit Provider Family Medicine
DX: N89.8 Other specified noninflammatory disorders of vagina (principal)
CPT/HCPCS: 87210; 87220

== ENCOUNTER → 2025-04-13 13:33 | Outpatient (CLI) | payer MEDICARE, OTHER, SELFPAY ==
[2025-04-04 12:14] VITALS: BMI 17.6
[2025-04-14 14:08] LABS: Trichomoas vaginalis Negative (Negative)
== END ==
LOC: LAB 13:34
PROVIDERS: Family Provider Family Medicine; PCP Family Medicine; Visit Provider Obstetrics & Gynecology
DX: N89.8 Other specified noninflammatory disorders of vagina (principal)
CPT/HCPCS: 87480; 87510; 87660

== ENCOUNTER 2025-07-12 16:00 | Outpatient (RCR) | payer MEDICARE, SELFPAY ==
[2025-04-04 12:14] VITALS: BMI 17.6
--- NOTE | 2025-05-08 17:28 | PT.OIE ---
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) Lymphedema, not elsewhere classified (05/08/25) Other reduced mobility (05/08/25) Other specified health status (05/08/25) Past Medical History (Last Updated 10/04/23 @ 16:54 by Francisca Driver DO) Abscess in epidural space of lumbar spine Anemia Arthritis Cobalamin deficiency Diarrhea Easy bruisability Edema Genital herpes (Unknown) Hepatitis A (1976) History of malignant neoplasm of breast (2007) 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 (09/03/11) Hypoglycemia Hypothyroid Lymphedema MRSA (methicillin resistant staph aureus) culture positive Neck pain Neurogenic bladder Neuropathy Osteoarthritis Osteomyelitis of lumbar spine Osteopenia after menopause Raynauds syndrome (09/03/11) Recurrent dislocation, left hip Scoliosis of thoracolumbar spine (~2006) Septic arthritis of hip (~08/2015) Surgical site infection Underweight UTI (urinary tract infection) VTE (venous thromboembolism) Past Surgical History (Last Updated 08/17/23 @ 16:01 by Francisca Driver DO) History of arthroplasty (~2013) History of arthroplasty (~2009) History of arthroscopy of right knee (~04/2010) History of hip replacement History of third molar tooth extraction S/P cervical spinal fusion (~12/2013) Status post breast lumpectomy Status post hardware removal (~2009) Status post hysterectomy with oophorectomy Status post laminectomy Status post tonsillectomy and adenoidectomy Surgical procedure planned (~2006) Total knee replacement status (~05/2020) Visit Care Team Role Provider Type Francisca Driver DO Attending Provider Physician Family Provider Primary Care Provider Referring Provider Specialty: Medical Address: [address] [place] [address], [address] [place] [address], [facility] Email: [email or web address] Physical Therapy Initial Evaluation PT OP: Lymphedema Upper Extremity Start: 05/08/25 10:45 Freq: Status: Active Protocol: Document 05/08/25 10:46 EDER (Rec: 05/08/25 11:58 [facility] Laptop) Out-Patient Physical Therapy Visit Information Visit Information Visit Type Initial Evaluation Visit Start Time 10:46 Visit Stop Time 12:15 Visit Number 1 Progress Note Due 10/02/25 Precautions Precautions PMH: Medical History (Updated 04/10/25 @ 10:36 by Francisca Driver DO) VTE (venous thromboembolism) 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 ( 09/03/11) History of malignant neoplasm of breast (2007) Osteomyelitis of lumbar spine Abscess in epidural space of lumbar spine Arthritis Easy bruisability Neuropathy Hypoglycemia Hepatitis A (1976) Edema Osteopenia after menopause MRSA (methicillin resistant staph aureus) culture positive Surgical site infection Underweight Scoliosis of thoracolumbar spine (~2006) Raynauds syndrome (09/03/11) Hypothyroid Neurogenic bladder Lymphedema Osteoarthritis Anemia Septic arthritis of hip (~08/2015) Genital herpes (Unknown) Cobalamin deficiency Neck pain Recurrent dislocation, left hip UTI (urinary tract infection) Diarrhea Surgical History (Updated 08/17/23 @ 16:01 by Francisca Driver DO) Total knee replacement status (~05/2020) History of arthroscopy of right knee (~04/2010) History of arthroplasty (~2009) S/P cervical spinal fusion (~12/2013) Status post hardware removal (~2009) Surgical procedure planned (~2006) History of arthroplasty (~2013) History of hip replacement Status post hysterectomy with oophorectomy Status post breast lumpectomy Status post laminectomy History of third molar tooth extraction Status post tonsillectomy and adenoidectomy Current Condition History of Current Condition Onset Date 4 years Current Complaints lymphedema right UE History of Current 2002, 2020 breast cancer had mastectomy R 2020 treated Condition with radiation. Reports gradual onset swelling right UE, after radiation right UE lost use of right UE. 2 weeks ago ordered compression sleeve and gauntlet combo ; wearing today, fingers not in compression and highly swollen. Pt. to PT with caregiver Mandie; has time clerk caregivers during the day, caregiver reports patient not able to do any of her self care and ADL's, has indwelling catheter. They report patient had to be discharged from Home Health PT to be able to come for outpatient lymphedema treatment. Treatment Goals Patient/Caregiver Decrease lymphedema and be able to self manage with Goals assistance of caregivers Patient Questionnaires Lymphedema Life Impact Score Lymphedema Score 51 OP-PT Pain Assessment Location right UE Pain Intensity 4 Palpation Assessment Location right subaxillary and chest Palpation Findings Soft Tissue Tightness Palpation Details radiation fibrosis, firm subaxillary and chest on right Skin Assessment Edema Assessment right UE Edema Type Non-Pitting Edema Appearance Firm,Puffy,Shiny Subjective Edema Tightness Description Lymphedema Measurements Upper Extremity Circumference Measurements Right Affected MCP 18.7 cm Dorsum of Hand 17.5 cm Wrist 16.4 cm 5 cm From Wrist 15.2 cm Crease 10 cm From Wrist 16.8 cm Crease 15 cm From Wrist 18.6 cm Crease 20 cm From Wrist 23.7 cm Crease 25 cm From Wrist 26.5 cm Crease 30 cm From Wrist 24.8 cm Crease 35 cm From Wrist 24.3 cm Crease Elbow Joint 26 cm Left Unaffected MCP 20 cm Dorsum of Hand 18.7 cm Wrist 19.2 cm 5 cm From Wrist 14.3 cm Crease 10 cm From Wrist 17 cm Crease 15 cm From Wrist 20 cm Crease 20 cm From Wrist 21.8 cm Crease 25 cm From Wrist 24.3 cm Crease 30 cm From Wrist 25.3 cm Crease 35 cm From Wrist 26.4 cm Crease Elbow Joint 21.7 cm Lymphedema Treatment Manual Lymphatic Drainage Location for right UE lymphedema Comments educated in technique with demonstration and use of video for home referenc Lymphedema Wrapping Body Location right UE Materials finger bandages applied to digits 2-5, topped with patient current compression garment including thumb gauntlet attached to sleeve. Sequential Lymphedema Exercises Comments instructed and issued handout and video reference Compression Garment Assessment Compression Garment discussed compression options, recommend glove with Assessment Details full fingers and sleeve initially 15-20 mm Hg, progressing to 20-30 mm Hg if tolerated including ability to apply with assist of caregivers Physical Therapy Assessment Rehab Potential Rehabilitation Fair Potential Evaluation Complexity Number of Personal 3 or More Factors/ Comorbidities Number of Body 3 Systems Impaired Clinical Evolving Presentation at Evaluation Impairments Impairments Edema,Integument Goals Two Impairment Lymphedema life impact scale 51% Tube Room Cashier Goal (LTG) Decrease score to no greater than 25% as measure of improved function and quality of life LTG Duration 08/07/25 One Impairment lymphedema right UE Short Term Goal (STG Patient will be instructed in all aspects of lymphedema ) self-care to include skin care, elevation, self- massage, self-bandaging/compression options, and lymphedema exercises. STG Duration 06/07/25 Tube Room Cashier Goal (LTG) Decrease patient?s lymphedema to a stable level (no increase or decrease greater than 1 cm over the course of 1 week), patient to be independent with all aspects of self-care for lymphedema, and will obtain appropriate compression garment for lymphedema management in the home. LTG Duration 08/07/25 Assessment Summary Assessment Patient presents to PT with function-limiting lymphedema right UE complicated by hemiparesis right UE since her mastectomy and treatment 2020 has very minimal gross movement right UE with flexion contracture at wrist. She has thickening of tissue in forearm, elbow, and upper arm and puffiness in all fingers. Radiation fibrosis present in right chest and subaxillary with very poor tissue mobility. PROM shoulder flexion and abduction to 85 degrees only . No signs or symptoms of cellulitis but patient is at high risk. 2 weeks ago patient obtained compression sleeve and gauntlet combination which isn't providing adequate compression to arm and no compression to fingers. Discussed options with patient and caregiver with recommendations for compression glove and better fitting sleeve. Recommend start lower end of compression 15-20 mm Hg, increase to 20-30mm Hg if lower compression eunice ok, but not adequate to decrease edema; have concerns about higher compression initialy due to sensation impairment as well as hemiparesis. Feel she will benefit from PT for complete decongestive therapy (CDT) to include skin care, elevation, manual lymphatic drainage, lymphedema exercises, and compression. Discussed POC with patient and caregiver and they are in agreement. Physical Therapy Plan Frequency and Duration Frequency of 20 visits Treatment Duration of 12 treatment (weeks) Plan of Care Start 05/08/25 Date Plan of Care End 08/07/25 Date Next Visit Focus/Plan Next Note Type Treatment Note Next Visit Plan Continue CDT, evaluate response to finger bandaging and any compression garment obtained by patient.
--- NOTE | 2025-05-30 17:57 | PT.OTN ---
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 ( 09/03/11) History of malignant neoplasm of breast (2007) Osteomyelitis of lumbar spine Abscess in epidural space of lumbar spine Arthritis Easy bruisability Neuropathy Hypoglycemia Hepatitis A (1976) Edema Osteopenia after menopause MRSA (methicillin resistant staph aureus) culture positive Surgical site infection Underweight Scoliosis of thoracolumbar spine (~2006) Raynauds syndrome (09/03/11) Hypothyroid Neurogenic bladder Lymphedema Osteoarthritis Anemia Septic arthritis of hip (~08/2015) Genital herpes (Unknown) Cobalamin deficiency Neck pain Recurrent dislocation, left hip UTI (urinary tract infection) Diarrhea Surgical History (Updated 08/17/23 @ 16:01 by Francisca Driver DO) Total knee replacement status (~05/2020) History of arthroscopy of right knee (~04/2010) History of arthroplasty (~2009) S/P cervical spinal fusion (~12/2013) Status post hardware removal (~2009) Surgical procedure planned (~2006) History of arthroplasty (~2013) History of hip replacement Status post hysterectomy with oophorectomy Status post breast lumpectomy Status post laminectomy History of third molar tooth extraction Status post tonsillectomy and adenoidectomy OP-PT Subjective Patient Comments Patient Comments Patient with small bandaid posterior proximal to 2nd finger. Patient reports she had a shaved biopsy. Patient/caregiver not aware they were to bring finger wraps back. Glove is not on due to painful to put on today per patient and caregiver, reports this is the new glove and sleeve, also reports have been wearing these. Caregiver didn't look at folder until recently. Caregiver reports she rubs the arm and scrub it, but lymphatic massage. Patient reports she had a fall 2 days ago, 2 persons got her up, reports R side of ribs hurt when she moves, did not go to MD. Lymphedema Measurements Upper Extremity Circumference Measurements Right Affected MCP 18.9 cm Dorsum of Hand 18.7 cm Wrist 16.1 cm 5 cm From Wrist 14 cm Crease 10 cm From Wrist 14.5 cm Crease 15 cm From Wrist 16.7 cm Crease 20 cm From Wrist 19.8 cm Crease 25 cm From Wrist 25 cm Crease 30 cm From Wrist 24.6 cm Crease 35 cm From Wrist 24.3 cm Crease Elbow Joint 23.9 cm Lymphedema Treatment Manual Lymphatic Drainage Location for right UE lymphedema Comments educated in technique with demonstration and use of video for home referenc Lymphedema Wrapping Body Location right UE Materials finger bandages applied to digits 2-5, Sleeve placed on patient Juzo sleeve patient reports is new Sequential Lymphedema Exercises Comments again made aware of video reference scap squeeze, shoulder shrugs X 15, breathing from diaphragm with tactile cues, AA supination, pronation elbow flex ext with UE supported, seated AA hands clasped flexion and fwd press as well as seated short sit to upright with sleeve in place Compression Garment Assessment Compression Garment Patient caregiver ed to remove bandaging if pain, Assessment Details swelling, color change, made caregiver/patient aware of how to test fingers for blanching, and also any cardiac symptoms should remove bandages as well. Patient/caregiver advised to remove bandages in morning and apply glove. Patient Education Other Continue to elevate Physical Therapy Assessment Goals Two Impairment Lymphedema life impact scale 51% Custodial Goal (LTG) Decrease score to no greater than 25% as measure of improved function and quality of life LTG Duration 08/07/25 One Impairment lymphedema right UE Short Term Goal (STG Patient will be instructed in all aspects of lymphedema ) self-care to include skin care, elevation, self- massage, self-bandaging/compression options, and lymphedema exercises. STG Duration 06/07/25 Luncheonette Manager Goal (LTG) Decrease patient?s lymphedema to a stable level (no increase or decrease greater than 1 cm over the course of 1 week), patient to be independent with all aspects of self-care for lymphedema, and will obtain appropriate compression garment for lymphedema management in the home. LTG Duration 08/07/25 Assessment Summary Assessment Significant decrease in all measurements from the wrist proximally, but hand measurements increased significantly. Patient into session with glove not in place, caregiver reports they have been wearing the new sleeve and glove but the glove is difficult to put on. Physical Therapy Plan Frequency and Duration Frequency of 20 visits Treatment Duration of 12 treatment (weeks) Plan of Care Start 05/08/25 Date Plan of Care End 08/07/25 Date Next Visit Focus/Plan Next Note Type Treatment Note Next Visit Plan Continue CDT, evaluate response to finger bandaging and any compression garment obtained by patient.
--- NOTE | 2025-06-04 16:58 | PT.OPPN ---
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 With 20 min left in session caregiver Delma took over. Visit Start Time 13:02 Visit Stop Time 14:25 Visit Number 2 Number of TURBINE MECHANIC Visits 0 Progress Note Due 06/07/25 Precautions Precautions PMH: Medical History (Updated 04/10/25 @ 10:36 by Francisca Driver DO) VTE (venous thromboembolism) 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 ( 09/03/11) History of malignant neoplasm of breast (2007) Osteomyelitis of lumbar spine Abscess in epidural space of lumbar spine Arthritis Easy bruisability Neuropathy Hypoglycemia Hepatitis A (1976) Edema Osteopenia after menopause MRSA (methicillin resistant staph aureus) culture positive Surgical site infection Underweight Scoliosis of thoracolumbar spine (~2006) Raynauds syndrome (09/03/11) Hypothyroid Neurogenic bladder Lymphedema Osteoarthritis Anemia Septic arthritis of hip (~08/2015) Genital herpes (Unknown) Cobalamin deficiency Neck pain Recurrent dislocation, left hip UTI (urinary tract infection) Diarrhea Surgical History (Updated 08/17/23 @ 16:01 by Francisca Driver DO) Total knee replacement status (~05/2020) History of arthroscopy of right knee (~04/2010) History of arthroplasty (~2009) S/P cervical spinal fusion (~12/2013) Status post hardware removal (~2009) Surgical procedure planned (~2006) History of arthroplasty (~2013) History of hip replacement Status post hysterectomy with oophorectomy Status post breast lumpectomy Status post laminectomy History of third molar tooth extraction Status post tonsillectomy and adenoidectomy Current Condition History of Current Condition Onset Date 4 years Current Complaints lymphedema right UE History of Current 2020 breast cancer had mastectomy R 2020 treated Condition with radiation. Reports gradual onset swelling right UE, after radiation right UE lost use of right UE. 2 weeks ago ordered compression sleeve and gauntlet combo ; wearing today, fingers not in compression and highly swollen. Pt. to PT with caregiver Mandie; has real time trader caregivers during the day, caregiver reports patient not able to do any of her self care and ADL's, has indwelling catheter. They report patient had to be discharged from Home Health PT to be able to come for outpatient lymphedema treatment. Treatment Goals Patient/Caregiver Decrease lymphedema and be able to self manage with Goals assistance of caregivers OP-PT Subjective Patient Comments Patient Comments Reports arm feels heavy, though overall swelling better. Feels compression garments working ok, States hand was swolllen last time because didn't wear glove to PT. Patient again reports doesn't like to wear brace for wrist, uncomfortable, agreed to try to find brace, and maybe consider requesting order for new. Reports arm is puffed up again in am after not wearing compression at night. Caregivers and patient report difficult and painful to right UE to don compression due to flaccid right UE, pt unable to assist and difficulty keeping wrist neutral. Lymphedema Measurements Upper Extremity Circumference Measurements Right Affected MCP 18.3 cm Dorsum of Hand 18.3 cm Wrist 16.2 cm 5 cm From Wrist 14 cm Crease 10 cm From Wrist 15 cm Crease 15 cm From Wrist 18 cm Crease 20 cm From Wrist 20.5 cm Crease 25 cm From Wrist 24.7 cm Crease 30 cm From Wrist 24.6 cm Crease 35 cm From Wrist 23.4 cm Crease Elbow Joint 24 cm - measured sitting Lymphedema Treatment Manual Lymphatic Drainage Location for right UE lymphedema Comments supine and side utilizing anterior and posterior AAA, anterior AAI pathways Lymphedema Wrapping Body Location right UE Materials Juzo glove and compression sleeve donned with assist of caregiver with ed for correct fit, shown loaner velcro compression wrap end of session and provided as loaner for patient trial and consideration; size M, would likely need size S. Sequential Lymphedema Exercises Comments again made aware of video reference scap squeeze, shoulder shrugs X 15, breathing from diaphragm with tactile cues, AA supination, pronation elbow flex ext with UE supported, supine AA hands clasped flexion and fwd press, supine LTR, sidelying upper trunk rotation Compression Garment Assessment Compression Garment discussed options as above and information issued Assessment Details regarding Lymphedema Treatment Act Other Other Soft tissue mobilization with medium silicone cupping tool after massage cr applied right chest and subaxillary region; dynamic at edges of fibrotic tissue . Physical Therapy Assessment Goals Two Impairment Lymphedema life impact scale 51% Group Home Goal (LTG) Decrease score to no greater than 25% as measure of improved function and quality of life 06/05/25:Goal progress, demonstrating improved understanding, has obtained compression glove and gauntlet, may need to consider velcro-type garment LTG Duration 08/07/25 One Impairment lymphedema right UE Short Term Goal (STG Patient will be instructed in all aspects of lymphedema ) self-care to include skin care, elevation, self- massage, self-bandaging/compression options, and lymphedema exercises. 06/05/25: goal mostly met; continue pt and caregiver education techniques MLD and compression options STG Duration 06/07/25 Group Home Goal (LTG) Decrease patient?s lymphedema to a stable level (no increase or decrease greater than 1 cm over the course of 1 week), patient to be independent with all aspects of self-care for lymphedema, and will obtain appropriate compression garment for lymphedema management in the home. LTG Duration 08/07/25 Assessment Summary Assessment Hand measurements decreased, forearm increased, upper arm stable. Due to flaccid right UE making it it difficult and at times painful for donning of compression feel patient may benefit from velcro-style compression garments for arm and hand, possibly night garment due to lack of muscle pump. Discussed this with patient, and both caregivers and issued Juzo REady wrap loaner velcro garment for trial and consideration . Discussed benefits of night garments as option as well. Pt. and caregivers given information regarding lymphedema treatment act for education regarding Medicare coverage for compression garments; previously discussed with patient but she reports forgot. Also feel she may benefit from use of sequential pneumatic pump to assist with home management, keeping pressures on the lower end due to sensory deficits. Provided MLD to right UE, trial dynamic suction tool massage around edges fibrotic tissue chest and subaxillary region with good tolerance. Trial trunk rotation ex sidelying and supine to increase thoracic and chest soft tissue mobility. Continue pt and caregiver education regarding MLD and encouraged use of [facility] videos. Physical Therapy Plan Frequency and Duration Frequency of 20 visits Treatment Duration of 12 treatment (weeks) Plan of Care Start 05/08/25 Plan of Care End 08/07/25 Date Therapeutic Interventions Therapeutic Lymphedema Management,Manual Therapy,Self-Care/Home Interventions Management,Taping,Therapeutic Activities,Therapeutic Exercises Modalities Vasopneumatic Devices Next Visit Focus/Plan Next Note Type Treatment Note Next Visit Plan Continue CDT, further discussion compression garment options, possibly request prescription from Dr. Driver.
--- NOTE | 2025-06-07 10:45 | PT.OTN ---
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 With 20 min left in session caregiver Delma took over. Visit Start Time 10:46 Visit Stop Time 11:13 Visit Number 4 Number of COLLECTIONS ASSISTANT Visits 0 Progress Note Due 06/07/25 Precautions Precautions PMH: Medical History (Updated 04/10/25 @ 10:36 by Francisca Driver DO) VTE (venous thromboembolism) 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 ( 09/03/11) History of malignant neoplasm of breast (2007) Osteomyelitis of lumbar spine Abscess in epidural space of lumbar spine Arthritis Easy bruisability Neuropathy Hypoglycemia Hepatitis A (1976) Edema Osteopenia after menopause MRSA (methicillin resistant staph aureus) culture positive Surgical site infection Underweight Scoliosis of thoracolumbar spine (~2006) Raynauds syndrome (09/03/11) Hypothyroid Neurogenic bladder Lymphedema Osteoarthritis Anemia Septic arthritis of hip (~08/2015) Genital herpes (Unknown) Cobalamin deficiency Neck pain Recurrent dislocation, left hip UTI (urinary tract infection) Diarrhea Surgical History (Updated 08/17/23 @ 16:01 by Francisca Driver DO) Total knee replacement status (~05/2020) History of arthroscopy of right knee (~04/2010) History of arthroplasty (~2009) S/P cervical spinal fusion (~12/2013) Status post hardware removal (~2009) Surgical procedure planned (~2006) History of arthroplasty (~2013) History of hip replacement Status post hysterectomy with oophorectomy Status post breast lumpectomy Status post laminectomy History of third molar tooth extraction Status post tonsillectomy and adenoidectomy Current Condition History of Current Condition Onset Date 4 years Current Complaints lymphedema right UE History of Current 2020 breast cancer had mastectomy R 2020 treated Condition with radiation. Reports gradual onset swelling right UE, after radiation right UE lost use of right UE due to nerve injury. Has severe limitations in scar tissue mobility, as well as radiation fibrosis. 2 weeks ago ordered compression sleeve and gauntlet combo; wearing today, fingers not in compression and highly swollen. Pt. to PT with caregiver Mandie; has maritime officer caregivers during the day, caregiver reports patient not able to do any of her self care and ADL's, has indwelling catheter. They report patient had to be discharged from Home Health PT to be able to come for outpatient lymphedema treatment. Personal Factors Other Personal depression over son's Factors That May Effect Therapy/ Recovery OP-PT Subjective Patient Comments Patient Comments Patient to PT with caregiver wearing compression glove and compression sleeve OP-PT Pain Assessment Location right UE Pain Location thumb Details Pain Intensity 5 Manual Assessments Soft Tissue Assessment Soft Tissue Mobility Fibrosis left forearm, decreased scar mobility right Assessment lumpectomy and left mastectomy, tightness and fibrosis subaxillary region Palpation Assessment Location left forearm Palpation Findings Edema,Soft Tissue Tightness left subaxillary and chest Palpation Findings Edema,Soft Tissue Tightness right subaxillary and chest Palpation Findings Edema,Soft Tissue Tightness Palpation Details fibrosis left forearm and Skin Assessment Edema Assessment Left Arm Edema Type Non-Pitting Edema Appearance Puffy Subjective Edema Itching,Tightness Description right UE Edema Type Non-Pitting Edema Appearance Puffy Subjective Edema Itching Description Incisional Assessment Incision Appearance/ well healed lateral right breast, left chest ( Comments mastectomy); well healed, decreased mobility Shoulder Goniometric Range of Motion Shoulder Left Shoulder ROM WFL Yes Right Shoulder ROM WFL No Flexion 25 Extension 5 External Rotation at 15 45 degrees Abduction Internal Rotation 20 Shoulder ROM Limitations Shoulder ROM Soft Tissue Tightness,Contracture,Pain,Swelling Limitations Wrist Goniometric Range of Motion ROM Limitations Wrist Limitations of Soft Tissue Tightness,Pain,Swelling Range of Motion Lymphedema Measurements Upper Extremity Circumference Measurements Right Affected MCP 17.9 cm Dorsum of Hand 18 cm Wrist 15.9 cm 5 cm From Wrist 13.9 cm Crease 10 cm From Wrist 15.2 cm Crease 15 cm From Wrist 18.2 cm Crease 20 cm From Wrist 22 cm Crease 25 cm From Wrist 26.3 cm Crease 30 cm From Wrist 25.2 cm Crease 35 cm From Wrist 24.8 cm Crease Elbow Joint 25.7 cm Lymphedema Treatment Manual Lymphatic Drainage Location for right UE lymphedema Comments supine and side utilizing anterior and posterior AAA, anterior AAI pathways Lymphedema Wrapping Body Location right UE Materials Juzo glove and compression sleeve donned by caregiver with assist of donning aid and PT with cues for donning and firt Sequential Lymphedema Exercises Comments again made aware of video reference scap squeeze, shoulder shrugs X 15, breathing from diaphragm with tactile cues, AA supination, pronation elbow flex ext with UE supported, supine AA hands clasped flexion and fwd press, supine LTR, sidelying upper trunk rotation Other Other Soft tissue mobilization with medium silicone cupping tool and MFR after massage cr applied right chest and subaxillary region; dynamic at edges of fibrotic tissue. Trial use of Airos 6 sequential pneumatic pump 30 mm Hg x 30 min with good eunice, decrease in circumferential measurements. Physical Therapy Assessment Goals Two Impairment Lymphedema life impact scale 51% Rivet Machine Operator Goal (LTG) Decrease score to no greater than 25% as measure of improved function and quality of life 06/05/25:Goal progress, demonstrating improved understanding, has obtained compression glove and gauntlet, may need to consider velcro-type garment LTG Duration 08/07/25 One Impairment lymphedema right UE Short Term Goal (STG Patient will be instructed in all aspects of lymphedema ) self-care to include skin care, elevation, self- massage, self-bandaging/compression options, and lymphedema exercises. 06/05/25: goal mostly met; continue pt and caregiver education techniques MLD and compression options STG Duration 06/07/25 [facility] Goal (LTG) Decrease patient?s lymphedema to a stable level (no increase or decrease greater than 1 cm over the course of 1 week), patient to be independent with all aspects of self-care for lymphedema, and will obtain appropriate compression garment for lymphedema management in the home. LTG Duration 08/07/25 Assessment Summary Assessment Patient has been seen for more than 30 days of Complete Decongestive Therapy which has included skin care, elevation, manual lymphatic drainage, lymphedema exercises, and compression. She obtained a compression sleeve and glove with good fit but continues to have pocketing of fluid especially forearm and elbow regions . She has significant radiation fibrosis right chest and tissue fibrosis in subaxillary region as well. Pocketing of fluid occurs around her elbow with tissue thickening. Despite Complete Decongestive Therapy it remains difficult for her to manage her lymphedema especially due to complications of hemiparesis right UE s/p mastectomy. She doesn't have the muscle pump to assist in lymphedema managment. Due to arthritis in her left hand has difficulty reaching and providing MLD to her right UE. I feel she would benefit highly from the use of a pneumatic compression pump right UE to assist with lymphedema management in the home. Trial Airos 6 compression pump this date for 30 min at 30 mm Hg with decrease in circumferential measurements right UE noted after trial. Patient is highly interested and has caregivers that can assist with donning and doffing a compression pump sleeve and turning on a pump . Physical Therapy Plan Frequency and Duration Frequency of 20 visits Treatment Duration of 12 treatment (weeks) Plan of Care Start 05/08/25 Date Plan of Care End 08/07/25 Date Therapeutic Interventions Therapeutic Lymphedema Management,Manual Therapy,Self-Care/Home Interventions Management,Taping,Therapeutic Activities,Therapeutic Exercises Modalities Vasopneumatic Devices Next Visit Focus/Plan Next Note Type Treatment Note Next Visit Plan Continue CDT. Request sequential pneumatic pump for use in the home.
--- NOTE | 2025-06-18 16:00 | PT.OTN ---
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 (06/18/25) Lymphedema, not elsewhere classified (06/18/25) Other reduced mobility (06/18/25) Other specified health status (06/18/25) Physical Therapy Treatment Note PT OP: Lymphedema Upper Extremity Start: 05/08/25 10:45 Freq: Status: Active Protocol: Document 06/18/25 14:29 SAK (Rec: 06/18/25 16:00 SAK Laptop) Out-Patient Physical Therapy Visit Information Visit Information Visit Type Treatment Note Visit Start Time 14:31 Visit Stop Time 15:46 Visit Number 6 Number of ART STUDIO TEACHER Visits 0 Progress Note Due 07/08/25 Precautions Precautions PMH: Medical History (Updated 04/10/25 @ 10:36 by Francisca Driver DO) VTE (venous thromboembolism) 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 ( 09/03/11) History of malignant neoplasm of breast (2007) Osteomyelitis of lumbar spine Abscess in epidural space of lumbar spine Arthritis Easy bruisability Neuropathy Hypoglycemia Hepatitis A (1976) Edema Osteopenia after menopause MRSA (methicillin resistant staph aureus) culture positive Surgical site infection Underweight Scoliosis of thoracolumbar spine (~2006) Raynauds syndrome (09/03/11) Hypothyroid Neurogenic bladder Lymphedema Osteoarthritis Anemia Septic arthritis of hip (~08/2015) Genital herpes (Unknown) Cobalamin deficiency Neck pain Recurrent dislocation, left hip UTI (urinary tract infection) Diarrhea Surgical History (Updated 08/17/23 @ 16:01 by Francisca Driver DO) Total knee replacement status (~05/2020) History of arthroscopy of right knee (~04/2010) History of arthroplasty (~2009) S/P cervical spinal fusion (~12/2013) Status post hardware removal (~2009) Surgical procedure planned (~2006) History of arthroplasty (~2013) History of hip replacement Status post hysterectomy with oophorectomy Status post breast lumpectomy Status post laminectomy History of third molar tooth extraction Status post tonsillectomy and adenoidectomy Current Condition History of Current Condition Onset Date 4 years Current Complaints lymphedema right UE History of Current 2020 breast cancer had mastectomy R 2020 treated Condition with radiation. Reports gradual onset swelling right UE, after radiation right UE lost use of right UE due to nerve injury. Has severe limitations in scar tissue mobility, as well as radiation fibrosis. 2 weeks ago ordered compression sleeve and gauntlet combo; wearing today, fingers not in compression and highly swollen. Pt. to PT with caregiver Mandie; has radio time salesperson caregivers during the day, caregiver reports patient not able to do any of her self care and ADL's, has indwelling catheter. They report patient had to be discharged from Home Health PT to be able to come for outpatient lymphedema treatment. OP-PT Subjective Patient Comments Patient Comments Had melanoma frozen off right hand again. Saw Peyton at [facility] regarding compression garments and possible splint. Now awaiting garments Shoulder Goniometric Range of Motion Shoulder ROM Limitations Shoulder ROM Soft Tissue Tightness,Contracture,Pain,Swelling Limitations Wrist Goniometric Range of Motion ROM Limitations Wrist Limitations of Soft Tissue Tightness,Pain,Swelling Range of Motion Lymphedema Treatment Manual Lymphatic Drainage Location for right UE lymphedema Comments supine and side utilizing anterior and posterior AAA, anterior AAI pathways Other Other Soft tissue mobilization with medium silicone cupping tool and MFR after massage cr applied right chest and subaxillary region; dynamic at edges of fibrotic tissue. Instructed caregiver Winnie in use of Airos 6 sequential pneumatic pump 30 mm Hg x 60 min with good eunice, decrease in circumferential measurements. Physical Therapy Assessment Goals Two Impairment Lymphedema life impact scale 51% Ear Nose Throat Surgeon Goal (LTG) Decrease score to no greater than 25% as measure of improved function and quality of life 06/05/25:Goal progress, demonstrating improved understanding, has obtained compression glove and gauntlet, may need to consider velcro-type garment LTG Duration 08/07/25 One Impairment lymphedema right UE Short Term Goal (STG Patient will be instructed in all aspects of lymphedema ) self-care to include skin care, elevation, self- massage, self-bandaging/compression options, and lymphedema exercises. 06/05/25: goal mostly met; continue pt and caregiver education techniques MLD and compression options STG Duration 06/07/25 Ear Nose Throat Surgeon Goal (LTG) Decrease patient?s lymphedema to a stable level (no increase or decrease greater than 1 cm over the course of 1 week), patient to be independent with all aspects of self-care for lymphedema, and will obtain appropriate compression garment for lymphedema management in the home. LTG Duration 08/07/25 Assessment Summary Assessment Instructed caregiver Winnie in set up and use of Airos 6 sequential pneumatic pump. Pump applied for 60 min, soft tissue mobilization applied right subaxillary and chest regions; MFR and IASTM with small suction cup, noting improved soft tissue mobility. Decrease in visible puffiness right hand after sequential pneumatic pump use.. Physical Therapy Plan Frequency and Duration Frequency of 20 visits Treatment Duration of 12 treatment (weeks) Plan of Care Start 05/08/25 Date Plan of Care End 08/07/25 Date Therapeutic Interventions Therapeutic Lymphedema Management,Manual Therapy,Self-Care/Home Interventions Management,Taping,Therapeutic Activities,Therapeutic Exercises Modalities Vasopneumatic Devices Next Visit Focus/Plan Next Note Type Treatment Note Next Visit Plan Continue CDT. Instruct caregivers in use of sequential pneumatic pump
--- NOTE | 2025-06-20 12:28 | PT.OTN ---
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 (06/20/25) Lymphedema, not elsewhere classified (06/20/25) Other reduced mobility (06/20/25) Other specified health status (06/20/25) Physical Therapy Treatment Note PT OP: Lymphedema Upper Extremity Start: 05/08/25 10:45 Freq: Status: Active Protocol: Document 06/20/25 10:45 AB (Rec: 06/20/25 12:28 AB [id number]) Out-Patient Physical Therapy Visit Information Visit Information Visit Type Re-Evaluation Visit Start Time 10:53 Visit Stop Time 12:21 Visit Number 7 Number of ASSOCIATE PROFESSOR OF HISTORY Visits 1 Progress Note Due 07/08/25 Precautions Precautions PMH: Medical History (Updated 04/10/25 @ 10:36 by Francisca Driver DO) VTE (venous thromboembolism) 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 ( 09/03/11) History of malignant neoplasm of breast (2007) Osteomyelitis of lumbar spine Abscess in epidural space of lumbar spine Arthritis Easy bruisability Neuropathy Hypoglycemia Hepatitis A (1976) Edema Osteopenia after menopause MRSA (methicillin resistant staph aureus) culture positive Surgical site infection Underweight Scoliosis of thoracolumbar spine (~2006) Raynauds syndrome (09/03/11) Hypothyroid Neurogenic bladder Lymphedema Osteoarthritis Anemia Septic arthritis of hip (~08/2015) Genital herpes (Unknown) Cobalamin deficiency Neck pain Recurrent dislocation, left hip UTI (urinary tract infection) Diarrhea Surgical History (Updated 08/17/23 @ 16:01 by Francisca Driver DO) Total knee replacement status (~05/2020) History of arthroscopy of right knee (~04/2010) History of arthroplasty (~2009) S/P cervical spinal fusion (~12/2013) Status post hardware removal (~2009) Surgical procedure planned (~2006) History of arthroplasty (~2013) History of hip replacement Status post hysterectomy with oophorectomy Status post breast lumpectomy Status post laminectomy History of third molar tooth extraction Status post tonsillectomy and adenoidectomy OP-PT Subjective Patient Comments Patient Comments Bandages on R hand have not et been removed. Caregiver reports she is using the garments she has had for months, and measuring for new garments were on WednesdayJun 18. Lymphedema Measurements Upper Extremity Circumference Measurements Right Affected MCP 18.1 cm Dorsum of Hand 18.2 cm Wrist 15.9 cm 5 cm From Wrist 13.8 cm Crease 10 cm From Wrist 14.9 cm Crease 15 cm From Wrist 17.1 cm Crease 20 cm From Wrist 21.4 cm Crease 25 cm From Wrist 24.9 cm Crease 30 cm From Wrist 25.3 cm Crease 35 cm From Wrist 24.9 cm Crease Elbow Joint 24.8 cm Manual Therapy Treatment Consent Patient gave verbal Yes consent for manual treatment Soft Tissue Mobilization UE Scar tissue Mobilization Type Cross-Friction,Instrument Assisted,Rolling Intensity/Depth Moderate Body Position Hooklying Comments smallest soft cup to scar tissue with AA shoulder scaption and abd R UE. Lymphedema Treatment Manual Lymphatic Drainage Location for right UE lymphedema Comments supine and side utilizing anterior and posterior AAA, anterior AAI pathways avoiding sacral area/ due to wound bandage, patient reports having 20 years. Lymphedema Wrapping Materials Juzo glove and compression sleeve donned by caregiver with assist of donning aid and ASSOCIATE PROFESSOR OF HISTORY holding UE to assist with donning sleeve. Sequential Lymphedema Exercises Comments scap squeeze, shoulder shrugs X 15, breathing from diaphragm with tactile cues, AA supination, pronation supine ation lbow flex ext with UE supported, supine AA hands clasped flexion and fwd press, supine LTR, sidelying upper trunk rotation/seated Compression Pump Treatment Treatment Location Right Arm Pressure Amount ( 24 mmHg) (mmHG) Treatment Comments 30 min Caregiver instructed in use of pump Physical Therapy Assessment Goals Two Impairment Lymphedema life impact scale 51% Barrer And Tacker Goal (LTG) Decrease score to no greater than 25% as measure of improved function and quality of life 06/05/25:Goal progress, demonstrating improved understanding, has obtained compression glove and gauntlet, may need to consider velcro-type garment LTG Duration 08/07/25 One Impairment lymphedema right UE Short Term Goal (STG Patient will be instructed in all aspects of lymphedema ) self-care to include skin care, elevation, self- massage, self-bandaging/compression options, and lymphedema exercises. 06/05/25: goal mostly met; continue pt and caregiver education techniques MLD and compression options STG Duration 06/07/25 Barrer And Tacker Goal (LTG) Decrease patient?s lymphedema to a stable level (no increase or decrease greater than 1 cm over the course of 1 week), patient to be independent with all aspects of self-care for lymphedema, and will obtain appropriate compression garment for lymphedema management in the home. LTG Duration 08/07/25 Assessment Summary Assessment 30 cm and dorsum measurement inc, 2 measurements same, all others better. Post manual and pump Dorsum 17.6 cm R UE 30 cm from wrist crease 24.2 cm, ie decrease in both areas. Physical Therapy Plan Frequency and Duration Frequency of 20 visits Treatment Duration of 12 treatment (weeks) Plan of Care Start 05/08/25 Date Plan of Care End 08/07/25 Date Next Visit Focus/Plan Next Note Type Treatment Note Next Visit Plan Continue CDT. Instruct caregivers in use of sequential pneumatic pump
--- NOTE | 2025-06-25 14:34 | PT.OTN ---
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 (06/25/25) Lymphedema, not elsewhere classified (06/25/25) Other reduced mobility (06/25/25) Other specified health status (06/25/25) Physical Therapy Treatment Note PT OP: Lymphedema Upper Extremity Start: 05/08/25 10:45 Freq: Status: Active Protocol: Document 06/25/25 12:57 SAK (Rec: 06/25/25 13:22 SAK Laptop) Out-Patient Physical Therapy Visit Information Visit Information Visit Type Treatment Note Visit Start Time 13:00 Visit Stop Time 14:25 Visit Number 8 Number of AXLE BEARING POLISHER Visits 0 Progress Note Due 07/08/25 Precautions Precautions PMH: Medical History (Updated 04/10/25 @ 10:36 by Francisca Driver DO) VTE (venous thromboembolism) 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 ( 09/03/11) History of malignant neoplasm of breast (2007) Osteomyelitis of lumbar spine Abscess in epidural space of lumbar spine Arthritis Easy bruisability Neuropathy Hypoglycemia Hepatitis A (1976) Edema Osteopenia after menopause MRSA (methicillin resistant staph aureus) culture positive Surgical site infection Underweight Scoliosis of thoracolumbar spine (~2006) Raynauds syndrome (09/03/11) Hypothyroid Neurogenic bladder Lymphedema Osteoarthritis Anemia Septic arthritis of hip (~08/2015) Genital herpes (Unknown) Cobalamin deficiency Neck pain Recurrent dislocation, left hip UTI (urinary tract infection) Diarrhea Surgical History (Updated 08/17/23 @ 16:01 by Francisca Driver DO) Total knee replacement status (~05/2020) History of arthroscopy of right knee (~04/2010) History of arthroplasty (~2009) S/P cervical spinal fusion (~12/2013) Status post hardware removal (~2009) Surgical procedure planned (~2006) History of arthroplasty (~2013) History of hip replacement Status post hysterectomy with oophorectomy Status post breast lumpectomy Status post laminectomy History of third molar tooth extraction Status post tonsillectomy and adenoidectomy Current Condition History of Current Condition Onset Date 4 years Current Complaints lymphedema right UE History of Current 2020 breast cancer had mastectomy R 2020 treated Condition with radiation. Reports gradual onset swelling right UE, after radiation right UE lost use of right UE due to nerve injury. Has severe limitations in scar tissue mobility, as well as radiation fibrosis. 2 weeks ago ordered compression sleeve and gauntlet combo; wearing today, fingers not in compression and highly swollen. Pt. to PT with caregiver Mandie; has surveyor's assistant caregivers during the day, caregiver reports patient not able to do any of her self care and ADL's, has indwelling catheter. They report patient had to be discharged from Home Health PT to be able to come for outpatient lymphedema treatment. OP-PT Subjective Patient Comments Patient Comments No new c/o. No new garments yet. Lymphedema Measurements Upper Extremity Circumference Measurements Right Affected MCP 18.1 cm Dorsum of Hand 18.4 cm Wrist 15.7 cm 5 cm From Wrist 14.5 cm Crease 10 cm From Wrist 15.2 cm Crease 15 cm From Wrist 17.4 cm Crease 20 cm From Wrist 22 cm Crease 25 cm From Wrist 24.8 cm Crease 30 cm From Wrist 25.8 cm Crease 35 cm From Wrist 24.9 cm Crease 40 cm From Wrist 26 cm Crease Elbow Joint 24.8 cm Manual Therapy Treatment Consent Patient gave verbal Yes consent for manual treatment Soft Tissue Mobilization UE Scar tissue Mobilization Type Instrument Assisted,Myofascial Release,Rolling, Strumming Intensity/Depth Moderate Body Position Hooklying Comments medium silicone suction tool Lymphedema Treatment Manual Lymphatic Drainage Location for right UE lymphedema Comments supine and side utilizing anterior and posterior AAA, anterior AAI pathways avoiding sacral area/ due to wound bandage, Lymphedema Wrapping Materials Juzo glove and compression sleeve donned by caregiver with assist of donning aid and PT holding UE to assist with donning sleeve. Sequential Lymphedema Exercises Comments scap squeeze, shoulder shrugs X 15, breathing from diaphragm with tactile cues, AA supination, pronation supination elbow flex ext with UE supported, supine AA hands clasped flexion and fwd press, supine LTR, sidelying upper trunk rotation/seated Physical Therapy Assessment Goals Two Impairment Lymphedema life impact scale 51% Paper Cone Grader Goal (LTG) Decrease score to no greater than 25% as measure of improved function and quality of life 06/05/25:Goal progress, demonstrating improved understanding, has obtained compression glove and gauntlet, may need to consider velcro-type garment LTG Duration 08/07/25 One Impairment lymphedema right UE Short Term Goal (STG Patient will be instructed in all aspects of lymphedema ) self-care to include skin care, elevation, self- massage, self-bandaging/compression options, and lymphedema exercises. 06/05/25: goal mostly met; continue pt and caregiver education techniques MLD and compression options STG Duration 06/07/25 [facility] Goal (LTG) Decrease patient?s lymphedema to a stable level (no increase or decrease greater than 1 cm over the course of 1 week), patient to be independent with all aspects of self-care for lymphedema, and will obtain appropriate compression garment for lymphedema management in the home. LTG Duration 08/07/25 Assessment Summary Assessment Measurements mostly stable, small inc and dec throughout. Caregivers demonstrating improving understanding of assisting pt. with self care for lymphedema. They report new caregiver will be at next appointment. Physical Therapy Plan Frequency and Duration Frequency of 20 visits Treatment Duration of 12 treatment (weeks) Plan of Care Start 05/08/25 Date Plan of Care End 08/07/25 Date Therapeutic Interventions Therapeutic Lymphedema Management,Manual Therapy,Self-Care/Home Interventions Management,Taping,Therapeutic Activities,Therapeutic Exercises Modalities Vasopneumatic Devices Next Visit Focus/Plan Next Note Type Treatment Note Next Visit Plan Continue CDT. Instruct caregivers in use of sequential pneumatic pump, all aspects of lymphedema care. Pt. awaiting new compression garments and approval for sequential pneumatic pump for home use.
--- NOTE | 2025-06-27 18:10 | PT.OTN ---
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 (06/27/25) Lymphedema, not elsewhere classified (06/27/25) Other reduced mobility (06/27/25) Other specified health status (06/27/25) Physical Therapy Treatment Note PT OP: Lymphedema Upper Extremity Start: 05/08/25 10:45 Freq: Status: Active Protocol: Document 06/27/25 16:15 AB (Rec: 06/27/25 18:10 AB [id number]) Out-Patient Physical Therapy Visit Information Visit Information Visit Type Treatment Note Visit Start Time 16:18 Visit Stop Time 17:50 Visit Number 9 Number of MOTOR COACH TOUR OPERATOR Visits 1 Progress Note Due 07/08/25 Precautions Precautions PMH: Medical History (Updated 04/10/25 @ 10:36 by Francisca Driver DO) VTE (venous thromboembolism) 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 ( 09/03/11) History of malignant neoplasm of breast (2007) Osteomyelitis of lumbar spine Abscess in epidural space of lumbar spine Arthritis Easy bruisability Neuropathy Hypoglycemia Hepatitis A (1976) Edema Osteopenia after menopause MRSA (methicillin resistant staph aureus) culture positive Surgical site infection Underweight Scoliosis of thoracolumbar spine (~2006) Raynauds syndrome (09/03/11) Hypothyroid Neurogenic bladder Lymphedema Osteoarthritis Anemia Septic arthritis of hip (~08/2015) Genital herpes (Unknown) Cobalamin deficiency Neck pain Recurrent dislocation, left hip UTI (urinary tract infection) Diarrhea Surgical History (Updated 08/17/23 @ 16:01 by Francisca Driver DO) Total knee replacement status (~05/2020) History of arthroscopy of right knee (~04/2010) History of arthroplasty (~2009) S/P cervical spinal fusion (~12/2013) Status post hardware removal (~2009) Surgical procedure planned (~2006) History of arthroplasty (~2013) History of hip replacement Status post hysterectomy with oophorectomy Status post breast lumpectomy Status post laminectomy History of third molar tooth extraction Status post tonsillectomy and adenoidectomy OP-PT Subjective Patient Comments Patient Comments Patient reports feeling tired todayl Lymphedema Treatment Manual Lymphatic Drainage Location for right UE lymphedema Comments supine and side utilizing anterior and posterior AAA, anterior AAI pathways avoiding sacral area/ due to wound bandage, Lymphedema Wrapping Body Location Bandaging to all fingers R UE Materials Caregiver uses Jobst slide donning device to deandre compression sleeve for patient. Glove not donned due to sore on middle finger with instructions to go to emergency if redness around sore increases and to make MD appointment. Glove/finger bandaging not in place due to need to monitor sore. Other assist to hold UE for caregiver to deandre Reviewed precautions for removing finger bandaging pain , redness that does not leana, difficulty breathing, chest pain also advised to pull back sleeve periodically to check for redness from finger spreading Sequential Lymphedema Exercises Comments scap squeeze, shoulder shrugs X 15, breathing from diaphragm with tactile cues, supine AA hands clasped fwd press, Compression Garment Assessment Compression Garment open/wound oval area .6 by.5 cm 3rd finger lateral side Assessment Details of finger at knuckle. Compression Pump Treatment Treatment Location Right Arm Pressure Amount ( 30 mmHg) (mmHG) Treatment Comments 14 min Caregiver instructed in use of pump Physical Therapy Assessment Goals Two Impairment Lymphedema life impact scale 51% Retirement Goal (LTG) Decrease score to no greater than 25% as measure of improved function and quality of life 06/05/25:Goal progress, demonstrating improved understanding, has obtained compression glove and gauntlet, may need to consider velcro-type garment LTG Duration 08/07/25 One Impairment lymphedema right UE Short Term Goal (STG Patient will be instructed in all aspects of lymphedema ) self-care to include skin care, elevation, self- massage, self-bandaging/compression options, and lymphedema exercises. 06/05/25: goal mostly met; continue pt and caregiver education techniques MLD and compression options STG Duration 06/07/25 Supervisor Tellers Goal (LTG) Decrease patient?s lymphedema to a stable level (no increase or decrease greater than 1 cm over the course of 1 week), patient to be independent with all aspects of self-care for lymphedema, and will obtain appropriate compression garment for lymphedema management in the home. LTG Duration 08/07/25 Assessment Summary Assessment Noted small wound with redness surrounding on middle finger joint between DIP and PIP ( knuckle). Made PTPaulina aware and post discussion proceeding with finger bandaging and sleeve this session and to avoid using the glove at this time. Patient and caregiver advised to make MD appointment and to go to ED if redness around wound increases. Physical Therapy Plan Frequency and Duration Frequency of 20 visits Treatment Duration of 12 treatment (weeks) Plan of Care Start 05/08/25 Date Plan of Care End 08/07/25 Date Next Visit Focus/Plan Next Note Type Treatment Note Next Visit Plan Continue CDT. Instruct caregivers in use of sequential pneumatic pump, all aspects of lymphedema care. Pt. awaiting new compression garments and approval for sequential pneumatic pump for home use.
--- NOTE | 2025-07-03 12:02 | PT.OTN ---
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 (07/03/25) Lymphedema, not elsewhere classified (07/03/25) Other reduced mobility (07/03/25) Other specified health status (07/03/25) Physical Therapy Treatment Note PT OP: Lymphedema Upper Extremity Start: 05/08/25 10:45 Freq: Status: Active Protocol: Document 07/03/25 10:43 SAK (Rec: 07/03/25 11:33 SAK Laptop) Out-Patient Physical Therapy Visit Information Visit Information Visit Type Treatment Note Visit Start Time 10:45 Visit Stop Time 12:10 Visit Number 10 Number of CHEESE TESTER Visits 0 Progress Note Due 07/08/25 Precautions Precautions PMH: Medical History (Updated 04/10/25 @ 10:36 by Francisca Driver DO) VTE (venous thromboembolism) 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 ( 09/03/11) History of malignant neoplasm of breast (2007) Osteomyelitis of lumbar spine Abscess in epidural space of lumbar spine Arthritis Easy bruisability Neuropathy Hypoglycemia Hepatitis A (1976) Edema Osteopenia after menopause MRSA (methicillin resistant staph aureus) culture positive Surgical site infection Underweight Scoliosis of thoracolumbar spine (~2006) Raynauds syndrome (09/03/11) Hypothyroid Neurogenic bladder Lymphedema Osteoarthritis Anemia Septic arthritis of hip (~08/2015) Genital herpes (Unknown) Cobalamin deficiency Neck pain Recurrent dislocation, left hip UTI (urinary tract infection) Diarrhea Surgical History (Updated 08/17/23 @ 16:01 by Francisca Driver DO) Total knee replacement status (~05/2020) History of arthroscopy of right knee (~04/2010) History of arthroplasty (~2009) S/P cervical spinal fusion (~12/2013) Status post hardware removal (~2009) Surgical procedure planned (~2006) History of arthroplasty (~2013) History of hip replacement Status post hysterectomy with oophorectomy Status post breast lumpectomy Status post laminectomy History of third molar tooth extraction Status post tonsillectomy and adenoidectomy Current Condition History of Current Condition Onset Date 4 years Current Complaints lymphedema right UE History of Current 2020 breast cancer had mastectomy R 2020 treated Condition with radiation. Reports gradual onset swelling right UE, after radiation right UE lost use of right UE due to nerve injury. Has severe limitations in scar tissue mobility, as well as radiation fibrosis. 2 weeks ago ordered compression sleeve and gauntlet combo; wearing today, fingers not in compression and highly swollen. Pt. to PT with caregiver Mandie; has multimedia services manager caregivers during the day, caregiver reports patient not able to do any of her self care and ADL's, has indwelling catheter. They report patient had to be discharged from Home Health PT to be able to come for outpatient lymphedema treatment. OP-PT Subjective Patient Comments Patient Comments Went to see Dr. Driver, no infection, continue not wearing compression glove, continue with current bandages on knuckles between fingers. Lymphedema Measurements Upper Extremity Circumference Measurements Right Affected MCP 18.5 cm Dorsum of Hand 18.6 cm Wrist 15.7 cm 5 cm From Wrist 14.5 cm Crease 10 cm From Wrist 15.2 cm Crease 15 cm From Wrist 17.4 cm Crease 20 cm From Wrist 22 cm Crease 25 cm From Wrist 24.8 cm Crease 30 cm From Wrist 25.8 cm Crease 35 cm From Wrist 24.9 cm Crease 40 cm From Wrist 26 cm Crease Elbow Joint 24.8 cm Lymphedema Treatment Manual Lymphatic Drainage Location for right UE lymphedema Comments supine and side utilizing anterior and posterior AAA, anterior AAI pathways avoiding sacral area/ due to wound bandage, Lymphedema Wrapping Materials Caregiver uses Car Throttle slide donning device to deandre compression sleeve for patient. Other assist to hold UE for caregiver to deandre Reviewed precautions for removing finger bandaging pain , redness that does not leana, difficulty breathing, chest pain also advised to pull back sleeve periodically to check for redness from finger spreading Sequential Lymphedema Exercises Comments scap squeeze, shoulder shrugs X 15, breathing from diaphragm with tactile cues, supine AA hands clasped fwd press, Compression Garment Assessment Compression Garment blister donut bandages on 2nd and third fingers at Assessment Details knuckles, wounds healing well. Wearing only compression sleeve, no glove Compression Pump Treatment Treatment Location Right Arm Pressure Amount ( 30 mmHg) (mmHG) Treatment Comments 14 min Caregiver instructed in use of pump Physical Therapy Assessment Goals Two Impairment Lymphedema life impact scale 51% Mcc Goal (LTG) Decrease score to no greater than 25% as measure of improved function and quality of life 06/05/25:Goal progress, demonstrating improved understanding, has obtained compression glove and gauntlet, may need to consider velcro-type garment LTG Duration 08/07/25 One Impairment lymphedema right UE Short Term Goal (STG Patient will be instructed in all aspects of lymphedema ) self-care to include skin care, elevation, self- massage, self-bandaging/compression options, and lymphedema exercises. 06/05/25: goal mostly met; continue pt and caregiver education techniques MLD and compression options STG Duration 06/07/25 Mcc Goal (LTG) Decrease patient?s lymphedema to a stable level (no increase or decrease greater than 1 cm over the course of 1 week), patient to be independent with all aspects of self-care for lymphedema, and will obtain appropriate compression garment for lymphedema management in the home. LTG Duration 08/07/25 Assessment Summary Assessment Fingers appear to be healing with current care, donut bandages at knuckles appear to be working well. No glove, prefers no bandaging at fingers/hand; wearing splint at wrist, mild increase in finger swelling, reviwed finger MLD. Good caregiver support at home. Physical Therapy Plan Frequency and Duration Frequency of 20 visits Treatment Duration of 12 treatment (weeks) Plan of Care Start 05/08/25 Date Plan of Care End 08/07/25 Date Therapeutic Interventions Therapeutic Lymphedema Management,Manual Therapy,Self-Care/Home Interventions Management,Taping,Therapeutic Activities,Therapeutic Exercises Modalities Vasopneumatic Devices Next Visit Focus/Plan Next Note Type Treatment Note Next Visit Plan Next scheduled appt. 08/07/25 to assess self care progress. Will issue pump if takes that long to arrive or isssue sooner as caregivers have been trained.
--- NOTE | 2025-07-12 16:54 | PT.OPDS ---
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 (07/12/25) Lymphedema, not elsewhere classified (07/12/25) Other reduced mobility (07/12/25) Other specified health status (07/12/25) Visit Care Team Role Provider Type Francisca Driver DO Attending Provider Physician Family Provider Primary Care Provider Referring Provider Specialty: Medical Address: [address] [place] [address], [address], [place], [address] Email: [email or web address] Visit Number Visit Number 11 Discharge Summary PT OP: Lymphedema Upper Extremity Start: 05/08/25 10:45 Freq: Status: Active Protocol: Document 07/12/25 16:00 SAK (Rec: 07/12/25 16:53 SAK Laptop) Out-Patient Physical Therapy Visit Information Visit Information Visit Type Treatment Note Visit Start Time 16:01 Visit Stop Time 16:39 Visit Number 11 Number of STOPPING BUILDER Visits 0 Precautions Precautions PMH: Medical History (Updated 04/10/25 @ 10:36 by Francisca Driver DO) VTE (venous thromboembolism) 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 ( 09/03/11) History of malignant neoplasm of breast (2007) Osteomyelitis of lumbar spine Abscess in epidural space of lumbar spine Arthritis Easy bruisability Neuropathy Hypoglycemia Hepatitis A (1976) Edema Osteopenia after menopause MRSA (methicillin resistant staph aureus) culture positive Surgical site infection Underweight Scoliosis of thoracolumbar spine (~2006) Raynauds syndrome (09/03/11) Hypothyroid Neurogenic bladder Lymphedema Osteoarthritis Anemia Septic arthritis of hip (~08/2015) Genital herpes (Unknown) Cobalamin deficiency Neck pain Recurrent dislocation, left hip UTI (urinary tract infection) Diarrhea Surgical History (Updated 08/17/23 @ 16:01 by Francisca Driver DO) Total knee replacement status (~05/2020) History of arthroscopy of right knee (~04/2010) History of arthroplasty (~2009) S/P cervical spinal fusion (~12/2013) Status post hardware removal (~2009) Surgical procedure planned (~2006) History of arthroplasty (~2013) History of hip replacement Status post hysterectomy with oophorectomy Status post breast lumpectomy Status post laminectomy History of third molar tooth extraction Status post tonsillectomy and adenoidectomy Lymphedema Treatment Other Other Educated caregiver in use of patient's Airos 6 compression pump shipped to our department; she demonstrated good understanding set up and use, took copious notes. Advised use of foam between knuckles to prevent skin breakdown and issued 8 x 4 piece of black foam for use at home. Pump issued. No further PT needs. Patient will be discharged. Compression Pump Treatment Treatment Location Right Arm Pressure Amount ( 30 mmHg) (mmHG) Treatment Comments Educated caregiver in use of patient's Airos 6 compression pump shipped to our department; she demonstrated good understanding set up and use, took copious notes. Advised use of foam between knuckles to prevent skin breakdown and issued 8 x 4 piece of black foam for use at home. Pump issued. No further PT needs. Patient will be discharged. Physical Therapy Assessment Goals Two Impairment Lymphedema life impact scale 51% Half-Way Goal (LTG) Decrease score to no greater than 25% as measure of improved function and quality of life 06/05/25:Goal progress, demonstrating improved understanding, has obtained compression glove and gauntlet, may need to consider velcro-type garment LTG Duration goal met One Impairment lymphedema right UE Short Term Goal (STG Patient will be instructed in all aspects of lymphedema ) self-care to include skin care, elevation, self- massage, self-bandaging/compression options, and lymphedema exercises. 06/05/25: goal mostly met; continue pt and caregiver education techniques MLD and compression options STG Duration goal met Half-Way Goal (LTG) Decrease patient?s lymphedema to a stable level (no increase or decrease greater than 1 cm over the course of 1 week), patient to be independent with all aspects of self-care for lymphedema, and will obtain appropriate compression garment for lymphedema management in the home. LTG Duration goal met Assessment Summary Assessment Educated caregiver in use of patient's Airos 6 compression pump shipped to our department; she demonstrated good understanding set up and use, took copious notes. Advised use of foam between knuckles to prevent skin breakdown and issued 8 x 4 piece of black foam for use at home. Pump issued. No further PT needs. Patient will be discharged. Physical Therapy Plan Discharge Physical Therapy Discharge Reasons Goals Met
== END 2025-07-13 10:42 | disposition home or self-care (01) ==
LOC: PHYS 16:00
PROVIDERS: Family Provider Family Medicine; PCP Family Medicine; Referring Provider Family Medicine; Visit Provider Family Medicine
DX: I89.0 Lymphedema, not elsewhere classified (principal); Z74.09 Other reduced mobility; Z78.9 Other specified health status; G83.20 Monoplegia of upper limb affecting unspecified side
CPT/HCPCS: 97016; 97110; 97140; 97162; 97530; 97535